=== PATIENT | male | born 1970 | race American Indian/Alaskan Native ===

== ENCOUNTER 2016-05-29 15:24 | Emergency (ER) | payer MEDICARE ==
[2016-05-29] MEDS ORDERED: ZOFRAN ONE (16:17)
[2016-05-29] MEDS ORDERED: ZOFRAN IV ONE (16:23)
[2016-05-29 16:46] LABS: BUN/Creatinine Ratio 7.06; Calcium 9.2 mg/dL (8.4-10.2); Chloride 93.1 mmol/L (98-107)
[2016-05-29 16:48] LABS: Basophils % (Auto) 0.2 % (0.0-1.8); Hematocrit 32.2 % (35.5-45.6); Hemoglobin 10.5 gm/dl (11.8-15.2); Mean Corpuscular HGB Conc 33 % (32-34); Mean Corpuscular Hemoglobin 31 pg (28-32); Mean Corpuscular Volume 96 fl (84-94); Platelet Count 192 K/mm3 (140-440); Red Blood Count 3.37 M/mm3 (3.65-5.03); Red Cell Distribution Width 14.4 % (13.2-15.2)
[2016-05-29] MEDS ORDERED: REGLAN IV ONE (17:01)
[2016-05-29] MEDS ORDERED: SUBLIMAZE IV ONE (17:01)
--- NOTE | 2016-05-29 17:08 | Emergency Department Report ---
HPI - General Chief Complaint: Hyperglycemia Time Seen by Provider: 05/29/16 16:55 - HPI HPI: Room 19 The patient is a 46-year-old male presenting with a chief complaint of nausea and vomiting. The patient states yesterday after eating a turkey sandwich from [employer] immediately developed nausea vomiting. Patient states she's been vomiting since yesterday. Patient denies diarrhea or fever. Patient describes mild left-sided abdominal pain. The patient states his symptoms feel consistent with his gastroparesis. Patient states she has not taken his insulin since last night Location: Gastrointestinal system Duration: Constant since yesterday Quality: Nausea Severity: Moderate Modifying factors: [see above] Context: [see above] Mode of transportation: Unknown ED Past Medical Hx - Past Medical History Previous Medical History?: Yes Hx Hypertension: Yes Hx Diabetes: Yes Hx Renal Disease: Yes (Dialysis , , Sat) Additional medical history: Gastroperesis - Surgical History Past Surgical History?: Yes Additional Surgical History: fistula in left arm - Family History Family history: no significant - Social History Smoking Status: Never Smoker Substance Use Type: None - Medications Home Medications: Home Medications Medication Instructions Recorded Confirmed Last Taken Type Insulin Aspart Prot/Aspart(Nf) 20 units SQ QHS 07/19/13 05/29/16 07/17/13 History [Novolog Mix 70/30] Insulin Aspart Prot/Aspart(Nf) 39 unit SQ QAM 07/19/13 05/29/16 07/18/13 History [Novolog Mix 70/30] amLODIPine [Norvasc] 5 mg PO DAILY 07/19/13 05/29/16 07/18/13 History Dicyclomine [Bentyl] 10 mg PO QID 05/29/16 05/29/16 Unknown History HYDROcodone/APAP 5-325 [[place] 1 - 2 each PO Q6HR PRN #14 tablet 05/29/16 Unknown Rx 5/325] Promethazine [Phenergan TAB] 25 mg PO Q6HR PRN #20 tab 05/29/16 Unknown Rx Promethazine [Phenergan] 25 mg AL Q6HR PRN #5 supp.rect 05/29/16 Unknown Rx ED Review of Systems ROS: Stated complaint: HIGH BLOOD SUGAR Other details as noted in HPI Comment: All other systems reviewed and negative Constitutional: denies: fever Eyes: denies: eye pain, eye discharge, vision change ENT: denies: ear pain, throat pain Respiratory: denies: cough, shortness of breath, wheezing Cardiovascular: denies: chest pain, palpitations Endocrine: no symptoms reported Gastrointestinal: abdominal pain, nausea, vomiting. denies: diarrhea Genitourinary: denies: urgency, dysuria Musculoskeletal: denies: back pain, joint swelling, arthralgia Skin: denies: rash, lesions Neurological: denies: headache, weakness, paresthesias Psychiatric: denies: anxiety, depression Hematological/Lymphatic: denies: easy bleeding, easy bruising Physical Exam - Physical Exam Vital Signs: Vital Signs 05/29/16 05/29/16 05/29/16 15:52 16:00 16:02 Temperature 98.6 F Pulse Rate 91 H 89 89 Respiratory 23 20 Rate Blood Pressure 181/68 Blood Pressure 181/68 [Left] O2 Sat by Pulse 100 100 Oximetry 05/29/16 05/29/16 05/29/16 16:10 16:20 16:30 Temperature Pulse Rate 90 87 88 Respiratory 25 H 18 17 Rate Blood Pressure 180/69 157/61 157/63 Blood Pressure [Left] O2 Sat by Pulse 100 96 87 Oximetry 05/29/16 05/29/16 05/29/16 16:40 16:50 16:56 Temperature Pulse Rate 89 89 Respiratory 18 16 20 Rate Blood Pressure 157/61 187/84 Blood Pressure [Left] O2 Sat by Pulse 89 92 100 Oximetry Physical Exam: GENERAL: The patient is well-developed well-nourished male lying on stretcher appearing to be in moderate discomfort. [] HEENT: Normocephalic. Atraumatic. Extraocular motions are intact. Patient has moist mucous membranes. NECK: Supple. Trachea midline CHEST/LUNGS: Clear to auscultation. There is no respiratory distress noted. HEART/CARDIOVASCULAR: Regular. There is no tachycardia. There is no gallop rub or murmur. ABDOMEN: Abdomen is soft, no rebound or guarding. Patient has normal bowel sounds. There is no abdominal distention. SKIN: There is no rash. There is no edema. There is no diaphoresis. NEURO: The patient is awake, alert, and oriented. The patient is cooperative. The patient has normal speech MUSCULOSKELETAL: There is no evidence of acute injury. ED Course Vital Signs 05/29/16 05/29/1617 15:52 16:00 16:02 Temperature 98.6 F Pulse Rate 91 H 89 89 Respiratory 23 20 Rate Blood Pressure 181/68 Blood Pressure 181/68 [Left] O2 Sat by Pulse 100 100 Oximetry 05/29/16 05/29/16 05/29/16 16:10 16:20 16:30 Temperature Pulse Rate 90 87 88 Respiratory 25 H 18 17 Rate Blood Pressure 180/69 157/61 157/63 Blood Pressure [Left] O2 Sat by Pulse 100 96 87 Oximetry 05/29/16 05/29/16 05/29/16 16:40 16:50 16:56 Temperature Pulse Rate 89 89 Respiratory 18 16 20 Rate Blood Pressure 157/61 187/84 Blood Pressure [Left] O2 Sat by Pulse 89 92 100 Oximetry - Reevaluation(s) Reevaluation #1: 05/29/16 20:37 Patient states he feels better ED Medical Decision Making - Lab Data Result diagrams: 05/29/16 16:08 05/29/16 16:08 Laboratory Tests 05/29/16 05/29/16 05/29/16 16:08 16:08 16:08 WBC 9.0 RBC 3.37 L Hgb 10.5 L Hct 32.2 L MCV 96 H MCH 31 MCHC 33 RDW 14.4 Plt Count 192 Lymph % (Auto) 11.2 L [place] % (Auto) 6.0 Eos % (Auto) 0.0 Baso % (Auto) 0.2 Lymph # 1.0 L [place] # 0.5 Eos # 0.0 Baso # 0.0 Seg Neutrophils % 82.6 H Seg Neutrophils # 7.4 VBG pH 7.394 Sodium 138 Potassium 4.0 Chloride 93.1 L Carbon Dioxide 20 L Anion Gap 29 BUN 65 H Creatinine 9.2 H Estimated GFR 8 BUN/Creatinine Ratio 7.06 Glucose 512 H* Calcium 9.2 - Differential Diagnosis gastroparesis, gastritis, food borne illness Critical care attestation.: If time is entered above; I have spent that time in minutes in the direct care of this critically ill patient, excluding procedure time. ED Disposition Clinical Impression: Nausea & vomiting, Gastroparesis, Hyperglycemia Disposition: DISCHARGED TO HOME OR SELFCARE Is pt being admited?: No Does the pt Need Aspirin: No Condition: Stable Instructions: Acute Nausea and Vomiting (ED) Additional Instructions: Return to the emergency department immediately should you develop worsening symptoms, fever, inability to tolerate food or liquid or any other concerns. Prescriptions: HYDROcodone/APAP 5-325 [[place] 5/325] 1 - 2 each PO Q6HR PRN #14 tablet PRN Reason: Pain Promethazine [Phenergan TAB] 25 mg PO Q6HR PRN #20 tab PRN Reason: Nausea Promethazine [Phenergan] 25 mg AL Q6HR PRN #5 supp.rect PRN Reason: Nausea Referrals: PRIMARY CARE, [Primary Care Provider] - 3-5 Days EL BARTON MD [Staff Physician] - 3-5 Days Time of Disposition: 20:39
[2016-05-29 18:20] LABS: Bilirubin,Urine NEG (Negative); Blood,Urine LG (Negative); Ketones,Urine TR mg/dL (Negative); Leukocyte Esterase,Urine NEG (Negative); Nitrite,Urine NEG (Negative); Urobilinogen,Urine < 2.0 mg/dL (<2.0)
[2016-05-29 21:05] VITALS: BP 152/77
== END 2016-05-29 21:03 | disposition home or self-care (01) ==
LOC: ED 15:24
DX: K31.84 Gastroparesis (principal); E11.65 Type 2 diabetes mellitus with hyperglycemia; I10 Essential (primary) hypertension; Z79.4 Long term (current) use of insulin
CPT/HCPCS: 36415; 80048; 81001; 82010; 82805; 82962; 85025; 96374; 96375; 96376; 99284; J2405; J2765; J3010; J1815

== ENCOUNTER 2017-02-23 18:55 | Inpatient (IN) | payer MEDICARE ==
[2017-02-23 19:27] LABS: Basophils % (Auto) 0.6 % (0.0-1.8); Eosinophils % (Auto) 0.6 % (0.0-4.3); Hematocrit 30.3 % (35.5-45.6); Lymphocytes # (Auto) 1.1 K/mm3 (1.2-5.4); Lymphocytes % (Auto) 13.2 % (13.4-35.0); Mean Corpuscular HGB Conc 33 % (32-34); Mean Corpuscular Hemoglobin 31 pg (28-32); Mean Corpuscular Volume 95 fl (84-94); Monocytes # (Auto) 0.8 K/mm3 (0.0-0.8); Monocytes % (Auto) 9.7 % (0.0-7.3); Platelet Count 263 K/mm3 (140-440); Red Cell Distribution Width 13.7 % (13.2-15.2)
[2017-02-23 19:44] LABS: Calcium 8.5 mg/dL (8.4-10.2)
[2017-02-23 21:20] LABS: Bacteria,Urine 1+ /HPF (Negative); Bilirubin,Urine NEG (Negative); Blood,Urine MOD (Negative); Color,Urine Yellow (Yellow); Mucus,Urine FEW /HPF; Nitrite,Urine NEG (Negative); Urobilinogen,Urine < 2.0 mg/dL (<2.0)
[2017-02-24] MEDS ORDERED: ZOFRAN IV ONE (01:18)
[2017-02-24] MEDS ORDERED: TORADOL IV ONE (01:18)
[2017-02-24] MEDS ORDERED: MORPHINE IV ONE (01:18)
--- NOTE | 2017-02-24 01:25 | Emergency Department Report ---
ED N/V/D HPI - General Chief complaint: Nausea/Vomiting/Diarrhea Stated complaint: NAUSEA/VOMITING Time Seen by Provider: 02/24/17 00:30 Source: patient Mode of arrival: Wheelchair Limitations: No Limitations - History of Present Illness Initial comments: 47 YO MALE PT IS NAUSEA, VOMITING INTERMITTENT SINCE 02/18/17 HE ALSO C/O RIGHT FOOT PAIN. HE FEELS HAS DECUBITUS FOOT ULCERATIONS AND JUST FINISHED AMOXICILIN BUT THEY HAVE NOT IMPROVED.. HE HAS A RUNNY NOSE, RIGHT EAR PAIN, FEVER AND CHILLS. HE AND DIALYSIS TODAY. HE IS HAVIANG MUSCLE ACHES. MD complaint: nausea, vomiting -: week(s) (1) Description of Vomiting: food contents Associated Abdominal Pain: No Context: other (UNKNOWN,PERHAP[S DM TYPE II) - Related Data Home Medications Medication Instructions Recorded Confirmed Last Taken Insulin Aspart Prot/Aspart(Nf) 20 units SQ QHS 07/19/13 05/29/16 07/17/13 [Novolog Mix 70/30] Insulin Aspart Prot/Aspart(Nf) 39 unit SQ QAM 07/19/13 05/29/16 07/18/13 [Novolog Mix 70/30] amLODIPine [Norvasc] 5 mg PO DAILY 07/19/13 05/29/16 07/18/13 Dicyclomine [Bentyl] 10 mg PO QID 05/29/16 05/29/16 Unknown Previous Rx's Medication Instructions Recorded Last Taken Type HYDROcodone/APAP 5-325 [[place] 1 - 2 each PO Q6HR PRN #14 tablet 05/29/16 Unknown Rx 5/325] Promethazine [Phenergan TAB] 25 mg PO Q6HR PRN #20 tab 05/29/16 Unknown Rx Promethazine [Phenergan] [address] Q6HR PRN #5 supp.rect 05/29/16 Unknown Rx Allergies Allergy/AdvReac Type Severity Reaction Status Date / Time amoxicillin Allergy Vomiting Verified 02/23/17 19:02 cephalexin [From Keflex] Allergy Vomiting Verified 02/23/17 19:02 ED Review of Systems ROS: Stated complaint: NAUSEA/VOMITING Other details as noted in HPI Constitutional: chills, fever, malaise, weakness Eyes: denies: eye pain, eye discharge, vision change ENT: ear pain (RIGHT ). denies: throat pain Respiratory: denies: cough, shortness of breath, wheezing Cardiovascular: denies: chest pain, palpitations Endocrine: no symptoms reported Gastrointestinal: abdominal pain, nausea, vomiting. denies: diarrhea Genitourinary: denies: urgency, dysuria Musculoskeletal: denies: back pain, joint swelling, arthralgia Skin: denies: rash, lesions Neurological: denies: headache, weakness, paresthesias Psychiatric: denies: anxiety, depression Hematological/Lymphatic: denies: easy bleeding, easy bruising ED Past Medical Hx - Past Medical History Hx Hypertension: Yes Hx Diabetes: Yes Hx Renal Disease: Yes (Dialysis Tues, Th, Sat) Additional medical history: Gastroperesis - Surgical History Additional Surgical History: fistula in left arm - Social History Smoking Status: Never Smoker Substance Use Type: None - Medications Home Medications: Home Medications Medication Instructions Recorded Confirmed Last Taken Type Insulin Aspart Prot/Aspart(Nf) 20 units SQ QHS 07/19/13 05/29/16 07/17/13 History [Novolog Mix 70/30] Insulin Aspart Prot/Aspart(Nf) 39 unit SQ QAM 07/19/13 05/29/16 07/18/13 History [Novolog Mix 70/30] amLODIPine [Norvasc] 5 mg PO DAILY 07/19/13 05/29/16 07/18/13 History Dicyclomine [Bentyl] 10 mg PO QID 05/29/16 05/29/16 Unknown History HYDROcodone/APAP 5-325 [[place] 1 - 2 each PO Q6HR PRN #14 tablet 05/29/16 Unknown Rx 5/325] Promethazine [Phenergan TAB] 25 mg PO Q6HR PRN #20 tab 05/29/16 Unknown Rx Promethazine [Phenergan] [address] Q6HR PRN #5 supp.rect 05/29/16 Unknown Rx ED Physical Exam - General Limitations: No Limitations General appearance: alert, in no apparent distress - Head Head exam: Present: atraumatic, normocephalic - Eye Eye exam: Present: normal appearance, EOMI - ENT ENT exam: Present: mucous membranes moist - Neck Neck exam: Present: normal inspection, full ROM - Respiratory Respiratory exam: Present: normal lung sounds bilaterally. Absent: respiratory distress, wheezes, rales, rhonchi - Cardiovascular Cardiovascular Exam: Present: regular rate, normal rhythm. Absent: systolic murmur, diastolic murmur, rubs, gallop - GI/Abdominal GI/Abdominal exam: Present: soft, tenderness (LOWER ABDOMEN), normal bowel sounds - Rectal Rectal exam: Present: deferred - Extremities Exam Extremities exam: Present: full ROM, other (BILATERAL ULCERATIONS ON THE BOTTOM OF THE FEET STAGE 2 ULCERATIONS) - Back Exam Back exam: Present: normal inspection, full ROM - Neurological Exam Neurological exam: Present: alert, oriented X3, CN II-XII intact - Psychiatric Psychiatric exam: Present: normal affect, normal mood - Skin Skin exam: Present: warm, dry, intact, normal color. Absent: rash ED Course Vital Signs 02/23/17 02/23/17 02/24/17 19:02 23:53 01:49 Temperature 99.7 F H 99.3 F Pulse Rate 98 H 98 H Respiratory 20 18 16 Rate Blood Pressure 163/69 Blood Pressure 152/70 [Right] O2 Sat by Pulse 100 99 Oximetry 02/24/17 01:50 Temperature 99.8 F H Pulse Rate 101 H Respiratory 16 Rate Blood Pressure Blood Pressure 156/60 [Right] O2 Sat by Pulse 100 Oximetry ED Medical Decision Making - Lab Data Result diagrams: 02/23/17 19:14 02/23/17 19:14 - Radiology Data Radiology results: report reviewed (ACUTE ABD SERIES:NEGATIVE) Critical care attestation.: If time is entered above; I have spent that time in minutes in the direct care of this critically ill patient, excluding procedure time. ED Disposition Clinical Impression: Strep pharyngitis Nausea & vomiting Qualifiers: Vomiting type: unspecified Vomiting Intractability: unspecified Qualified Code( s): R11.2 - Nausea with vomiting, unspecified Hyperglycemia due to type 2 diabetes mellitus Qualifiers: Diabetes mellitus terminal operations supervisor insulin use: unspecified senior living insulin use status Qualified Code(s): E11.65 - Type 2 diabetes mellitus with hyperglycemia Anemia Qualifiers: Anemia type: due to chronic kidney disease Chronic kidney disease stage: on chronic dialysis Qualified Code(s): N18.6 - End stage renal disease; D63.1 - Anemia in chronic kidney disease; D63.1 - Anemia in chronic kidney disease; Z99.2 - Dependence on renal dialysis; Z99.2 - Dependence on renal dialysis; Z99.2 - Dependence on renal dialysis; Z99.2 - Dependence on renal dialysis Renal failure Qualifiers: Renal failure chronicity: chronic Chronic kidney disease stage: on chronic dialysis Qualified Code(s): N18.6 - End stage renal disease; Z99.2 - Dependence on renal dialysis; Z99.2 - Dependence on renal dialysis; Z99.2 - Dependence on renal dialysis; Z99.2 - Dependence on renal dialysis UTI (urinary tract infection) Qualifiers: Urinary tract infection type: acute cystitis Hematuria presence: with hematuria Qualified Code(s): N30.01 - Acute cystitis with hematuria Disposition: OP ADMIT IP TO THIS HOSP Is pt being admited?: Yes Does the pt Need Aspirin: No Condition: Stable Instructions: Diabetes Mellitus Type 2 in Adults (ED) Referrals: CESAR ELDRIDGE MD [Primary Care Provider] - 3-5 Days Time of Disposition: 05:57 (DR UNIQUE VARGHESE AND CASE REVIEWED,SHE JUANPABLO HAVE DR WALKER SEE AND ADMIT THE PT)
[2017-02-24] MEDS ORDERED: TYLENOL PO ONE (01:28)
[2017-02-24 01:51] LABS: Albumin 3.6 g/dL (3.9-5)
[2017-02-24 02:10] LABS: Alanine Aminotransferase 7 units/L (7-56)
[2017-02-24 02:13] LABS: Bilirubin,Direct < 0.2 mg/dL (0-0.2)
[2017-02-24] MEDS ORDERED: CLEOCIN 900 MG/50 mL 900 MG/50 ML BAG IV ONE (04:55)
[2017-02-24 05:34] LABS: Creatine Kinase MB 1.3 ng/mL (0.0-4.0)
[2017-02-24 06:07] LABS: Chol/HDL Ratio 3.35 %
[2017-02-24] MEDS ORDERED: SUBLIMAZE IV ONE (06:07)
[2017-02-24] MEDS ORDERED: BENADRYL IV ONE (07:03)
[2017-02-24] MEDS ORDERED: NORCO 5/325 PO PRN (08:34)
[2017-02-24] MEDS ORDERED: PHENERGAN PR PRN (08:34)
[2017-02-24] MEDS ORDERED: TYLENOL PO PRN (08:35)
[2017-02-24] MEDS ORDERED: ZOFRAN IV PRN (08:35)
[2017-02-24] MEDS ORDERED: D50W (25GM) Syringe IV PRN (08:35)
--- NOTE | 2017-02-24 08:44 | History and Physical Report ---
History of Present Illness Chief complaint: Nausea and vomiting History of present illness: This is a 47-year-old male with past medical history of end-stage renal disease hypertension diabetes, gastroparesis who presents with nausea vomiting unable to tolerate solid foods since . He states that he's only been to eat a little bites of food he vomits them up shortly after. Complaining of fatigue, complaining of exhaustion, he also said he had a runny nose previously but has now resolved, he also had some right ear pain but that has now resolved. Of note he has right foot pain and wound that is not healing, he recently received amoxicillin from Dr. Paulino, states that he didn't seem to work as the foot has not improved, he denies allergy to amoxicillin even though it was documented in the EMR. He wears diabetic shoes every day as recommended by his speed belt sander tender. He is complaining of lethargy and muscle aches. He states that when he vomits it appears to be food contents only. Denies fevers, denies chills. Past History Past Medical History: diabetes, dialysis, ESRD, hypertension, other ( gastroparesis) Past Surgical History: Other (AV graft) Social history: smoking (former) Family history: diabetes, hypertension Medications and Allergies Allergies Allergy/AdvReac Type Severity Reaction Status Date / Time amoxicillin Allergy Vomiting Verified 02/23/17 19:02 cephalexin [From Keflex] Allergy Vomiting Verified 02/23/17 19:02 Home Medications Medication Instructions Recorded Confirmed Last Taken Type Insulin Aspart Prot/Aspart(Nf) 20 units SQ QHS 07/19/13 05/29/16 07/17/13 History [Novolog Mix 70/30] Insulin Aspart Prot/Aspart(Nf) 39 unit SQ QAM 07/19/13 05/29/16 07/18/13 History [Novolog Mix 70/30] amLODIPine [Norvasc] 5 mg PO DAILY 07/19/13 05/29/16 07/18/13 History Dicyclomine [Bentyl] 10 mg PO QID 05/29/16 05/29/16 Unknown History HYDROcodone/APAP 5-325 [[place] 1 - 2 each PO Q6HR PRN #14 tablet 05/29/16 Unknown Rx 5/325] Promethazine [Phenergan TAB] 25 mg PO Q6HR PRN #20 tab 05/29/16 Unknown Rx Promethazine [Phenergan] 25 mg [place] Q6HR PRN #5 supp.rect 05/29/16 Unknown Rx Active Meds: Active Medications Acetaminophen (Tylenol) 650 mg PO Q4H PRN PRN Reason: Pain MILD(1-3)/Fever >100.5/OSBORN Acetaminophen/Hydrocodone Bitart ([place] 5/325) 1 each PO Q6HR PRN PRN Reason: Pain Amlodipine Besylate (Norvasc) 5 mg PO DAILY DAFNE Bisacodyl (Dulcolax) 10 mg DE QDAY PRN PRN Reason: Constipation unrelieved by MOM Dextrose (D50w (25gm) Syringe) 50 ml IV PRN PRN PRN Reason: Hypoglycemia Dicyclomine HCl (Bentyl) 10 mg PO QID DAFNE Heparin Sodium (Porcine) (Heparin) 5,000 unit SUB-Q Q8HR DAFNE Insulin Aspart (Novolog) 0 units SUB-Q ACHS DAFNE PRN Reason: Protocol Morphine Sulfate (Morphine) 2 mg IV Q4H PRN PRN Reason: Pain, Moderate (4-6) Ondansetron HCl (Zofran) 4 mg IV Q8H PRN PRN Reason: N/V unrelieved by Reglan Promethazine HCl (Phenergan) 25 mg DE Q6HR PRN PRN Reason: Nausea Review of Systems All systems: negative (as stated in HPI, 14 point ROS is otherwise negative) Constitutional: lethargy Ears, nose, mouth and throat: ear pain (right), nasal congestion Cardiovascular: no chest pain Respiratory: no shortness of breath Gastrointestinal: abdominal pain, nausea, vomiting Musculoskeletal: other (Right foot pain and redness) Exam - Constitutional Vitals: Temp Pulse Resp BP Pulse Ox 99.8 F H 101 H 16 156/60 100 02/24/17 01:50 02/24/17 01:50 02/24/17 06:41 02/24/17 01:50 02/24/17 01:50 General appearance: Present: mild distress, well-nourished - EENT Eyes: Present: PERRL ENT: hearing intact, clear oral mucosa, other (right tympanic membrane appears normal, no redness, no drainage), no hearing decreased - Neck Neck: Present: supple, normal ROM - Respiratory Respiratory effort: normal Respiratory: bilateral: CTA - Cardiovascular Heart Sounds: Present: S1 & S2. Absent: rub, click - Extremities Extremities: pulses symmetrical, No edema Extremity abnormal: erythema (Right foot), tenderness (R foot), other ( unstageable decubitus on the right foot, there are 2, one is in the upper r plantar side of the foot the other one is in the mid right plantar side of the foot) Peripheral Pulses: within normal limits - Abdominal General gastrointestinal: Present: soft, non-tender, non-distended, normal bowel sounds Male genitourinary: Present: normal - Integumentary Integumentary: Present: clear, warm, dry - Musculoskeletal Musculoskeletal: gait normal, strength equal bilaterally - Psychiatric Psychiatric: appropriate mood/affect, intact judgment & insight - Neurologic Neurologic: CNII-XII intact, moves all extremities Results - Labs CBC & Chem 7: 02/23/17 19:14 02/23/17 19:14 Labs: Laboratory Last Values WBC 8.7 K/mm3 (4.5-11.0) 02/23/17 19:14 RBC 3.20 M/mm3 (3.65-5.03) L 02/23/17 19:14 Hgb 10.0 gm/dl (11.8-15.2) L 02/23/17 19:14 Hct 30.3 % (35.5-45.6) L 02/23/17 19:14 MCV 95 fl (84-94) H 02/23/17 19:14 MCH 31 pg (28-32) 02/23/17 19:14 MCHC 33 % (32-34) 02/23/17 19:14 RDW 13.7 % (13.2-15.2) 02/23/17 19:14 Plt Count 263 K/mm3 (140-440) 02/23/17 19:14 Lymph % (Auto) 13.2 % (13.4-35.0) L 02/23/17 19:14 [place] % (Auto) 9.7 % (0.0-7.3) H 02/23/17 19:14 Eos % (Auto) 0.6 % (0.0-4.3) 02/23/17 19:14 Baso % (Auto) 0.6 % (0.0-1.8) 02/23/17 19:14 Lymph # 1.1 K/mm3 (1.2-5.4) L 02/23/17 19:14 [place] # 0.8 K/mm3 (0.0-0.8) 02/23/17 19:14 Eos # 0.0 K/mm3 (0.0-0.4) 02/23/17 19:14 Baso # 0.0 K/mm3 (0.0-0.1) 02/23/17 19:14 Seg Neutrophils % 75.9 % (40.0-70.0) H 02/23/17 19:14 Seg Neutrophils # 6.6 K/mm3 (1.8-7.7) 02/23/17 19:14 VBG pH 7.519 (7.320-7.420) H 02/23/17 19:14 Sodium 136 mmol/L (137-145) L 02/23/17 19:14 Potassium 3.8 mmol/L (3.6-5.0) 02/23/17 19:14 Chloride 94.3 mmol/L (98-107) L 02/23/17 19:14 Carbon Dioxide 24 mmol/L (22-30) 02/23/17 19:14 Anion Gap 22 mmol/L 02/23/17 19:14 BUN 23 mg/dL (9-20) H 02/23/17 19:14 Creatinine 4.7 mg/dL (0.8-1.5) H 02/23/17 19:14 Estimated GFR 16 ml/min 02/23/17 19:14 BUN/Creatinine Ratio 5 % 02/23/17 19:14 Glucose 304 mg/dL (75-100) H 02/23/17 19:14 POC Glucose 330 (70-105) H 02/23/17 19:06 Calcium 8.5 mg/dL (8.4-10.2) 02/23/17 19:14 Total Bilirubin 0.40 mg/dL (0.1-1.2) 02/24/17 01:20 Direct Bilirubin < 0.2 mg/dL (0-0.2) 02/24/17 01:20 Indirect Bilirubin 0.2 mg/dL 02/24/17 01:20 AST 11 units/L (5-40) 02/24/17 01:20 ALT 7 units/L (7-56) 02/24/17 01:20 Alkaline Phosphatase 92 units/L (35-129) 02/24/17 01:20 Total Creatine Kinase 115 units/L (55-170) 02/24/17 05:16 CK-MB (CK-2) 1.3 ng/mL (0.0-4.0) 02/24/17 05:16 CK-MB (CK-2) Rel Index 1.1 (0-4) 02/24/17 05:16 Troponin T 0.122 ng/mL (0.00-0.029) H* 02/24/17 05:16 Total Protein 7.3 g/dL (6.3-8.2) 02/24/17 01:20 Albumin 3.6 g/dL (3.9-5) L 02/24/17 01:20 Albumin/Globulin Ratio 1.0 % 02/24/17 01:20 Triglycerides 82 mg/dL (2-149) 02/24/17 05:16 Cholesterol 141 mg/dL (50-199) 02/24/17 05:16 LDL Cholesterol Direct 83 mg/dL (50-130) 02/24/17 05:16 HDL Cholesterol 42 mg/dL (40-59) 02/24/17 05:16 Cholesterol/HDL Ratio 3.35 % 02/24/17 05:16 Urine Color Yellow (Yellow) 02/23/17 21:00 Urine Turbidity Slightly-cloudy (Clear) 02/23/17 21:00 Urine pH 5.0 (5.0-7.0) 02/23/17 21:00 Ur Specific [place] 1.013 (1.003-1.030) 02/23/17 21:00 Urine Protein 30 mg/dl mg/dL (Negative) 02/23/17 21:00 Urine Glucose (UA) >=500 mg/dL (Negative) 02/23/17 21:00 Urine Ketones Neg mg/dL (Negative) 02/23/17 21:00 Urine Blood Mod (Negative) 02/23/17 21:00 Urine Nitrite Neg (Negative) 02/23/17 21:00 Urine Bilirubin Neg (Negative) 02/23/17 21:00 Urine Urobilinogen < 2.0 mg/dL (<2.0) 02/23/17 21:00 Ur Leukocyte Esterase Mod (Negative) 02/23/17 21:00 Urine WBC (Auto) 45.0 /HPF (0.0-6.0) H 02/23/17 21:00 Urine RBC (Auto) 5.0 /HPF (0.0-6.0) 02/23/17 21:00 U Epithel Cells (Auto) < 1.0 /HPF (0-13.0) 02/23/17 21:00 Urine Bacteria (Auto) 1+ /HPF (Negative) 02/23/17 21:00 Urine WBC Clumps 2+ /HPF 02/23/17 21:00 Urine Mucus Few /HPF 02/23/17 21:00 - Imaging and Cardiology Chest x-ray: image reviewed (RLL infiltrate) Assessment and Plan Assessment and plan: 47-year-old man who presents with intractable nausea vomiting, hyperglycemia, and chronic unstageable decubiti of his right foot Acute flare of Gastroparesis with intractable vomiting * Antiemetics, advance diet as tolerated R foot unstageable decubiti, present on admission * Wound care consults * Wonder if there is a vascular component to this as he has very poor pulses in the extremity, vascular consult placed * obtain arterial and venous Dopplers along with KAYDEN DM with hyperglycemia * Resume insulins, is to dose giving vomiting HTN * Resume blood pressure medications Elevated Troponin * Patient denies chest pain, this is most likely non-PR elevated troponin due to antecedent renal disease * We'll repeat troponin at 4 PM, to ensure that it is stable, patient will benefit from stress testing when improved UTI? * already on abx, fup urine cx * Low suspicion of UTI given that patient is end-stage renal disease, or?Pyuria might just be sediments and epithelial cells ESRD * consult Nephrology for HD [place] HCAP * empiric abx, for 7 days * Suspect gram-positive bacteria, but will also cover for gram negatives and atypicals also DVT ppx heparin sq
--- NOTE | 2017-02-24 09:34 | XRay Report ---
Single view chest: History: Fever. Findings: Cardiomegaly. Trachea is midline there is suspicion of infiltrates right lower lobe. Normal CP angles. Impression: Suspicion of right lower lobe infiltrate.
--- NOTE | 2017-02-24 09:35 | XRay Report ---
Single view abdomen: History: Abdominal pain, nausea vomiting. Findings: No bowel distention or wall thickening. Stool in colon. No radiopaque calculus or abnormal calcification. Impression: Essentially negative abdomen.
[2017-02-24] MEDS ORDERED: DULCOLAX PR PRN (10:00)
[2017-02-24] MEDS: BENTYL PO SCH ×3 (10:57→18:07)
[2017-02-24] MEDS: NORVASC PO SCH (10:57)
[2017-02-24] MEDS: NOVOLOG SUB-Q SCH ×2 (12:54→18:07)
[2017-02-24] MEDS ORDERED: LEVAQUIN 750MG/150ML 750 MG/150 ML BAG IV ONE ×2 (13:00→17:33)
[2017-02-24] MEDS: MORPHINE IV PRN ×2 (13:43→18:35)
[2017-02-24] MEDS: HEPARIN SUB-Q SCH (15:48)
[2017-02-25] MEDS: MORPHINE IV PRN ×4 (00:27→22:20)
[2017-02-25] MEDS: LEVEMIR SUB-Q SCH ×2 (01:27→22:05)
[2017-02-25] MEDS: NOVOLOG SUB-Q SCH ×5 (01:30→22:05)
[2017-02-25] MEDS: HEPARIN SUB-Q SCH ×4 (01:31→22:18)
[2017-02-25] MEDS: BENTYL PO SCH ×5 (01:39→22:04)
[2017-02-25 05:07] LABS: Basophils % (Auto) 0.5 % (0.0-1.8); Eosinophils # (Auto) 0.1 K/mm3 (0.0-0.4); Eosinophils % (Auto) 1.4 % (0.0-4.3); Hematocrit 26.3 % (35.5-45.6); Hemoglobin 8.6 gm/dl (11.8-15.2); Lymphocytes # (Auto) 1.7 K/mm3 (1.2-5.4); Lymphocytes % (Auto) 22.8 % (13.4-35.0); Mean Corpuscular HGB Conc 33 % (32-34); Mean Corpuscular Hemoglobin 32 pg (28-32); Mean Corpuscular Volume 97 fl (84-94); Monocytes # (Auto) 0.7 K/mm3 (0.0-0.8); Monocytes % (Auto) 9.2 % (0.0-7.3); Platelet Count 265 K/mm3 (140-440); Red Blood Count 2.71 M/mm3 (3.65-5.03)
[2017-02-25 05:38] LABS: Calcium 8.3 mg/dL (8.4-10.2)
[2017-02-25] MEDS: NORVASC PO SCH (10:00)
--- NOTE | 2017-02-25 11:15 | Consultation ---
History of Present Illness - Reason for Consult Consult date: 02/25/17 right foot ulcer Requesting physician: DINESH WALKER - History of Present Illness 47-year-old male with past medical history of end-stage renal disease hypertension diabetes, gastroparesis who presents with nausea vomiting unable to tolerate solid foods since . He was admitted to medical service with by mouth intolerance. She also undergoing cardiac workup. Patient has end-stage renal disease on hemodialysis via left arm AV fistula, diabetes, hypertension, gastroparesis. He has been managed by podiatry for right plantar surface ulcer that he has had for about a month. She denies fever , chills, discharge from the wound. Mastisol surgeon was consulted for evaluation of left flow. Patient had venous and arterial duplexes. Given his the post was negative for DVT and arterial duplex showed blood flow to the foot with biphasic and monophasic signals. Past History Past Medical History: diabetes, dialysis, ESRD, hypertension, other ( gastroparesis) Past Surgical History: Other (AV graft) Social history: smoking (former) Family history: diabetes, hypertension Medications and Allergies Allergies Allergy/AdvReac Type Severity Reaction Status Date / Time cephalexin [From Keflex] Allergy Vomiting Verified 02/23/17 19:02 Home Medications Medication Instructions Recorded Confirmed Last Taken Type Insulin Aspart Prot/Aspart(Nf) 20 units SQ QHS 07/19/13 05/29/16 07/17/13 History [Novolog Mix 70/30] Insulin Aspart Prot/Aspart(Nf) 39 unit SQ QAM 07/19/13 05/29/16 07/18/13 History [Novolog Mix 70/30] amLODIPine [Norvasc] 5 mg PO DAILY 07/19/13 05/29/16 07/18/13 History Dicyclomine [Bentyl] 10 mg PO QID 05/29/16 05/29/16 Unknown History HYDROcodone/APAP 5-325 [[place] 1 - 2 each PO Q6HR PRN #14 tablet 05/29/16 Unknown Rx 5/325] Promethazine [Phenergan TAB] 25 mg PO Q6HR PRN #20 tab 05/29/16 Unknown Rx Promethazine [Phenergan] 25 mg CO Q6HR PRN #5 supp.rect 05/29/16 Unknown Rx Active Meds: Active Medications Acetaminophen (Tylenol) 650 mg PO Q4H PRN PRN Reason: Pain MILD(1-3)/Fever >100.5/OSBORN Acetaminophen/Hydrocodone Bitart ([place] 5/325) 1 each PO Q6H PRN PRN Reason: Pain Amlodipine Besylate (Norvasc) 5 mg PO DAILY [facility] Last Admin: 02/24/17 10:57 Dose: 5 mg Bisacodyl (Dulcolax) 10 mg CO QDAY PRN PRN Reason: Constipation unrelieved by MOM Dextrose (D50w (25gm) Syringe) 50 ml IV PRN PRN PRN Reason: Hypoglycemia Dicyclomine HCl (Bentyl) 10 mg PO QID [facility] Last Admin: 02/25/17 01:39 Dose: Not Given Heparin Sodium (Porcine) (Heparin) 5,000 unit SUB-Q Q8HR [facility] Last Admin: 02/25/17 07:06 Dose: 5,000 unit Levofloxacin/Dextrose (Levaquin 500mg/100ml) 500 mg in 100 mls @ 100 mls/hr IV Q48H [facility] Influenza Virus Vaccine Quadrival (Fluarix Quad [id number](36 Mos+) 0.5 ml IM .ONCE ONE Stop: 02/25/17 12:01 Insulin Aspart (Novolog) 0 units SUB-Q ACHS [facility] PRN Reason: Protocol Last Admin: 02/25/17 01:30 Dose: 6 units Insulin Detemir (Levemir) 40 units SUB-Q QHS [facility] Last Admin: 02/25/17 01:27 Dose: 40 units Morphine Sulfate (Morphine) 2 mg IV Q4H PRN PRN Reason: Pain, Moderate (4-6) Last Admin: 02/25/17 00:27 Dose: 2 mg Ondansetron HCl (Zofran) 4 mg IV Q8H PRN PRN Reason: N/V unrelieved by Reglan Pneumococcal Polyvalent Vaccine (Pneumovax 23) 0.5 ml IM .ONCE ONE Stop: 02/25/17 12:01 Promethazine HCl (Phenergan) 25 mg CO Q6H PRN PRN Reason: Nausea Review of Systems All systems: negative (mentioned in HPI) Ears, nose, mouth and throat: deferred Exam - Physical Exam Narrative exam: Right foot has scaling of epidermis on plantar surface as well as black eschar on the mid lateral surface of the foot. There is no foul-smelling discharge, wound appears dry. Pulses decreased throughout upper and lower extremities. Feet are warm. No signs of ischemic changes. Motor and sensory intact. Left upper extremity AV fistula with good thrill. - Constitutional Vitals: Temp Pulse Resp BP Pulse Ox 98.3 F 84 16 143/68 96 02/25/17 07:54 02/25/17 07:54 02/25/17 07:54 02/25/17 07:54 02/25/17 07:54 Results - Labs CBC & Chem 7: 02/25/17 04:30 02/25/17 04:30 Labs: Abnormal lab results 02/24/17 02/24/17 02/24/17 Range/Units 12:52 16:13 16:13 RBC (3.65-5.03) M/mm3 Hgb (11.8-15.2) gm/dl Hct (35.5-45.6) % MCV (84-94) fl [place] % (Auto) (0.0-7.3) % Sodium (137-145) mmol/L Chloride (98-107) mmol/L BUN (9-20) mg/dL Creatinine (0.8-1.5) mg/dL Glucose (75-100) mg/dL POC Glucose 474 H (70-105) Hemoglobin A1c 11.2 H (4-6) % Calcium (8.4-10.2) mg/dL Troponin T 0.117 H* (0.00-0.029) ng/mL 02/24/17 02/25/17 02/25/17 Range/Units 17:11 00:51 04:30 RBC 2.71 L (3.65-5.03) M/mm3 Hgb 8.6 L (11.8-15.2) gm/dl Hct 26.3 L (35.5-45.6) % MCV 97 H (84-94) fl [place] % (Auto) 9.2 H (0.0-7.3) % Sodium (137-145) mmol/L Chloride (98-107) mmol/L BUN (9-20) mg/dL Creatinine (0.8-1.5) mg/dL Glucose (75-100) mg/dL POC Glucose 357 H 259 H (70-105) Hemoglobin A1c (4-6) % Calcium (8.4-10.2) mg/dL Troponin T (0.00-0.029) ng/mL 02/25/17 02/25/17 Range/Units 04:30 06:04 RBC (3.65-5.03) M/mm3 Hgb (11.8-15.2) gm/dl Hct (35.5-45.6) % MCV (84-94) fl [place] % (Auto) (0.0-7.3) % Sodium 135 L (137-145) mmol/L Chloride 94.6 L (98-107) mmol/L BUN 40 H (9-20) mg/dL Creatinine 7.2 H D (0.8-1.5) mg/dL Glucose 206 H (75-100) mg/dL POC Glucose 180 H (70-105) Hemoglobin A1c (4-6) % Calcium 8.3 L (8.4-10.2) mg/dL Troponin T (0.00-0.029) ng/mL Assessment and Plan Right foot wound Duplex was negative Arterial duplex showed biphasic and monophasic blood flow in the distal tibial vessels. There was no high-grade stenosis areas according to the duplex velocities. Will also order ABIs with toe pressures to confirm good blood flow for healing. If positive will plan for angiogram for bloodflow optimization. Plan discussed with patient in details. Wound care and podiatry for ulcer management.
[2017-02-25] MEDS ORDERED: Fluarix Quad 2017-2018(36 MOS+ IM ONE (12:00)
[2017-02-25] MEDS ORDERED: PNEUMOVAX 23 IM ONE (12:00)
--- NOTE | 2017-02-25 15:26 | Consultation ---
History of Present Illness - Reason for Consult Consult date: 02/25/17 end stage renal disease - History of Present Illness Ms Fry is a 47 y/o M with a PMH of ESRD on HD, HTN, DM, Gastroparesis who has been admitted to the [facility] with worsening nausea, vomiting, poor appetite since 1 week. Pt is on HD TTS via LUE AVG. He last got dialyzed on Saturday. Pt denies SHOB, chest pain, fever, cough. He does have generalized weakness and fatigue. ROS: As in HPI other garcia 12 point review of systems -ve Past History Past Medical History: diabetes, dialysis, ESRD, hypertension, other ( gastroparesis) Past Surgical History: Other (AV graft) Social history: smoking (former) Family history: diabetes, hypertension Medications and Allergies Allergies Allergy/AdvReac Type Severity Reaction Status Date / Time cephalexin [From Keflex] Allergy Vomiting Verified 02/23/17 19:02 Home Medications Medication Instructions Recorded Confirmed Last Taken Type Insulin Aspart Prot/Aspart(Nf) 20 units SQ QHS 07/19/13 05/29/16 07/17/13 History [Novolog Mix 70/30] Insulin Aspart Prot/Aspart(Nf) 39 unit SQ QAM 07/19/13 05/29/16 07/18/13 History [Novolog Mix 70/30] amLODIPine [Norvasc] 5 mg PO DAILY 07/19/13 05/29/16 07/18/13 History Dicyclomine [Bentyl] 10 mg PO QID 05/29/16 05/29/16 Unknown History HYDROcodone/APAP 5-325 [[place] 1 - 2 each PO Q6HR PRN #14 tablet 05/29/16 Unknown Rx 5/325] Promethazine [Phenergan TAB] 25 mg PO Q6HR PRN #20 tab 05/29/16 Unknown Rx Promethazine [Phenergan] 25 mg [place] Q6HR PRN #5 supp.rect 05/29/16 Unknown Rx Active Meds: Active Medications Acetaminophen (Tylenol) 650 mg PO Q4H PRN PRN Reason: Pain MILD(1-3)/Fever >100.5/OSBORN Acetaminophen/Hydrocodone Bitart ([place] 5/325) 1 each PO Q6H PRN PRN Reason: Pain Amlodipine Besylate (Norvasc) 5 mg PO DAILY [facility] Last Admin: 02/24/17 10:57 Dose: 5 mg Bisacodyl (Dulcolax) 10 mg [place] QDAY PRN PRN Reason: Constipation unrelieved by MOM Dextrose (D50w (25gm) Syringe) 50 ml IV PRN PRN PRN Reason: Hypoglycemia Dicyclomine HCl (Bentyl) 10 mg PO QID [facility] Last Admin: 02/25/17 14:07 Dose: 10 mg Heparin Sodium (Porcine) (Heparin) 5,000 unit SUB-Q Q8HR [facility] Last Admin: 02/25/17 14:08 Dose: 5,000 unit Levofloxacin/Dextrose (Levaquin 500mg/100ml) 500 mg in 100 mls @ 100 mls/hr IV Q48H [facility] Insulin Aspart (Novolog) 0 units SUB-Q ACHS [facility] PRN Reason: Protocol Last Admin: 02/25/17 11:30 Dose: Not Given Insulin Detemir (Levemir) 40 units SUB-Q QHS [facility] Last Admin: 02/25/17 01:27 Dose: 40 units Morphine Sulfate (Morphine) 2 mg IV Q4H PRN PRN Reason: Pain, Moderate (4-6) Last Admin: 02/25/17 14:08 Dose: 2 mg Ondansetron HCl (Zofran) 4 mg IV Q8H PRN PRN Reason: N/V unrelieved by Reglan Promethazine HCl (Phenergan) 25 mg [place] Q6H PRN PRN Reason: Nausea Exam - Vital Signs Vital signs: Vital Signs Temp Pulse Resp BP Pulse Ox 99.7 F H 98 H 20 163/69 100 02/23/17 19:02 02/23/17 19:02 02/23/17 19:02 02/23/17 19:02 02/23/17 19:02 - Physical Exam Narrative exam: [id number] HEENT: PERRLA Neck: No JVD CVS: RRR Chest: Coarse BS BL Abd: Soft/NT/ND/BS+ Ext: Right diabetic foot ulcer, LUE AVG with good thrill Psyche: Appropriate mood Results - Lab Results 02/25/17 04:30 02/25/17 04:30 Most recent lab results Calcium 8.3 mg/dL (8.4-10.2) L 02/25/17 04:30 Assessment and Plan ESRD on Hemodialysis: -TTS via LUE AVG Outpatient -No HD today, Plan for HD tomorrow. -Renally dose all meds -Check BMP/Mg/Phos daily Diabetic Gastroparesis: Nausea and vomiting: -On Antiemetics. Per primary Pneumonia due to infectious agent: Urinary tract infection: -On ABx, per primary -Follow Cx Right diabetic foot ulcer: -Wound care -Vascular surgery seeing patient Diabetes mellitus 2 on insulin: -ISS -Per primary Essential Hypertension: -Titrate BP meds to keep SBP <130 With this note, i want to thank Dr Cleary for allowing me to participate in the care of Mr Fry, I will continue to follow him quite closely with you. Thank you for the consult. Kaveh Lua MD Nephrology, Hypertension, Dialysis, Transplantation Phone no: [phone]
[2017-02-25] MEDS ORDERED: NACL 0.9% 100 ML IV PRN (15:34)
[2017-02-25] MEDS ORDERED: PROCRIT SUB-Q SCH (16:00)
--- NOTE | 2017-02-25 16:44 | Progress Note ---
Assessment and Plan Assessment and plan: 47-year-old man who presents with intractable nausea vomiting, hyperglycemia, and chronic unstageable decubiti of his right foot Acute flare of Gastroparesis with intractable vomiting * Antiemetics, advance diet as tolerated, improved R foot unstageable decubiti, present on admission * Wound care consults * Wonder if there is a vascular component to this as he has very poor pulses in the extremity, vascular consult placed * case dw vascular sx, for KAYDEN if positive with get angio and revasc DM with hyperglycemia * continue insulins, Glc at goal HTN * Resume blood pressure medications Elevated Troponin * Patient denies chest pain, this is most likely non-SD elevated troponin due to antecedent renal disease * We'll repeat troponin at 4 PM, to ensure that it is stable, patient will benefit from stress testing when improved UTI? * already on abx, fup urine cx * Low suspicion of UTI given that patient is end-stage renal disease, or?Pyuria might just be sediments and epithelial cells ESRD * Nephrology for HD T..S. case dw with nephrology HCAP * empiric abx, for 7 days * Suspect gram-positive bacteria, but will also cover for gram negatives and atypicals also DVT ppx heparin sq History Interval history: right foot Decubiti are unchanged, denies foot pain Review of systems Constitutional: No fevers, no malaise, no joint pains CVS: No chest pain, no orthopnea, no dyspnea on exertion, no pedal edema GI: No abdominal pain, no diarrhea, no vomiting, no constipation Respiratory: No shortness of breath, no wheezing, no coughing Hospitalist Physical - Physical exam Narrative exam: General appearance: Present: mild distress, well-nourished - EENT Eyes: Present: PERRL ENT: hearing intact, clear oral mucosa, other (right tympanic membrane appears normal, no redness, no drainage), no hearing decreased - Neck Neck: Present: supple, normal ROM - Respiratory Respiratory effort: normal Respiratory: bilateral: CTA - Cardiovascular Heart Sounds: Present: S1 & S2. Absent: rub, click - Extremities Extremities: pulses symmetrical, No edema Extremity abnormal: erythema (Right foot), tenderness (R foot), other ( unstageable decubitus on the right foot, there are 2, one is in the upper r plantar side of the foot the other one is in the mid right plantar side of the foot) Peripheral Pulses: within normal limits - Abdominal General gastrointestinal: Present: soft, non-tender, non-distended, normal bowel sounds Male genitourinary: Present: normal - Integumentary Integumentary: Present: clear, warm, dry - Musculoskeletal Musculoskeletal: gait normal, strength equal bilaterally - Psychiatric Psychiatric: appropriate mood/affect, intact judgment & insight - Neurologic Neurologic: CNII-XII intact, moves all extremities - Constitutional Vitals: Temp Pulse Resp BP Pulse Ox 98.7 F 87 16 158/74 96 02/25/17 16:37 02/25/17 16:37 02/25/17 16:37 02/25/17 16:37 02/25/17 16:37 General appearance: Present: mild distress, well-nourished Results - Labs CBC & Chem 7: 02/25/17 04:30 02/25/17 04:30 Labs: Laboratory Last Values WBC 7.2 K/mm3 (4.5-11.0) 02/25/17 04:30 RBC 2.71 M/mm3 (3.65-5.03) L 02/25/17 04:30 Hgb 8.6 gm/dl (11.8-15.2) L 02/25/17 04:30 Hct 26.3 % (35.5-45.6) L 02/25/17 04:30 MCV 97 fl (84-94) H 02/25/17 04:30 MCH 32 pg (28-32) 02/25/17 04:30 MCHC 33 % (32-34) 02/25/17 04:30 RDW 14.0 % (13.2-15.2) 02/25/17 04:30 Plt Count 265 K/mm3 (140-440) 02/25/17 04:30 Lymph % (Auto) 22.8 % (13.4-35.0) 02/25/17 04:30 [place] % (Auto) 9.2 % (0.0-7.3) H 02/25/17 04:30 Eos % (Auto) 1.4 % (0.0-4.3) 02/25/17 04:30 Baso % (Auto) 0.5 % (0.0-1.8) 02/25/17 04:30 Lymph # 1.7 K/mm3 (1.2-5.4) 02/25/17 04:30 [place] # 0.7 K/mm3 (0.0-0.8) 02/25/17 04:30 Eos # 0.1 K/mm3 (0.0-0.4) 02/25/17 04:30 Baso # 0.0 K/mm3 (0.0-0.1) 02/25/17 04:30 Seg Neutrophils % 66.1 % (40.0-70.0) 02/25/17 04:30 Seg Neutrophils # 4.8 K/mm3 (1.8-7.7) 02/25/17 04:30 VBG pH 7.519 (7.320-7.420) H 02/23/17 19:14 Sodium 135 mmol/L (137-145) L 02/25/17 04:30 Potassium 3.9 mmol/L (3.6-5.0) 02/25/17 04:30 Chloride 94.6 mmol/L (98-107) L 02/25/17 04:30 Carbon Dioxide 22 mmol/L (22-30) 02/25/17 04:30 Anion Gap 22 mmol/L 02/25/17 04:30 BUN 40 mg/dL (9-20) H 02/25/17 04:30 Creatinine 7.2 mg/dL (0.8-1.5) H D 02/25/17 04:30 Estimated GFR 10 ml/min 02/25/17 04:30 BUN/Creatinine Ratio 6 % 02/25/17 04:30 Glucose 206 mg/dL (75-100) H 02/25/17 04:30 POC Glucose 120 (70-105) H 02/25/17 11:54 Hemoglobin A1c 11.2 % (4-6) H 02/24/17 16:13 Calcium 8.3 mg/dL (8.4-10.2) L 02/25/17 04:30 Total Bilirubin 0.40 mg/dL (0.1-1.2) 02/24/17 01:20 Direct Bilirubin < 0.2 mg/dL (0-0.2) 02/24/17 01:20 Indirect Bilirubin 0.2 mg/dL 02/24/17 01:20 AST 11 units/L (5-40) 02/24/17 01:20 ALT 7 units/L (7-56) 02/24/17 01:20 Alkaline Phosphatase 92 units/L (35-129) 02/24/17 01:20 Total Creatine Kinase 115 units/L (55-170) 02/24/17 05:16 CK-MB (CK-2) 1.3 ng/mL (0.0-4.0) 02/24/17 05:16 CK-MB (CK-2) Rel Index 1.1 (0-4) 02/24/17 05:16 Troponin T 0.117 ng/mL (0.00-0.029) H* 02/24/17 16:13 Total Protein 7.3 g/dL (6.3-8.2) 02/24/17 01:20 Albumin 3.6 g/dL (3.9-5) L 02/24/17 01:20 Albumin/Globulin Ratio 1.0 % 02/24/17 01:20 Triglycerides 82 mg/dL (2-149) 02/24/17 05:16 Cholesterol 141 mg/dL (50-199) 02/24/17 05:16 LDL Cholesterol Direct 83 mg/dL (50-130) 02/24/17 05:16 HDL Cholesterol 42 mg/dL (40-59) 02/24/17 05:16 Cholesterol/HDL Ratio 3.35 % 02/24/17 05:16 Urine Color Yellow (Yellow) 02/23/17 21:00 Urine Turbidity Slightly-cloudy (Clear) 02/23/17 21:00 Urine pH 5.0 (5.0-7.0) 02/23/17 21:00 Ur Specific [place] 1.013 (1.003-1.030) 02/23/17 21:00 Urine Protein 30 mg/dl mg/dL (Negative) 02/23/17 21:00 Urine Glucose (UA) >=500 mg/dL (Negative) 02/23/17 21:00 Urine Ketones Neg mg/dL (Negative) 02/23/17 21:00 Urine Blood Mod (Negative) 02/23/17 21:00 Urine Nitrite Neg (Negative) 02/23/17 21:00 Urine Bilirubin Neg (Negative) 02/23/17 21:00 Urine Urobilinogen < 2.0 mg/dL (<2.0) 02/23/17 21:00 Ur Leukocyte Esterase Mod (Negative) 02/23/17 21:00 Urine WBC (Auto) 45.0 /HPF (0.0-6.0) H 02/23/17 21:00 Urine RBC (Auto) 5.0 /HPF (0.0-6.0) 02/23/17 21:00 U Epithel Cells (Auto) < 1.0 /HPF (0-13.0) 02/23/17 21:00 Urine Bacteria (Auto) 1+ /HPF (Negative) 02/23/17 21:00 Urine WBC Clumps 2+ /HPF 02/23/17 21:00 Urine Mucus Few /HPF 02/23/17 21:00
[2017-02-26] MEDS: MORPHINE IV PRN ×2 (01:42→20:31)
[2017-02-26] MEDS: HEPARIN SUB-Q SCH ×3 (05:23→22:40)
[2017-02-26] MEDS: NOVOLOG SUB-Q SCH ×4 (07:30→22:42)
--- NOTE | 2017-02-26 09:10 | Progress Note ---
Assessment and Plan ESRD on Hemodialysis: -TTS via LUE AVG Outpatient -HD today for clearance and volume removal -Will assess dialyssi needs daily -Renally dose all meds -Check BMP/Mg/Phos daily Diabetic Gastroparesis: Nausea and vomiting: -On Antiemetics. Per primary Pneumonia due to infectious agent: Urinary tract infection: -On ABx, per primary -Follow Cx Right diabetic foot ulcer: -Wound care -followed by vascular Diabetes mellitus 2 on insulin: -ISS -Per primary Essential Hypertension: -Titrate BP meds to keep SBP <130 Subjective Date of service: 02/26/17 Principal diagnosis: ESRD on HD Interval history: comfortable, denies overnight events Objective - Vital Signs Vital signs: Vital Signs - 12hr 02/25/17 02/25/17 02/25/17 21:24 22:00 22:20 Temperature 97.4 F L Pulse Rate 89 Respiratory 22 22 Rate Respiratory 20 Rate [Foot] Blood Pressure 156/68 O2 Sat by Pulse 94 Oximetry 02/25/17 02/25/17 02/26/17 22:50 23:24 01:42 Temperature 98.1 F Pulse Rate 86 Respiratory 22 18 22 Rate Respiratory Rate [Foot] Blood Pressure 148/69 O2 Sat by Pulse 89 Oximetry 02/26/17 02/26/17 02:12 08:32 Temperature 98.4 F Pulse Rate 84 Respiratory 20 48 H Rate Respiratory Rate [Foot] Blood Pressure 135/67 O2 Sat by Pulse 90 Oximetry - General Appearance General appearance: well-developed, well-nourished, obese EENT: ATNC, PERRL Neck: no JVD, no carotid bruit Respiratory: Present: Clear to Ascultation. Absent: Rales, Ronchi Cardiology: regular, S1S2 Gastrointestinal: normoactive bowel sounds, no tenderness, no distended, no guarding Integumentary: no rash, warm and dry Neurologic: no focal deficit, no asterixis, alert and oriented x3 Musculoskeletal: other (trace pitting edema in BLE. L AVF with+ thrill and bruit ) Psychiatric: mood/affect appropriate, cooperative - Lab 02/25/17 04:30 02/25/17 04:30 Most recent lab results Calcium 8.3 mg/dL (8.4-10.2) L 02/25/17 04:30
[2017-02-26] MEDS: BENTYL PO SCH ×4 (10:20→22:39)
[2017-02-26] MEDS: NORVASC PO SCH (10:20)
[2017-02-26] MEDS ORDERED: LEXISCAN IV ONE ×2 (11:31→11:34)
--- NOTE | 2017-02-26 11:33 | Discharge Summary ---
Providers - Providers Date of Admission: 02/24/17 08:35 Attending physician: DINESH WALKER MD 02/24/17 08:42 Consult to Wound/ET Nurse [CONS] Routine Reason For Exam: wound eval 02/24/17 11:58 Consult to Physician [CONS] Routine Consulting Provider: TORRES WASSERMAN Reason For Exam: esrd Place consult to:: Dr. Lua Notified:: yes Phone number called:: [phone] Was contact made?: Yes If yes, spoke with:: Dr. Lua Time called:: 17:00 02/24/17 12:00 Consult to Physician [CONS] Routine Consulting Provider: BETZY TITUS Reason For Exam: RLE wound Place consult to:: answering service Notified:: yes Phone number called:: [phone] Was contact made?: Yes If yes, spoke with:: Ling Time called:: 17:03 02/24/17 12:01 Consult to Physician [CONS] Routine Consulting Provider: COREY THOMASON Reason For Exam: Right foot wound Place consult to:: answering service Notified:: yes Phone number called:: Was contact made?: Yes If yes, spoke with:: Faith Time called:: 17:16 Primary care physician: CESAR ELDRIDGE Hospitalization Condition: Stable Hospital course: 47-year-old man who presents with intractable nausea vomiting, hyperglycemia, and chronic un-stageable decubiti of his right foot. He was treated for acute flare of gastroparesis with IV fluids and antiemetics. He clinically improved, he went on to have wound care for his decubiti of his foot. Also seen by vascular surgery, stated that his arterial blood flow were adequate. He was continued on hemodialysis while he was in hospital, he received empiric antibiotics for his healthcare acquired pneumonia. He will follow up in wound clinic for ongoing wound care to his right foot. UTI was ruled out by negative urine cultures, he did have elevated troponin which is most likely due to end- stage renal disease. He went to have a nuclear stress test was negative for ischemia Diagnosis Acute flare of Gastroparesis with intractable vomiting R foot unstageable decubiti, present on admission DM with hyperglycemia Elevated troponin due to end-stage renal disease HTN ESRD HCAP Disposition: TO HOME OR SELFCARE Time spent for discharge: 33 minutes Core Measure Documentation - Palliative Care Palliative Care/ Comfort Measures: Not Applicable - Core Measures Any of the following diagnoses?: none Exam - Physical Exam Narrative exam: General appearance: Present: mild distress, well-nourished - EENT Eyes: Present: PERRL ENT: hearing intact, clear oral mucosa, other (right tympanic membrane appears normal, no redness, no drainage), no hearing decreased - Neck Neck: Present: supple, normal ROM - Respiratory Respiratory effort: normal Respiratory: bilateral: CTA - Cardiovascular Heart Sounds: Present: S1 & S2. Absent: rub, click - Extremities Extremities: pulses symmetrical, No edema Extremity abnormal: erythema (Right foot), tenderness (R foot), other ( unstageable decubitus on the right foot, there are 2, one is in the upper r plantar side of the foot the other one is in the mid right plantar side of the foot) Peripheral Pulses: within normal limits - Abdominal General gastrointestinal: Present: soft, non-tender, non-distended, normal bowel sounds Male genitourinary: Present: normal - Integumentary Integumentary: Present: clear, warm, dry - Musculoskeletal Musculoskeletal: gait normal, strength equal bilaterally - Psychiatric Psychiatric: appropriate mood/affect, intact judgment & insight - Neurologic Neurologic: CNII-XII intact, moves all extremities - Constitutional Vitals: Temp Pulse Resp BP Pulse Ox 98.4 F 84 48 H 135/67 90 02/26/17 08:32 02/26/17 08:32 02/26/17 08:32 02/26/17 08:32 02/26/17 08:32 Plan Follow up with: CESAR ELDRIDGE MD [Primary Care Provider] - 3-5 Days Prescriptions: Insulin Glargine [Lantus] 40 unit SUB-Q QHS #1 vial Dicyclomine [Bentyl] 10 mg PO QID PRN #60 capsule PRN Reason: abdominal pain HYDROcodone/APAP 5-325 [Rew 5-325 mg TAB] 1 - 2 each PO Q6HR PRN #14 tablet PRN Reason: Pain Insulin Lispro [Humalog] 0 unit SQ ACHS #1 vial Levofloxacin [Levaquin TAB] 500 mg PO Q48H #3 tablet Promethazine [Phenergan TAB] 25 mg PO Q6HR PRN #30 tab PRN Reason: Nausea Promethazine [Phenergan SUPPOS] 25 mg [place] Q6HR PRN #30 supp.rect PRN Reason: Nausea
[2017-02-26] MEDS ORDERED: LEVAQUIN 500MG/100ML 500 MG/100 ML BAG IV SCH (13:00)
--- NOTE | 2017-02-26 17:33 | Progress Note ---
Assessment and Plan Assessment and plan: 47-year-old man who presents with intractable nausea vomiting, hyperglycemia, and chronic unstageable decubiti of his right foot Acute flare of Gastroparesis with intractable vomiting * Antiemetics, advance diet as tolerated, improved R foot unstageable decubiti, present on admission * Wound care consults * Wonder if there is a vascular component to this as he has very poor pulses in the extremity, vascular consult placed * case dw vascular sx, for angiogram tomorrow DM with hyperglycemia * continue insulins, Glc at goal HTN * Resume blood pressure medications Elevated Troponin * Patient denies chest pain, this is most likely non-SC elevated troponin due to antecedent renal disease * We'll repeat troponin at 4 PM, to ensure that it is stable, patient will benefit from stress testing when improved UTI? * already on abx, fup urine cx * Low suspicion of UTI given that patient is end-stage renal disease, or?Pyuria might just be sediments and epithelial cells ESRD * Nephrology for HD T.Th.S. case dw with nephrology HCAP * empiric abx, for 7 days * Suspect gram-positive bacteria, but will also cover for gram negatives and atypicals also DVT ppx heparin sq discussed with his PCP Dr Stubbs, patient is poorly compliant and has complications of DM, highly doubt compliance with diabetic shoes and podiatry appts History Interval history: right foot Decubiti are unchanged, denies foot pain Review of systems Constitutional: No fevers, no malaise, no joint pains CVS: No chest pain, no orthopnea, no dyspnea on exertion, no pedal edema GI: No abdominal pain, no diarrhea, no vomiting, no constipation Respiratory: No shortness of breath, no wheezing, no coughing Hospitalist Physical - Physical exam Narrative exam: General appearance: Present: mild distress, well-nourished - EENT Eyes: Present: PERRL ENT: hearing intact, clear oral mucosa, other (right tympanic membrane appears normal, no redness, no drainage), no hearing decreased - Neck Neck: Present: supple, normal ROM - Respiratory Respiratory effort: normal Respiratory: bilateral: CTA - Cardiovascular Heart Sounds: Present: S1 & S2. Absent: rub, click - Extremities Extremities: pulses symmetrical, No edema Extremity abnormal: erythema (Right foot), tenderness (R foot), other ( unstageable decubitus on the right foot, there are 2, one is in the upper r plantar side of the foot the other one is in the mid right plantar side of the foot) Peripheral Pulses: within normal limits - Abdominal General gastrointestinal: Present: soft, non-tender, non-distended, normal bowel sounds Male genitourinary: Present: normal - Integumentary Integumentary: Present: clear, warm, dry - Musculoskeletal Musculoskeletal: gait normal, strength equal bilaterally - Psychiatric Psychiatric: appropriate mood/affect, intact judgment & insight - Neurologic Neurologic: CNII-XII intact, moves all extremities - Constitutional Vitals: Temp Pulse Resp BP Pulse Ox 98.4 F 96 H 48 H 106/61 90 02/26/17 08:32 02/26/17 11:43 02/26/17 08:32 02/26/17 11:43 02/26/17 08:32 General appearance: Present: mild distress, well-nourished Results - Labs CBC & Chem 7: 02/25/17 04:30 02/25/17 04:30 Labs: Laboratory Last Values WBC 7.2 K/mm3 (4.5-11.0) 02/25/17 04:30 RBC 2.71 M/mm3 (3.65-5.03) L 02/25/17 04:30 Hgb 8.6 gm/dl (11.8-15.2) L 02/25/17 04:30 Hct 26.3 % (35.5-45.6) L 02/25/17 04:30 MCV 97 fl (84-94) H 02/25/17 04:30 MCH 32 pg (28-32) 02/25/17 04:30 MCHC 33 % (32-34) 02/25/17 04:30 RDW 14.0 % (13.2-15.2) 02/25/17 04:30 Plt Count 265 K/mm3 (140-440) 02/25/17 04:30 Lymph % (Auto) 22.8 % (13.4-35.0) 02/25/17 04:30 [place] % (Auto) 9.2 % (0.0-7.3) H 02/25/17 04:30 Eos % (Auto) 1.4 % (0.0-4.3) 02/25/17 04:30 Baso % (Auto) 0.5 % (0.0-1.8) 02/25/17 04:30 Lymph # 1.7 K/mm3 (1.2-5.4) 02/25/17 04:30 [place] # 0.7 K/mm3 (0.0-0.8) 02/25/17 04:30 Eos # 0.1 K/mm3 (0.0-0.4) 02/25/17 04:30 Baso # 0.0 K/mm3 (0.0-0.1) 02/25/17 04:30 Seg Neutrophils % 66.1 % (40.0-70.0) 02/25/17 04:30 Seg Neutrophils # 4.8 K/mm3 (1.8-7.7) 02/25/17 04:30 VBG pH 7.519 (7.320-7.420) H 02/23/17 19:14 Sodium 135 mmol/L (137-145) L 02/25/17 04:30 Potassium 3.9 mmol/L (3.6-5.0) 02/25/17 04:30 Chloride 94.6 mmol/L (98-107) L 02/25/17 04:30 Carbon Dioxide 22 mmol/L (22-30) 02/25/17 04:30 Anion Gap 22 mmol/L 02/25/17 04:30 BUN 40 mg/dL (9-20) H 02/25/17 04:30 Creatinine 7.2 mg/dL (0.8-1.5) H D 02/25/17 04:30 Estimated GFR 10 ml/min 02/25/17 04:30 BUN/Creatinine Ratio 6 % 02/25/17 04:30 Glucose 206 mg/dL (75-100) H 02/25/17 04:30 POC Glucose 174 (70-105) H 02/26/17 13:24 Hemoglobin A1c 11.2 % (4-6) H 02/24/17 16:13 Calcium 8.3 mg/dL (8.4-10.2) L 02/25/17 04:30 Total Bilirubin 0.40 mg/dL (0.1-1.2) 02/24/17 01:20 Direct Bilirubin < 0.2 mg/dL (0-0.2) 02/24/17 01:20 Indirect Bilirubin 0.2 mg/dL 02/24/17 01:20 AST 11 units/L (5-40) 02/24/17 01:20 ALT 7 units/L (7-56) 02/24/17 01:20 Alkaline Phosphatase 92 units/L (35-129) 02/24/17 01:20 Total Creatine Kinase 115 units/L (55-170) 02/24/17 05:16 CK-MB (CK-2) 1.3 ng/mL (0.0-4.0) 02/24/17 05:16 CK-MB (CK-2) Rel Index 1.1 (0-4) 02/24/17 05:16 Troponin T 0.117 ng/mL (0.00-0.029) H* 02/24/17 16:13 Total Protein 7.3 g/dL (6.3-8.2) 02/24/17 01:20 Albumin 3.6 g/dL (3.9-5) L 02/24/17 01:20 Albumin/Globulin Ratio 1.0 % 02/24/17 01:20 Triglycerides 82 mg/dL (2-149) 02/24/17 05:16 Cholesterol 141 mg/dL (50-199) 02/24/17 05:16 LDL Cholesterol Direct 83 mg/dL (50-130) 02/24/17 05:16 HDL Cholesterol 42 mg/dL (40-59) 02/24/17 05:16 Cholesterol/HDL Ratio 3.35 % 02/24/17 05:16 Urine Color Yellow (Yellow) 02/23/17 21:00 Urine Turbidity Slightly-cloudy (Clear) 02/23/17 21:00 Urine pH 5.0 (5.0-7.0) 02/23/17 21:00 Ur Specific [place] 1.013 (1.003-1.030) 02/23/17 21:00 Urine Protein 30 mg/dl mg/dL (Negative) 02/23/17 21:00 Urine Glucose (UA) >=500 mg/dL (Negative) 02/23/17 21:00 Urine Ketones Neg mg/dL (Negative) 02/23/17 21:00 Urine Blood Mod (Negative) 02/23/17 21:00 Urine Nitrite Neg (Negative) 02/23/17 21:00 Urine Bilirubin Neg (Negative) 02/23/17 21:00 Urine Urobilinogen < 2.0 mg/dL (<2.0) 02/23/17 21:00 Ur Leukocyte Esterase Mod (Negative) 02/23/17 21:00 Urine WBC (Auto) 45.0 /HPF (0.0-6.0) H 02/23/17 21:00 Urine RBC (Auto) 5.0 /HPF (0.0-6.0) 02/23/17 21:00 U Epithel Cells (Auto) < 1.0 /HPF (0-13.0) 02/23/17 21:00 Urine Bacteria (Auto) 1+ /HPF (Negative) 02/23/17 21:00 Urine WBC Clumps 2+ /HPF 02/23/17 21:00 Urine Mucus Few /HPF 02/23/17 21:00
[2017-02-26] MEDS: LEVEMIR SUB-Q SCH (22:42)
--- NOTE | 2017-02-27 00:15 | Treadmill Report ---
NUCLEAR CARDIAC IMAGING INDICATION FOR PROCEDURE: Chest pain. Informed consent was obtained. DESCRIPTION OF PROCEDURE: Vasodilator stress nuclear cardiac imaging was performed using the standard protocol with the intravenous administration of 0.4 mg of Lexiscan and 10 and 28 mCi of technetium 99m Myoview for imaging. Gated SPECT imaging demonstrates a left ventricular ejection fraction of 57% with normal wall motion. There is no significant cavity change between stress and rest. No significant stress induced perfusion defects are seen. Nuclear cardiac imaging demonstrates grossly normal left ventricular systolic function with no significant evidence for myocardial ischemia or necrosis. JOB# [id number] QUE/KRISTEN
[2017-02-27] MEDS: HEPARIN SUB-Q SCH (06:27)
[2017-02-27 06:30] LABS: Basophils % (Auto) 0.6 % (0.0-1.8); Eosinophils # (Auto) 0.1 K/mm3 (0.0-0.4); Hemoglobin 9.4 gm/dl (11.8-15.2); Lymphocytes # (Auto) 1.5 K/mm3 (1.2-5.4); Lymphocytes % (Auto) 22.8 % (13.4-35.0); Mean Corpuscular HGB Conc 32 % (32-34); Mean Corpuscular Hemoglobin 31 pg (28-32); Mean Corpuscular Volume 97 fl (84-94); Monocytes # (Auto) 0.9 K/mm3 (0.0-0.8); Platelet Count 254 K/mm3 (140-440); Red Blood Count 2.99 M/mm3 (3.65-5.03)
[2017-02-27 06:51] LABS: Calcium 8.3 mg/dL (8.4-10.2)
[2017-02-27 07:18] VITALS: BP 147/69
[2017-02-27] MEDS: NOVOLOG SUB-Q SCH (09:18)
--- NOTE | 2017-02-27 11:15 | Event Note ---
Date: 02/27/17 Patient with a history of end-stage renal disease, diabetes with nonhealing wound on the plantar aspect of his right foot. His KAYDEN is 0.66 and this leg. He will need a revascularization procedure however, the patient desires to go home at this time. He can return as an outpatient for revascularization. Additionally, counseled the patient on the need to follow-up with both his trading specialist and with outpatient wound care.
[2017-02-27] MEDS: MORPHINE IV PRN (12:06)
[2017-02-27] MEDS: NORVASC PO SCH (12:07)
[2017-02-27] MEDS: BENTYL PO SCH (12:07)
--- NOTE | 2017-02-27 13:54 | Vascular Lab Report ---
LOWER EXTREMITY VENOUS DUPLEX: REASON FOR EXAM: Swelling of the lower extremities. COMMENTS ON THE RIGHT: All veins visualized are freely compressible without evidence of internal echogenicity. Flow is spontaneous and phasic throughout. COMMENTS ON THE LEFT: All veins visualized are freely compressible without evidence of internal echogenicity. Flow is spontaneous and phasic throughout. IMPRESSION: No evidence of acute or chronic deep venous thrombosis in either lower extremity.
--- NOTE | 2017-02-27 13:59 | Consultation ---
History of Present Illness Consult date: 02/27/17 Reason for consult: other (Diabetic right plantar ulcer) - History of present illness History of present illness: Asked to evaluate re right plantar diabetic ulcer. He has been seen by vascular and is to have an arteriogram on 03/11/2017 as an outpt. Arterial dopplers have been completed and reveal an KAYDEN of 0.62 on the right. Past History Past Medical History: diabetes, dialysis, ESRD, hypertension, other ( gastroparesis) Past Surgical History: Other (AV graft) Social history: smoking (former) Family history: diabetes, hypertension Medications and Allergies Allergies Allergy/AdvReac Type Severity Reaction Status Date / Time cephalexin [From Keflex] Allergy Vomiting Verified 02/23/17 19:02 Home Medications Medication Instructions Recorded Confirmed Last Taken Type amLODIPine [Norvasc] 5 mg PO DAILY 07/19/13 05/29/16 07/18/13 History Dicyclomine [Bentyl] 10 mg PO QID PRN #60 capsule 02/26/17 Unknown Rx HYDROcodone/APAP 5-325 [[place] 1 - 2 each PO Q6HR PRN #14 tablet 02/26/17 Unknown Rx 5-325 mg TAB] Insulin Glargine [Lantus] 40 unit SUB-Q QHS #1 vial 02/26/17 Unknown Rx Insulin Lispro [Humalog] 0 unit SQ ACHS #1 vial 02/26/17 Unknown Rx Levofloxacin [Levaquin TAB] 500 mg PO Q48H #3 tablet 02/26/17 Unknown Rx Promethazine [Phenergan SUPPOS] 25 mg ID Q6HR PRN #30 supp.rect 02/26/17 Unknown Rx Promethazine [Phenergan TAB] 25 mg PO Q6HR PRN #30 tab 02/26/17 Unknown Rx Active Meds: Active Medications Acetaminophen (Tylenol) 650 mg PO Q4H PRN PRN Reason: Pain MILD(1-3)/Fever >100.5/OSBORN Acetaminophen/Hydrocodone Bitart ([place] 5/325) 1 each PO Q6H PRN PRN Reason: Pain Amlodipine Besylate (Norvasc) 5 mg PO DAILY DAFNE Last Admin: 02/27/17 12:07 Dose: 5 mg Bisacodyl (Dulcolax) 10 mg ID QDAY PRN PRN Reason: Constipation unrelieved by MOM Dextrose (D50w (25gm) Syringe) 50 ml IV PRN PRN PRN Reason: Hypoglycemia Dicyclomine HCl (Bentyl) 10 mg PO QID [facility] Last Admin: 02/27/17 12:07 Dose: 10 mg Epoetin Bryson (Procrit) 10,000 unit SUB-Q MOWEFR [facility] Last Admin: 02/25/17 16:00 Dose: Not Given Heparin Sodium (Porcine) (Heparin) 5,000 unit SUB-Q Q8HR [facility] Last Admin: 02/27/17 06:27 Dose: Not Given Hydrophilic Ointment (Vaseline Lip Therapy) 1 applic TP PRN PRN PRN Reason: Dry Lips Levofloxacin/Dextrose (Levaquin 500mg/100ml) 500 mg in 100 mls @ 100 mls/hr IV Q48H [facility] Last Admin: 02/26/17 13:47 Dose: 100 mls/hr Sodium Chloride (Nacl 0.9%) 100 mls @ 999 mls/hr IV SHUN PRN PRN Reason: Hypotension Insulin Aspart (Novolog) 0 units SUB-Q ACHS [facility] PRN Reason: Protocol Last Admin: 02/27/17 09:18 Dose: 8 units Insulin Detemir (Levemir) 40 units SUB-Q QHS [facility] Last Admin: 02/26/17 22:42 Dose: Not Given Morphine Sulfate (Morphine) 2 mg IV Q4H PRN PRN Reason: Pain, Moderate (4-6) Last Admin: 02/27/17 12:06 Dose: 2 mg Ondansetron HCl (Zofran) 4 mg IV Q8H PRN PRN Reason: N/V unrelieved by Reglan Last Admin: 02/26/17 01:42 Dose: 4 mg Promethazine HCl (Phenergan) 25 mg ID Q6H PRN PRN Reason: Nausea Review of Systems All systems: negative Exam Vital Signs Temp Pulse Resp BP Pulse Ox 99.7 F H 98 H 20 163/69 100 02/23/17 19:02 02/23/17 19:02 02/23/17 19:02 02/23/17 19:02 02/23/17 19:02 - General physical appearance Positive: well developed, well nourished, no distress - Eyes Positive: PERRL, normal occular movement - ENT Positive: normal pinna, normal nares, normal mucosa, no hearing loss, no congestion - Neck Positive: no masses, no bruits, trachea midline, no venous distension - Respiratory Positive: normal expansion, normal respiratory effort, clear to auscultation - Cardiovascular Rhythm: regular Heart Sounds: Present: S1 & S2. Absent: rub, click - Extremities Extremities: abnormal (Right foot has no palpable DP or PT pulse. There is a dry eschar along the plantar aspect of the right foot laterally. This is surrounded by skin which was sharply debrided.) - Breasts Breasts: deferred - Abdomen Abdomen: Present: soft, bowel sounds normal. Absent: tender, distended Hernia: none - Genitourinary Male Genitourinary: deferred - Integumentary other (See extremities.) - Neurologic Neurologic: alert and oriented to time, place and person, motor strength and sensation are grossly intact - Musculoskeletal normal gait, normal posture - Psychiatric Psychiatric: appropriate mood/affect, intact judgment & insight Results - Labs 02/27/17 06:05 02/27/17 06:05 Abnormal lab results 02/26/17 02/27/17 02/27/17 Range/Units 21:29 05:58 06:05 RBC 2.99 L (3.65-5.03) M/mm3 Hgb 9.4 L (11.8-15.2) gm/dl Hct 29.0 L (35.5-45.6) % MCV 97 H (84-94) fl [place] % (Auto) 13.0 H (0.0-7.3) % Lucas # 0.9 H (0.0-0.8) K/mm3 Sodium (137-145) mmol/L Chloride (98-107) mmol/L BUN (9-20) mg/dL Creatinine (0.8-1.5) mg/dL Glucose (75-100) mg/dL POC Glucose 202 H 318 H (70-105) Calcium (8.4-10.2) mg/dL Phosphorus (2.5-4.5) mg/dL 02/27/17 Range/Units 06:05 RBC (3.65-5.03) M/mm3 Hgb (11.8-15.2) gm/dl Hct (35.5-45.6) % MCV (84-94) fl [place] % (Auto) (0.0-7.3) % [place] # (0.0-0.8) K/mm3 Sodium 133 L (137-145) mmol/L Chloride 88.3 L (98-107) mmol/L BUN 36 H (9-20) mg/dL Creatinine 6.9 H (0.8-1.5) mg/dL Glucose 302 H (75-100) mg/dL POC Glucose (70-105) Calcium 8.3 L (8.4-10.2) mg/dL Phosphorus 5.50 H (2.5-4.5) mg/dL Diabetes panel 02/27/17 Range/Units 06:05 Sodium 133 L (137-145) mmol/L Potassium 4.7 D (3.6-5.0) mmol/L Chloride 88.3 L (98-107) mmol/L Carbon Dioxide 25 (22-30) mmol/L BUN 36 H (9-20) mg/dL Creatinine 6.9 H (0.8-1.5) mg/dL Glucose 302 H (75-100) mg/dL Calcium 8.3 L (8.4-10.2) mg/dL Calcium panel 02/27/17 Range/Units 06:05 Calcium 8.3 L (8.4-10.2) mg/dL Phosphorus 5.50 H (2.5-4.5) mg/dL Pituitary panel 02/27/17 Range/Units 06:05 Sodium 133 L (137-145) mmol/L Potassium 4.7 D (3.6-5.0) mmol/L Chloride 88.3 L (98-107) mmol/L Carbon Dioxide 25 (22-30) mmol/L BUN 36 H (9-20) mg/dL Creatinine 6.9 H (0.8-1.5) mg/dL Glucose 302 H (75-100) mg/dL Calcium 8.3 L (8.4-10.2) mg/dL Adrenal panel 02/27/17 Range/Units 06:05 Sodium 133 L (137-145) mmol/L Potassium 4.7 D (3.6-5.0) mmol/L Chloride 88.3 L (98-107) mmol/L Carbon Dioxide 25 (22-30) mmol/L BUN 36 H (9-20) mg/dL Creatinine 6.9 H (0.8-1.5) mg/dL Glucose 302 H (75-100) mg/dL Calcium 8.3 L (8.4-10.2) mg/dL Assessment and Plan - Patient Problems (1) Non-pressure chronic ulcer of other part of right foot with unspecified severity Current Visit: Yes Status: Acute Plan to address problem: 1) Arteriogram of RLE on 03/11/16 2) Strict DM control 3) F/u in Wound Clinic 4) Betadine to right foot eschar daily
[2017-02-27] MEDS ORDERED: VASELINE LIP THERAPY TP PRN (14:00)
--- NOTE | 2017-02-27 14:23 | Vascular Lab Report ---
LOWER EXTREMITY ARTERIAL DUPLEX: REASON FOR EXAM: Right foot ulcer, peripheral artery disease. COMMENTS ON THE RIGHT: Triphasic waveforms are seen proximally. Triphasic waveforms are seen in the popliteal artery. Monophasic waveforms are seen distally. No significant velocity gradients are identified. No focal significant plaque is identified. Findings are consistent with abnormal perfusion to the right lower extremity. Findings are compatible with compromised ability to heal distal wounds. COMMENTS ON THE LEFT: Triphasic waveforms are seen proximally. Biphasic waveforms are seen in the midportion of the vessel. Monophasic waveforms are seen distally. No significant velocity gradients are identified. No focal significant plaque is identified. Findings are consistent with abnormal perfusion to the left lower extremity. Findings are compatible with partial compromised ability to heal distal wounds. IMPRESSION: RIGHT: Severe infrapopliteal arterial disease. LEFT:Severe infrapopliteal arterial disease. LOWER EXTREMITY ARTERIAL PHYSIOLOGIC STUDY: COMMENTS ON THE RIGHT: Ankle brachial index is 0.65. This value is abnormal compatible with moderate arterial disease. Toe brachial index was not calculated. The waveform of the right first digit is essentially flat lined. Wound healing is compromised. Pulse volume recording at the level of the ankle is decreased in amplitude. Exercise testing was not done. COMMENTS ON THE LEFT: Ankle brachial index is 0.78. This value is abnormal compatible with moderate arterial disease. Toe brachial index was not calculated. The waveform of the left first digit is slightly broadened. Wound healing is possible. Pulse volume recording at the level of the ankle demonstrates spectral broadening. Exercise testing was not done. IMPRESSION: RIGHT: Moderate arterial disease with compromised wound healing LEFT:Moderate arterial disease
== END 2017-02-27 15:10 | disposition home or self-care (01) | DRG 682 ==
LOC: ED 18:55 → 3A 02-24 08:35
PROVIDERS: ADMIT Internal Medicine; ATTEND Internal Medicine
PROC: 3E0234Z Introduction of Serum, Toxoid and Vaccine into Muscle, Percutaneous Approach (ICD-10-PCS; 2017-02-25)
PROC: 5A1D70Z Performance of Urinary Filtration, Intermittent, Less than 6 Hours Per Day (ICD-10-PCS; principal; 2017-02-26)
DX: I12.0 Hypertensive chronic kidney disease with stage 5 chronic kidney disease or end stage renal disease (principal); J18.9 Pneumonia, unspecified organism; N18.6 End stage renal disease; E11.43 Type 2 diabetes mellitus with diabetic autonomic (poly)neuropathy; K31.84 Gastroparesis; E11.65 Type 2 diabetes mellitus with hyperglycemia; Z88.8 Allergy status to other drugs, medicaments and biological substances; Z23 Encounter for immunization; Z79.4 Long term (current) use of insulin; E11.22 Type 2 diabetes mellitus with diabetic chronic kidney disease; Z99.2 Dependence on renal dialysis; J02.0 Streptococcal pharyngitis; D64.9 Anemia, unspecified; Z83.3 Family history of diabetes mellitus; Z82.49 Family history of ischemic heart disease and other diseases of the circulatory system; Z87.891 Personal history of nicotine dependence; L89.890 Pressure ulcer of other site, unstageable; E11.621 Type 2 diabetes mellitus with foot ulcer; L97.509 Non-pressure chronic ulcer of other part of unspecified foot with unspecified severity
CPT/HCPCS: 36415; 71010; 74000; 78452; 80048; 80061; 80074; 81001; 82550; 82553; 82805; 82962; 83036; 84100; 84484; 85025; 87086; 87400; 87430; 90686; 90732; 93017; 93922; 93925; 93970; 96365; 96366; 96367; 96375; A9502; J1200; J1644; J1815; J1818; J1885; J1956; J2270; J2405; J2785; J3010

== ENCOUNTER 2017-03-18 08:18 | Outpatient (CLI) | payer MEDICARE ==
[2017-03-18] MEDS ORDERED: XYLOCAINE TOPICAL 4% TP ONE ×2 (08:43→08:48)
[2017-03-18] MEDS ORDERED: SILVER NITRATE TP ONE ×2 (10:15→15:26)
== END 2017-03-18 08:19 | disposition home or self-care (01) ==
LOC: WOUND 08:18
PROVIDERS: ATTEND Internal Medicine
DX: E11.621 Type 2 diabetes mellitus with foot ulcer (principal); L97.511 Non-pressure chronic ulcer of other part of right foot limited to breakdown of skin; E11.51 Type 2 diabetes mellitus with diabetic peripheral angiopathy without gangrene; E11.22 Type 2 diabetes mellitus with diabetic chronic kidney disease; I12.0 Hypertensive chronic kidney disease with stage 5 chronic kidney disease or end stage renal disease; N18.6 End stage renal disease; Z99.2 Dependence on renal dialysis; Z87.891 Personal history of nicotine dependence
CPT/HCPCS: 11042; 11045; G0463

== ENCOUNTER 2017-03-25 11:01 | Outpatient (CLI) | payer MEDICARE ==
[2017-03-25] MEDS ORDERED: XYLOCAINE TOPICAL 4% TP ONE ×2 (11:18→12:25)
== END 2017-03-25 11:02 | disposition home or self-care (01) ==
LOC: WOUND 11:01
PROVIDERS: ATTEND Internal Medicine
DX: E11.621 Type 2 diabetes mellitus with foot ulcer (principal); L97.511 Non-pressure chronic ulcer of other part of right foot limited to breakdown of skin; E11.51 Type 2 diabetes mellitus with diabetic peripheral angiopathy without gangrene; E11.22 Type 2 diabetes mellitus with diabetic chronic kidney disease; I12.0 Hypertensive chronic kidney disease with stage 5 chronic kidney disease or end stage renal disease; N18.6 End stage renal disease; Z99.2 Dependence on renal dialysis; Z87.891 Personal history of nicotine dependence
CPT/HCPCS: 97597; 97598

== ENCOUNTER 2017-04-01 09:02 | Outpatient (CLI) | payer MEDICARE ==
[2017-04-01] MEDS ORDERED: XYLOCAINE TOPICAL 4% TP ONE (09:15)
[2017-04-01] MEDS ORDERED: AD OINTMENT TP SCH (10:00)
[2017-04-01] MEDS ORDERED: AD OINTMENT TP ONE (10:38)
== END 2017-04-01 09:03 | disposition home or self-care (01) ==
LOC: WOUND 09:02
PROVIDERS: ATTEND Internal Medicine
DX: E11.621 Type 2 diabetes mellitus with foot ulcer (principal); L97.511 Non-pressure chronic ulcer of other part of right foot limited to breakdown of skin; E11.51 Type 2 diabetes mellitus with diabetic peripheral angiopathy without gangrene; L84 Corns and callosities; E11.22 Type 2 diabetes mellitus with diabetic chronic kidney disease; I12.0 Hypertensive chronic kidney disease with stage 5 chronic kidney disease or end stage renal disease; N18.6 End stage renal disease; Z99.2 Dependence on renal dialysis; Z87.891 Personal history of nicotine dependence
CPT/HCPCS: A6250

== ENCOUNTER 2017-04-15 09:44 | Outpatient (CLI) | payer MEDICARE ==
[2017-04-15] MEDS ORDERED: XYLOCAINE TOPICAL 4% TP ONE (10:06)
[2017-04-15] MEDS ORDERED: SILVER NITRATE TP ONE (10:50)
[2017-04-17] MEDS ORDERED: SILVER NITRATE TP ONE (14:34)
== END 2017-04-15 09:45 | disposition home or self-care (01) ==
LOC: WOUND 09:44
PROVIDERS: ATTEND Internal Medicine
DX: E11.621 Type 2 diabetes mellitus with foot ulcer (principal); L97.511 Non-pressure chronic ulcer of other part of right foot limited to breakdown of skin; E11.51 Type 2 diabetes mellitus with diabetic peripheral angiopathy without gangrene; E11.22 Type 2 diabetes mellitus with diabetic chronic kidney disease; I12.0 Hypertensive chronic kidney disease with stage 5 chronic kidney disease or end stage renal disease; N18.6 End stage renal disease; K31.89 Other diseases of stomach and duodenum; Z99.2 Dependence on renal dialysis; Z87.891 Personal history of nicotine dependence

== ENCOUNTER 2017-04-26 10:03 | Outpatient (CLI) | payer MEDICARE ==
[2017-04-26] MEDS ORDERED: XYLOCAINE TOPICAL 4% TP ONE (10:35)
== END 2017-04-26 10:04 | disposition home or self-care (01) ==
LOC: WOUND 10:03
PROVIDERS: ATTEND Podiatrist
DX: E11.621 Type 2 diabetes mellitus with foot ulcer (principal); L97.511 Non-pressure chronic ulcer of other part of right foot limited to breakdown of skin; E11.51 Type 2 diabetes mellitus with diabetic peripheral angiopathy without gangrene; E11.22 Type 2 diabetes mellitus with diabetic chronic kidney disease; I12.0 Hypertensive chronic kidney disease with stage 5 chronic kidney disease or end stage renal disease; N18.6 End stage renal disease; Z99.2 Dependence on renal dialysis; E11.43 Type 2 diabetes mellitus with diabetic autonomic (poly)neuropathy; K31.84 Gastroparesis; Z87.891 Personal history of nicotine dependence
CPT/HCPCS: 99214; G0463

== ENCOUNTER 2017-04-26 14:01 | Emergency (ER) | payer MEDICARE ==
[2017-04-26] MEDS ORDERED: NACL 0.9% 1000 ML 1,000 ML IV ONE (15:58)
[2017-04-26] MEDS ORDERED: TORADOL IV ONE (15:58)
[2017-04-26] MEDS ORDERED: ZOFRAN IV ONE ×2 (15:58→17:15)
--- NOTE | 2017-04-26 15:58 | Emergency Department Report ---
Blank Doc - Documentation Documentation: Patient is a 47-year-old English male who presented with multiple episodes of nausea vomiting for the past 4 days. Patient also has not had a bowel movement. He feels as though there is stool impacting. Patient has not been keeping anything down is lightheaded when he stands. Patient be sent to the main for IV fluids and CT scan of the abdomen since patient is very tendEr
[2017-04-26 16:26] LABS: Calcium 8.9 mg/dL (8.4-10.2)
[2017-04-26 16:31] LABS: Basophils # (Auto) 0.1 K/mm3 (0.0-0.1); Basophils % (Auto) 0.6 % (0.0-1.8); Eosinophils # (Auto) 0.1 K/mm3 (0.0-0.4); Eosinophils % (Auto) 0.6 % (0.0-4.3); Hematocrit 28.9 % (35.5-45.6); Lymphocytes # (Auto) 1.8 K/mm3 (1.2-5.4); Lymphocytes % (Auto) 15.5 % (13.4-35.0); Mean Corpuscular HGB Conc 31 % (32-34); Mean Corpuscular Hemoglobin 29 pg (28-32); Mean Corpuscular Volume 91 fl (84-94); Monocytes # (Auto) 1.1 K/mm3 (0.0-0.8); Monocytes % (Auto) 9.3 % (0.0-7.3); Platelet Count 414 K/mm3 (140-440); Red Blood Count 3.16 M/mm3 (3.65-5.03); Red Cell Distribution Width 17.3 % (13.2-15.2)
--- NOTE | 2017-04-26 17:21 | Emergency Department Report ---
HPI - General Chief Complaint: Abdominal Pain Time Seen by Provider: 04/26/17 15:52 - HPI HPI: Room 26 The patient is a 47-year-old male presenting with a chief complaint of abdominal pain. The patient states she's been constipated for approximately one week. The patient states she is only able to have a bowel movement with rectal stimulation. The patient has had nausea and vomiting for the past 4 days. Patient denies fever but admits to diffuse sharp abdominal pain. Patient gives his pain a score of 10/10. Location: Abdomen Duration: One week Quality: Sharp Severity:10/10 Modifying factors: [see above] Context: [see above] Mode of transportation: [not driving] ED Past Medical Hx - Past Medical History Hx Hypertension: Yes Hx Diabetes: Yes Hx Renal Disease: Yes (Dialysis Tues, Th, Sat) Additional medical history: Gastroperesis - Surgical History Additional Surgical History: Graft in left arm - Family History Family history: no significant - Social History Smoking Status: Former Smoker Substance Use Type: None (denies illicit drug use) - Medications Home Medications: Home Medications Medication Instructions Recorded Confirmed Last Taken Type amLODIPine [Norvasc] 5 mg PO DAILY 07/19/13 04/04/17 04/04/17 History HYDROcodone/APAP 5-325 [[place] 1 - 2 each PO Q6HR PRN #14 tablet 02/26/1704/04/17 Rx 5-325 mg TAB] Promethazine [Phenergan SUPPOS] 25 mg [place] Q6HR PRN #30 supp.rect 02/26/1703/31/17 Rx Promethazine [Phenergan TAB] 25 mg PO Q6HR PRN #30 tab 02/26/17 04/04/17 Unknown Rx Aspirin [Aspir-Low] 81 mg PO BID 04/04/17 04/04/17 Unknown History Dicyclomine [Bentyl] 5 mg PO QID PRN 04/04/17 04/04/17 04/02/17 History NovoLOG Mix 70/30 VIAL 54 units SQ BID 04/04/17 04/04/17 04/04/17 History Apixaban [Eliquis] 5 mg PO BID #60 tablet 04/05/17 Unknown Rx Oxycodone HCl/Acetaminophen 1 each PO Q6HR PRN #60 tablet 04/05/17 Unknown Rx [Percocet 7.5/325 mg] Docusate Sodium [Colace] 100 mg PO BID PRN #60 capsule 04/26/17 Unknown Rx Lactulose [Cephulac] 20 gm PO QDAY PRN #90 ml 04/26/17 Unknown Rx Promethazine [Phenergan TAB] 25 mg PO Q6HR PRN #20 tab 04/26/17 Unknown Rx Promethazine [Phenergan] 25 mg [place] Q6HR PRN #5 supp.rect 04/26/17 Unknown Rx ED Review of Systems ROS: Stated complaint: NAUSEA/VOMITING/ABDOMINAL PAIN Other details as noted in HPI Constitutional: denies: fever Gastrointestinal: abdominal pain, nausea, vomiting, constipation Physical Exam - Physical Exam Vital Signs: Vital Signs 04/26/17 04/26/17 14:02 14:06 Temperature 98.7 F Pulse Rate 91 H Respiratory 16 Rate Blood Pressure 137/62 O2 Sat by Pulse 96 Oximetry Physical Exam: GENERAL: The patient is well-developed well-nourished male lying on stretcher not appearing to be in acute distress. [] HEENT: Normocephalic. Atraumatic. Extraocular motions are intact. Patient has moist mucous membranes. NECK: Supple. Trachea midline CHEST/LUNGS: Clear to auscultation. There is no respiratory distress noted. HEART/CARDIOVASCULAR: Regular. There is no tachycardia. There is no gallop rub or murmur. ABDOMEN: Abdomen is soft, with mild discomfort to palpation in the right lower quadrant. Patient has normal bowel sounds. There is no abdominal distention. SKIN: There is no rash. There is no edema. There is no diaphoresis. NEURO: The patient is awake, alert, and oriented. The patient is cooperative. The patient has normal speech MUSCULOSKELETAL: There is no evidence of acute injury. ED Course Vital Signs 04/26/17 04/26/17 14:02 14:06 Temperature 98.7 F Pulse Rate 91 H Respiratory 16 Rate Blood Pressure 137/62 O2 Sat by Pulse 96 Oximetry - Reevaluation(s) Reevaluation #1: 04/26/17 22:54 Patient having bowel movement ED Medical Decision Making - Lab Data Result diagrams: 04/26/17 16:02 04/26/17 16:02 Laboratory Tests 04/26/17 04/26/17 16:02 16:02 WBC 11.6 H RBC 3.16 L Hgb 9.0 L Hct 28.9 L MCV 91 MCH 29 MCHC 31 L RDW 17.3 H Plt Count 414 Lymph % (Auto) 15.5 [place] % (Auto) 9.3 H Eos % (Auto) 0.6 Baso % (Auto) 0.6 Lymph # 1.8 [place] # 1.1 H Eos # 0.1 Baso # 0.1 Seg Neutrophils % 74.0 H Seg Neutrophils # 8.6 H Sodium 134 L Potassium 3.7 Chloride 93.7 L Carbon Dioxide 23 Anion Gap 21 BUN 43 H Creatinine 10.0 H Estimated GFR 7 BUN/Creatinine Ratio 4 Glucose 170 H Calcium 8.9 Amylase 28 Lipase 7 L - Differential Diagnosis fecal impaction, small bowel obstruction Critical care attestation.: If time is entered above; I have spent that time in minutes in the direct care of this critically ill patient, excluding procedure time. ED Disposition Clinical Impression: Nausea & vomiting, Constipation, Abdominal pain Disposition: TO HOME OR SELFCARE Is pt being admited?: No Does the pt Need Aspirin: No Condition: Stable Instructions: Constipation (ED), High Fiber Diet (ED) Additional Instructions: Return to the emergency department immediately should you develop worsening symptoms, fever, inability to tolerate food or liquid or any other concerns. Prescriptions: Docusate Sodium [Colace] 100 mg PO BID PRN #60 capsule PRN Reason: Constipation Lactulose [Cephulac] 20 gm PO QDAY PRN #90 ml PRN Reason: Constipation Promethazine [Phenergan TAB] 25 mg PO Q6HR PRN #20 tab PRN Reason: Nausea Promethazine [Phenergan] 25 mg ME Q6HR PRN #5 supp.rect PRN Reason: Vomiting Referrals: JOAQUÍN MELGOZA MD [Staff Physician] - 3-5 Days (Dr. Melgoza is a airport operations specialist. Please follow up with him for further evaluation) Time of Disposition: 22:56
--- NOTE | 2017-04-26 20:30 | Cat Scan Report ---
FINAL REPORT EXAM: CT ABDOMEN PELVIS WO CON HISTORY: Abdominal Pain TECHNIQUE: Standard unenhanced CT of the abdomen and pelvis. Coronal and sagittal reconstruction was also performed. PRIORS: None. FINDINGS: Within the abdomen, the liver, spleen, pancreas, gallbladder, adrenal glands, and kidneys are unremarkable. Focal fatty deposition along the anterior falciform ligament is noted. No evidence for retroperitoneal or pelvic lymphadenopathy is seen. The bowel loops have normal caliber. No soft tissue mass, fluid collection, inflammatory change, or free air is seen within the abdomen or pelvis. The retrocecal appendix is normal and located near the gallbladder fossa. Extensive calcification of the arterial vasculature is seen. Within the pelvis, the bladder demonstrates mild diffuse wall thickening which can be associated with cystitis. The diffuse nature makes neoplasm less likely. The prostate is normal. No evidence for mass or lymphadenopathy is seen in the pelvis. Images through the upper abdomen include the lung bases which are expanded and clear. Bony structures show no focal abnormalities and are intact. IMPRESSION: Diffuse mild bladder wall thickening which can be associated with acute cystitis
[2017-04-26] MEDS ORDERED: CEPHULAC PO ONE (21:32)
[2017-04-26 23:11] VITALS: BP 146/82
== END 2017-04-26 23:45 | disposition home or self-care (01) ==
LOC: ED 14:01
DX: R10.84 Generalized abdominal pain (principal); R11.2 Nausea with vomiting, unspecified; K59.00 Constipation, unspecified; E11.22 Type 2 diabetes mellitus with diabetic chronic kidney disease; I12.0 Hypertensive chronic kidney disease with stage 5 chronic kidney disease or end stage renal disease; N18.6 End stage renal disease; Z99.2 Dependence on renal dialysis; Z87.891 Personal history of nicotine dependence; Z88.1 Allergy status to other antibiotic agents
CPT/HCPCS: 36415; 74176; 80048; 82150; 83690; 85025; 96361; 96374; 96375; 99284; J1885; J2405; J7030

== ENCOUNTER 2017-05-06 13:00 | Outpatient (CLI) | payer MEDICARE ==
[2017-05-06] MEDS ORDERED: XYLOCAINE TOPICAL 4% TP ONE ×2 (13:21→14:03)
[2017-05-06] MEDS ORDERED: SILVER NITRATE TP ONE ×2 (13:46→14:03)
== END 2017-05-06 13:01 | disposition home or self-care (01) ==
LOC: WOUND 13:00
PROVIDERS: ATTEND Internal Medicine
DX: E11.621 Type 2 diabetes mellitus with foot ulcer (principal); I70.244 Atherosclerosis of native arteries of left leg with ulceration of heel and midfoot; L97.413 Non-pressure chronic ulcer of right heel and midfoot with necrosis of muscle; E11.51 Type 2 diabetes mellitus with diabetic peripheral angiopathy without gangrene; E11.22 Type 2 diabetes mellitus with diabetic chronic kidney disease; I12.0 Hypertensive chronic kidney disease with stage 5 chronic kidney disease or end stage renal disease; N18.6 End stage renal disease; E11.43 Type 2 diabetes mellitus with diabetic autonomic (poly)neuropathy; K31.84 Gastroparesis; Z87.891 Personal history of nicotine dependence; Z99.2 Dependence on renal dialysis
CPT/HCPCS: 11042; 11045; G0277; 99183

== ENCOUNTER 2017-05-07 15:03 | Outpatient (CLI) | payer MEDICARE ==
[~2017-05-07 15:03] MED LIST: AD OINTMENT TP ONE
== END 2017-05-07 15:04 | disposition home or self-care (01) ==
LOC: WOUND 15:03
PROVIDERS: ATTEND Surgery
DX: E11.621 Type 2 diabetes mellitus with foot ulcer (principal); I70.244 Atherosclerosis of native arteries of left leg with ulceration of heel and midfoot; L97.413 Non-pressure chronic ulcer of right heel and midfoot with necrosis of muscle; L97.421 Non-pressure chronic ulcer of left heel and midfoot limited to breakdown of skin; E11.51 Type 2 diabetes mellitus with diabetic peripheral angiopathy without gangrene; E11.22 Type 2 diabetes mellitus with diabetic chronic kidney disease; I12.0 Hypertensive chronic kidney disease with stage 5 chronic kidney disease or end stage renal disease; N18.6 End stage renal disease; E11.43 Type 2 diabetes mellitus with diabetic autonomic (poly)neuropathy; K31.84 Gastroparesis; Z87.891 Personal history of nicotine dependence; Z99.2 Dependence on renal dialysis
CPT/HCPCS: 82962; G0277; 99183; A6250

== ENCOUNTER 2017-05-09 14:20 | Outpatient (CLI) | payer MEDICARE | END 2017-05-09 14:21 | disposition home or self-care (01) | LOC: WOUND 14:20 | PROVIDERS: ATTEND Internal Medicine | DX: I70.244 Atherosclerosis of native arteries of left leg with ulceration of heel and midfoot (principal); E11.621 Type 2 diabetes mellitus with foot ulcer; L97.421 Non-pressure chronic ulcer of left heel and midfoot limited to breakdown of skin; L97.413 Non-pressure chronic ulcer of right heel and midfoot with necrosis of muscle; E11.51 Type 2 diabetes mellitus with diabetic peripheral angiopathy without gangrene; E11.22 Type 2 diabetes mellitus with diabetic chronic kidney disease; I12.0 Hypertensive chronic kidney disease with stage 5 chronic kidney disease or end stage renal disease; N18.6 End stage renal disease; E11.43 Type 2 diabetes mellitus with diabetic autonomic (poly)neuropathy; K31.84 Gastroparesis; Z99.2 Dependence on renal dialysis; Z87.891 Personal history of nicotine dependence | CPT/HCPCS: G0277 ×3; 99183 ==

== ENCOUNTER 2017-05-13 12:59 | Outpatient (CLI) | payer MEDICARE ==
[2017-05-13] MEDS ORDERED: XYLOCAINE TOPICAL 4% TP ONE ×2 (13:27→13:34)
== END 2017-05-13 13:00 | disposition home or self-care (01) ==
LOC: WOUND 12:59
PROVIDERS: ATTEND Internal Medicine
DX: E11.621 Type 2 diabetes mellitus with foot ulcer (principal); L97.413 Non-pressure chronic ulcer of right heel and midfoot with necrosis of muscle; I70.244 Atherosclerosis of native arteries of left leg with ulceration of heel and midfoot; E11.51 Type 2 diabetes mellitus with diabetic peripheral angiopathy without gangrene; E11.22 Type 2 diabetes mellitus with diabetic chronic kidney disease; I12.0 Hypertensive chronic kidney disease with stage 5 chronic kidney disease or end stage renal disease; N18.6 End stage renal disease; E11.43 Type 2 diabetes mellitus with diabetic autonomic (poly)neuropathy; K31.84 Gastroparesis; Z87.891 Personal history of nicotine dependence
CPT/HCPCS: 99214; G0463

== ENCOUNTER → 2017-05-13 15:02 | Emergency (ER) | payer MEDICARE | END | disposition left against medical advice (07) | LOC: ED 15:02 | DX: L08.9 Local infection of the skin and subcutaneous tissue, unspecified (principal); Z53.21 Procedure and treatment not carried out due to patient leaving prior to being seen by health care provider ==

== ENCOUNTER 2018-10-18 12:12 | Inpatient (IN) | payer MEDICARE ==
--- NOTE | 2018-10-18 12:49 | Emergency Department Report ---
ED General Adult HPI - General Chief complaint: Medical Clearance Stated complaint: DIALYSIS Time Seen by Provider: 10/18/18 12:33 Source: patient, EMS Mode of arrival: Stretcher Limitations: Physical Limitation - History of Present Illness Initial comments: 48-year-old chronic dialysis patient who states that he had excessive bleeding at dialysis last Saturday. He was sent home and removed his dressing on Saturday. He states at that time bleeding recurred and was profuse. The patient applied an occlusive dressing himself at home on Saturday. On he states he was able to get dialysis. He went to dialysis today (Saturday) and states he had excessive bleeding again. The triage note states that he was found to have graft occlusion and that was the reason why he was not dialyzed. At the time of my counter the patient has no specific complaints. -: days(s) - Related Data Home Medications Medication Instructions Recorded Confirmed Last Taken amLODIPine [Norvasc] 5 mg PO DAILY 07/19/13 06/16/18 06/15/18 Calcium Acetate [Phoslo] 667 mg PO TIDAC 06/16/18 06/16/18 06/15/18 Cetirizine HCl [ZyrTEC 10mg cap] 10 mg PO QDAY 06/16/18 06/16/18 06/15/18 Gabapentin [Neurontin] 100 mg PO BID 06/16/18 06/16/18 06/15/18 Insulin NPH/Regular [NovoLIN 70/30] 10 units SQ QPM 06/16/18 06/16/18 06/15/18 Insulin NPH/Regular [NovoLIN 70/30] 15 units SQ QAM 06/16/18 06/16/18 06/15/18 Oxycodone HCl [oxyCODONE] 10 mg PO Q8HR PRN 06/16/18 06/16/18 06/15/18 Allergies Allergy/AdvReac Type Severity Reaction Status Date / Time cephalexin [From Keflex] Allergy Vomiting Verified 02/23/17 19:02 vancomycin Allergy Rash Verified 06/16/18 06:34 ED Review of Systems ROS: Stated complaint: DIALYSIS Other details as noted in HPI Constitutional: denies: chills, fever Eyes: denies: eye pain, eye discharge, vision change ENT: denies: ear pain, throat pain Respiratory: denies: cough, shortness of breath, wheezing Cardiovascular: denies: chest pain, palpitations Endocrine: no symptoms reported Gastrointestinal: denies: abdominal pain, nausea, diarrhea Genitourinary: denies: urgency, dysuria Musculoskeletal: denies: back pain, joint swelling, arthralgia Skin: denies: rash, lesions Neurological: denies: headache, weakness, paresthesias Psychiatric: denies: anxiety, depression Hematological/Lymphatic: denies: easy bleeding, easy bruising ED Past Medical Hx - Past Medical History Hx Hypertension: Yes Hx Diabetes: Yes (type 1) Hx Renal Disease: Yes (Dialysis Tues, Th, Sat) Additional medical history: Gastroperesis - Surgical History Additional Surgical History: Graft in left arm, BL BKA - Social History Smoking Status: Never Smoker Substance Use Type: None - Medications Home Medications: Home Medications Medication Instructions Recorded Confirmed Last Taken Type amLODIPine [Norvasc] 5 mg PO DAILY 07/19/13 06/16/18 06/15/18 History Calcium Acetate [Phoslo] 667 mg PO TIDAC 06/16/18 06/16/18 06/15/18 History Cetirizine HCl [ZyrTEC 10mg cap] 10 mg PO QDAY 06/16/18 06/16/18 06/15/18 History Gabapentin [Neurontin] 100 mg PO BID 06/16/18 06/16/18 06/15/18 History Insulin NPH/Regular [NovoLIN 70/30] 10 units SQ QPM 06/16/18 06/16/18 06/15/18 History Insulin NPH/Regular [NovoLIN 70/30] 15 units SQ QAM 06/16/18 06/16/18 06/15/18 History Oxycodone HCl [oxyCODONE] 10 mg PO Q8HR PRN 06/16/18 06/16/18 06/15/18 History ED Physical Exam - General Limitations: Physical Limitation General appearance: alert, in no apparent distress - Head Head exam: Present: atraumatic, normocephalic - Eye Eye exam: Present: normal appearance. Absent: scleral icterus - ENT ENT exam: Present: mucous membranes moist - Neck Neck exam: Present: normal inspection. Absent: meningismus - Respiratory Respiratory exam: Present: normal lung sounds bilaterally. Absent: respiratory distress - Cardiovascular Cardiovascular Exam: Present: regular rate, normal rhythm. Absent: systolic murmur, diastolic murmur, rubs, gallop - GI/Abdominal GI/Abdominal exam: Present: soft, normal bowel sounds. Absent: distended, tenderness, guarding, rebound - Rectal Rectal exam: Present: deferred - Extremities Exam Extremities exam: Present: other (bilateral AKA) - Back Exam Back exam: Present: other (patient states he does have decubiti (unable to visualize at this time)) - Neurological Exam Neurological exam: Present: alert, oriented X3, CN II-XII intact - Psychiatric Psychiatric exam: Present: normal affect, normal mood - Skin Skin exam: Present: warm, dry, intact, normal color. Absent: rash ED Course Vital Signs 10/18/18 12:33 Temperature 98.9 F Pulse Rate 99 H Respiratory 18 Rate Blood Pressure 125/39 O2 Sat by Pulse 94 Oximetry - Reevaluation(s) Reevaluation #1: Vascular paged. 10/18/18 12:49 ED Medical Decision Making - Lab Data Result diagrams: 10/18/18 12:43 10/18/18 12:43 Laboratory Results - last 24 hr 10/18/18 10/18/18 10/18/18 12:43 12:43 12:43 WBC 8.3 RBC 2.79 L Hgb 8.0 L Hct 25.9 L MCV 93 MCH 29 MCHC 31 L RDW 21.8 H Plt Count 349 Lymph % (Auto) 22.7 [place] % (Auto) 10.0 H Eos % (Auto) 3.6 Baso % (Auto) 0.7 Lymph # 1.9 Trigg # 0.8 Eos # 0.3 Baso # 0.1 Seg Neutrophils % 63.0 Seg Neutrophils # 5.2 PT 14.8 INR 1.19 H APTT 41.2 H Sodium 139 Potassium 4.7 Chloride 101.7 Carbon Dioxide 25 Anion Gap 17 BUN 30 H Creatinine 4.6 H Estimated GFR 17 BUN/Creatinine Ratio 7 Glucose 88 Calcium 7.8 L Phosphorus 5.10 H - Radiology Data Radiology results: report reviewed, image reviewed (CHF present) Critical care attestation.: If time is entered above; I have spent that time in minutes in the direct care of this critically ill patient, excluding procedure time. ED Disposition Clinical Impression: End stage renal disease on dialysis Congestive heart failure Qualifiers: Heart failure type: combined systolic and diastolic Heart failure chronicity: acute on chronic Qualified Code(s): I50.43 - Acute on chronic combined systolic (congestive) and diastolic (congestive) heart failure AV graft malfunction Qualifiers: Encounter type: initial encounter Qualified Code(s): T82.590A - Other traffic signal mechanic al complication of surgically created arteriovenous fistula, initial encounter Disposition: DC-09 OP ADMIT IP TO THIS HOSP Is pt being admited?: Yes Does the pt Need Aspirin: No Condition: Stable Time of Disposition: 13:41
[2018-10-18] MEDS ORDERED: MORPHINE IV ONE (12:55)
[2018-10-18] MEDS ORDERED: ZOFRAN IV ONE (12:55)
[2018-10-18 13:12] LABS: INR 1.19 (0.87-1.13)
[2018-10-18 13:13] LABS: Partial Thromboplastin Time 41.2 Sec. (24.2-36.6)
[2018-10-18 13:22] LABS: Calcium 7.8 mg/dL (8.4-10.2)
[2018-10-18 13:30] LABS: Basophils # (Auto) 0.1 K/mm3 (0.0-0.1); Basophils % (Auto) 0.7 % (0.0-1.8); Eosinophils # (Auto) 0.3 K/mm3 (0.0-0.4); Eosinophils % (Auto) 3.6 % (0.0-4.3); Hematocrit 25.9 % (35.5-45.6); Lymphocytes # (Auto) 1.9 K/mm3 (1.2-5.4); Lymphocytes % (Auto) 22.7 % (13.4-35.0); Mean Corpuscular HGB Conc 31 % (32-34); Mean Corpuscular Volume 93 fl (84-94); Monocytes # (Auto) 0.8 K/mm3 (0.0-0.8); Platelet Count 349 K/mm3 (140-440); Red Blood Count 2.79 M/mm3 (3.65-5.03)
[2018-10-18 13:31] LABS: Red Cell Distribution Width 21.8 % (13.2-15.2)
--- NOTE | 2018-10-18 13:35 | XRay Report ---
CHEST 1 VIEW INDICATION / CLINICAL INFORMATION: hypertension. COMPARISON: 02/24/2017 FINDINGS: SUPPORT DEVICES: None. HEART / MEDIASTINUM: Cardiac silhouette is mildly enlarged. LUNGS / PLEURA: There is mild to moderate interstitial pulmonary edema with probable small left pleur al effusion. No pneumothorax. ADDITIONAL FINDINGS: No significant additional findings. IMPRESSION: 1. Mild cardiomegaly with mild to moderate interstitial pulmonary edema and small left pleural effusi on. Signer Name: Georgia Castillo MD Signed: 10/18/2018 1:30 PM Workstation Name: [id number]
--- NOTE | 2018-10-18 14:29 | History and Physical Report ---
History of Present Illness Chief complaint: I need dialysis History of present illness: 48 YO Male with ESRD on HD(T,R,Sa) last dialyzed on , DM complicated by Gastroparesis, HTN, presents to ED for evaluation. Pt states that he has experienced bleeding from his dialysis fistula and applied an occlusive dressing to stop the bleeding 3 days ago. Pt presented to his dialysis center for his scheduled session but was unable to undergo dialysis due to excessive bleeding secondary to clotted access. EMS notified, and upon arrival the patient was found to be in distress and transported to [facility]. Pt seen and evaluated in ED and found to have ESRD and Clotted dialysis access. Nephrology consulted in ED for dialysis. vascular surgery consulted in ED. Pt pending surgical intervention. Pt denies fever, chills, CP, Palpitations, NVD, Trauma, Skin rash, BRBPR, Unintentional weight loss, night sweats, skin rash, or recent ill contacts. Pt admitted to medical floor with remote telemetry. Past History Past Medical History: diabetes, ESRD, hypertension, other (Gastroparesis) Past Surgical History: Other (AV fistula placement) Social history: . denies: smoking, alcohol abuse, prescription drug abuse Family history: diabetes, hypertension Medications and Allergies Allergies Allergy/AdvReac Type Severity Reaction Status Date / Time cephalexin [From Keflex] Allergy Vomiting Verified 02/23/17 19:02 vancomycin Allergy Rash Verified 06/16/18 06:34 Home Medications Medication Instructions Recorded Confirmed Last Taken Type amLODIPine [Norvasc] 5 mg PO DAILY 07/19/13 10/18/18 06/15/18 History Calcium Acetate [Phoslo] 667 mg PO TIDAC 06/16/18 10/18/18 06/15/18 History Cetirizine HCl [ZyrTEC 10mg cap] 10 mg PO QDAY 06/16/18 10/18/18 06/15/18 History Gabapentin [Neurontin] 100 mg PO BID 06/16/18 10/18/18 06/15/18 History Insulin NPH/Regular [NovoLIN 70/30] 10 units SQ QPM 06/16/18 10/18/18 06/15/18 History Insulin NPH/Regular [NovoLIN 70/30] 15 units SQ QAM 06/16/18 10/18/18 06/15/18 History Oxycodone HCl [oxyCODONE] 10 mg PO Q8HR PRN 06/16/18 10/18/18 06/15/18 History Review of Systems Constitutional: other (bleeeding from fistula), no weight loss, no weight gain, no fever, no chills Ears, nose, mouth and throat: no ear pain, no ear discharge, no tinnitis, no decreased hearing, no nose pain, no nasal congestion, no nasal discharge Cardiovascular: no chest pain, no orthopnea, no palpitations, no rapid/irregular heart beat, no edema, no syncope, no shortness of breath Respiratory: no cough, no cough with sputum, no excessive sputum, no hemoptysis, no shortness of breath Gastrointestinal: no abdominal pain, no nausea, no diarrhea, no constipation, no change in bowel habits Genitourinary Male: no hematuria, no flank pain, no discharge, no urinary frequency, no urinary hesitancy, no nocturia Rectal: no pain, no incontinence, no bleeding Musculoskeletal: no neck stiffness, no neck pain, no shooting arm pain, no arm numbness/tingling, no low back pain, no shooting leg pain Integumentary: no rash, no pruritis, no redness, no sores, no wounds Neurological: no paralysis, no weakness, no parathesias, no numbness, no tingling, no syncope, no tremors Psychiatric: no anxiety, no memory loss, no change in sleep habits, no sleep disturbances, no insomnia, no change in appetite Endocrine: no cold intolerance, no heat intolerance, no polyphagia, no excessive thirst, no polydipsia, no polyuria, no excessive sweating, no flushing Hematologic/Lymphatic: no easy bruising, no easy bleeding, no lymphadenopathy Allergic/Immunologic: no urticaria, no allergic rhinitis, no anaphylaxis, no angioedema Exam - Constitutional Vitals: Temp Pulse Resp BP Pulse Ox 98.9 F 99 H 18 125/39 94 10/18/18 12:33 10/18/18 12:33 10/18/18 12:33 10/18/18 12:33 10/18/18 12:33 General appearance: Present: mild distress, cachectic - EENT Eyes: Present: PERRL ENT: hearing intact, clear oral mucosa - Neck Neck: Present: supple, normal ROM - Respiratory Respiratory effort: normal Respiratory: bilateral: CTA - Cardiovascular Heart Sounds: Present: S1 & S2. Absent: rub, click - Extremities Extremities: pulses symmetrical, No edema Peripheral Pulses: within normal limits - Abdominal General gastrointestinal: Present: soft, non-tender, non-distended, normal bowel sounds Male genitourinary: Present: normal - Integumentary Integumentary: Present: clear, warm, dry - Musculoskeletal Musculoskeletal: gait normal, strength equal bilaterally - Psychiatric Psychiatric: appropriate mood/affect, intact judgment & insight - Neurologic Neurologic: CNII-XII intact, moves all extremities Results - Labs CBC & Chem 7: 10/18/18 12:43 10/18/18 12:43 Labs: Abnormal lab results 10/18/18 10/18/18 10/18/18 Range/Units 12:43 12:43 12:43 RBC 2.79 L (3.65-5.03) M/mm3 Hgb 8.0 L (11.8-15.2) gm/dl Hct 25.9 L (35.5-45.6) % MCHC 31 L (32-34) % RDW 21.8 H (13.2-15.2) % [place] % (Auto) 10.0 H (0.0-7.3) % INR 1.19 H (0.87-1.13) APTT 41.2 H (24.2-36.6) Sec. BUN 30 H (9-20) mg/dL Creatinine 4.6 H (0.8-1.5) mg/dL Calcium 7.8 L (8.4-10.2) mg/dL Phosphorus 5.10 H (2.5-4.5) mg/dL Assessment and Plan - Patient Problems (1) End stage renal disease on dialysis Current Visit: Yes Status: Acute Plan to address problem: Nephrology consulted in ED, dialysis as per renal team, avoid nephrotoxic agents, strict I/O, daily weight, monitor uop q shift, repeat bmp to monitor serum potassium (2) Diabetes Current Visit: Yes Status: Acute Plan to address problem: ADA diet, insulin, accu check, hypoglycemia protocol (3) HTN (hypertension) Current Visit: Yes Status: Resolved Qualifiers: Hypertension type: essential hypertension Qualified Code(s): I10 - Essential (primary) hypertension Plan to address problem: Monitor bp q shift, continue medical management (4) AV graft malfunction Current Visit: Yes Status: Acute Qualifiers: Encounter type: initial encounter Plan to address problem: Vascular surgery consulted, pending surgical intervention at time of admission, (5) Gastroparesis due to DM Current Visit: Yes Status: Chronic Plan to address problem: Frequent small meals, treat Diabetes, anti emetic therapy prn, supportive care (6) DVT prophylaxis Current Visit: Yes Status: Acute Plan to address problem: SCD to BLE while in bed,
[2018-10-18] MEDS ORDERED: NON-FORMULARY (Oxycodone Hcl [Oxycodone] 10 MG) PO PRN (14:30)
[2018-10-18] MEDS ORDERED: PROVENTIL IH PRN (14:31)
[2018-10-18] MEDS ORDERED: ZOFRAN IV PRN (14:31)
[2018-10-18] MEDS: ROXICODONE PO PRN (15:19)
--- NOTE | 2018-10-18 15:21 | Consultation ---
History of Present Illness - Reason for Consult Consult date: 10/18/18 end stage renal disease - History of Present Illness This is a 48-year-old ESRD patient who presents to the E.R from his dialysis clinic in [place] under the care of his outpatient Fireboat Operator- Dr. Duffy stating that his access was gushing out blood at the clinic when he got there today and so they called his Fireboat Operator and he told patient to come to the E.R. Vascular surgeon consulted to evaluate Left AVG. We are being consulted for management of this patient's ESRD. Past History Past Medical History: anemia, diabetes, dialysis, ESRD, hypertension Past Surgical History: Other (Left AVG placement, Bilateral BKA) Social history: no significant social history Family history: no significant family history Medications and Allergies Allergies Allergy/AdvReac Type Severity Reaction Status Date / Time cephalexin [From Keflex] Allergy Vomiting Verified 02/23/17 19:02 vancomycin Allergy Rash Verified 06/16/18 06:34 Home Medications Medication Instructions Recorded Confirmed Last Taken Type amLODIPine [Norvasc] 5 mg PO DAILY 07/19/13 10/18/18 06/15/18 History Calcium Acetate [Phoslo] 667 mg PO TIDAC 06/16/18 10/18/18 06/15/18 History Cetirizine HCl [ZyrTEC 10mg cap] 10 mg PO QDAY 06/16/18 10/18/18 06/15/18 History Gabapentin [Neurontin] 100 mg PO BID 06/16/18 10/18/18 06/15/18 History Insulin NPH/Regular [NovoLIN 70/30] 10 units SQ QPM 06/16/18 10/18/18 06/15/18 History Insulin NPH/Regular [NovoLIN 70/30] 15 units SQ QAM 06/16/18 10/18/18 06/15/18 History Oxycodone HCl [oxyCODONE] 10 mg PO Q8HR PRN 06/16/18 10/18/18 06/15/18 History Active Meds: Active Medications Acetaminophen (Tylenol) 650 mg PO Q4H PRN PRN Reason: Pain MILD(1-3)/Fever >100.5/OSBORN Albuterol (Proventil) 2.5 mg IH Q4HRT PRN PRN Reason: Shortness Of Breath Amlodipine Besylate (Norvasc) 5 mg PO DAILY [facility] Calcium Acetate (Phoslo) 667 mg PO TIDAC [facility] Gabapentin (Neurontin) 100 mg PO BID [facility] Loratadine (Claritin) 10 mg PO DAILY [facility] Ondansetron HCl (Zofran) 4 mg IV Q8H PRN PRN Reason: Nausea And Vomiting Oxycodone HCl (Roxicodone) 10 mg PO Q8H PRN PRN Reason: Pain, Moderate (4-6) Last Admin: 10/18/18 15:19 Dose: 10 mg Documented by: Sodium Chloride (Sodium Chloride Flush Syringe 10 Ml) 10 ml IV BID DAFNE Sodium Chloride (Sodium Chloride Flush Syringe 10 Ml) 10 ml IV PRN PRN PRN Reason: LINE FLUSH Review of Systems Constitutional: fatigue, no weight loss, no weight gain, no fever, no chills, no sweats, no anorexia, no weakness, no malaise, no lethargy Ears, nose, mouth and throat: no ear pain, no ear discharge, no tinnitis, no decreased hearing, no nose pain, no nasal congestion, no nasal discharge, no sinus pressure Cardiovascular: no chest pain, no orthopnea, no palpitations, no rapid/irregular heart beat, no edema, no syncope, no lightheadedness, no shortness of breath Respiratory: no cough with sputum, no excessive sputum, no hemoptysis, no shortness of breath, no dyspnea on exertion Gastrointestinal: no abdominal pain, no nausea, no vomiting, no diarrhea, no constipation, no change in bowel habits Genitourinary Male: no hematuria, no flank pain, no discharge, no urinary frequency, no urinary hesitancy, no nocturia, no incontinence Musculoskeletal: no neck stiffness, no neck pain, no shooting arm pain, no arm numbness/tingling, no low back pain, no shooting leg pain Integumentary: no rash, no pruritis, no redness, no sores, no wounds, no jaundice, no boils Neurological: no head injury, no transient paralysis, no paralysis, no weakness, no parathesias, no numbness, no tingling, no seizures, no syncope, no tremors Psychiatric: no anxiety, no memory loss, no change in sleep habits, no sleep disturbances, no insomnia, no hypersomnia, no change in appetite, no change in libido Endocrine: no cold intolerance, no heat intolerance, no polyphagia, no excessive thirst, no polydipsia, no polyuria, no nocturia Exam - Vital Signs Vital signs: Vital Signs Temp Pulse Resp BP Pulse Ox 98.9 F 99 H 18 125/39 94 10/18/18 12:33 10/18/18 12:33 10/18/18 12:33 10/18/18 12:33 10/18/18 12:33 - General Appearance General appearance: well-developed, appears stated age, obese, fatigue EENT: ATNC, PERRL, hearing intact, vision intact Neck: Present: neck supple, trachea midline Respiratory: Decreased Breath Sounds Heart: regular, S1S2 Gastrointestinal: Present: normoactive bowel sounds Integumentary: warm and dry Neurologic: alert and oriented x3 Musculoskeletal: Present: other (Has bilateral BKA. Left AVG has positive bruit and thrill) Psychiatric: cooperative Results - Lab Results 10/18/18 12:43 10/18/18 12:43 Most recent lab results Calcium 7.8 mg/dL (8.4-10.2) L 10/18/18 12:43 Phosphorus 5.10 mg/dL (2.5-4.5) H 10/18/18 12:43 Assessment and Plan Assessment and Plan ESRD on Hemodialysis: -On TTS HD schedule via LUE AVG Outpatiently -Vascular consulted for Left AVG malfunction -Currently in stable condition so does not have to be dialyzed today since having vascular procedure done late this evening -Fluid restriction of 1 liter per day -Obtain daily weights -Renally dose all medications -Monitor I/O's -Assess dialysis needs daily -Outpatient Fireboat Operator is Dr. Duffy in [place] Diabetes mellitus 2 on insulin: -As per primary team Essential Hypertension: -Titrate BP meds to keep SBP <130 -Reconcile home BP medications
[2018-10-18] MEDS ORDERED: DILAUDID IV ONE ×2 (17:03→19:04)
[2018-10-18] MEDS: PHOSLO PO SCH (17:10)
[2018-10-18] MEDS ORDERED: DILAUDID ONE ×2 (17:10→19:17)
[2018-10-18] MEDS ORDERED: NACL 0.9% 500 ML IR ONE (18:28)
[2018-10-18] MEDS ORDERED: NACL 0.9% IR ONE (18:30)
[2018-10-18] MEDS: NEURONTIN PO SCH (22:59)
[2018-10-18] MEDS: TYLENOL PO PRN (22:59)
[2018-10-18] MEDS: SODIUM CHLORIDE FLUSH SYRINGE 10 ML IV SCH (23:08)
[2018-10-19] MEDS: PHOSLO PO SCH ×4 (07:55→16:59)
--- NOTE | 2018-10-19 09:18 | Progress Note ---
Assessment and Plan Assessment and Plan ESRD on Hemodialysis: -Labs ordered for today are not collected as of yet -On TTS HD schedule via LUE AVG Outpatiently -Vascular consulted for Left AVG malfunction -Currently in stable condition, plan for dialysis tomorrow after Left AVG is evaluated by Vascular -Fluid restriction of 1 liter per day -Obtain daily weights -Renally dose all medications -Monitor I/O's -Assess dialysis needs daily -Outpatient [facility] is Dr. Duffy in [place] Essential Hypertension: -Titrate BP meds to keep SBP <130 -Reconcile home BP medications Diabetes mellitus 2 on insulin: -As per primary team Subjective Date of service: 10/19/18 Principal diagnosis: Malfunction left AVG Interval history: Patient seen lying in bed. States he is hungry and wants food. He is NPO for possible access procedure. Objective - Vital Signs Vital signs: Vital Signs - 12hr 10/18/18 10/18/18 10/18/18 21:31 21:52 23:04 Temperature 99.8 F H 99.4 F Pulse Rate 90 90 Respiratory 18 16 Rate Blood Pressure 98/45 104/48 O2 Sat by Pulse 93 97 93 Oximetry 10/19/18 04:58 Temperature 98.4 F Pulse Rate 83 Respiratory 16 Rate Blood Pressure 108/51 O2 Sat by Pulse 96 Oximetry - General Appearance General appearance: well-developed, obese, fatigue EENT: ATNC, PERRL, hearing intact, vision intact Neck: no JVD, supple Respiratory: Present: Decreased Breath Sounds Cardiology: regular, S1S2 Gastrointestinal: normoactive bowel sounds Integumentary: warm and dry Neurologic: alert and oriented x3 Musculoskeletal: other (Bilateral BKA) - Lab 10/18/18 12:43 10/18/18 12:43 Most recent lab results Calcium 7.8 mg/dL (8.4-10.2) L 10/18/18 12:43 Phosphorus 5.10 mg/dL (2.5-4.5) H 10/18/18 12:43 Medications & Allergies - Medications Allergies/Adverse Reactions: Allergies cephalexin [From Keflex] Allergy (Verified 02/23/17 19:02) Vomiting vancomycin Allergy (Verified 06/16/18 06:34) Rash Home Medications: Home Medications Medication Instructions Recorded Confirmed Last Taken Type amLODIPine [Norvasc] 5 mg PO DAILY 0510/18/18 06/15/18 History Calcium Acetate [Phoslo] 667 mg PO TIDAC 06/16/18 10/18/18 06/15/18 History Cetirizine HCl [ZyrTEC 10mg cap] 10 mg PO QDAY 06/16/18 10/18/18 06/15/18 Histo ry Gabapentin [Neurontin] 100 mg PO BID 06/16/18 10/18/18 06/15/18 History Insulin NPH/Regular [NovoLIN 70/30] 10 units SQ QPM 06/16/18 10/18/18 06/15/18 History Insulin NPH/Regular [NovoLIN 70/30] 15 units SQ QAM 06/16/18 10/18/18 06/15/18 History Oxycodone HCl [oxyCODONE] 10 mg PO Q8HR PRN 06/16/18 10/18/18 06/15/18 History Active Medications: Generic Name Dose Route Start Last Admin Trade Name Freq PRN Reason Stop Dose Admin Acetaminophen 650 mg 10/18/18 14:31 10/18/18 22:59 Tylenol PO 650 mg Q4H PRN Administration Pain MILD(1-3)/Fever >100.5/OSBORN Albuterol 2.5 mg 10/18/18 14:31 Proventil IH Q4HRT PRN Shortness Of Breath Amlodipine Besylate 5 mg 10/19/18 10:00 Norvasc PO DAILY [facility] Calcium Acetate 667 mg 10/18/18 16:30 10/19/18 07:55 Phoslo PO Not Given TIDAC [facility] Gabapentin 100 mg 10/18/18 22:00 10/18/18 22:59 Neurontin PO 100 mg BID DAFNE Administration Loratadine 10 mg 10/19/18 10:00 Claritin PO DAILY DAFNE Ondansetron HCl 4 mg 10/18/18 14:31 Zofran IV Q8H PRN Nausea And Vomiting Oxycodone HCl 10 mg 10/18/18 14:36 10/18/18 15:19 Roxicodone PO 10 mg Q8H PRN Administration Pain, Moderate (4-6) Sodium Chloride 10 ml 10/18/18 22:00 10/18/18 23:08 Sodium Chloride Flush Syringe 10 Ml IV 10 ml BID DAFNE Administration Sodium Chloride 10 ml 10/18/18 14:31 Sodium Chloride Flush Syringe 10 Ml IV PRN PRN LINE FLUSH
[2018-10-19] MEDS ORDERED: NON-FORMULARY (Cetirizine Hcl [Zyrtec 10mg Cap] 10 MG) PO SCH (10:00)
[2018-10-19] MEDS: CLARITIN PO SCH (10:20)
[2018-10-19] MEDS: NORVASC PO SCH (10:20)
[2018-10-19] MEDS: ROXICODONE PO PRN ×2 (10:20→18:52)
[2018-10-19] MEDS: SODIUM CHLORIDE FLUSH SYRINGE 10 ML IV SCH ×2 (10:21→23:29)
[2018-10-19] MEDS: NEURONTIN PO SCH ×2 (10:22→23:28)
--- NOTE | 2018-10-19 10:43 | Consultation ---
History of Present Illness - Reason for Consult Consult date: 10/19/18 malfunctioning access - History of Present Illness HPI: 48yo male with ESRD on HD via left arm AV graft presents with thrombosed access. Patient last dialyzed and was unable to undergo dialysis yesterday and was sent to the ED. Patient has recently noted prolonged bleeding from a scab and elevated venous pressures as well. PE: NAD, A&Ox3 RRR non-labored respirations left arm avg with no thrill/pulse, noted aneurysms Plan: will take to OR tomorrow for left arm av graft thrombectomy with revision NPO p MN patient consented and marked Past History Past Medical History: diabetes, ESRD, hypertension, other (Gastroparesis) Past Surgical History: Other (AV fistula placement) Social history: . denies: smoking, alcohol abuse, prescription drug abuse Family history: diabetes, hypertension Medications and Allergies Allergies Allergy/AdvReac Type Severity Reaction Status Date / Time cephalexin [From Keflex] Allergy Vomiting Verified 02/23/17 19:02 vancomycin Allergy Rash Verified 06/16/18 06:34 Home Medications Medication Instructions Recorded Confirmed Last Taken Type amLODIPine [Norvasc] 5 mg PO DAILY 07/19/13 10/18/18 06/15/18 History Calcium Acetate [Phoslo] 667 mg PO TIDAC 06/16/18 10/18/18 06/15/18 History Cetirizine HCl [ZyrTEC 10mg cap] 10 mg PO QDAY 06/16/18 10/18/18 06/15/18 History Gabapentin [Neurontin] 100 mg PO BID 06/16/18 10/18/18 06/15/18 History Insulin NPH/Regular [NovoLIN 70/30] 10 units SQ QPM 06/16/18 10/18/18 06/15/18 History Insulin NPH/Regular [NovoLIN 70/30] 15 units SQ QAM 06/16/18 10/18/18 06/15/18 History Oxycodone HCl [oxyCODONE] 10 mg PO Q8HR PRN 06/16/18 10/18/18 06/15/18 History Active Meds: Active Medications Acetaminophen (Tylenol) 650 mg PO Q4H PRN PRN Reason: Pain MILD(1-3)/Fever >100.5/OSBORN Last Admin: 10/18/18 22:59 Dose: 650 mg Documented by: Albuterol (Proventil) 2.5 mg IH Q4HRT PRN PRN Reason: Shortness Of Breath Amlodipine Besylate (Norvasc) 5 mg PO DAILY [facility] Last Admin: 10/19/18 10:20 Dose: 5 mg Documented by: Calcium Acetate (Phoslo) 667 mg PO TIDAC [facility] Last Admin: 10/19/18 07:55 Dose: Not Given Documented by: Gabapentin (Neurontin) 100 mg PO BID [facility] Last Admin: 10/19/18 10:22 Dose: 100 mg Documented by: Loratadine (Claritin) 10 mg PO DAILY [facility] Last Admin: 10/19/18 10:20 Dose: 10 mg Documented by: Ondansetron HCl (Zofran) 4 mg IV Q8H PRN PRN Reason: Nausea And Vomiting Oxycodone HCl (Roxicodone) 10 mg PO Q8H PRN PRN Reason: Pain, Moderate (4-6) Last Admin: 10/19/18 10:20 Dose: 10 mg Documented by: Sodium Chloride (Sodium Chloride Flush Syringe 10 Ml) 10 ml IV BID [facility] Last Admin: 10/19/18 10:21 Dose: 10 ml Documented by: Sodium Chloride (Sodium Chloride Flush Syringe 10 Ml) 10 ml IV PRN PRN PRN Reason: LINE FLUSH Exam - Constitutional Vitals: Temp Pulse Resp BP Pulse Ox 98.4 F 83 16 146/64 96 10/19/18 04:58 10/19/18 10:20 10/19/18 04:58 10/19/18 10:20 10/19/18 04:58 Results - Labs CBC & Chem 7: 10/18/18 12:43 10/18/18 12:43 Labs: Abnormal lab results 10/18/18 10/18/18 10/18/18 Range/Units 12:43 12:43 12:43 RBC 2.79 L (3.65-5.03) M/mm3 Hgb 8.0 L (11.8-15.2) gm/dl Hct 25.9 L (35.5-45.6) % MCHC 31 L (32-34) % RDW 21.8 H (13.2-15.2) % [place] % (Auto) 10.0 H (0.0-7.3) % INR 1.19 H (0.87-1.13) APTT 41.2 H (24.2-36.6) Sec. BUN 30 H (9-20) mg/dL Creatinine 4.6 H (0.8-1.5) mg/dL Calcium 7.8 L (8.4-10.2) mg/dL Phosphorus 5.10 H (2.5-4.5) mg/dL
--- NOTE | 2018-10-19 14:18 | Progress Note ---
Assessment and Plan / End stage renal disease on dialysis Nephrology consulted, dialysis as per renal team, avoid nephrotoxic agents, strict I/O, daily weight, repeat bmp to monitor serum potassium / Diabetes type 2 ADA diet, insulin, accu check, hypoglycemia protocol /left pleural effusion, from volume overload, should correct with HD / HTN (hypertension) Monitor bp q shift, continue medical management, resume home meds / AV graft malfunction Vascular surgery consulted, pending surgical intervention tomorrow / Gastroparesis due to DM Frequent small meals, treat BG with insulin, anti emetic therapy prn, supportive care /Chronic sacral decubitus ulcer, POA wound care consulted, pain Mx / DVT prophylaxis SCD to BLE while in bed, Brief History: 48 YO Male with ESRD on HD(T,R,Sa) last dialyzed on , DM complicated by Gastroparesis, HTN, presents to ED for bleeding from his dialysis fistula and applied an occlusive dressing to stop the bleeding 3 days ago. Pt presented to his dialysis center for his scheduled session but was unable to undergo dialysis due to excessive bleeding secondary to clotted access. EMS notified, and transported to [facility]. Pt seen and evaluated in ED and found to have ESRD and Clott ed dialysis access. Nephrology consulted in ED for dialysis. vascular surgery consulted in ED for surgical intervention. Radiological data: CXR: 1. Mild cardiomegaly with mild to moderate interstitial pulmonary edema and small left pleural effusion. Hospitalist Physical exam: GENERAL: well-developed and well-nourished AAM lying on bed appeared to be in no discomfort. HEENT: Normocephalic. Atraumatic. No conjunctival congestion or icterus. Patient has moist mucous membranes. NECK: Supple. Trachea midline. CHEST/LUNGS: Clear to auscultated bilaterally, breathing nonlabored. No wheezes crackles or rhonchi. HEART/CARDIOVASCULAR: Regular in rate and rhythm. S1 and S2 positive. ABDOMEN: Abdomen is soft, nontender. Patient has normal bowel sounds. SKIN: There is no rash. Warm and dry. NEURO: No focal motor deficit. Follows command. MUSCULOSKELETAL: b/l BKA EXTRIMITY: No edema, no cyanosis or clubbing. PSYCH: Cooperative. Subjective Date of service: 10/19/18 Principal diagnosis: Malfunction left AVG Interval history: Patient seen and examined. Medical records and medication list reviewed. No acute event overnight noted by the RN. Patient denies any chest pain or difficulty breathing. Patient is tolerating diet. Discussed plan of care at bedside with patient. Complaints of sacral pain Objective - Constitutional Vitals: Vital Signs - 12hr 10/19/18 10/19/18 10/19/18 04:58 10:20 12:07 Temperature 98.4 F 98.5 F Pulse Rate 83 83 86 Respiratory 16 20 Rate Blood Pressure 108/51 146/64 111/66 O2 Sat by Pulse 96 95 Oximetry - Labs CBC & Chem 7: 10/18/18 12:43 10/18/18 12:43
[2018-10-19 15:41] LABS: Albumin 1.9 g/dL (3.9-5); Calcium 7.6 mg/dL (8.4-10.2)
[2018-10-19 15:46] LABS: Basophils # (Auto) 0.1 K/mm3 (0.0-0.1); Eosinophils # (Auto) 0.1 K/mm3 (0.0-0.4); Eosinophils % (Auto) 1.5 % (0.0-4.3); Monocytes # (Auto) 0.6 K/mm3 (0.0-0.8); Monocytes % (Auto) 8.1 % (0.0-7.3)
[2018-10-19 15:47] LABS: Hemoglobin 7.7 gm/dl (11.8-15.2); Red Blood Count 2.64 M/mm3 (3.65-5.03)
[2018-10-19 15:48] LABS: Hematocrit 26.1 % (35.5-45.6); Lymphocytes % (Auto) 23.1 % (13.4-35.0); Mean Corpuscular HGB Conc 30 % (32-34); Mean Corpuscular Volume 99 fl (84-94); Platelet Count 332 K/mm3 (140-440); Red Cell Distribution Width 22.3 % (13.2-15.2)
[2018-10-19 15:49] LABS: Lymphocytes # (Auto) 1.6 K/mm3 (1.2-5.4)
[2018-10-19] MEDS ORDERED: HumuLIN R SUB-Q ONE ×2 (16:27→18:12)
[2018-10-19] MEDS ORDERED: KIONEX PO ONE (16:28)
[2018-10-19] MEDS ORDERED: HumuLIN R SUB-Q SCH (16:30)
[2018-10-19] MEDS ORDERED: NACL 0.9% 500 ML 500 ML IV ONE (17:55)
[2018-10-19] MEDS ORDERED: LANTUS SUB-Q ONE (17:55)
[2018-10-19] MEDS ORDERED: D50W (25GM) Syringe IV PRN (18:51)
[2018-10-19] MEDS: HumuLIN R 100 UNITS in NACL 0.9% 99 ML IV SCH (21:00)
[2018-10-19] MEDS: SODIUM BICARBONATE 150 MEQ in D5W 1,000 ML IV SCH ×2 (21:25→22:48)
[2018-10-19] MEDS: HEPARIN SUB-Q SCH (23:28)
[2018-10-20] MEDS: HumuLIN R 100 UNITS in NACL 0.9% 99 ML IV SCH (02:04)
--- NOTE | 2018-10-20 05:41 | Event Note ---
Nurse reported the patient had no IV access Several attempts were made even by the ER physician No success, place patient for PICC line
[2018-10-20] MEDS: PHOSLO PO SCH ×3 (07:32→16:51)
[2018-10-20 08:31] LABS: Calcium 4.9 mg/dL (8.4-10.2)
[2018-10-20] MEDS ORDERED: HEPARIN/NS 5000 UNIT/500ML(CATH LAB) 500 ML IR ONE (09:56)
--- NOTE | 2018-10-20 10:06 | Progress Note ---
Subjective Date of service: 10/20/18 Principal diagnosis: Malfunction left AVG Interval history: patient transferred to the ICU overnight patient with elevated K+ and hypotensive patient on insulin gtt will cancel operative case today and plan for temporary dialysis catheter placement once patient stable will plan to take to the OR at a later date Objective - Constitutional Vitals: Vital Signs - 12hr 10/20/18 10/20/18 10/20/18 00:00 03:00 04:00 Temperature 98.2 F 98.7 F 98.7 F Pulse Rate Respiratory 20 Rate Blood Pressure 113/49 O2 Sat by Pulse 95 Oximetry 10/20/18 10/20/18 10/20/18 08:01 08:11 08:21 Temperature Pulse Rate 76 75 77 Respiratory 15 14 16 Rate Blood Pressure 88/32 O2 Sat by Pulse 95 98 96 Oximetry 10/20/18 08:31 Temperature Pulse Rate 78 Respiratory 18 Rate Blood Pressure 88/32 O2 Sat by Pulse 89 Oximetry - Labs CBC & Chem 7: 10/19/18 15:05 10/20/18 06:54 Labs: Abnormal lab results 10/19/18 10/19/18 10/19/18 Range/Units 15:05 15:05 15:05 RBC 2.64 L (3.65-5.03) M/mm3 Hgb 7.7 L (11.8-15.2) gm/dl Hct 26.1 L (35.5-45.6) % MCV 99 H (84-94) fl MCHC 30 L (32-34) % RDW 22.3 H (13.2-15.2) % [place] % (Auto) 8.1 H (0.0-7.3) % Sodium 133 L (137-145) mmol/L Potassium 6.5 H* D (3.6-5.0) mmol/L Chloride 94.9 L (98-107) mmol/L Carbon Dioxide 16 L D (22-30) mmol/L BUN 48 H (9-20) mg/dL Creatinine 5.7 H (0.8-1.5) mg/dL Glucose 525 H* (75-100) mg/dL POC Glucose (70-105) Hemoglobin A1c 7.2 H (4-6) % Calcium 7.6 L (8.4-10.2) mg/dL Phosphorus 7.00 H D (2.5-4.5) mg/dL ALT 6 L (7-56) units/L Alkaline Phosphatase 214 H (35-129) units/L Albumin 1.9 L (3.9-5) g/dL 10/19/18 10/19/18 10/19/18 Range/Units 16:45 16:59 17:54 RBC (3.65-5.03) M/mm3 Hgb (11.8-15.2) gm/dl Hct (35.5-45.6) % MCV (84-94) fl MCHC (32-34) % RDW (13.2-15.2) % [place] % (Auto) (0.0-7.3) % Sodium (137-145) mmol/L Potassium 6.8 H* (3.6-5.0) mmol/L Chloride (98-107) mmol/L Carbon Dioxide (22-30) mmol/L BUN (9-20) mg/dL Creatinine (0.8-1.5) mg/dL Glucose (75-100) mg/dL POC Glucose > 500 H > 500 H (70-105) Hemoglobin A1c (4-6) % Calcium (8.4-10.2) mg/dL Phosphorus (2.5-4.5) mg/dL ALT (7-56) units/L Alkaline Phosphatase (35-129) units/L Albumin (3.9-5) g/dL 10/19/18 10/19/18 10/19/18 Range/Units 17:58 19:00 19:30 RBC (3.65-5.03) M/mm3 Hgb (11.8-15.2) gm/dl Hct (35.5-45.6) % MCV (84-94) fl MCHC (32-34) % RDW (13.2-15.2) % [place] % (Auto) (0.0-7.3) % Sodium (137-145) mmol/L Potassium (3.6-5.0) mmol/L Chloride (98-107) mmol/L Carbon Dioxide (22-30) mmol/L BUN (9-20) mg/dL Creatinine (0.8-1.5) mg/dL Glucose 564 H* (75-100) mg/dL POC Glucose > 500 H (70-105) Hemoglobin A1c (4-6) % Calcium (8.4-10.2) mg/dL Phosphorus 7.10 H (2.5-4.5) mg/dL ALT (7-56) units/L Alkaline Phosphatase (35-129) units/L Albumin (3.9-5) g/dL 10/19/18 10/19/18 10/19/18 Range/Units 20:30 21:17 22:14 RBC (3.65-5.03) M/mm3 Hgb (11.8-15.2) gm/dl Hct (35.5-45.6) % MCV (84-94) fl MCHC (32-34) % RDW (13.2-15.2) % [place] % (Auto) (0.0-7.3) % Sodium (137-145) mmol/L Potassium (3.6-5.0) mmol/L Chloride (98-107) mmol/L Carbon Dioxide (22-30) mmol/L BUN (9-20) mg/dL Creatinine (0.8-1.5) mg/dL Glucose (75-100) mg/dL POC Glucose 467 H 483 H 411 H (70-105) Hemoglobin A1c (4-6) % Calcium (8.4-10.2) mg/dL Phosphorus (2.5-4.5) mg/dL ALT (7-56) units/L Alkaline Phosphatase (35-129) units/L Albumin (3.9-5) g/dL 10/19/18 10/20/18 10/20/18 Range/Units 23:14 00:14 01:22 RBC (3.65-5.03) M/mm3 Hgb (11.8-15.2) gm/dl Hct (35.5-45.6) % MCV (84-94) fl MCHC (32-34) % RDW (13.2-15.2) % [place] % (Auto) (0.0-7.3) % Sodium (137-145) mmol/L Potassium (3.6-5.0) mmol/L Chloride (98-107) mmol/L Carbon Dioxide (22-30) mmol/L BUN (9-20) mg/dL Creatinine (0.8-1.5) mg/dL Glucose (75-100) mg/dL POC Glucose 382 H 290 H 292 H (70-105) Hemoglobin A1c (4-6) % Calcium (8.4-10.2) mg/dL Phosphorus (2.5-4.5) mg/dL ALT (7-56) units/L Alkaline Phosphatase (35-129) units/L Albumin (3.9-5) g/dL 10/20/18 10/20/18 10/20/18 Range/Units 02:05 03:08 04:09 RBC (3.65-5.03) M/mm3 Hgb (11.8-15.2) gm/dl Hct (35.5-45.6) % MCV (84-94) fl MCHC (32-34) % RDW (13.2-15.2) % [place] % (Auto) (0.0-7.3) % Sodium (137-145) mmol/L Potassium (3.6-5.0) mmol/L Chloride (98-107) mmol/L Carbon Dioxide (22-30) mmol/L BUN (9-20) mg/dL Creatinine (0.8-1.5) mg/dL Glucose (75-100) mg/dL POC Glucose 260 H 216 H 235 H (70-105) Hemoglobin A1c (4-6) % Calcium (8.4-10.2) mg/dL Phosphorus (2.5-4.5) mg/dL ALT (7-56) units/L Alkaline Phosphatase (35-129) units/L Albumin (3.9-5) g/dL 10/20/18 10/20/18 10/20/18 Range/Units 05:10 06:02 06:54 RBC (3.65-5.03) M/mm3 Hgb (11.8-15.2) gm/dl Hct (35.5-45.6) % MCV (84-94) fl MCHC (32-34) % RDW (13.2-15.2) % [place] % (Auto) (0.0-7.3) % Sodium 136 L (137-145) mmol/L Potassium 3.4 L D (3.6-5.0) mmol/L Chloride 77.7 L (98-107) mmol/L Carbon Dioxide 50 H* D (22-30) mmol/L BUN 34 H (9-20) mg/dL Creatinine 4.1 H (0.8-1.5) mg/dL Glucose 1171 H* (75-100) mg/dL POC Glucose 179 H 114 H (70-105) Hemoglobin A1c (4-6) % Calcium 4.9 L* D (8.4-10.2) mg/dL Phosphorus (2.5-4.5) mg/dL ALT (7-56) units/L Alkaline Phosphatase (35-129) units/L Albumin (3.9-5) g/dL 10/20/18 10/20/18 Range/Units 08:54 09:34 RBC (3.65-5.03) M/mm3 Hgb (11.8-15.2) gm/dl Hct (35.5-45.6) % MCV (84-94) fl MCHC (32-34) % RDW (13.2-15.2) % [place] % (Auto) (0.0-7.3) % Sodium (137-145) mmol/L Potassium (3.6-5.0) mmol/L Chloride (98-107) mmol/L Carbon Dioxide (22-30) mmol/L BUN (9-20) mg/dL Creatinine (0.8-1.5) mg/dL Glucose (75-100) mg/dL POC Glucose 59 L 50 L (70-105) Hemoglobin A1c (4-6) % Calcium (8.4-10.2) mg/dL Phosphorus (2.5-4.5) mg/dL ALT (7-56) units/L Alkaline Phosphatase (35-129) units/L Albumin (3.9-5) g/dL Medications & Allergies - Medications Allergies/Adverse Reactions: Allergies cephalexin [From Keflex] Allergy (Verified 02/23/17 19:02) Vomiting vancomycin Allergy (Verified 06/16/18 06:34) Rash Home Medications: Home Medications Medication Instructions Recorded Confirmed Last Taken Type amLODIPine [Norvasc] 5 mg PO DAILY 07/19/13 10/18/18 06/15/18 History Calcium Acetate [Phoslo] 667 mg PO TIDAC 06/16/18 10/18/18 06/15/18 History Cetirizine HCl [ZyrTEC 10mg cap] 10 mg PO QDAY 06/16/18 10/18/18 06/15/18 History Gabapentin [Neurontin] 100 mg PO BID 06/16/18 10/18/18 06/15/18 History Insulin NPH/Regular [NovoLIN 70/30] 10 units SQ QPM 06/16/18 10/18/18 06/15/18 History Insulin NPH/Regular [NovoLIN 70/30] 15 units SQ QAM 06/16/18 10/18/18 06/15/18 History Oxycodone HCl [oxyCODONE] 10 mg PO Q8HR PRN 06/16/18 10/18/18 06/15/18 History Active Medications: Generic Name Dose Route Start Last Admin Trade Name Freq PRN Reason Stop Dose Admin Acetaminophen 650 mg 10/18/18 14:31 10/18/18 22:59 Tylenol PO 650 mg Q4H PRN Administration Pain MILD(1-3)/Fever >100.5/OSBORN Albuterol 2.5 mg 10/18/18 14:31 Proventil IH Q4HRT PRN Shortness Of Breath Amlodipine Besylate 5 mg 10/19/18 10:00 10/19/18 10:20 Norvasc PO 5 mg DAILY DAFNE Administration Calcium Acetate 667 mg 10/18/18 16:30 10/20/18 07:32 Phoslo PO Not Given TIDAC DAFNE Dextrose 0 ml 10/19/18 18:51 10/20/18 09:33 D50w (25gm) Syringe IV 20 ml PRN PRN Administration Hypoglycemia Gabapentin 100 mg 10/18/18 22:00 10/19/18 23:28 Neurontin PO 100 mg BID DAFNE Administration Heparin Sodium (Porcine) 5,000 unit 10/19/18 22:00 10/19/18 23:28 Heparin SUB-Q 5,000 unit Q12HR DAFNE Administration Sodium Bicarbonate 150 meq/ 1,150 mls @ 42 mls/hr 10/19/18 19:00 10/19/18 22:48 Dextrose IV 42 mls/hr DIRECT DAFNE Administration Insulin Human Regular 100 100 mls @ 1 mls/hr 10/19/18 19:00 10/20/18 07:07 units/ Sodium Chloride IV 0 units/hr TITR DAFNE 0 mls/hr Titration Protocol 1 UNITS/HR Loratadine 10 mg 10/19/18 10:00 10/19/18 10:20 Claritin PO 10 mg DAILY DAFNE Administration Ondansetron HCl 4 mg 10/18/18 14:31 Zofran IV Q8H PRN Nausea And Vomiting Oxycodone HCl 10 mg 10/18/18 14:36 10/19/18 18:52 Roxicodone PO 10 mg Q8H PRN Administration Pain, Moderate (4-6) Sodium Chloride 10 ml 10/18/18 22:00 10/19/18 23:29 Sodium Chloride Flush Syringe 10 Ml IV 10 ml BID DAFNE Administration Sodium Chloride 10 ml 10/18/18 14:31 Sodium Chloride Flush Syringe 10 Ml IV PRN PRN LINE FLUSH
[2018-10-20 10:12] LABS: Calcium 7.5 mg/dL (8.4-10.2)
[2018-10-20] MEDS ORDERED: VERSED ONE (10:12)
[2018-10-20] MEDS: SUBLIMAZE ONE ×2 (10:26→10:32)
[2018-10-20] MEDS: XYLOCAINE 1%/ EPI 1:100,000 INFILTRATI ONE ×2 (10:27→10:33)
[2018-10-20] MEDS: HEPARIN 10,000 UNITS/10 ML ONE ×2 (10:37→10:40)
--- NOTE | 2018-10-20 10:57 | Post Operative Note ---
Pre-op diagnosis: ESRD Post-op diagnosis: same Procedure: 1. 13Fr 15cm Trialysis Catheter Insertion 2. Ultrasound Access of the Right Internal Jugular Vein 3. Monitored Conscious Sedation Anesthesia: MAC, local Surgeon: ELIZABETH DU Estimated blood loss: minimal Pathology: none Condition: stable Disposition: ICU
[2018-10-20] MEDS ORDERED: LEVOPHED DRIP 4 MG/NS 250 ML 4 MG/250 ML BAG IV SCH (12:00)
--- NOTE | 2018-10-20 12:21 | Consultation ---
History of Present Illness Consult date: 10/20/18 Requesting physician: ALEIDA CASANOVA Reason for consult: other (Seve[place] Hyp[erkalemia; Hyperglycemia on IV insulin therapy; ESRD on Dialysis) History of present illness: PULMONARY/CCM CONSULT NOTE (Full dictation # [id number]) Please see dictated notes for full details Past History Past Medical History: diabetes, ESRD, hypertension, other (Gastroparesis) Past Surgical History: Other (AV fistula placement) Social history: . denies: smoking, alcohol abuse, prescription drug abuse Family history: diabetes, hypertension Medications and Allergies Allergies Allergy/AdvReac Type Severity Reaction Status Date / Time cephalexin [From Keflex] Allergy Vomiting Verified 02/23/17 19:02 vancomycin Allergy Rash Verified 06/16/18 06:34 Home Medications Medication Instructions Recorded Confirmed Last Taken Type amLODIPine [Norvasc] 5 mg PO DAILY 07/19/13 10/18/18 06/15/18 History Calcium Acetate [Phoslo] 667 mg PO TIDAC 06/16/18 10/18/18 06/15/18 History Cetirizine HCl [ZyrTEC 10mg cap] 10 mg PO QDAY 06/16/18 10/18/18 06/15/18 History Gabapentin [Neurontin] 100 mg PO BID 06/16/18 10/18/18 06/15/18 History Insulin NPH/Regular [NovoLIN 70/30] 10 units SQ QPM 06/16/18 10/18/18 06/15/18 History Insulin NPH/Regular [NovoLIN 70/30] 15 units SQ QAM 06/16/18 10/18/18 06/15/18 H istory Oxycodone HCl [oxyCODONE] 10 mg PO Q8HR PRN 06/16/18 10/18/18 06/15/18 History Active Meds: Active Medications Acetaminophen (Tylenol) 650 mg PO Q4H PRN PRN Reason: Pain MILD(1-3)/Fever >100.5/OSBORN Last Admin: 10/18/18 22:59 Dose: 650 mg Documented by: Albuterol (Proventil) 2.5 mg IH Q4HRT PRN PRN Reason: Shortness Of Breath Calcium Acetate (Phoslo) 667 mg PO TIDAC [facility] Last Admin: 10/20/18 07:32 Dose: Not Given Documented by: Dextrose (D50w (25gm) Syringe) 0 ml IV PRN PRN PRN Reason: Hypoglycemia Last Admin: 10/20/18 09:33 Dose: 20 ml Documented by: Gabapentin (Neurontin) 100 mg PO BID [facility] Last Admin: 10/19/18 23:28 Dose: 100 mg Documented by: Heparin Sodium (Porcine) (Heparin) 5,000 unit SUB-Q Q12HR DAFNE Last Admin: 10/19/18 23:28 Dose: 5,000 unit Documented by: Sodium Bicarbonate 150 meq/ (Dextrose) 1,150 mls @ 42 mls/hr IV DIRECT DAFNE Last Admin: 10/19/18 22:48 Dose: 42 mls/hr Documented by: Norepinephrine (Levophed Drip 4 Mg/Ns 250 Ml) 4 mg in 250 mls @ 7.5 mls/hr IV TITR [facility]; Protocol Last Admin: 10/20/18 12:16 Dose: 2 mcg/min, 7.5 mls/hr Documented by: Insulin Human NPH (Humulin N) 10 unit SUB-Q BIDDIAB [facility] Insulin Human Regular (Humulin R) 0 units SUB-Q ACHS [facility]; Protocol Loratadine (Claritin) 10 mg PO DAILY [facility] Last Admin: 10/19/18 10:20 Dose: 10 mg Documented by: Ondansetron HCl (Zofran) 4 mg IV Q8H PRN PRN Reason: Nausea And Vomiting Oxycodone HCl (Roxicodone) 10 mg PO Q8H PRN PRN Reason: Pain, Moderate (4-6) Last Admin: 10/19/18 18:52 Dose: 10 mg Documented by: Sodium Chloride (Sodium Chloride Flush Syringe 10 Ml) 10 ml IV BID [facility] Last Admin: 10/19/18 23:29 Dose: 10 ml Documented by: Sodium Chloride (Sodium Chloride Flush Syringe 10 Ml) 10 ml IV PRN PRN PRN Reason: LINE FLUSH Physical Examination Vital signs: Vital Signs Pulse Ox 92 10/18/18 12:20 Results - Laboratory Findings CBC and BMP: 10/19/18 15:05 10/20/18 11:55 PT/INR, D-dimer PT 14.8 Sec. (12.2-14.9) 10/18/18 12:43 INR 1.19 (0.87-1.13) H 10/18/18 12:43 Abnormal lab findings: Abnormal Labs 10/18/18 10/18/18 10/18/18 12:43 12:43 12:43 RBC 2.79 L Hgb 8.0 L Hct 25.9 L MCV MCHC 31 L RDW 21.8 H [place] % (Auto) 10.0 H INR 1.19 H APTT 41.2 H Sodium Potassium Chloride Carbon Dioxide BUN 30 H Creatinine 4.6 H Glucose POC Glucose Hemoglobin A1c Calcium 7.8 L Phosphorus 5.10 H ALT Alkaline Phosphatase Albumin 10/19/18 10/19/18 10/19/18 15:05 15:05 15:05 RBC 2.64 L Hgb 7.7 L Hct 26.1 L MCV 99 H MCHC 30 L RDW 22.3 H [place] % (Auto) 8.1 H INR APTT Sodium 133 L Potassium 6.5 H* D Chloride 94.9 L Carbon Dioxide 16 L D BUN 48 H Creatinine 5.7 H Glucose 525 H* POC Glucose Hemoglobin A1c 7.2 H Calcium 7.6 L Phosphorus 7.00 H D ALT 6 L Alkaline Phosphatase 214 H Albumin 1.9 L 10/19/18 10/19/18 10/19/18 16:45 16:59 17:54 RBC Hgb Hct MCV MCHC RDW [place] % (Auto) INR APTT Sodium Potassium 6.8 H* Chloride Carbon Dioxide BUN Creatinine Glucose POC Glucose > 500 H > 500 H Hemoglobin A1c Calcium Phosphorus ALT Alkaline Phosphatase Albumin 10/19/18 10/19/18 10/19/18 17:58 19:00 19:30 RBC Hgb Hct MCV MCHC RDW [place] % (Auto) INR APTT Sodium Potassium Chloride Carbon Dioxide BUN Creatinine Glucose 564 H* POC Glucose > 500 H Hemoglobin A1c Calcium Phosphorus 7.10 H ALT Alkaline Phosphatase Albumin 10/19/18 10/19/18 10/19/18 20:30 21:17 22:14 RBC Hgb Hct MCV MCHC RDW [place] % (Auto) INR APTT Sodium Potassium Chloride Carbon Dioxide BUN Creatinine Glucose POC Glucose 467 H 483 H 411 H Hemoglobin A1c Calcium Phosphorus ALT Alkaline Phosphatase Albumin 10/19/18 10/20/18 10/20/18 23:14 00:14 01:22 RBC Hgb Hct MCV MCHC RDW [place] % (Auto) INR APTT Sodium Potassium Chloride Carbon Dioxide BUN Creatinine Glucose POC Glucose 382 H 290 H 292 H Hemoglobin A1c Calcium Phosphorus ALT Alkaline Phosphatase Albumin 10/20/18 10/20/18 10/20/18 02:05 03:08 04:09 RBC Hgb Hct MCV MCHC RDW [place] % (Auto) INR APTT Sodium Potassium Chloride Carbon Dioxide BUN Creatinine Glucose POC Glucose 260 H 216 H 235 H Hemoglobin A1c Calcium Phosphorus ALT Alkaline Phosphatase Albumin 10/20/18 10/20/18 10/20/18 05:10 06:02 06:54 RBC Hgb Hct MCV MCHC RDW [place] % (Auto) INR APTT Sodium 136 L Potassium 3.4 L D Chloride 77.7 L Carbon Dioxide 50 H* D BUN 34 H Creatinine 4.1 H Glucose 1171 H* POC Glucose 179 H 114 H Hemoglobin A1c Calcium 4.9 L* D Phosphorus ALT Alkaline Phosphatase Albumin 10/20/18 10/20/18 10/20/18 08:54 09:30 09:34 RBC Hgb Hct MCV MCHC RDW [place] % (Auto) INR APTT Sodium Potassium 5.3 H D Chloride Carbon Dioxide BUN 49 H Creatinine 6.4 H D Glucose 53 L POC Glucose 59 L 50 L Hemoglobin A1c Calcium 7.5 L D Phosphorus ALT Alkaline Phosphatase Albumin
[2018-10-20 12:37] LABS: Calcium 7.4 mg/dL (8.4-10.2)
[2018-10-20 13:38] LABS: Hepatitis B Surface Antigen Non-Reactive (Negative); Hepatitis C Virus Antibody Non-Reactive (NonReactive)
--- NOTE | 2018-10-20 14:32 | Progress Note ---
Assessment and Plan ESRD on Hemodialysis: Hyperkalemia: -HD today for UF and clearance -Assess need for HD on daily basis -Vascular surgery consulted for malfunctioning Left AVG -Dr Salmon (vascular surgery) evaluated pt, s/p Right IJ Vas Catheter placement, will plan on taking to OR for Left AVG once stable -Fluid restriction of 1 liter per day -Renally dose all medications -This pt undergoes outpatient HD at [facility] every TTS -Renal plan d/w Dr Cronin Hypotension: Hx of Essential Hypertension: -Off all BP medications -Transferred to ICU for close evaluation, currently not on pressors -BP in 130s systolic upon my examination Diabetes mellitus 2 on insulin: -As per primary team Subjective Date of service: 10/20/18 Principal diagnosis: Malfunction left AVG Interval history: Pt seen in bed in ICU undergoing HD, pt reports feeling fatigued, denies shortne ss of breath at this time, no acute distress. Objective - Vital Signs Vital signs: Vital Signs - 12hr 10/20/18 10/20/18 10/20/18 03:00 04:00 08:00 Temperature 98.7 F 98.7 F 97.5 F L Pulse Rate Respiratory 20 20 Rate Blood Pressure 113/49 O2 Sat by Pulse 95 95 Oximetry 10/20/18 10/20/18 10/20/18 08:01 08:11 08:21 Temperature Pulse Rate 76 75 77 Respiratory 15 14 16 Rate Blood Pressure 88/32 O2 Sat by Pulse 95 98 96 Oximetry 10/20/18 10/20/18 10/20/18 08:31 08:41 08:51 Temperature Pulse Rate 78 80 79 Respiratory 18 15 13 Rate Blood Pressure 88/32 88/32 88/32 O2 Sat by Pulse 89 97 97 Oximetry 10/20/18 10/20/18 10/20/18 09:01 09:11 09:21 Temperature Pulse Rate 78 78 75 Respiratory 13 16 11 L Rate Blood Pressure 88/32 88/32 88/32 O2 Sat by Pulse 94 95 96 Oximetry 10/20/18 10/20/18 10/20/18 09:31 09:41 11:08 Temperature Pulse Rate 79 80 79 Respiratory 14 19 18 Rate Blood Pressure 88/32 88/32 88/32 O2 Sat by Pulse 97 97 95 Oximetry 10/20/18 10/20/18 10/20/18 11:11 11:21 11:30 Temperature Pulse Rate 78 77 79 Respiratory 16 19 16 Rate Blood Pressure 87/42 87/42 79/37 O2 Sat by Pulse 94 96 94 Oximetry 10/20/18 10/20/18 10/20/18 11:41 11:51 12:00 Temperature 97.9 F Pulse Rate 78 77 76 Respiratory 17 20 15 Rate Blood Pressure 87/42 87/42 104/41 O2 Sat by Pulse 93 97 99 Oximetry 10/20/18 10/20/18 10/20/18 12:11 12:15 12:30 Temperature Pulse Rate 78 79 76 Respiratory 15 19 Rate Blood Pressure 86/31 86/31 119/48 O2 Sat by Pulse 95 96 Oximetry 10/20/18 10/20/18 10/20/18 12:31 12:45 13:00 Temperature Pulse Rate 76 76 74 Respiratory 26 H 20 18 Rate Blood Pressure 119/48 119/48 112/43 O2 Sat by Pulse 98 99 90 Oximetry 10/20/18 10/20/18 10/20/18 13:15 13:30 13:45 Temperature Pulse Rate 74 75 74 Respiratory 19 22 23 Rate Blood Pressure 107/34 108/38 100/41 O2 Sat by Pulse 99 99 100 Oximetry 10/20/18 10/20/18 14:00 14:15 Temperature Pulse Rate 74 74 Respiratory 22 Rate Blood Pressure 91/33 95/36 O2 Sat by Pulse 97 Oximetry - General Appearance General appearance: other (awake) EENT: ATNC Neck: no JVD Respiratory: Present: Decreased Breath Sounds Cardiology: regular, S1S2, other (ACCESS: Right IJ Vas Catheter intact; Left AVG with dressing in place -malfunctioning) Gastrointestinal: normoactive bowel sounds Integumentary: warm and dry Neurologic: alert and oriented x3 Musculoskeletal: other (Bilateral BKA noted) Psychiatric: cooperative - Lab 10/19/18 15:05 10/20/18 11:55 Most recent lab results Calcium 7.4 mg/dL (8.4-10.2) L 10/20/18 11:55 Phosphorus 7.10 mg/dL (2.5-4.5) H 10/19/18 19:00 Magnesium 2.00 mg/dL (1.7-2.3) 10/19/18 19:00 Medications & Allergies - Medications Allergies/Adverse Reactions: Allergies cephalexin [From Keflex] Allergy (Verified 02/23/17 19:02) Vomiting vancomycin Allergy (Verified 06/16/18 06:34) Rash Home Medications: Home Medications Medication Instructions Recorded Confirmed Last Taken Type amLODIPine [Norvasc] 5 mg PO DAILY 07/19/13 10/18/18 06/15/18 History Calcium Acetate [Phoslo] 667 mg PO TIDAC 06/16/18 10/18/18 06/15/18 History Cetirizine HCl [ZyrTEC 10mg cap] 10 mg PO QDAY 06/16/18 10/18/18 06/15/18 History Gabapentin [Neurontin] 100 mg PO BID 06/16/18 10/18/18 06/15/18 History Insulin NPH/Regular [NovoLIN 70/30] 10 units SQ QPM 06/16/18 10/18/18 06/15/18 History Insulin NPH/Regular [NovoLIN 70/30] 15 units SQ QAM 06/16/18 10/18/18 06/15/18 History Oxycodone HCl [oxyCODONE] 10 mg PO Q8HR PRN 06/16/18 10/18/18 06/15/18 History Active Medications: Generic Name Dose Route Start Last Admin Trade Name Freq PRN Reason Stop Dose Admin Acetaminophen 650 mg 10/18/18 14:31 10/18/18 22:59 Tylenol PO 650 mg Q4H PRN Administration Pain MILD(1-3)/Fever >100.5/OSBORN Albuterol 2.5 mg 10/18/18 14:31 Proventil IH Q4HRT PRN Shortness Of Breath Calcium Acetate 667 mg 10/18/18 16:30 10/20/18 07:32 Phoslo PO Not Given TIDAC DAFNE Dextrose 0 ml 10/19/18 18:51 10/20/18 09:33 D50w (25gm) Syringe IV 20 ml PRN PRN Administration Hypoglycemia Famotidine 20 mg 10/20/18 14:00 Pepcid PO DAILY DAFNE Gabapentin 100 mg 10/18/18 22:00 10/19/18 23:28 Neurontin PO 100 mg BID DAFNE Administration Heparin Sodium (Porcine) 5,000 unit 10/19/18 22:00 10/19/18 23:28 Heparin SUB-Q 5,000 unit Q12HR DAFNE Administration Norepinephrine 4 mg in 250 mls @ 7.5 mls/hr 10/20/18 12:00 10/20/18 12:16 Levophed Drip 4 Mg/Ns 250 Ml IV 2 mcg/min TITR DAFNE 7.5 mls/hr Administration Protocol 2 MCG/MIN Insulin Human NPH 10 unit 10/20/18 17:00 Humulin N SUB-Q BIDDIAB DAFNE Insulin Human Regular 0 units 10/20/18 16:30 Humulin R SUB-Q ACHS DAFNE Protocol Loratadine 10 mg 10/19/18 10:00 10/19/18 10:20 Claritin PO 10 mg DAILY DAFNE Administration Ondansetron HCl 4 mg 10/18/18 14:31 Zofran IV Q8H PRN Nausea And Vomiting Oxycodone HCl 10 mg 10/18/18 14:36 10/19/18 18:52 Roxicodone PO 10 mg Q8H PRN Administration Pain, Moderate (4-6) Sodium Chloride 10 ml 10/18/18 22:00 10/19/18 23:29 Sodium Chloride Flush Syringe 10 Ml IV 10 ml BID DAFNE Administration Sodium Chloride 10 ml 10/18/18 14:31 Sodium Chloride Flush Syringe 10 Ml IV PRN PRN LINE FLUSH
[2018-10-20] MEDS: HumuLIN R SUB-Q SCH ×2 (16:03→22:00)
--- NOTE | 2018-10-20 16:42 | Progress Note ---
Assessment and Plan /Hypotension - hypovolemic versus septic shock Started on Levaquin at this morning, continue bicarbonate drip We will obtain blood culture, urine culture and wound cultures Patient has no white count, no fever Monitor off antibiotics for now /Severe hyperkalemia Patient on bicarbonate drip Status post Kayexalate, sodium bicarbonate IV push, calcium gluconate, insulin and D50 Plan for emergent dialysis today / End stage renal disease on dialysis Nephrology consulted, dialysis as per renal team, avoid nephrotoxic agents, strict I/O, daily weight, repeat bmp to monitor serum potassium / Diabetes type 2 with hyperglycemia Placed on insulin drip overnight Blood glucose at 50s this morning we will resume ADA diet, insulin, accu check, hypoglycemia protocol We'll DC insulin drip /left pleural effusion, from volume overload, should correct with HD, continue to monitor / HTN (hypertension) Now hypotensivem, Hold norvasc / AV graft malfunction Vascular surgery consulted, pending surgical intervention now for low blood pressure Plan to place a Vas-Cath for emergent dialysis / Gastroparesis due to DM Frequent small meals, treat BG with insulin, anti emetic therapy prn, supportive care /Chronic sacral decubitus ulcer, POA wound care consulted, pain Mx / DVT prophylaxis SCD to BLE while in bed, The high probability of a clinically significant, sudden or life threatening deterioration of the system(s) required my full and direct attention, intervention and personal management. The aggregate critical care time was [35] minutes. This time is in addition to time spent performing reported procedures but includes the following: [x] Data Review and interpretation [x] Patient assessment and monitoring of vital signs [x] Documentation [x] Medication orders and management Brief History: 48 YO Male with ESRD on HD(T,R,Sa) last dialyzed on , DM complicated by Gastroparesis, HTN, presents to ED for bleeding from his dialysis fistula and applied an occlusive dressing to stop the bleeding 3 days ago. Pt presented to his dialysis center for his scheduled session but was unable to undergo dialysis due to excessive bleeding secondary to clotted access. EMS notified, and transported to [facility]. Pt seen and evaluated in ED and found to have ESRD and Clotted dialysis access. Nephrology consulted in ED for dialysis. vascular surgery consulted in ED for surgical intervention. Following admission developed hyperglycemia, hyperkalemia and hypertension. Transferred to ICU for further monitoring. Radiological data: CXR: 1. Mild cardiomegaly with mild to moderate interstitial pulmonary edema and small left pleural effusion. Hospitalist Physical exam: GENERAL: well-developed and well-nourished AAM lying on bed appeared to be in no discomfort. HEENT: Normocephalic. Atraumatic. No conjunctival congestion or icterus. Patient has moist mucous membranes. NECK: Supple. Trachea midline. CHEST/LUNGS: Clear to auscultated bilaterally, breathing nonlabored. No wheezes crackles or rhonchi. HEART/CARDIOVASCULAR: Regular in rate and rhythm. S1 and S2 positive. ABDOMEN: Abdomen is soft, nontender. Patient has normal bowel sounds. SKIN: There is no rash. Warm and dry. NEURO: No focal motor deficit. Follows command. MUSCULOSKELETAL: b/l BKA EXTRIMITY: No edema, no cyanosis or clubbing. PSYCH: Cooperative. Subjective Date of service: 10/20/18 Principal diagnosis: Malfunction left AVG Interval history: Patient seen and examined. Medical records and medication list reviewed. Overnight patient was transferred to the ICU for elevated blood glucose of greater than 500 and severe Hyperkalemia He was placed on vascath Today for temporary dialysis Placed on pressor for hypertension Complaints of sacral pain Objective - Constitutional Vitals: Vital Signs - 12hr 10/20/18 10/20/18 10/20/18 08:00 08:01 08:11 Temperature 97.5 F L Pulse Rate 76 75 Respiratory 20 15 14 Rate Blood Pressure O2 Sat by Pulse 95 95 98 Oximetry 10/20/18 10/20/18 10/20/18 08:21 08:31 08:41 Temperature Pulse Rate 77 78 80 Respiratory 16 18 15 Rate Blood Pressure 88/32 88/32 88/32 O2 Sat by Pulse 96 89 97 Oximetry 10/20/18 10/20/18 10/20/18 08:51 09:01 09:11 Temperature Pulse Rate 79 78 78 Respiratory 13 13 16 Rate Blood Pressure 88/32 88/32 88/32 O2 Sat by Pulse 97 94 95 Oximetry 10/20/18 10/20/18 10/20/18 09:21 09:31 09:41 Temperature Pulse Rate 75 79 80 Respiratory 11 L 14 19 Rate Blood Pressure 88/32 88/32 88/32 O2 Sat by Pulse 96 97 97 Oximetry 10/20/18 10/20/18 10/20/18 11:08 11:11 11:21 Temperature Pulse Rate 79 78 77 Respiratory 18 16 19 Rate Blood Pressure 88/32 87/42 87/42 O2 Sat by Pulse 95 94 96 Oximetry 10/20/18 10/20/18 10/20/18 11:30 11:41 11:51 Temperature Pulse Rate 79 78 77 Respiratory 16 17 20 Rate Blood Pressure 79/37 87/42 87/42 O2 Sat by Pulse 94 93 97 Oximetry 10/20/18 10/20/18 10/20/18 12:00 12:11 12:15 Temperature 97.9 F Pulse Rate 76 78 79 Respiratory 15 15 19 Rate Blood Pressure 104/41 86/31 86/31 O2 Sat by Pulse 99 95 96 Oximetry 10/20/18 10/20/18 10/20/18 12:30 12:31 12:45 Temperature Pulse Rate 76 76 76 Respiratory 26 H 20 Rate Blood Pressure 119/48 119/48 119/48 O2 Sat by Pulse 98 99 Oximetry 10/20/18 10/20/18 10/20/18 13:00 13:15 13:30 Temperature Pulse Rate 74 74 75 Respiratory 18 19 22 Rate Blood Pressure 112/43 107/34 108/38 O2 Sat by Pulse 90 99 99 Oximetry 10/20/18 10/20/18 10/20/18 13:45 14:00 14:15 Temperature Pulse Rate 74 74 74 Respiratory 23 22 22 Rate Blood Pressure 100/41 91/33 95/36 O2 Sat by Pulse 100 97 97 Oximetry 10/20/18 10/20/18 10/20/18 14:30 14:45 15:00 Temperature Pulse Rate 74 79 82 Respiratory 16 19 22 Rate Blood Pressure 91/37 91/37 137/50 O2 Sat by Pulse 98 100 100 Oximetry 10/20/18 10/20/18 10/20/18 15:15 15:30 15:45 Temperature Pulse Rate 84 82 86 Respiratory 12 15 17 Rate Blood Pressure 148/66 134/56 138/49 O2 Sat by Pulse 99 99 98 Oximetry 10/20/18 10/20/18 15:54 16:00 Temperature 97.9 F Pulse Rate 86 85 Respiratory 22 21 Rate Blood Pressure 138/49 131/41 O2 Sat by Pulse 96 Oximetry - Labs CBC & Chem 7: 10/19/18 15:05 08/26/19 19:25 Labs: Abnormal lab results 08/25/19 08/25/19 08/25/19 Range/Units 15:05 16:45 16:59 Sodium (137-145) mmol/L Potassium 6.8 H* (3.6-5.0) mmol/L Chloride (98-107) mmol/L Carbon Dioxide (22-30) mmol/L BUN (9-20) mg/dL Creatinine (0.8-1.5) mg/dL Glucose (75-100) mg/dL POC Glucose > 500 H (70-105) Hemoglobin A1c 7.2 H (4-6) % Calcium (8.4-10.2) mg/dL Phosphorus (2.5-4.5) mg/dL 10/19/18 10/19/18 10/19/18 Range/Units 17:54 17:58 19:00 Sodium (137-145) mmol/L Potassium (3.6-5.0) mmol/L Chloride (98-107) mmol/L Carbon Dioxide (22-30) mmol/L BUN (9-20) mg/dL Creatinine (0.8-1.5) mg/dL Glucose 564 H* (75-100) mg/dL POC Glucose > 500 H (70-105) Hemoglobin A1c (4-6) % Calcium (8.4-10.2) mg/dL Phosphorus 7.10 H (2.5-4.5) mg/dL 10/19/18 10/19/18 10/19/18 Range/Units 19:30 20:30 21:17 Sodium (137-145) mmol/L Potassium (3.6-5.0) mmol/L Chloride (98-107) mmol/L Carbon Dioxide (22-30) mmol/L BUN (9-20) mg/dL Creatinine (0.8-1.5) mg/dL Glucose (75-100) mg/dL POC Glucose > 500 H 467 H 483 H (70-105) Hemoglobin A1c (4-6) % Calcium (8.4-10.2) mg/dL Phosphorus (2.5-4.5) mg/dL 10/19/18 10/19/18 10/20/18 Range/Units 22:14 23:14 00:14 Sodium (137-145) mmol/L Potassium (3.6-5.0) mmol/L Chloride (98-107) mmol/L Carbon Dioxide (22-30) mmol/L BUN (9-20) mg/dL Creatinine (0.8-1.5) mg/dL Glucose (75-100) mg/dL POC Glucose 411 H 382 H 290 H (70-105) Hemoglobin A1c (4-6) % Calcium (8.4-10.2) mg/dL Phosphorus (2.5-4.5) mg/dL 10/20/18 10/20/18 10/20/18 Range/Units 01:22 02:05 03:08 Sodium (137-145) mmol/L Potassium (3.6-5.0) mmol/L Chloride (98-107) mmol/L Carbon Dioxide (22-30) mmol/L BUN (9-20) mg/dL Creatinine (0.8-1.5) mg/dL Glucose (75-100) mg/dL POC Glucose 292 H 260 H 216 H (70-105) Hemoglobin A1c (4-6) % Calcium (8.4-10.2) mg/dL Phosphorus (2.5-4.5) mg/dL 10/20/18 10/20/18 10/20/18 Range/Units 04:09 05:10 06:02 Sodium (137-145) mmol/L Potassium (3.6-5.0) mmol/L Chloride (98-107) mmol/L Carbon Dioxide (22-30) mmol/L BUN (9-20) mg/dL Creatinine (0.8-1.5) mg/dL Glucose (75-100) mg/dL POC Glucose 235 H 179 H 114 H (70-105) Hemoglobin A1c (4-6) % Calcium (8.4-10.2) mg/dL Phosphorus (2.5-4.5) mg/dL 10/20/18 10/20/18 10/20/18 Range/Units 06:54 08:54 09:30 Sodium 136 L (137-145) mmol/L Potassium 3.4 L D 5.3 H D (3.6-5.0) mmol/L Chloride 77.7 L (98-107) mmol/L Carbon Dioxide 50 H* D (22-30) mmol/L BUN 34 H 49 H (9-20) mg/dL Creatinine 4.1 H 6.4 H D (0.8-1.5) mg/dL Glucose 1171 H* 53 L (75-100) mg/dL POC Glucose 59 L (70-105) Hemoglobin A1c (4-6) % Calcium 4.9 L* D 7.5 L D (8.4-10.2) mg/dL Phosphorus (2.5-4.5) mg/dL 10/20/18 10/20/18 10/20/18 Range/Units 09:34 11:55 12:24 Sodium (137-145) mmol/L Potassium 5.3 H (3.6-5.0) mmol/L Chloride (98-107) mmol/L Carbon Dioxide (22-30) mmol/L BUN 49 H (9-20) mg/dL Creatinine 6.4 H (0.8-1.5) mg/dL Glucose 108 H (75-100) mg/dL POC Glucose 50 L 108 H (70-105) Hemoglobin A1c (4-6) % Calcium 7.4 L (8.4-10.2) mg/dL Phosphorus (2.5-4.5) mg/dL
[2018-10-20] MEDS: CLARITIN PO SCH (16:47)
[2018-10-20] MEDS: NEURONTIN PO SCH ×2 (16:47→21:45)
[2018-10-20] MEDS: SODIUM CHLORIDE FLUSH SYRINGE 10 ML IV PRN (16:49)
[2018-10-20] MEDS: SODIUM CHLORIDE FLUSH SYRINGE 10 ML IV SCH ×2 (16:50→21:30)
[2018-10-20] MEDS: PEPCID PO SCH (16:51)
[2018-10-20] MEDS: NORVASC PO SCH (16:52)
[2018-10-20] MEDS: MORPHINE IV PRN ×2 (17:03→21:08)
[2018-10-20] MEDS ORDERED: HumuLIN R SUB-Q ONE (19:00)
[2018-10-20 20:03] LABS: Calcium 7.4 mg/dL (8.4-10.2)
--- NOTE | 2018-10-20 21:24 | Consultation ---
PULMONARY-CRITICAL CARE CONSULT NOTE CONSULTING PHYSICIAN: Dr. Winters. REASON FOR CONSULTATION: Hypotension, end-stage renal disease on dialysis with hyperkalemia, diabetic ketoacidosis. CHIEF COMPLAINT AND HISTORY OF PRESENT ILLNESS: As follows: The patient is a 48-year-old -Romanian male with past medical history significant amongst other things for end-stage renal disease on hemodialysis who came into the Emergency Room complaining of episodes of excessive bleeding from his dialysis site on the Saturday before presentation. However, the next day the bleeding reoccurred, he was really profuse. He applied an occlusive dressing at home. On the day of presentation, he went to the dialysis center, developed excessive bleeding. He was found to have graft occlusion and he was sent to the Emergency Room essentially for evaluation and placement of the temporary dialysis catheter for dialysis. Prior to admission, the patient also was found with elevated blood sugars greater than 500. He was evaluated, found with hyperkalemia. A decision was made to transfer him to the Intensive Care Unit. Begin IV insulin therapy. He was also started on a sodium bicarbonate drip. While in the Intensive Care Unit about to begin dialysis, he also became hypotensive. When I stopped by to see him, he was sitting up in bed, complaining of some pain in his gluteal region. He states he has some sores of the gluteal region. Otherwise, he denies chest pain. He denies shortness of breath. He was hungry. Overall, he felt better. There was no more active bleeding from his AV graft region. Now with regards to the patient's tobacco use/abuse history, he describes himself as a never smoker. This really is as much of the history of presentation as I have. The patient's dialysis sessions are normally Saturday, and Saturdays. PAST MEDICAL HISTORY: Significant for hypertension, diabetes since he was a kid presumably type 1, history of end-stage renal disease on dialysis, history of gastroparesis. He is also obese. PAST SURGICAL HISTORY: He has a graft to the left upper arm and he does have bilateral [id number] amputations. MEDICATIONS: Medications that he was on at the time I stopped by to see him were reviewed. Pertinent medications include the following: Tylenol 650 mg p.o. q. 4 hours p.r.n. mild pain or fevers, albuterol 2.5 mg nebulized q. 4 hours p.r.n. shortness of breath, calcium acetate 677 mg p.o. t.i.d. with meals, Neurontin 100 mg p.o. b.i.d. Heparin 5000 units subcutaneous q. 12 hours. Insulin via sliding scale. IV insulin drip was going earlier. Levophed drip was going at 2 mcg per minute, Claritin 10 mg p.o. daily, Zofran 4 mg IV q. 8 hours p.r.n. nausea and vomiting, Roxicodone 10 mg p.o. q. 8 hours p.r.n. moderate pain. ALLERGIES: CEPHALEXIN AND VANCOMYCIN. NATURE OF THIS ALLERGY IS UNKNOWN. DIET: Obese gentleman. Denies acute weight loss or gain in the preceding few weeks to months. FAMILY AND SOCIAL HISTORY: Lives in the community. Denies alcohol, tobacco, or illicit drug use or abuse. He is . There is a family history of diabetes and hypertension. REVIEW OF SYSTEMS: No loss of consciousness. No new onset seizures. No new onset focal weakness. No gross hematochezia or melena. No gross hematuria or dysuria. No hematemesis. No hemoptysis. He had the bleeding from the AV graft. Denies any new rashes on his body. Denies any easy bruising. Denies any periods of unexplained sadness and/or elation as may be consistent with psychiatric type disorders. Complete 13-system review of systems was obtained. Pertinent positives and/or negatives as in body of history above, otherwise noncontributory. PHYSICAL EXAMINATION: VITAL SIGNS: At presentation, he was afebrile, temperature 98.9 degrees Fahrenheit with a pulse of 87, respiratory rate of 23, blood pressure 125/39, O2 sats were 92%, inspired oxygen concentration at that time was not recorded. When I stopped by to see him, O2 sats were 97% that was on 2 liters nasal cannula. GENERAL: He is a middle-aged obese -Romanian male. Normocephalic, atraumatic, talking to me in full sentences with normal respiratory effort at rest. HEAD, EYES, EARS, NOSE AND THROAT: He is anicteric. No conjunctival erythema. Oropharynx is moist. Mallampati #4 oropharynx. No gross jugular venous distention, no thyromegaly. He does have a large neck circumference. Grossly, no palpable lymph nodes in the supraclavicular or submandibular lymph node chains. He has a right IJ Trialysis catheter in place. LUNGS: Auscultation of both lung montemayor unremarkable. Lungs are clear bilaterally with good bilateral air movement. HEART: Heart sounds 1 and 2 are heard, regular in rate and rhythm at the time of my evaluation without overt rubs or murmurs. ABDOMEN: Soft, full, protuberant, nontender, no palpable hepatosplenomegaly. EXTREMITIES: Without overt digital clubbing, no cyanosis, no pedal edema. He has bilateral BKAs with clean stumps. NEUROLOGIC: Pupils are equal, round, about 4 mm, reactive to light. Extraocular muscle movements are intact. He moves all 4 extremities spontaneously. SKIN: Normal turgor in the areas that I examined without overt cellulitis or rash. He is getting dialyzed right now. We will be doing a secondary examination to look for gluteal/decubitus ulcers. PSYCHIATRIC: His mood was normal. His affect was appropriate. LABORATORY DATA: From my review are as follows: Admission white count 8300, hemoglobin 8.0, hematocrit 25.9, platelet count 349. No manual differential. INR was 1.19. Serum sodium 139, potassium 4.7, chloride 102, bicarbonate 25, BUN 30, creatinine 4.6, glucose was 88. Calcium 7.8, phosphorus 5.1 at presentation. AST and ALT were within normal limits. Albumin was low at 1.9. Potassium was as high as 6.8 before transfer to the unit, it is 5.3 at this time. Glucose was measured at 564 and then at 1171. However, repeat glucose shows 53 and IV insulin has been stopped. Two sets of blood cultures, no growth to date. I have a chest x-ray that shows gross cardiomegaly, increased interstitial markings, possible left pleural effusion and fluid in the minor fissure consistent with mild volume overload. ASSESSMENT: 1. Acute hypoxemic respiratory failure, now on supplemental oxygen, presumably due to #2. 2. Acute pulmonary edema. 3. Left pleural effusion. 4. Arteriovenous graft malfunction. 5. Hypotension that may be multifactorial including possibly due to an element of acute blood loss anemia. 6. Diabetes type 1. 7. Obesity. 8. End-stage renal disease, on dialysis. 9. History of hypertension. PLAN: He is about to begin dialysis. We will continue vasopressors to support the dialysis process itself. We will look to ultrafiltration for improvement in the pulmonary edema. Supplemental oxygen will be continued to keep sats greater than or equal to about 90%. Aspiration precautions will be maintained. Bilevel positive airway pressure ventilation therapy will be ordered on a p.r.n. basis. I have discussed the possibility of obstructive sleep apnea in him and advised that he does get evaluated by Sleep Clinic. He has received appropriate medication for his hyperkalemia prior to dialysis. He will be started on GI prophylaxis. He is appropriately on DVT prophylaxis. We will wean vasopressors to keep mean arterial pressures greater than or equal to about 65 mmHg. Glycemic control will be via the sliding scale insulin at this time for target blood glucose of less than 180 mg/dl. I will consider ultrasound-guided thoracentesis of the left pleural effusion depending on his progress, especially post-dialysis. Vascular team, I believe, has been consulted to evaluate the AV graft. He has a reported chronic sacral decubitus ulcer present on arrival. I will place a wound care consult. Flu and pneumonia vaccination will be per protocol. Thank you very much for the consult, Dr. Winters. We will follow along and make further recommendations as picture progresses/becomes clearer. He is critically ill on life-sustaining interventions including vasopressor support at this time at risk of deterioration. At this time, I have spent about 35-40 minutes of critical care time without overlap and excluding any procedural time that may be necessary. JOB# [id number] MITCHELL/KRISTEN THORNTON
[2018-10-21] MEDS: MORPHINE IV PRN ×5 (04:51→23:54)
[2018-10-21] MEDS: HumuLIN R SUB-Q SCH ×4 (07:30→21:47)
[2018-10-21] MEDS: PHOSLO PO SCH ×3 (07:30→16:30)
[2018-10-21 07:44] LABS: Calcium 7.3 mg/dL (8.4-10.2)
[2018-10-21] MEDS: NEURONTIN PO SCH ×2 (09:22→21:44)
[2018-10-21] MEDS: CLARITIN PO SCH (09:22)
[2018-10-21] MEDS: PEPCID PO SCH (09:22)
[2018-10-21] MEDS: SODIUM CHLORIDE FLUSH SYRINGE 10 ML IV SCH ×2 (09:25→21:46)
[2018-10-21] MEDS: DAKIN'S HALF STRENGTH TP SCH ×2 (11:00→21:45)
[2018-10-21 12:18] LABS: Mean Corpuscular HGB Conc 31 % (32-34); Mean Corpuscular Volume 93 fl (84-94); Platelet Count 392 K/mm3 (140-440); Red Blood Count 1.99 M/mm3 (3.65-5.03)
[2018-10-21 12:23] LABS: Hematocrit 18.4 % (35.5-45.6); Hemoglobin 5.7 gm/dl (11.8-15.2); Red Cell Distribution Width 20.9 % (13.2-15.2)
--- NOTE | 2018-10-21 13:08 | Progress Note ---
Assessment and Plan Acute hypoxemic respiratory failure Acute pulmonary edema. Left pleural effusion. Arteriovenous graft malfunction. Hypotension that may be multifactorial (including element of acute blood loss anemia) ABLA Diabetes type 1. Obesity. End-stage renal disease, on dialysis. History of hypertension - continue to wean Levophed for target MAP > 65 mmHg - repeat CBC re: persistent hypotension; transfuse PRBC's as necessary - continue HD/UF per nephroplogy prescription for toxin and volume clearance - continue empiric AB's; de-escalate based on clinical and microbiologic data - follow cultures - continue wound care for sacral ulcers per WCT - continue glycemic control with SSI for target BG 140-180 mg/dl while critically ill - AV graft repair / replacement tentatively tomorrow - continue promotility agents for gastroparesis - continue GI & VTE prophylaxis - continue other care per attending / other consultants ..... re-evaluate in prn The high probability of a clinically significant, sudden or life threatening deterioration of the system(s) required my full and direct attention, intervention and personal management. The aggregate critical care time was [32] minutes. This time is in addition to time spent performing reported procedures but includes the following: [x] Data Review and interpretation [x] Patient assessment and monitoring of vital signs [x] Documentation [x] Medication orders and management Subjective Date of service: 10/21/18 Principal diagnosis: Ac. hypoxemic resp failure; AV graft malfunction; Hypotension; JARVIS; ESRD Interval history: Patient is seen today for: Acute hypoxemic respiratory failure; Acute pulmonary edema; Left pleural effusion; Arteriovenous graft malfunction; Hypotension that may be multifactorial (including element of acute blood loss anemia); ABLA; Diabetes type 1; Obesity; HTN; ESRD on Dialysis Seen and examined at bedside; 24hour events reviewed; nursing and respiratory care staff consulted; no adverse overnight events reported to me; resting peacefully in bed; remains on levophed drip; Serum hemoglobin reported at 5.7; denies acute chest pains or palpitations; s/p HD/UF yesterday; vascular surgery evaluation ongoing also; no new issues otherwise Objective Vital Signs - 12hr 10/21/18 10/21/18 10/21/18 01:15 01:30 01:45 Temperature Pulse Rate 88 89 87 Pulse Rate [ From Monitor] Respiratory 23 22 15 Rate Blood Pressure 92/33 100/39 99/33 O2 Sat by Pulse 95 93 95 Oximetry 10/21/18 10/21/18 10/21/18 02:00 02:15 02:30 Temperature Pulse Rate 86 84 84 Pulse Rate [ From Monitor] Respiratory 26 H 15 16 Rate Blood Pressure 102/34 102/34 96/40 O2 Sat by Pulse 93 92 90 Oximetry 10/21/18 10/21/18 10/21/18 02:45 02:55 03:00 Temperature 99.9 F H Pulse Rate 84 84 Pulse Rate [ From Monitor] Respiratory 15 20 Rate Blood Pressure 102/34 106/46 O2 Sat by Pulse 97 96 Oximetry 10/21/18 10/21/18 10/21/18 03:15 03:30 03:45 Temperature Pulse Rate 84 84 86 Pulse Rate [ From Monitor] Respiratory 19 22 15 Rate Blood Pressure 104/40 102/40 92/37 O2 Sat by Pulse 94 94 93 Oximetry 10/21/18 10/21/18 10/21/18 04:00 04:15 04:30 Temperature Pulse Rate 84 85 84 Pulse Rate [ 85 From Monitor] Respiratory 18 19 17 Rate Blood Pressure 99/36 90/43 94/31 O2 Sat by Pulse 95 94 84 Oximetry 10/21/18 10/21/18 10/21/18 04:45 05:00 05:15 Temperature Pulse Rate 86 91 H 91 H Pulse Rate [ From Monitor] Respiratory 17 20 18 Rate Blood Pressure 94/31 105/41 105/41 O2 Sat by Pulse 90 91 90 Oximetry 10/21/18 10/21/18 10/21/18 05:30 05:45 06:00 Temperature Pulse Rate 89 89 88 Pulse Rate [ From Monitor] Respiratory 16 19 20 Rate Blood Pressure 139/50 139/50 131/36 O2 Sat by Pulse 88 88 87 Oximetry 10/21/18 10/21/18 10/21/18 06:15 06:31 06:45 Temperature Pulse Rate 87 87 89 Pulse Rate [ From Monitor] Respiratory 20 17 15 Rate Blood Pressure 131/36 127/41 127/41 O2 Sat by Pulse 88 86 85 Oximetry 10/21/18 10/21/18 10/21/18 07:00 07:15 07:30 Temperature Pulse Rate 86 87 86 Pulse Rate [ From Monitor] Respiratory 20 17 19 Rate Blood Pressure 136/64 136/64 136/35 O2 Sat by Pulse 100 100 100 Oximetry 10/21/18 10/21/18 10/21/18 07:45 08:00 08:01 Temperature 99.0 F Pulse Rate 89 91 H 88 Pulse Rate [ 91 H From Monitor] Respiratory 15 22 24 Rate Blood Pressure 137/40 139/34 O2 Sat by Pulse 100 100 100 Oximetry 10/21/18 10/21/18 10/21/18 08:15 08:30 08:45 Temperature Pulse Rate 89 89 93 H Pulse Rate [ From Monitor] Respiratory 17 18 20 Rate Blood Pressure 136/35 124/49 124/49 O2 Sat by Pulse 100 100 100 Oximetry 10/21/18 10/21/18 10/21/18 09:00 09:15 09:31 Temperature Pulse Rate 99 H 96 H 93 H Pulse Rate [ From Monitor] Respiratory 20 17 20 Rate Blood Pressure 172/51 172/51 168/41 O2 Sat by Pulse 100 99 99 Oximetry 10/21/18 10/21/18 10/21/18 09:45 10:01 10:15 Temperature Pulse Rate 92 H 95 H 95 H Pulse Rate [ From Monitor] Respiratory 21 27 H 16 Rate Blood Pressure 168/41 96/24 96/24 O2 Sat by Pulse 99 99 98 Oximetry 10/21/18 10/21/18 10/21/18 10:30 10:45 11:00 Temperature Pulse Rate 94 H 94 H 92 H Pulse Rate [ From Monitor] Respiratory 18 20 12 Rate Blood Pressure 83/35 107/53 81/47 O2 Sat by Pulse 100 100 100 Oximetry 10/21/18 10/21/18 10/21/18 11:15 11:30 11:45 Temperature Pulse Rate 96 H 90 89 Pulse Rate [ From Monitor] Respiratory 27 H 26 H 21 Rate Blood Pressure 81/47 174/48 174/48 O2 Sat by Pulse 100 100 100 Oximetry 10/21/18 12:00 Temperature 98.9 F Pulse Rate Pulse Rate [ From Monitor] Respiratory Rate Blood Pressure O2 Sat by Pulse Oximetry Constitutional: no acute distress, alert, other (middle aged obese AAM, normocephalic and atraumatic with normal resp effort at rest) Eyes: non-icteric ENT: oropharynx moist, other (Mallampati 4) Neck: supple, no lymphadenopathy, no JVD, other (RIJ CVL) Effort: normal Ascultation: Bilateral: rales (bases) Percussion: Bilateral: not dull Cardiovascular: regular rate and rhythm Gastrointestinal: normoactive bowel sounds, soft, non-tender, non-distended Integumentary: normal Extremities: no cyanosis, no edema, pulses normal, no ischemia or petechiae, other (bilateral BKA's) Neurologic: normal mental status, non-focal exam, pupils equal and round, motor strength normal and, unable to assess Psychiatric: mood appropriate, affect normal CBC and BMP: 10/22/18 04:26 10/22/18 04:26 ABG, PT/INR, D-dimer: PT/INR, D-dimer PT 14.8 Sec. (12.2-14.9) 10/18/18 12:43 INR 1.19 (0.87-1.13) H 10/18/18 12:43 Abnormal lab findings: Abnormal Labs 10/18/18 10/18/18 10/18/18 12:43 12:43 12:43 WBC RBC 2.79 L Hgb 8.0 L Hct 25.9 L MCV MCHC 31 L RDW 21.8 H Mineral % (Auto) 10.0 H INR 1.19 H APTT 41.2 H Sodium Potassium Chloride Carbon Dioxide BUN 30 H Creatinine 4.6 H Glucose POC Glucose Hemoglobin A1c Calcium 7.8 L Phosphorus 5.10 H ALT Alkaline Phosphatase Albumin 10/19/18 10/19/18 10/19/18 15:05 15:05 15:05 WBC RBC 2.64 L Hgb 7.7 L Hct 26.1 L MCV 99 H MCHC 30 L RDW 22.3 H Mineral % (Auto) 8.1 H INR APTT Sodium 133 L Potassium 6.5 H* D Chloride 94.9 L Carbon Dioxide 16 L D BUN 48 H Creatinine 5.7 H Glucose 525 H* POC Glucose Hemoglobin A1c 7.2 H Calcium 7.6 L Phosphorus 7.00 H D ALT 6 L Alkaline Phosphatase 214 H Albumin 1.9 L 10/19/18 10/19/18 10/19/18 16:45 16:59 17:54 WBC RBC Hgb Hct MCV MCHC RDW Mineral % (Auto) INR APTT Sodium Potassium 6.8 H* Chloride Carbon Dioxide BUN Creatinine Glucose POC Glucose > 500 H > 500 H Hemoglobin A1c Calcium Phosphorus ALT Alkaline Phosphatase Albumin 10/19/18 10/19/18 10/19/18 17:58 19:00 19:30 WBC RBC Hgb Hct MCV MCHC RDW Mineral % (Auto) INR APTT Sodium Potassium Chloride Carbon Dioxide BUN Creatinine Glucose 564 H* POC Glucose > 500 H Hemoglobin A1c Calcium Phosphorus 7.10 H ALT Alkaline Phosphatase Albumin 10/19/18 10/19/18 10/19/18 20:30 21:17 22:14 WBC RBC Hgb Hct MCV MCHC RDW Mineral % (Auto) INR APTT Sodium Potassium Chloride Carbon Dioxide BUN Creatinine Glucose POC Glucose 467 H 483 H 411 H Hemoglobin A1c Calcium Phosphorus ALT Alkaline Phosphatase Albumin 10/19/18 10/20/18 10/20/18 23:14 00:14 01:22 WBC RBC Hgb Hct MCV MCHC RDW Mineral % (Auto) INR APTT Sodium Potassium Chloride Carbon Dioxide BUN Creatinine Glucose POC Glucose 382 H 290 H 292 H Hemoglobin A1c Calcium Phosphorus ALT Alkaline Phosphatase Albumin 10/20/18 10/20/18 10/20/18 02:05 03:08 04:09 WBC RBC Hgb Hct MCV MCHC RDW Mineral % (Auto) INR APTT Sodium Potassium Chloride Carbon Dioxide BUN Creatinine Glucose POC Glucose 260 H 216 H 235 H Hemoglobin A1c Calcium Phosphorus ALT Alkaline Phosphatase Albumin 10/20/18 10/20/18 10/20/18 05:10 06:02 06:54 WBC RBC Hgb Hct MCV MCHC RDW Mineral % (Auto) INR APTT Sodium 136 L Potassium 3.4 L D Chloride 77.7 L Carbon Dioxide 50 H* D BUN 34 H Creatinine 4.1 H Glucose 1171 H* POC Glucose 179 H 114 H Hemoglobin A1c Calcium 4.9 L* D Phosphorus ALT Alkaline Phosphatase Albumin 10/20/18 10/20/18 10/20/18 08:54 09:30 09:34 WBC RBC Hgb Hct MCV MCHC RDW Mineral % (Auto) INR APTT Sodium Potassium 5.3 H D Chloride Carbon Dioxide BUN 49 H Creatinine 6.4 H D Glucose 53 L POC Glucose 59 L 50 L Hemoglobin A1c Calcium 7.5 L D Phosphorus ALT Alkaline Phosphatase Albumin 10/20/18 10/20/18 10/20/18 11:55 12:24 15:54 WBC RBC Hgb Hct MCV MCHC RDW Mineral % (Auto) INR APTT Sodium Potassium 5.3 H Chloride Carbon Dioxide BUN 49 H Creatinine 6.4 H Glucose 108 H POC Glucose 108 H 234 H Hemoglobin A1c Calcium 7.4 L Phosphorus ALT Alkaline Phosphatase Albumin 10/20/18 10/20/18 10/20/18 19:25 19:58 21:32 WBC RBC Hgb Hct MCV MCHC RDW Mineral % (Auto) INR APTT Sodium Potassium Chloride 95.8 L Carbon Dioxide BUN 27 H Creatinine 4.0 H Glucose 266 H POC Glucose 272 H 242 H Hemoglobin A1c Calcium 7.4 L Phosphorus ALT Alkaline Phosphatase Albumin 10/21/18 10/21/18 10/21/18 04:45 08:37 11:44 WBC RBC Hgb Hct MCV MCHC RDW Mineral % (Auto) INR APTT Sodium Potassium Chloride 96.1 L Carbon Dioxide BUN 33 H Creatinine 4.3 H Glucose 118 H POC Glucose 203 H 216 H Hemoglobin A1c Calcium 7.3 L Phosphorus ALT Alkaline Phosphatase Albumin 10/21/18 Unknown WBC 11.4 H RBC 1.99 L Hgb 5.7 L* Hct 18.4 L* D MCV MCHC 31 L RDW 20.9 H Mineral % (Auto) INR APTT Sodium Potassium Chloride Carbon Dioxide BUN Creatinine Glucose POC Glucose Hemoglobin A1c Calcium Phosphorus ALT Alkaline Phosphatase Albumin Chest x-ray: other (None today) Allied health notes reviewed: nursing
[2018-10-21 15:14] LABS: Hematocrit 25.7 % (35.5-45.6); Hemoglobin 7.9 gm/dl (11.8-15.2); Mean Corpuscular HGB Conc 31 % (32-34); Mean Corpuscular Volume 95 fl (84-94); Platelet Count 314 K/mm3 (140-440); Red Blood Count 2.72 M/mm3 (3.65-5.03)
[2018-10-21 15:17] LABS: Red Cell Distribution Width 21.4 % (13.2-15.2)
--- NOTE | 2018-10-21 15:43 | Progress Note ---
Assessment and Plan /Hypotension - hypovolemic versus septic shock continue bicarbonate drip negative blood culture, and wound cultures Patient has no white count, no fever Monitor off antibiotics for now, start on midodrine wean off pressor, will get 2d echo /Severe hyperkalemia Patient on bicarbonate drip Status post Kayexalate, sodium bicarbonate IV push, calcium gluconate, insulin and D50 and emergent dialysis with vascath / End stage renal disease on dialysis Nephrology consulted, dialysis as per renal team, avoid nephrotoxic agents, strict I/O, daily weight, repeat bmp to monitor serum potassium / Diabetes type 2 with hyperglycemia s/p insulin drip overnight we cont ADA diet, insulin, accu check, hypoglycemia protocol We'll DC insulin drip /left pleural effusion, from volume overload, should correct with HD, continue to monitor / HTN (hypertension) Now hypotensivem, Hold norvasc / AV graft malfunction Vascular surgery consulted, pending surgical intervention now for low blood pressure s/p Vas-Cath for emergent dialysis / Gastroparesis due to DM Frequent small meals, treat BG with insulin, anti emetic therapy prn, supportive care /Chronic sacral decubitus ulcer, POA wound care consulted, pain Mx, negative wound cx / DVT prophylaxis SCD to BLE while in bed, The high probability of a clinically significant, sudden or life threatening deterioration of the system(s) required my full and direct attention, intervention and personal management. The aggregate critical care time was [35] minutes. This time is in addition to time spent performing reported procedures but includes the following: [x] Data Review and interpretation [x] Patient assessment and monitoring of vital signs [x] Documentation [x] Medication orders and management Brief History: 48 YO Male with ESRD on HD(T,R,Sa) last dialyzed on , DM complicated by Gastroparesis, HTN, presents to ED for bleeding from his dialysis fistula and applied an occlusive dressing to stop the bleeding 3 days ago. Pt presented to his dialysis center for his scheduled session but was unable to undergo dialysis due to excessive bleeding secondary to clotted access. EMS notified, and transported to [facility]. Pt seen and evaluated in ED and found to have ESRD and Clotted dialysis access. Nephrology consulted in ED for dialysis. vascular surgery consulted in ED for surgical intervention. Following admission developed hyperglycemia, hyperkalemia and hypertension. Transferred to ICU for further monitoring, placed on levophed, insulin drip. Radiological data: CXR: 1. Mild cardiomegaly with mild to moderate interstitial pulmonary edema and small left pleural effusion. Hospitalist Physical exam: GENERAL: well-developed and well-nourished AAM lying on bed appeared to be in no discomfort. HEENT: Normocephalic. Atraumatic. No conjunctival congestion or icterus. Patient has moist mucous membranes. NECK: Supple. Trachea midline. CHEST/LUNGS: Clear to auscultated bilaterally, breathing nonlabored. No wheezes crackles or rhonchi. HEART/CARDIOVASCULAR: Regular in rate and rhythm. S1 and S2 positive. ABDOMEN: Abdomen is soft, nontender. Patient has normal bowel sounds. SKIN: There is no rash. Warm and dry. NEURO: No focal motor deficit. Follows command. MUSCULOSKELETAL: b/l BKA EXTRIMITY: No edema, no cyanosis or clubbing. PSYCH: Cooperative. Subjective Date of service: 10/21/18 Principal diagnosis: Ac. hypoxemic resp failure; AV graft malfunction; Hypotension; JARVIS; ESRD Interval history: Patient seen and examined. Medical records and medication list reviewed. on vascath for temporary dialysis still on pressor for hypotension Complaints of sacral pain at bedside - updated Objective - Constitutional Vitals: Vital Signs - 12hr 10/21/18 10/21/18 10/21/18 03:45 04:00 04:15 Temperature Pulse Rate 86 84 85 Pulse Rate [ 85 From Monitor] Respiratory 15 18 19 Rate Blood Pressure 92/37 99/36 90/43 O2 Sat by Pulse 93 95 94 Oximetry 10/21/18 10/21/18 10/21/18 04:30 04:45 05:00 Temperature Pulse Rate 84 86 91 H Pulse Rate [ From Monitor] Respiratory 17 17 20 Rate Blood Pressure 94/31 94/31 105/41 O2 Sat by Pulse 84 90 91 Oximetry 10/21/18 10/21/18 10/21/18 05:15 05:30 05:45 Temperature Pulse Rate 91 H 89 89 Pulse Rate [ From Monitor] Respiratory 18 16 19 Rate Blood Pressure 105/41 139/50 139/50 O2 Sat by Pulse 90 88 88 Oximetry 10/21/18 10/21/18 10/21/18 06:00 06:15 06:31 Temperature Pulse Rate 88 87 87 Pulse Rate [ From Monitor] Respiratory 20 20 17 Rate Blood Pressure 131/36 131/36 127/41 O2 Sat by Pulse 87 88 86 Oximetry 10/21/18 10/21/18 10/21/18 06:45 07:00 07:15 Temperature Pulse Rate 89 86 87 Pulse Rate [ From Monitor] Respiratory 15 20 17 Rate Blood Pressure 127/41 136/64 136/64 O2 Sat by Pulse 85 100 100 Oximetry 10/21/18 10/21/18 10/21/18 07:30 07:45 08:00 Temperature 99.0 F Pulse Rate 86 89 91 H Pulse Rate [ 91 H From Monitor] Respiratory 19 15 22 Rate Blood Pressure 136/35 137/40 O2 Sat by Pulse 100 100 100 Oximetry 10/21/18 10/21/18 10/21/18 08:01 08:15 08:30 Temperature Pulse Rate 88 89 89 Pulse Rate [ From Monitor] Respiratory 24 17 18 Rate Blood Pressure 139/34 136/35 124/49 O2 Sat by Pulse 100 100 100 Oximetry 10/21/18 10/21/18 10/21/18 08:45 09:00 09:15 Temperature Pulse Rate 93 H 99 H 96 H Pulse Rate [ From Monitor] Respiratory 20 20 17 Rate Blood Pressure 124/49 172/51 172/51 O2 Sat by Pulse 100 100 99 Oximetry 10/21/18 10/21/18 10/21/18 09:31 09:45 10:01 Temperature Pulse Rate 93 H 92 H 95 H Pulse Rate [ From Monitor] Respiratory 20 21 27 H Rate Blood Pressure 168/41 168/41 96/24 O2 Sat by Pulse 99 99 99 Oximetry 10/21/18 10/21/18 10/21/18 10:15 10:30 10:45 Temperature Pulse Rate 95 H 94 H 94 H Pulse Rate [ From Monitor] Respiratory 16 18 20 Rate Blood Pressure 96/24 83/35 107/53 O2 Sat by Pulse 98 100 100 Oximetry 10/21/18 10/21/18 10/21/18 11:00 11:15 11:30 Temperature Pulse Rate 92 H 96 H 90 Pulse Rate [ From Monitor] Respiratory 12 27 H 26 H Rate Blood Pressure 81/47 81/47 174/48 O2 Sat by Pulse 100 100 100 Oximetry 10/21/18 10/21/18 10/21/18 11:45 12:00 12:01 Temperature 98.9 F Pulse Rate 89 93 H 86 Pulse Rate [ 92 H From Monitor] Respiratory 21 15 18 Rate Blood Pressure 174/48 116/48 O2 Sat by Pulse 100 100 99 Oximetry 10/21/18 10/21/18 10/21/18 12:15 12:30 12:45 Temperature Pulse Rate 88 92 H 94 H Pulse Rate [ From Monitor] Respiratory 17 15 17 Rate Blood Pressure 116/48 131/41 131/41 O2 Sat by Pulse 100 100 100 Oximetry 10/21/18 13:01 Temperature Pulse Rate 94 H Pulse Rate [ From Monitor] Respiratory 20 Rate Blood Pressure 132/42 O2 Sat by Pulse 100 Oximetry - Labs CBC & Chem 7: 10/21/18 Unknown 10/21/18 04:45 Labs: Abnormal lab results 10/20/18 10/20/18 10/20/18 Range/Units 15:54 19:25 19:58 WBC (4.5-11.0) K/mm3 RBC (3.65-5.03) M/mm3 Hgb (11.8-15.2) gm/dl Hct (35.5-45.6) % MCV (84-94) fl MCHC (32-34) % RDW (13.2-15.2) % Chloride 95.8 L (98-107) mmol/L BUN 27 H (9-20) mg/dL Creatinine 4.0 H (0.8-1.5) mg/dL Glucose 266 H (75-100) mg/dL POC Glucose 234 H 272 H (70-105) Calcium 7.4 L (8.4-10.2) mg/dL 10/20/18 10/21/18 10/21/18 Range/Units 21:32 04:45 08:37 WBC (4.5-11.0) K/mm3 RBC (3.65-5.03) M/mm3 Hgb (11.8-15.2) gm/dl Hct (35.5-45.6) % MCV (84-94) fl MCHC (32-34) % RDW (13.2-15.2) % Chloride 96.1 L (98-107) mmol/L BUN 33 H (9-20) mg/dL Creatinine 4.3 H (0.8-1.5) mg/dL Glucose 118 H (75-100) mg/dL POC Glucose 242 H 203 H (70-105) Calcium 7.3 L (8.4-10.2) mg/dL 10/21/18 10/21/18 10/21/18 Range/Units 11:44 14:34 Unknown WBC 11.4 H (4.5-11.0) K/mm3 RBC 2.72 L 1.99 L (3.65-5.03) M/mm3 Hgb 7.9 L 5.7 L* (11.8-15.2) gm/dl Hct 25.7 L D 18.4 L* D (35.5-45.6) % MCV 95 H (84-94) fl MCHC 31 L 31 L (32-34) % RDW 21.4 H 20.9 H (13.2-15.2) % Chloride (98-107) mmol/L BUN (9-20) mg/dL Creatinine (0.8-1.5) mg/dL Glucose (75-100) mg/dL POC Glucose 216 H (70-105) Calcium (8.4-10.2) mg/dL
--- NOTE | 2018-10-21 15:48 | Progress Note ---
Assessment and Plan ESRD on Hemodialysis: Hyperkalemia: -S/p HD yesterday for UF and clearance, UF removed 3 liters -No acute indication for HD today -HD tomorrow for UF and clearance -Assess need for HD on daily basis -Vascular surgery consulted for malfunctioning Left AVG -Dr Salmon (vascular surgery) evaluated pt, s/p Right IJ Vas Catheter placement, planning on taking to OR for Left AVG early tomorrow morning. -We will dialyze pt after surgical procedure tomorrow to avoid interfering with surgical schedule which was mentioned in HD order for tomorrow -Fluid restriction of 1 liter per day -Renally dose all medications -This pt undergoes outpatient HD at [facility] every TTS -Renal plan d/w Dr Cronin Anemia: - Hgb level was 5.7 this morning (no time was noted on lab, I spoke with lab per adrian who mentioned specimen was received in lab around 11:57 am, most recent repeat Hgb level was 7.9 at 1434 - Epogen dosing for anemia management Hypotension: Hx of Essential Hypertension: -Off all BP medications -Currently on levaphed drip -Started on midodrine for blood pressure support Diabetes mellitus 2 on insulin: -As per primary team Subjective Date of service: 10/21/18 Principal diagnosis: Ac. hypoxemic resp failure; AV graft malfunction; Hypotension; JARVIS; ESRD Interval history: Pt seen in bed in ICU, reports feeling fatigued, denies shortness of breath at this time, no acute distress. No family at bedside Objective - Vital Signs Vital signs: Vital Signs - 12hr 10/21/18 10/21/18 10/21/18 03:45 04:00 04:15 Temperature Pulse Rate 86 84 85 Pulse Rate [ 85 From Monitor] Respiratory 15 18 19 Rate Blood Pressure 92/37 99/36 90/43 O2 Sat by Pulse 93 95 94 Oximetry 10/21/18 10/21/18 10/21/18 04:30 04:45 05:00 Temperature Pulse Rate 84 86 91 H Pulse Rate [ From Monitor] Respiratory 17 17 20 Rate Blood Pressure 94/31 94/31 105/41 O2 Sat by Pulse 84 90 91 Oximetry 10/21/18 10/21/18 10/21/18 05:15 05:30 05:45 Temperature Pulse Rate 91 H 89 89 Pulse Rate [ From Monitor] Respiratory 18 16 19 Rate Blood Pressure 105/41 139/50 139/50 O2 Sat by Pulse 90 88 88 Oximetry 10/21/18 10/21/18 10/21/18 06:00 06:15 06:31 Temperature Pulse Rate 88 87 87 Pulse Rate [ From Monitor] Respiratory 20 20 17 Rate Blood Pressure 131/36 131/36 127/41 O2 Sat by Pulse 87 88 86 Oximetry 10/21/18 10/21/18 10/21/18 06:45 07:00 07:15 Temperature Pulse Rate 89 86 87 Pulse Rate [ From Monitor] Respiratory 15 20 17 Rate Blood Pressure 127/41 136/64 136/64 O2 Sat by Pulse 85 100 100 Oximetry 10/21/18 10/21/18 10/21/18 07:30 07:45 08:00 Temperature 99.0 F Pulse Rate 86 89 91 H Pulse Rate [ 91 H From Monitor] Respiratory 19 15 22 Rate Blood Pressure 136/35 137/40 O2 Sat by Pulse 100 100 100 Oximetry 10/21/18 10/21/18 10/21/18 08:01 08:15 08:30 Temperature Pulse Rate 88 89 89 Pulse Rate [ From Monitor] Respiratory 24 17 18 Rate Blood Pressure 139/34 136/35 124/49 O2 Sat by Pulse 100 100 100 Oximetry 10/21/18 10/21/18 10/21/18 08:45 09:00 09:15 Temperature Pulse Rate 93 H 99 H 96 H Pulse Rate [ From Monitor] Respiratory 20 20 17 Rate Blood Pressure 124/49 172/51 172/51 O2 Sat by Pulse 100 100 99 Oximetry 10/21/18 10/21/18 10/21/18 09:31 09:45 10:01 Temperature Pulse Rate 93 H 92 H 95 H Pulse Rate [ From Monitor] Respiratory 20 21 27 H Rate Blood Pressure 168/41 168/41 96/24 O2 Sat by Pulse 99 99 99 Oximetry 10/21/18 10/21/18 10/21/18 10:15 10:30 10:45 Temperature Pulse Rate 95 H 94 H 94 H Pulse Rate [ From Monitor] Respiratory 16 18 20 Rate Blood Pressure 96/24 83/35 107/53 O2 Sat by Pulse 98 100 100 Oximetry 10/21/18 10/21/18 10/21/18 11:00 11:15 11:30 Temperature Pulse Rate 92 H 96 H 90 Pulse Rate [ From Monitor] Respiratory 12 27 H 26 H Rate Blood Pressure 81/47 81/47 174/48 O2 Sat by Pulse 100 100 100 Oximetry 10/21/18 10/21/18 10/21/18 11:45 12:00 12:01 Temperature 98.9 F Pulse Rate 89 93 H 86 Pulse Rate [ 92 H From Monitor] Respiratory 21 15 18 Rate Blood Pressure 174/48 116/48 O2 Sat by Pulse 100 100 99 Oximetry 10/21/18 10/21/18 10/21/18 12:15 12:30 12:45 Temperature Pulse Rate 88 92 H 94 H Pulse Rate [ From Monitor] Respiratory 17 15 17 Rate Blood Pressure 116/48 131/41 131/41 O2 Sat by Pulse 100 100 100 Oximetry 10/21/18 13:01 Temperature Pulse Rate 94 H Pulse Rate [ From Monitor] Respiratory 20 Rate Blood Pressure 132/42 O2 Sat by Pulse 100 Oximetry - General Appearance General appearance: well-developed EENT: ATNC Neck: no JVD Respiratory: Present: Decreased Breath Sounds Cardiology: regular, S1S2, other (Access: Right IJ Vas Catheter intact; left AVG with dressing in place) Gastrointestinal: normoactive bowel sounds, no tenderness Integumentary: other (left arm dressing in place) Neurologic: alert and oriented x3 Musculoskeletal: other (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) - Lab 10/21/18 Unknown 10/21/18 04:45 Most recent lab results Calcium 7.3 mg/dL (8.4-10.2) L 10/21/18 04:45 Phosphorus 7.10 mg/dL (2.5-4.5) H 10/19/18 19:00 Magnesium 2.00 mg/dL (1.7-2.3) 10/19/18 19:00 Medications & Allergies - Medications Allergies/Adverse Reactions: Allergies cephalexin [From Keflex] Allergy (Verified 02/23/17 19:02) Vomiting vancomycin Allergy (Verified 06/16/18 06:34) Rash Home Medications: Home Medications Medication Instructions Recorded Confirmed Last Taken Type amLODIPine [Norvasc] 5 mg PO DAILY 07/19/13 10/18/18 06/15/18 History Calcium Acetate [Phoslo] 667 mg PO TIDAC 06/16/18 10/18/18 06/15/18 History Cetirizine HCl [ZyrTEC 10mg cap] 10 mg PO QDAY 06/16/18 10/18/18 06/15/18 History Gabapentin [Neurontin] 100 mg PO BID 06/16/18 10/18/18 06/15/18 History Insulin NPH/Regular [NovoLIN 70/30] 10 units SQ QPM 06/16/18 10/18/18 06/15/18 History Insulin NPH/Regular [NovoLIN 70/30] 15 units SQ QAM 06/16/18 10/18/18 06/15/18 History Oxycodone HCl [oxyCODONE] 10 mg PO Q8HR PRN 06/16/18 10/18/18 06/15/18 History Active Medications: Generic Name Dose Route Start Last Admin Trade Name Freq PRN Reason Stop Dose Admin Acetaminophen 650 mg 10/18/18 14:31 10/18/18 22:59 Tylenol PO 650 mg Q4H PRN Administration Pain MILD(1-3)/Fever >100.5/OSBORN Albuterol 2.5 mg 10/18/18 14:31 Proventil IH Q4HRT PRN Shortness Of Breath Calcium Acetate 667 mg 10/18/18 16:30 10/21/18 11:30 Phoslo PO Not Given TIDAC DAFNE Dextrose 0 ml 10/19/18 18:51 10/20/18 09:33 D50w (25gm) Syringe IV 20 ml PRN PRN Administration Hypoglycemia Famotidine 20 mg 10/20/18 14:00 10/21/18 09:22 Pepcid PO 20 mg DAILY DAFNE Administration Gabapentin 100 mg 10/18/18 22:00 10/21/18 09:22 Neurontin PO 100 mg BID DAFNE Administration Heparin Sodium (Porcine) 5,000 unit 10/19/18 22:00 10/19/18 23:28 Heparin SUB-Q 5,000 unit Q12HR DAFNE Administration Norepinephrine 4 mg in 250 mls @ 7.5 mls/hr 10/20/18 12:00 10/21/18 08:00 Levophed Drip 4 Mg/Ns 250 Ml IV 2 mcg/min TITR DAFNE 7.5 mls/hr Titration Protocol 2 MCG/MIN Insulin Human NPH 10 unit 10/20/18 17:00 10/21/18 08:00 Humulin N SUB-Q 10 unit BIDDIAB DAFNE Administration Insulin Human Regular 0 units 10/20/18 16:30 10/21/18 11:30 Humulin R SUB-Q 2 units ACHS DAFNE Administration Protocol Loratadine 10 mg 10/19/18 10:00 10/21/18 09:22 Claritin PO 10 mg DAILY DAFNE Administration Midodrine 10 mg 10/21/18 16:00 Proamatine PO TID@0800,1200,1600 DAFNE Morphine Sulfate 1 mg 10/20/18 16:37 10/21/18 12:55 Morphine IV 1 mg Q4H PRN Administration Pain, Moderate (4-6) Ondansetron HCl 4 mg 10/18/18 14:31 Zofran IV Q8H PRN Nausea And Vomiting Oxycodone HCl 10 mg 10/18/18 14:36 10/19/18 18:52 Roxicodone PO 10 mg Q8H PRN Administration Pain, Moderate (4-6) Sodium Chloride 10 ml 10/18/18 22:00 10/21/18 09:25 Sodium Chloride Flush Syringe 10 Ml IV 10 ml BID DAFNE Administration Sodium Chloride 10 ml 10/18/18 14:31 10/20/18 16:49 Sodium Chloride Flush Syringe 10 Ml IV 10 ml PRN PRN Administration LINE FLUSH Sodium Hypochlorite 1 applic 10/21/18 11:00 10/21/18 11:00 Dakin's Half Strength TP 1 applicatio BID DAFNE Administration
[2018-10-21] MEDS: PROAMATINE PO SCH (16:00)
--- NOTE | 2018-10-21 16:29 | Progress Note ---
Subjective Date of service: 10/21/18 Principal diagnosis: Ac. hypoxemic resp failure; AV graft malfunction; Hypotension; JARVIS; ESRD Interval history: Patient still requiring slight pressor support, started on midodrine no other complaints plan for left arm av graft thrombectomy/revision tomorrow NPO p MN Objective - Constitutional Vitals: Vital Signs - 12hr 10/21/18 10/21/18 10/21/18 04:30 04:45 05:00 Temperature Pulse Rate 84 86 91 H Pulse Rate [ From Monitor] Respiratory 17 17 20 Rate Blood Pressure 94/31 94/31 105/41 O2 Sat by Pulse 84 90 91 Oximetry 10/21/18 10/21/18 10/21/18 05:15 05:30 05:45 Temperature Pulse Rate 91 H 89 89 Pulse Rate [ From Monitor] Respiratory 18 16 19 Rate Blood Pressure 105/41 139/50 139/50 O2 Sat by Pulse 90 88 88 Oximetry 10/21/18 10/21/18 10/21/18 06:00 06:15 06:31 Temperature Pulse Rate 88 87 87 Pulse Rate [ From Monitor] Respiratory 20 20 17 Rate Blood Pressure 131/36 131/36 127/41 O2 Sat by Pulse 87 88 86 Oximetry 10/21/18 10/21/18 10/21/18 06:45 07:00 07:15 Temperature Pulse Rate 89 86 87 Pulse Rate [ From Monitor] Respiratory 15 20 17 Rate Blood Pressure 127/41 136/64 136/64 O2 Sat by Pulse 85 100 100 Oximetry 10/21/18 10/21/18 10/21/18 07:30 07:45 08:00 Temperature 99.0 F Pulse Rate 86 89 91 H Pulse Rate [ 91 H From Monitor] Respiratory 19 15 22 Rate Blood Pressure 136/35 137/40 O2 Sat by Pulse 100 100 100 Oximetry 10/21/18 10/21/18 10/21/18 08:01 08:15 08:30 Temperature Pulse Rate 88 89 89 Pulse Rate [ From Monitor] Respiratory 24 17 18 Rate Blood Pressure 139/34 136/35 124/49 O2 Sat by Pulse 100 100 100 Oximetry 10/21/18 10/21/18 10/21/18 08:45 09:00 09:15 Temperature Pulse Rate 93 H 99 H 96 H Pulse Rate [ From Monitor] Respiratory 20 20 17 Rate Blood Pressure 124/49 172/51 172/51 O2 Sat by Pulse 100 100 99 Oximetry 10/21/18 10/21/18 10/21/18 09:31 09:45 10:01 Temperature Pulse Rate 93 H 92 H 95 H Pulse Rate [ From Monitor] Respiratory 20 21 27 H Rate Blood Pressure 168/41 168/41 96/24 O2 Sat by Pulse 99 99 99 Oximetry 10/21/18 10/21/18 10/21/18 10:15 10:30 10:45 Temperature Pulse Rate 95 H 94 H 94 H Pulse Rate [ From Monitor] Respiratory 16 18 20 Rate Blood Pressure 96/24 83/35 107/53 O2 Sat by Pulse 98 100 100 Oximetry 10/21/18 10/21/18 10/21/18 11:00 11:15 11:30 Temperature Pulse Rate 92 H 96 H 90 Pulse Rate [ From Monitor] Respiratory 12 27 H 26 H Rate Blood Pressure 81/47 81/47 174/48 O2 Sat by Pulse 100 100 100 Oximetry 10/21/18 10/21/18 10/21/18 11:45 12:00 12:01 Temperature 98.9 F Pulse Rate 89 93 H 86 Pulse Rate [ 92 H From Monitor] Respiratory 15 18 Rate Blood Pressure 174/48 116/48 O2 Sat by Pulse 100 100 99 Oximetry 10/21/18 10/21/18 10/21/18 12:15 12:30 12:45 Temperature Pulse Rate 88 92 H 94 H Pulse Rate [ From Monitor] Respiratory 17 15 17 Rate Blood Pressure 116/48 131/41 131/41 O2 Sat by Pulse 100 100 100 Oximetry 10/21/18 10/21/18 10/21/18 13:01 13:15 13:30 Temperature Pulse Rate 94 H 92 H 93 H Pulse Rate [ From Monitor] Respiratory 20 19 19 Rate Blood Pressure 132/42 132/42 116/49 O2 Sat by Pulse 100 98 99 Oximetry 10/21/18 10/21/18 10/21/18 13:45 14:01 14:15 Temperature Pulse Rate 90 89 89 Pulse Rate [ From Monitor] Respiratory 21 15 14 Rate Blood Pressure 116/49 146/49 146/49 O2 Sat by Pulse 100 100 100 Oximetry 10/21/18 10/21/18 10/21/18 14:30 14:45 15:00 Temperature Pulse Rate 88 88 89 Pulse Rate [ From Monitor] Respiratory 17 17 13 Rate Blood Pressure 104/37 104/37 96/33 O2 Sat by Pulse 100 99 100 Oximetry 10/21/18 10/21/18 10/21/18 15:15 15:30 15:45 Temperature Pulse Rate 90 89 87 Pulse Rate [ From Monitor] Respiratory 17 19 16 Rate Blood Pressure 96/33 136/67 136/67 O2 Sat by Pulse 93 92 94 Oximetry 10/21/18 16:01 Temperature Pulse Rate 89 Pulse Rate [ From Monitor] Respiratory 13 Rate Blood Pressure 81/35 O2 Sat by Pulse 95 Oximetry - Labs CBC & Chem 7: 10/21/18 Unknown 10/21/18 04:45 Labs: Abnormal lab results 10/20/18 10/20/18 10/20/18 Range/Units 15:54 19:25 19:58 WBC (4.5-11.0) K/mm3 RBC (3.65-5.03) M/mm3 Hgb (11.8-15.2) gm/dl Hct (35.5-45.6) % MCV (84-94) fl MCHC (32-34) % RDW (13.2-15.2) % Chloride 95.8 L (98-107) mmol/L BUN 27 H (9-20) mg/dL Creatinine 4.0 H (0.8-1.5) mg/dL Glucose 266 H (75-100) mg/dL POC Glucose 234 H 272 H (70-105) Calcium 7.4 L (8.4-10.2) mg/dL 10/20/18 10/21/18 10/21/18 Range/Units 21:32 04:45 08:37 WBC (4.5-11.0) K/mm3 RBC (3.65-5.03) M/mm3 Hgb (11.8-15.2) gm/dl Hct (35.5-45.6) % MCV (84-94) fl MCHC (32-34) % RDW (13.2-15.2) % Chloride 96.1 L (98-107) mmol/L BUN 33 H (9-20) mg/dL Creatinine 4.3 H (0.8-1.5) mg/dL Glucose 118 H (75-100) mg/dL POC Glucose 242 H 203 H (70-105) Calcium 7.3 L (8.4-10.2) mg/dL 10/21/18 10/21/18 10/21/18 Range/Units 11:44 14:34 Unknown WBC 11.4 H (4.5-11.0) K/mm3 RBC 2.72 L 1.99 L (3.65-5.03) M/mm3 Hgb 7.9 L 5.7 L* (11.8-15.2) gm/dl Hct 25.7 L D 18.4 L* D (35.5-45.6) % MCV 95 H (84-94) fl MCHC 31 L 31 L (32-34) % RDW 21.4 H 20.9 H (13.2-15.2) % Chloride (98-107) mmol/L BUN (9-20) mg/dL Creatinine (0.8-1.5) mg/dL Glucose (75-100) mg/dL POC Glucose 216 H (70-105) Calcium (8.4-10.2) mg/dL Medications & Allergies - Medications Allergies/Adverse Reactions: Allergies cephalexin [From Keflex] Allergy (Verified 02/23/17 19:02) Vomiting vancomycin Allergy (Verified 06/16/18 06:34) Rash Home Medications: Home Medications Medication Instructions Recorded Confirmed Last Taken Type amLODIPine [Norvasc] 5 mg PO DAILY 07/19/13 10/18/18 06/15/18 History Calcium Acetate [Phoslo] 667 mg PO TIDAC 06/16/18 10/18/18 06/15/18 History Cetirizine HCl [ZyrTEC 10mg cap] 10 mg PO QDAY 06/16/18 10/18/18 06/15/18 History Gabapentin [Neurontin] 100 mg PO BID 06/16/18 10/18/18 06/15/18 History Insulin NPH/Regular [NovoLIN 70/30] 10 units SQ QPM 06/16/18 10/18/18 06/15/18 History Insulin NPH/Regular [NovoLIN 70/30] 15 units SQ QAM 06/16/18 10/18/18 06/15/18 History Oxycodone HCl [oxyCODONE] 10 mg PO Q8HR PRN 06/16/18 10/18/18 06/15/18 History Active Medications: Generic Name Dose Route Start Last Admin Trade Name Freq PRN Reason Stop Dose Admin Acetaminophen 650 mg 10/18/18 14:31 10/18/18 22:59 Tylenol PO 650 mg Q4H PRN Administration Pain MILD(1-3)/Fever >100.5/OSBORN Albuterol 2.5 mg 10/18/18 14:31 Proventil IH Q4HRT PRN Shortness Of Breath Calcium Acetate 667 mg 10/18/18 16:30 10/21/18 11:30 Phoslo PO Not Given TIDAC DAFNE Dextrose 0 ml 10/19/18 18:51 10/20/18 09:33 D50w (25gm) Syringe IV 20 ml PRN PRN Administration Hypoglycemia Epoetin Bryson 10,000 unit 10/22/18 16:00 Procrit SUB-Q SHUN DAFNE Famotidine 20 mg 10/20/18 14:00 10/21/18 09:22 Pepcid PO 20 mg DAILY DAFNE Administration Gabapentin 100 mg 10/18/18 22:00 10/21/18 09:22 Neurontin PO 100 mg BID DAFNE Administration Heparin Sodium (Porcine) 5,000 unit 10/19/18 22:00 10/19/18 23:28 Heparin SUB-Q 5,000 unit Q12HR DAFNE Administration Norepinephrine 4 mg in 250 mls @ 7.5 mls/hr 10/20/18 12:00 10/21/18 08:00 Levophed Drip 4 Mg/Ns 250 Ml IV 2 mcg/min TITR DAFNE 7.5 mls/hr Titration Protocol 2 MCG/MIN Insulin Human NPH 15 unit 10/21/18 17:00 Humulin N SUB-Q BIDDIAB DAFNE Insulin Human Regular 0 units 10/20/18 16:30 10/21/18 11:30 Humulin R SUB-Q 2 units ACHS DAFNE Administration Protocol Loratadine 10 mg 10/19/18 10:00 10/21/18 09:22 Claritin PO 10 mg DAILY DAFNE Administration Midodrine 10 mg 10/21/18 16:00 Proamatine PO TID@0800,1200,1600 DAFNE Morphine Sulfate 1 mg 10/20/18 16:37 10/21/18 12:55 Morphine IV 1 mg Q4H PRN Administration Pain, Moderate (4-6) Ondansetron HCl 4 mg 10/18/18 14:31 Zofran IV Q8H PRN Nausea And Vomiting Oxycodone HCl 10 mg 10/18/18 14:36 10/19/18 18:52 Roxicodone PO 10 mg Q8H PRN Administration Pain, Moderate (4-6) Sodium Chloride 10 ml 10/18/18 22:00 10/21/18 09:25 Sodium Chloride Flush Syringe 10 Ml IV 10 ml BID DAFNE Administration Sodium Chloride 10 ml 10/18/18 14:31 10/20/18 16:49 Sodium Chloride Flush Syringe 10 Ml IV 10 ml PRN PRN Administration LINE FLUSH Sodium Hypochlorite 1 applic 10/21/18 11:00 10/21/18 11:00 Dakin's Half Strength TP 1 applicatio BID DAFNE Administration
[2018-10-21] MEDS: HEPARIN SUB-Q SCH (21:44)
[2018-10-22 04:44] LABS: Basophils # (Auto) 0.1 K/mm3 (0.0-0.1); Basophils % (Auto) 0.9 % (0.0-1.8); Eosinophils # (Auto) 0.6 K/mm3 (0.0-0.4); Eosinophils % (Auto) 6.8 % (0.0-4.3); Hematocrit 22.4 % (35.5-45.6); Hemoglobin 7.1 gm/dl (11.8-15.2); Lymphocytes # (Auto) 2.4 K/mm3 (1.2-5.4); Lymphocytes % (Auto) 28.1 % (13.4-35.0); Mean Corpuscular HGB Conc 32 % (32-34); Mean Corpuscular Volume 93 fl (84-94); Monocytes % (Auto) 11.3 % (0.0-7.3); Platelet Count 280 K/mm3 (140-440); Red Blood Count 2.41 M/mm3 (3.65-5.03)
--- NOTE | 2018-10-22 04:45 | Operative Report ---
STAFF SURGEON: Dr. Roger Salmon. PREOPERATIVE DIAGNOSIS: End-stage renal disease. POSTOPERATIVE DIAGNOSIS: End-stage renal disease. PROCEDURE PERFORMED: 1. Ultrasound access of the right internal jugular vein. 2. A 13-[place] 15 cm Trialysis catheter insertion. 3. Monitored conscious sedation. COMPLICATIONS: None. ESTIMATED BLOOD LOSS: Less than 10 mL. ANESTHESIA: Local MAC. INDICATIONS FOR PROCEDURE: This is a 48-year-old gentleman with end-stage renal disease, currently hospitalized with a thrombosed AV graft. The patient was initially scheduled to undergo thrombectomy with revision; however, the patient in the interim became hypotensive with elevated potassium and he was in need of emergent dialysis and therefore was recommended to undergo a temporary dialysis catheter placement. The patient was explained the risks, benefits, and alternatives of procedure. He expressed understanding and wished to proceed. DESCRIPTION OF PROCEDURE: After appropriate consent was obtained, the patient was brought back to the mini lab operator, placed on the table in supine position. The right neck was prepped and draped in the usual sterile fashion with ChloraPrep. Appropriate timeout was performed indicating the correct patient, procedure, and site of the procedure. We then began the intervention by obtaining percutaneous access of the right internal jugular vein using micropuncture technique under ultrasound guidance was obtained access. The needle was exchanged for a micropuncture sheath. Using Seldinger technique, the stiff J wire was then placed into the inferior vena cava. The micropuncture sheath was removed. The access site was gently dilated appropriately and then a Trialysis catheter was then placed over the wire with the tip of the catheter into the SVC. The wire was removed. All lumens peace blood appropriately, were flushed with heparinized saline. Appropriate amount of heparin was placed in each port. Catheter was then sutured in place with 3-0 nylon. Appropriate dressing was placed. The patient tolerated the procedure well, emerged from conscious sedation was taken to recovery in stable condition. JOB# [id number] LEDY/KRISTEN
[2018-10-22 05:06] LABS: Calcium 7.2 mg/dL (8.4-10.2)
[2018-10-22 05:29] LABS: Red Cell Distribution Width 21.1 % (13.2-15.2)
[2018-10-22] MEDS ORDERED: NACL 0.9% 500 ML 500 ML IV ONE ×2 (07:10→07:14)
[2018-10-22] MEDS ORDERED: HEPARIN 10,000 UNITS/10 ML ONE (07:23)
[2018-10-22] MEDS ORDERED: MARCAINE 0.5% INFILTRATI ONE (07:24)
[2018-10-22] MEDS ORDERED: XYLOCAINE 1% 20 mL ONE (07:24)
[2018-10-22] MEDS ORDERED: MARCAINE-EPI/PF 0.5%-1:200,000 INFILTRATI ONE (07:25)
[2018-10-22] MEDS ORDERED: MARCAINE-EPI 0.5%-1:200,000 INFILTRATI ONE (07:26)
[2018-10-22] MEDS ORDERED: PROTAMINE SULFATE ONE (07:51)
[2018-10-22] MEDS ORDERED: GELFOAM TP ONE (07:58)
[2018-10-22] MEDS ORDERED: XYLOCAINE MPF 2% ONE (08:01)
[2018-10-22] MEDS ORDERED: KETAMINE 50 MG/ML-WATER SYRING ONE (08:02)
[2018-10-22] MEDS ORDERED: DIPRIVAN 10 MG/ML IV ONE (08:02)
[2018-10-22] MEDS ORDERED: SUBLIMAZE ONE (08:02)
--- NOTE | 2018-10-22 08:07 | Anesthesia Consultation ---
Anesthesia Consult and Med Hx - Airway Anesthetic Teeth Evaluation: Poor ROM Head & Neck: Adequate Mental/Hyoid Distance: Adequate Mallampati Class: Class II Intubation Access Assessment: Good - Pulmonary Exam CTA: Yes - Cardiac Exam Cardiac Exam: RRR - Pre-Operative Health Status ASA Pre-Surgery Classification: ASA3 Proposed Anesthetic Plan: General (HB 7.1 patient crossmatched 2 units ) - Pulmonary Hx Smoking: Yes Hx Asthma: No COPD: No Hx Pneumonia: No Hx Sleep Apnea: No - Cardiovascular System Hx Hypertension: Yes - Central Nervous System Hx Psychiatric Problems: No - Endocrine Hx Renal Disease: Yes (Dialysis Tues, Thurs, Sat) Hx End Stage Renal Disease: Yes - Other Systems Hx Cancer: No
--- NOTE | 2018-10-22 08:07 | Anesthesia Day of Surgery ---
Anesthesia Day of Surgery - Day of Surgery Patient Examined: Yes Patient H&P Reviewed: Yes Patient is NPO: Yes
[2018-10-22] MEDS ORDERED: NACL 0.9% 1000 ML 1,000 ML ONE (08:17)
[2018-10-22] MEDS ORDERED: HEPARIN 10,000 UNITS/10 ML IV ONE (08:40)
[2018-10-22] MEDS ORDERED: NACL 0.9% 250ML IV ONE (08:40)
[2018-10-22] MEDS ORDERED: CLEOCIN 900 MG/50 mL 900 MG/50 ML BAG IV ONE (08:53)
[2018-10-22] MEDS ORDERED: CLEOCIN 900 MG/50 mL 900 MG/50 ML BAG IV NR (10:00)
--- NOTE | 2018-10-22 10:35 | Progress Note ---
Assessment and Plan ESRD on Hemodialysis: -Vascular consulted for Left AVG malfunction -Dr Salmon (vascular surgery) evaluated pt, s/p Right IJ Vas Catheter placement, patient in OR today for Left AVG thrombectomy with revision . -We will dialyze patient after surgical procedure today to avoid interfering with surgical schedule which was mentioned in HD order for today -Fluid restriction of 1 liter per day -Obtain daily weights -Renally dose all medications -Monitor I/O's -Assess dialysis needs daily -Outpatient Pool Attendant is Dr. Duffy in [place] Essential Hypertension: -Titrate BP meds to keep SBP <130 -Reconcile home BP medications Diabetes mellitus 2 on insulin: -As per primary team Subjective Date of service: 10/22/18 Principal diagnosis: Ac. hypoxemic resp failure; AV graft malfunction; Hypotension; JARVIS; ESRD Interval history: Patient off floor in OR for Left AVG repair Objective - Vital Signs Vital signs: Vital Signs - 12hr 10/21/18 10/21/18 10/21/18 22:45 23:00 23:15 Temperature Pulse Rate 88 87 85 Pulse Rate [ From Monitor] Respiratory 17 15 14 Rate Blood Pressure 123/52 124/54 124/54 O2 Sat by Pulse 97 97 93 Oximetry 10/21/18 10/21/18 10/22/18 23:31 23:45 00:00 Temperature 98.4 F Pulse Rate 83 85 84 Pulse Rate [ 92 H From Monitor] Respiratory 14 19 14 Rate Blood Pressure 124/54 124/54 105/46 O2 Sat by Pulse 92 93 96 Oximetry 10/22/18 10/22/18 10/22/18 00:01 00:15 00:31 Temperature Pulse Rate 84 82 81 Pulse Rate [ From Monitor] Respiratory 14 14 13 Rate Blood Pressure 105/46 105/46 105/46 O2 Sat by Pulse 95 93 93 Oximetry 10/22/18 10/22/18 10/22/18 00:45 01:00 01:15 Temperature Pulse Rate 81 81 80 Pulse Rate [ From Monitor] Respiratory 15 14 14 Rate Blood Pressure 105/46 105/46 113/46 O2 Sat by Pulse 92 98 96 Oximetry 10/22/18 10/22/18 10/22/18 01:31 01:45 02:00 Temperature Pulse Rate 80 81 81 Pulse Rate [ From Monitor] Respiratory 14 14 14 Rate Blood Pressure 113/46 113/46 125/44 O2 Sat by Pulse 94 94 94 Oximetry 10/22/18 10/22/18 10/22/18 02:15 02:31 02:45 Temperature Pulse Rate 79 80 79 Pulse Rate [ From Monitor] Respiratory 13 13 15 Rate Blood Pressure 125/44 125/44 125/44 O2 Sat by Pulse 95 96 96 Oximetry 10/22/18 10/22/18 10/22/18 03:00 03:15 03:31 Temperature Pulse Rate 80 80 80 Pulse Rate [ From Monitor] Respiratory 14 15 14 Rate Blood Pressure 129/36 129/36 129/36 O2 Sat by Pulse 94 93 93 Oximetry 10/22/18 10/22/18 10/22/18 03:45 04:00 04:15 Temperature 99.0 F Pulse Rate 81 85 86 Pulse Rate [ 83 From Monitor] Respiratory 14 16 17 Rate Blood Pressure 129/36 138/45 138/45 O2 Sat by Pulse 94 98 97 Oximetry 10/22/18 10/22/18 10/22/18 04:31 04:45 05:01 Temperature Pulse Rate 83 82 82 Pulse Rate [ From Monitor] Respiratory 18 18 15 Rate Blood Pressure 138/45 138/45 133/46 O2 Sat by Pulse 94 92 91 Oximetry 10/22/18 10/22/18 10/22/18 05:15 05:31 05:46 Temperature Pulse Rate 82 82 81 Pulse Rate [ From Monitor] Respiratory 12 14 15 Rate Blood Pressure 133/46 133/46 133/46 O2 Sat by Pulse 94 91 86 Oximetry 10/22/18 10/22/18 10/22/18 06:00 06:15 06:31 Temperature Pulse Rate 81 81 81 Pulse Rate [ From Monitor] Respiratory 15 14 13 Rate Blood Pressure 132/36 133/46 133/46 O2 Sat by Pulse 91 91 89 Oximetry 10/22/18 10/22/18 10/22/18 06:45 08:00 08:15 Temperature 98.0 F 98.3 F Pulse Rate 81 88 Pulse Rate [ From Monitor] Respiratory 14 13 Rate Blood Pressure 133/46 132/56 O2 Sat by Pulse 90 93 Oximetry 10/22/18 08:20 Temperature Pulse Rate 86 Pulse Rate [ From Monitor] Respiratory 16 Rate Blood Pressure 131/57 O2 Sat by Pulse 94 Oximetry - Lab 10/22/18 04:26 10/22/18 04:26 Most recent lab results Calcium 7.2 mg/dL (8.4-10.2) L 10/22/18 04:26 Phosphorus 7.10 mg/dL (2.5-4.5) H 10/19/18 19:00 Magnesium 2.00 mg/dL (1.7-2.3) 10/19/18 19:00 Medications & Allergies - Medications Allergies/Adverse Reactions: Allergies cephalexin [From Keflex] Allergy (Verified 02/23/17 19:02) Vomiting vancomycin Allergy (Verified 06/16/18 06:34) Rash Home Medications: Home Medications Medication Instructions Recorded Confirmed Last Taken Type amLODIPine [Norvasc] 5 mg PO DAILY 07/19/13 10/18/18 06/15/18 History Calcium Acetate [Phoslo] 667 mg PO TIDAC 06/16/18 10/18/18 06/15/18 History Cetirizine HCl [ZyrTEC 10mg cap] 10 mg PO QDAY 06/16/18 10/18/18 06/15/18 History Gabapentin [Neurontin] 100 mg PO BID 06/16/18 10/18/18 06/15/18 History Insulin NPH/Regular [NovoLIN 70/30] 10 units SQ QPM 06/16/18 10/18/18 06/15/18 History Insulin NPH/Regular [NovoLIN 70/30] 15 units SQ QAM 06/16/18 10/18/18 06/15/18 History Oxycodone HCl [oxyCODONE] 10 mg PO Q8HR PRN 06/16/18 10/18/18 06/15/18 History Active Medications: Generic Name Dose Route Start Last Admin Trade Name Freq PRN Reason Stop Dose Admin Acetaminophen 650 mg 10/18/18 14:31 10/18/18 22:59 Tylenol PO 650 mg Q4H PRN Administration Pain MILD(1-3)/Fever >100.5/OBSORN Albuterol 2.5 mg 10/18/18 14:31 Proventil IH Q4HRT PRN Shortness Of Breath Calcium Acetate 667 mg 10/18/18 16:30 10/21/18 16:30 Phoslo PO Not Given TIDAC DAFNE Dextrose 0 ml 10/19/18 18:51 10/20/18 09:33 D50w (25gm) Syringe IV 20 ml PRN PRN Administration Hypoglycemia Epoetin Bryson 10,000 unit 10/22/18 16:00 Procrit SUB-Q SHUN DAFNE Famotidine 20 mg 10/20/18 14:00 10/21/18 09:22 Pepcid PO 20 mg DAILY DAFNE Administration Gabapentin 100 mg 10/18/18 22:00 10/21/18 21:44 Neurontin PO 100 mg BID DAFNE Administration Heparin Sodium (Porcine) 5,000 unit 10/19/18 22:00 10/21/18 21:44 Heparin SUB-Q 5,000 unit Q12HR DAFNE Administration Hydromorphone HCl 0.25 mg 10/22/18 08:30 Dilaudid IV 10/22/18 18:00 Q10MIN PRN Pain, Moderate (4-6) Norepinephrine 4 mg in 250 mls @ 7.5 mls/hr 10/20/18 12:00 10/21/18 16:00 Levophed Drip 4 Mg/Ns 250 Ml IV 0 mcg/min TITR DAFNE 0 mls/hr Titration Protocol 2 MCG/MIN Clindamycin HCl 900 mg in 50 mls @ 100 mls/hr 10/22/18 10:00 Cleocin 900 Mg/50 Ml IV 10/22/18 23:59 PREOP NR Protocol Insulin Human NPH 15 unit 10/21/18 17:00 10/21/18 17:00 Humulin N SUB-Q 15 unit BIDDIAB DAFNE Administration Insulin Human Regular 0 units 10/20/18 16:30 10/21/18 21:47 Humulin R SUB-Q Not Given ACHS DAFNE Protocol Loratadine 10 mg 10/19/18 10:00 10/21/18 09:22 Claritin PO 10 mg DAILY DAFNE Administration Midodrine 10 mg 10/21/18 16:00 10/21/18 16:00 Proamatine PO 10 mg TID@0800,1200,1600 DAFNE Administration Morphine Sulfate 1 mg 10/20/18 16:37 10/21/18 23:54 Morphine IV 1 mg Q4H PRN Administration Pain, Moderate (4-6) Ondansetron HCl 4 mg 10/18/18 14:31 Zofran IV Q8H PRN Nausea And Vomiting Oxycodone HCl 10 mg 10/18/18 14:36 10/19/18 18:52 Roxicodone PO 10 mg Q8H PRN Administration Pain, Moderate (4-6) Sodium Chloride 10 ml 10/18/18 22:00 10/21/18 21:46 Sodium Chloride Flush Syringe 10 Ml IV 10 ml BID DAFNE Administration Sodium Chloride 10 ml 10/18/18 14:31 10/20/18 16:49 Sodium Chloride Flush Syringe 10 Ml IV 10 ml PRN PRN Administration LINE FLUSH Sodium Hypochlorite 1 applic 10/21/18 11:00 10/21/18 21:45 Dakin's Half Strength TP 1 applicatio BID DAFNE Administration
[2018-10-22] MEDS: DILAUDID IV PRN ×4 (11:25→11:48)
[2018-10-22] MEDS ORDERED: NACL 0.9% 1000 ML 1,000 ML IV SCH (11:30)
[2018-10-22] MEDS: MORPHINE IV PRN ×3 (11:59→23:14)
[2018-10-22] MEDS ORDERED: HumuLIN R IV ONE (12:00)
--- NOTE | 2018-10-22 12:34 | Progress Note ---
Assessment and Plan Acute hypoxemic respiratory failure Acute pulmonary edema. Left pleural effusion. Arteriovenous graft malfunction. Hypotension that may be multifactorial (including element of acute blood loss anemia) ABLA Diabetes type 1. Obesity. End-stage renal disease, on dialysis. History of hypertension - repeat CBC prn; transfuse PRBC's as necessary - post-op management of AV fistula per Vascular surgery team - continue HD/UF per nephroplogy prescription for toxin and volume clearance - complete empiric AB's; de-escalate based on clinical and microbiologic data - follow cultures (NGTD) - continue wound care for sacral ulcers per WCT - continue glycemic control with SSI for target BG 140-180 mg/dl while critically ill - continue promotility agents for gastroparesis - continue GI & VTE prophylaxis - continue other care per attending / other consultants ..... re-evaluate in prn ... transfer to medical floor if OK with vascular team post-op Subjective Date of service: 10/22/18 Principal diagnosis: Ac. hypoxemic resp failure; AV graft malfunction; Hypotension; JARVIS; ESRD Interval history: Patient is seen today for: Acute hypoxemic respiratory failure; Acute pulmonary edema; Left pleural effusion; Arteriovenous graft malfunction; Hypotension that may be multifactorial (including element of acute blood loss anemia); ABLA; Diabetes type 1; Obesity; HTN; ESRD on Dialysis Seen and examined at bedside; 24hour events reviewed; nursing and respiratory care staff consulted; no adverse overnight events reported to me; resting peacefully in bed; off Levophed; for graft repair today; No N/V/F/C Objective Vital Signs - 12hr 10/22/18 10/22/18 10/22/18 00:45 01:00 01:15 Temperature Pulse Rate 81 81 80 Pulse Rate [ From Monitor] Respiratory 15 14 14 Rate Blood Pressure 105/46 105/46 113/46 O2 Sat by Pulse 92 98 96 Oximetry 10/22/18 10/22/18 10/22/18 01:31 01:45 02:00 Temperature Pulse Rate 80 81 81 Pulse Rate [ From Monitor] Respiratory 14 14 14 Rate Blood Pressure 113/46 113/46 125/44 O2 Sat by Pulse 94 94 94 Oximetry 10/22/18 10/22/18 10/22/18 02:15 02:31 02:45 Temperature Pulse Rate 79 80 79 Pulse Rate [ From Monitor] Respiratory 13 13 15 Rate Blood Pressure 125/44 125/44 125/44 O2 Sat by Pulse 95 96 96 Oximetry 10/22/18 10/22/18 10/22/18 03:00 03:15 03:31 Temperature Pulse Rate 80 80 80 Pulse Rate [ From Monitor] Respiratory 14 15 14 Rate Blood Pressure 129/36 129/36 129/36 O2 Sat by Pulse 94 93 93 Oximetry 10/22/18 10/22/18 10/22/18 03:45 04:00 04:15 Temperature 99.0 F Pulse Rate 81 85 86 Pulse Rate [ 83 From Monitor] Respiratory 14 16 17 Rate Blood Pressure 129/36 138/45 138/45 O2 Sat by Pulse 94 98 97 Oximetry 10/22/18 10/22/18 10/22/18 04:31 04:45 05:01 Temperature Pulse Rate 83 82 82 Pulse Rate [ From Monitor] Respiratory 18 18 15 Rate Blood Pressure 138/45 138/45 133/46 O2 Sat by Pulse 94 92 91 Oximetry 10/22/18 10/22/18 10/22/18 05:15 05:31 05:46 Temperature Pulse Rate 82 82 81 Pulse Rate [ From Monitor] Respiratory 12 14 15 Rate Blood Pressure 133/46 133/46 133/46 O2 Sat by Pulse 94 91 86 Oximetry 10/22/18 10/22/18 10/22/18 06:00 06:15 06:31 Temperature Pulse Rate 81 81 81 Pulse Rate [ From Monitor] Respiratory 15 14 13 Rate Blood Pressure 132/36 133/46 133/46 O2 Sat by Pulse 91 91 89 Oximetry 10/22/18 10/22/18 10/22/18 06:45 08:00 08:15 Temperature 98.0 F 98.3 F Pulse Rate 81 88 Pulse Rate [ From Monitor] Respiratory 14 13 Rate Blood Pressure 133/46 132/56 O2 Sat by Pulse 90 93 Oximetry 10/22/18 10/22/18 10/22/18 08:20 11:14 11:25 Temperature 97.3 F L Pulse Rate 86 78 78 Pulse Rate [ From Monitor] Respiratory 16 16 14 Rate Blood Pressure 131/57 140/63 134/70 O2 Sat by Pulse 94 97 100 Oximetry 10/22/18 10/22/18 10/22/18 11:30 11:35 11:38 Temperature Pulse Rate 76 78 Pulse Rate [ From Monitor] Respiratory 14 16 14 Rate Blood Pressure 134/62 134/73 O2 Sat by Pulse 100 100 Oximetry 10/22/18 10/22/18 10/22/18 11:40 11:48 11:51 Temperature 97.8 F Pulse Rate 78 Pulse Rate [ From Monitor] Respiratory 16 14 20 Rate Blood Pressure 119/52 O2 Sat by Pulse 100 Oximetry 10/22/18 11:59 Temperature Pulse Rate Pulse Rate [ From Monitor] Respiratory 20 Rate Blood Pressure O2 Sat by Pulse Oximetry Constitutional: no acute distress, alert, other (middle aged obese AAM, normocephalic and atraumatic with normal resp effort at rest) Eyes: non-icteric ENT: oropharynx moist, other (Mallampati 4) Neck: supple, no lymphadenopathy, no JVD, other (RIJ CVL) Effort: normal Ascultation: Bilateral: rales (bases) Percussion: Bilateral: not dull Cardiovascular: regular rate and rhythm Gastrointestinal: normoactive bowel sounds, soft, non-tender, non-distended Integumentary: normal Extremities: no cyanosis, no edema, pulses normal, no ischemia or petechiae, other (bilateral BKA's) Neurologic: normal mental status, non-focal exam, pupils equal and round, motor strength normal and, unable to assess Psychiatric: mood appropriate, affect normal CBC and BMP: 10/24/18 07:56 10/24/18 07:56 ABG, PT/INR, D-dimer: PT/INR, D-dimer PT 14.8 Sec. (12.2-14.9) 10/18/18 12:43 INR 1.19 (0.87-1.13) H 10/18/18 12:43 Abnormal lab findings: Abnormal Labs 10/18/18 10/18/18 10/18/18 12:43 12:43 12:43 WBC RBC 2.79 L Hgb 8.0 L Hct 25.9 L MCV MCHC 31 L RDW 21.8 H [place] % (Auto) 10.0 H Eos % (Auto) [place] # Eos # INR 1.19 H APTT 41.2 H Sodium Potassium Chloride Carbon Dioxide BUN 30 H Creatinine 4.6 H Glucose POC Glucose Hemoglobin A1c Calcium 7.8 L Phosphorus 5.10 H ALT Alkaline Phosphatase Albumin Crossmatch 10/19/18 10/19/18 10/19/18 15:05 15:05 15:05 WBC RBC 2.64 L Hgb 7.7 L Hct 26.1 L MCV 99 H MCHC 30 L RDW 22.3 H [place] % (Auto) 8.1 H Eos % (Auto) [place] # Eos # INR APTT Sodium 133 L Potassium 6.5 H* D Chloride 94.9 L Carbon Dioxide 16 L D BUN 48 H Creatinine 5.7 H Glucose 525 H* POC Glucose Hemoglobin A1c 7.2 H Calcium 7.6 L Phosphorus 7.00 H D ALT 6 L Alkaline Phosphatase 214 H Albumin 1.9 L Crossmatch 10/19/18 10/19/18 10/19/18 16:45 16:59 17:54 WBC RBC Hgb Hct MCV MCHC RDW [place] % (Auto) Eos % (Auto) [place] # Eos # INR APTT Sodium Potassium 6.8 H* Chloride Carbon Dioxide BUN Creatinine Glucose POC Glucose > 500 H > 500 H Hemoglobin A1c Calcium Phosphorus ALT Alkaline Phosphatase Albumin Crossmatch 10/19/18 10/19/18 10/19/18 17:58 19:00 19:30 WBC RBC Hgb Hct MCV MCHC RDW [place] % (Auto) Eos % (Auto) [place] # Eos # INR APTT Sodium Potassium Chloride Carbon Dioxide BUN Creatinine Glucose 564 H* POC Glucose > 500 H Hemoglobin A1c Calcium Phosphorus 7.10 H ALT Alkaline Phosphatase Albumin Crossmatch 10/19/18 10/19/18 10/19/18 20:30 21:17 22:14 WBC RBC Hgb Hct MCV MCHC RDW [place] % (Auto) Eos % (Auto) [place] # Eos # INR APTT Sodium Potassium Chloride Carbon Dioxide BUN Creatinine Glucose POC Glucose 467 H 483 H 411 H Hemoglobin A1c Calcium Phosphorus ALT Alkaline Phosphatase Albumin Crossmatch 10/19/18 10/20/18 10/20/18 23:14 00:14 01:22 WBC RBC Hgb Hct MCV MCHC RDW [place] % (Auto) Eos % (Auto) [place] # Eos # INR APTT Sodium Potassium Chloride Carbon Dioxide BUN Creatinine Glucose POC Glucose 382 H 290 H 292 H Hemoglobin A1c Calcium Phosphorus ALT Alkaline Phosphatase Albumin Crossmatch 10/20/18 10/20/18 10/20/18 02:05 03:08 04:09 WBC RBC Hgb Hct MCV MCHC RDW [place] % (Auto) Eos % (Auto) [place] # Eos # INR APTT Sodium Potassium Chloride Carbon Dioxide BUN Creatinine Glucose POC Glucose 260 H 216 H 235 H Hemoglobin A1c Calcium Phosphorus ALT Alkaline Phosphatase Albumin Crossmatch 10/20/18 10/20/18 10/20/18 05:10 06:02 06:54 WBC RBC Hgb Hct MCV MCHC RDW [place] % (Auto) Eos % (Auto) [place] # Eos # INR APTT Sodium 136 L Potassium 3.4 L D Chloride 77.7 L Carbon Dioxide 50 H* D BUN 34 H Creatinine 4.1 H Glucose 1171 H* POC Glucose 179 H 114 H Hemoglobin A1c Calcium 4.9 L* D Phosphorus ALT Alkaline Phosphatase Albumin Crossmatch 10/20/18 10/20/18 10/20/18 08:54 09:30 09:34 WBC RBC Hgb Hct MCV MCHC RDW [place] % (Auto) Eos % (Auto) [place] # Eos # INR APTT Sodium Potassium 5.3 H D Chloride Carbon Dioxide BUN 49 H Creatinine 6.4 H D Glucose 53 L POC Glucose 59 L 50 L Hemoglobin A1c Calcium 7.5 L D Phosphorus ALT Alkaline Phosphatase Albumin Crossmatch 10/20/18 10/20/18 10/20/18 11:55 12:24 15:54 WBC RBC Hgb Hct MCV MCHC RDW [place] % (Auto) Eos % (Auto) [place] # Eos # INR APTT Sodium Potassium 5.3 H Chloride Carbon Dioxide BUN 49 H Creatinine 6.4 H Glucose 108 H POC Glucose 108 H 234 H Hemoglobin A1c Calcium 7.4 L Phosphorus ALT Alkaline Phosphatase Albumin Crossmatch 10/20/18 10/20/18 10/20/18 19:25 19:58 21:32 WBC RBC Hgb Hct MCV MCHC RDW [place] % (Auto) Eos % (Auto) [place] # Eos # INR APTT Sodium Potassium Chloride 95.8 L Carbon Dioxide BUN 27 H Creatinine 4.0 H Glucose 266 H POC Glucose 272 H 242 H Hemoglobin A1c Calcium 7.4 L Phosphorus ALT Alkaline Phosphatase Albumin Crossmatch 10/21/18 10/21/18 10/21/18 04:45 08:37 11:44 WBC RBC Hgb Hct MCV MCHC RDW [place] % (Auto) Eos % (Auto) [place] # Eos # INR APTT Sodium Potassium Chloride 96.1 L Carbon Dioxide BUN 33 H Creatinine 4.3 H Glucose 118 H POC Glucose 203 H 216 H Hemoglobin A1c Calcium 7.3 L Phosphorus ALT Alkaline Phosphatase Albumin Crossmatch 10/21/18 10/21/18 10/21/18 14:34 16:17 21:24 WBC RBC 2.72 L Hgb 7.9 L Hct 25.7 L D MCV 95 H MCHC 31 L RDW 21.4 H [place] % (Auto) Eos % (Auto) [place] # Eos # INR APTT Sodium Potassium Chloride Carbon Dioxide BUN Creatinine Glucose POC Glucose 191 H 112 H Hemoglobin A1c Calcium Phosphorus ALT Alkaline Phosphatase Albumin Crossmatch 10/21/18 10/22/18 10/22/18 Unknown 04:26 04:26 WBC 11.4 H RBC 1.99 L 2.41 L Hgb 5.7 L* 7.1 L Hct 18.4 L* D 22.4 L MCV MCHC 31 L RDW 20.9 H 21.1 H [place] % (Auto) 11.3 H Eos % (Auto) 6.8 H [place] # 1.0 H Eos # 0.6 H INR APTT Sodium 135 L Potassium Chloride 96.1 L Carbon Dioxide BUN 38 H Creatinine 5.1 H Glucose 113 H POC Glucose Hemoglobin A1c Calcium 7.2 L Phosphorus ALT Alkaline Phosphatase Albumin Crossmatch 10/22/18 10/22/18 10/22/18 07:21 07:58 11:31 WBC RBC Hgb Hct MCV MCHC RDW [place] % (Auto) Eos % (Auto) [place] # Eos # INR APTT Sodium Potassium Chloride Carbon Dioxide BUN Creatinine Glucose POC Glucose 160 H 224 H Hemoglobin A1c Calcium Phosphorus ALT Alkaline Phosphatase Albumin Crossmatch See Detail Allied health notes reviewed: nursing
--- NOTE | 2018-10-22 12:46 | Post Operative Note ---
Pre-op diagnosis: ESRD Post-op diagnosis: same Procedure: Left Arm AV Graft Thrombectomy and Revision Anesthesia: GETA Surgeon: ELIZABETH DU Estimated blood loss: other (25ml) Pathology: none Condition: stable Disposition: PACU
--- NOTE | 2018-10-22 13:31 | Consultation ---
History of Present Illness Consult date: 10/22/18 Chief complaint: Sacral pressure ulcer - History of present illness History of present illness: 48 yo male with a sacral pressure ulcer. He has no neurologic deficits and says that the ulcer was caused by "them rubbing it too hard". He does have Type 2 DM and ESRD. Past History Past Medical History: diabetes, ESRD, hypertension, other (Gastroparesis) Past Surgical History: Other (AV fistula placement) Social history: . denies: smoking, alcohol abuse, prescription drug abuse Family history: diabetes, hypertension Medications and Allergies Allergies Allergy/AdvReac Type Severity Reaction Status Date / Time cephalexin [From Keflex] Allergy Vomiting Verified 02/23/17 19:02 vancomycin Allergy Rash Verified 06/16/18 06:34 Home Medications Medication Instructions Recorded Confirmed Last Taken Type amLODIPine [Norvasc] 5 mg PO DAILY 07/19/13 10/18/18 06/15/18 History Calcium Acetate [Phoslo] 667 mg PO TIDAC 06/16/18 10/18/18 06/15/18 History Cetirizine HCl [ZyrTEC 10mg cap] 10 mg PO QDAY 06/16/18 10/18/18 06/15/18 History Gabapentin [Neurontin] 100 mg PO BID 06/16/18 10/18/18 06/15/18 History Insulin NPH/Regular [NovoLIN 70/30] 10 units SQ QPM 06/16/18 10/18/18 06/15/18 History Insulin NPH/Regular [NovoLIN 70/30] 15 units SQ QAM 06/16/18 10/18/18 06/15/18 History Oxycodone HCl [oxyCODONE] 10 mg PO Q8HR PRN 06/16/18 10/18/18 06/15/18 History Active Meds: Active Medications Acetaminophen (Tylenol) 650 mg PO Q4H PRN PRN Reason: Pain MILD(1-3)/Fever >100.5/OSBORN Last Admin: 10/18/18 22:59 Dose: 650 mg Documented by: Albuterol (Proventil) 2.5 mg IH Q4HRT PRN PRN Reason: Shortness Of Breath Calcium Acetate (Phoslo) 667 mg PO TIDAC [facility] Last Admin: 10/21/18 16:30 Dose: Not Given Documented by: Dextrose (D50w (25gm) Syringe) 0 ml IV PRN PRN PRN Reason: Hypoglycemia Last Admin: 10/20/18 09:33 Dose: 20 ml Documented by: Epoetin Bryson (Procrit) 10,000 unit SUB-Q SHUN DAFNE Famotidine (Pepcid) 20 mg PO DAILY [facility] Last Admin: 10/21/18 09:22 Dose: 20 mg Documented by: Gabapentin (Neurontin) 100 mg PO BID [facility] Last Admin: 10/21/18 21:44 Dose: 100 mg Documented by: Heparin Sodium (Porcine) (Heparin) 5,000 unit SUB-Q Q12HR [facility] Last Admin: 10/21/18 21:44 Dose: 5,000 unit Documented by: Norepinephrine (Levophed Drip 4 Mg/Ns 250 Ml) 4 mg in 250 mls @ 7.5 mls/hr IV TITR DAFNE; Protocol Last Titration: 10/21/18 16:00 Dose: 0 mcg/min, 0 mls/hr Documented by: Clindamycin HCl (Cleocin 900 Mg/50 Ml) 900 mg in 50 mls @ 100 mls/hr IV PREOP NR; Protocol Stop: 10/22/18 23:59 Sodium Chloride (Nacl 0.9% 1000 Ml) 1,000 mls @ 42 mls/hr IV DIRECT DAFNE Insulin Human NPH (Humulin N) 15 unit SUB-Q BIDDIAB [facility] Last Admin: 10/21/18 17:00 Dose: 15 unit Documented by: Insulin Human Regular (Humulin R) 0 units SUB-Q ACHS DAFNE; Protocol Last Admin: 10/21/18 21:47 Dose: Not Given Documented by: Loratadine (Claritin) 10 mg PO DAILY [facility] Last Admin: 10/21/18 09:22 Dose: 10 mg Documented by: Midodrine (Proamatine) 10 mg PO TID@0800,1200,1600 [facility] Last Admin: 10/21/18 16:00 Dose: 10 mg Documented by: Morphine Sulfate (Morphine) 1 mg IV Q4H PRN PRN Reason: Pain, Moderate (4-6) Last Admin: 10/22/18 11:59 Dose: 1 mg Documented by: Ondansetron HCl (Zofran) 4 mg IV Q8H PRN PRN Reason: Nausea And Vomiting Oxycodone HCl (Roxicodone) 10 mg PO Q8H PRN PRN Reason: Pain, Moderate (4-6) Last Admin: 10/19/18 18:52 Dose: 10 mg Documented by: Sodium Chloride (Sodium Chloride Flush Syringe 10 Ml) 10 ml IV BID DAFNE Last Admin: 10/21/18 21:46 Dose: 10 ml Documented by: Sodium Chloride (Sodium Chloride Flush Syringe 10 Ml) 10 ml IV PRN PRN PRN Reason: LINE FLUSH Last Admin: 10/20/18 16:49 Dose: 10 ml Documented by: Sodium Hypochlorite (Dakin's Half Strength) 1 applic TP BID [facility] Last Admin: 10/21/18 21:45 Dose: 1 applicatio Documented by: Review of Systems All systems: negative (none) Exam Vital Signs Pulse Ox 92 10/18/18 12:20 - General physical appearance Positive: well developed, well nourished, no distress - Eyes Positive: PERRL, normal occular movement - ENT Positive: normal pinna, normal nares, normal mucosa, no hearing loss, no congestion - Neck Positive: no masses, no bruits, trachea midline, no venous distension - Respiratory Positive: normal expansion, normal respiratory effort, clear to auscultation - Cardiovascular Rhythm: regular Heart Sounds: Present: S1 & S2. Absent: rub, click - Extremities Extremities: no ischemia, pulses symmetrical, No edema - Breasts Breasts: deferred - Abdomen Abdomen: Present: soft, bowel sounds normal. Absent: tender, distended Hernia: none - Genitourinary Male Genitourinary: deferred - Integumentary other (There is a 6 X 6 X 4.5 cm stage 4 sacral pressure ulcer with some exposed necrotic fascia at the base of the ulcer.) - Neurologic Neurologic: alert and oriented to time, place and person, motor strength and sensation are grossly intact - Psychiatric Psychiatric: appropriate mood/affect, intact judgment & insight Results - Labs 10/22/18 04:26 10/22/18 04:26 Abnormal lab results 10/21/18 10/21/18 10/21/18 Range/Units 14:34 16:17 21:24 RBC 2.72 L (3.65-5.03) M/mm3 Hgb 7.9 L (11.8-15.2) gm/dl Hct 25.7 L D (35.5-45.6) % MCV 95 H (84-94) fl MCHC 31 L (32-34) % RDW 21.4 H (13.2-15.2) % [place] % (Auto) (0.0-7.3) % Eos % (Auto) (0.0-4.3) % [place] # (0.0-0.8) K/mm3 Eos # (0.0-0.4) K/mm3 Sodium (137-145) mmol/L Chloride (98-107) mmol/L BUN (9-20) mg/dL Creatinine (0.8-1.5) mg/dL Glucose (75-100) mg/dL POC Glucose 191 H 112 H (70-105) Calcium (8.4-10.2) mg/dL Crossmatch 10/22/18 10/22/18 10/22/18 Range/Units 04:26 04:26 07:21 RBC 2.41 L (3.65-5.03) M/mm3 Hgb 7.1 L (11.8-15.2) gm/dl Hct 22.4 L (35.5-45.6) % MCV (84-94) fl MCHC (32-34) % RDW 21.1 H (13.2-15.2) % [place] % (Auto) 11.3 H (0.0-7.3) % Eos % (Auto) 6.8 H (0.0-4.3) % [place] # 1.0 H (0.0-0.8) K/mm3 Eos # 0.6 H (0.0-0.4) K/mm3 Sodium 135 L (137-145) mmol/L Chloride 96.1 L (98-107) mmol/L BUN 38 H (9-20) mg/dL Creatinine 5.1 H (0.8-1.5) mg/dL Glucose 113 H (75-100) mg/dL POC Glucose (70-105) Calcium 7.2 L (8.4-10.2) mg/dL Crossmatch See Detail 10/22/18 10/22/18 Range/Units 07:58 11:31 RBC (3.65-5.03) M/mm3 Hgb (11.8-15.2) gm/dl Hct (35.5-45.6) % MCV (84-94) fl MCHC (32-34) % RDW (13.2-15.2) % [place] % (Auto) (0.0-7.3) % Eos % (Auto) (0.0-4.3) % Gordon # (0.0-0.8) K/mm3 Eos # (0.0-0.4) K/mm3 Sodium (137-145) mmol/L Chloride (98-107) mmol/L BUN (9-20) mg/dL Creatinine (0.8-1.5) mg/dL Glucose (75-100) mg/dL POC Glucose 160 H 224 H (70-105) Calcium (8.4-10.2) mg/dL Crossmatch Diabetes panel 10/22/18 Range/Units 04:26 Sodium 135 L (137-145) mmol/L Potassium 4.6 (3.6-5.0) mmol/L Chloride 96.1 L (98-107) mmol/L Carbon Dioxide 27 (22-30) mmol/L BUN 38 H (9-20) mg/dL Creatinine 5.1 H (0.8-1.5) mg/dL Glucose 113 H (75-100) mg/dL Calcium 7.2 L (8.4-10.2) mg/dL Calcium panel 10/22/18 Range/Units 04:26 Calcium 7.2 L (8.4-10.2) mg/dL Pituitary panel 10/22/18 Range/Units 04:26 Sodium 135 L (137-145) mmol/L Potassium 4.6 (3.6-5.0) mmol/L Chloride 96.1 L (98-107) mmol/L Carbon Dioxide 27 (22-30) mmol/L BUN 38 H (9-20) mg/dL Creatinine 5.1 H (0.8-1.5) mg/dL Glucose 113 H (75-100) mg/dL Calcium 7.2 L (8.4-10.2) mg/dL Adrenal panel 10/22/18 Range/Units 04:26 Sodium 135 L (137-145) mmol/L Potassium 4.6 (3.6-5.0) mmol/L Chloride 96.1 L (98-107) mmol/L Carbon Dioxide 27 (22-30) mmol/L BUN 38 H (9-20) mg/dL Creatinine 5.1 H (0.8-1.5) mg/dL Glucose 113 H (75-100) mg/dL Calcium 7.2 L (8.4-10.2) mg/dL Assessment and Plan - Patient Problems (1) Pressure ulcer of sacral region, stage 4 Current Visit: Yes Status: Acute Plan to address problem: 1) Off loading 2) High protein diet 3) Specialty bed 4) Wound Care nurse consult 5) I will debride his sacral pressure ulcer at the bedside. 6) He will need extermination supervisor f/u in the Wound clinic.
[2018-10-22] MEDS ORDERED: PROCRIT SUB-Q SCH (16:00)
--- NOTE | 2018-10-22 16:36 | Progress Note ---
Assessment and Plan /Chronic sacral decubitus ulcer with acute infection and sepsis, likely POA Had very subtle presentation on admission - no fever, no white count, but then developed hypotension following admission wound care consulted - 1st evaluation on 10/22/18, preliminary cx was negative but now growing staph aureus and gm -ve rods - started on clindamycin, ID consulted for abx recommendation plan for bedside beridement by dr Tamayo /Hypotension - due to septic shock s/p bicarbonate drip, s/p levophed negative blood culture, wound cultures growing staph and gm -ve rods ordered 2d echo, off pressor, started on clindamycin and midodrine, consulted ID /Severe hyperkalemia, resolved s/p bicarbonate drip Status post Kayexalate, sodium bicarbonate IV push, calcium gluconate, insulin and D50 and emergent dialysis with vascath / End stage renal disease on dialysis Nephrology consulted, dialysis as per renal team, avoid nephrotoxic agents, st rict I/O, daily weight, repeat bmp to monitor serum potassium / Diabetes type 2 with hyperglycemia s/p insulin drip overnight on 10/20 we cont ADA diet, insulin, accu check, hypoglycemia protocol off insulin drip now /left pleural effusion, from volume overload, should correct with HD, continue t o monitor / HTN (hypertension) Now hypotensivem, cont to Hold norvasc / AV graft malfunction Vascular surgery consulted, s/p Vas-Cath for emergent dialysis s/p Left Arm AV Graft Thrombectomy and Revision today / Gastroparesis due to DM Frequent small meals, treat BG with insulin, anti emetic therapy prn, supportive care / DVT prophylaxis SCD to BLE while in bed, Disposition: transfer out off ICU today, follow wound cx and ID recommendation for d/c planning Brief History: 48 YO Male with ESRD on HD(T,R,Sa) last dialyzed on , DM complicated by Gastroparesis, HTN, presents to ED for bleeding from his dialysis fistula and applied an occlusive dressing to stop the bleeding 3 days ago. Pt presented to his dialysis center for his scheduled session but was unable to undergo dialysis due to excessive bleeding secondary to clotted access. EMS notified, and transported to [facility]. Pt seen and evaluated in ED and found to have ESRD and Clotted dialysis access. Nephrology consulted in ED for dialysis. vascular surgery consulted in ED for surgical intervention. Following admission developed hyperglycemia, hyperkalemia and hypotension. Transferred to ICU for further monitoring, placed on levophed, insulin drip. Radiological data: CXR: 1. Mild cardiomegaly with mild to moderate interstitial pulmonary edema and small left pleural effusion. Hospitalist Physical exam: GENERAL: well-developed and well-nourished AAM lying on bed appeared to be in no discomfort. HEENT: Normocephalic. Atraumatic. No conjunctival congestion or icterus. Patient has moist mucous membranes. NECK: Supple. Trachea midline. CHEST/LUNGS: Clear to auscultated bilaterally, breathing nonlabored. No wheezes crackles or rhonchi. HEART/CARDIOVASCULAR: Regular in rate and rhythm. S1 and S2 positive. ABDOMEN: Abdomen is soft, nontender. Patient has normal bowel sounds. SKIN: There is no rash. Warm and dry. NEURO: No focal motor deficit. Follows command. MUSCULOSKELETAL: b/l BKA EXTRIMITY: No edema, no cyanosis or clubbing. PSYCH: Cooperative. Subjective Date of service: 10/22/18 Principal diagnosis: Ac. hypoxemic resp failure; AV graft malfunction; Hypotension; JARVIS; ESRD Interval history: Patient seen and examined. Medical records and medication list reviewed. s/p Left Arm AV Graft Thrombectomy and Revision, plan for debridement of sacral wound today by dr Tamayo Plan of care discussed at the bedside Objective - Constitutional Vitals: Vital Signs - 12hr 10/22/18 10/22/18 10/22/18 04:45 05:01 05:15 Temperature Pulse Rate 82 82 82 Respiratory 18 15 12 Rate Blood Pressure 138/45 133/46 133/46 O2 Sat by Pulse 92 91 94 Oximetry 10/22/18 10/22/18 10/22/18 05:31 05:46 06:00 Temperature Pulse Rate 82 81 81 Respiratory 14 15 15 Rate Blood Pressure 133/46 133/46 132/36 O2 Sat by Pulse 91 86 91 Oximetry 10/22/18 10/22/18 10/22/18 06:15 06:31 06:45 Temperature Pulse Rate 81 81 81 Respiratory 14 13 14 Rate Blood Pressure 133/46 133/46 133/46 O2 Sat by Pulse 91 89 90 Oximetry 10/22/18 10/22/18 10/22/18 07:00 07:15 07:31 Temperature Pulse Rate 80 79 82 Respiratory 13 12 17 Rate Blood Pressure 153/39 153/39 153/39 O2 Sat by Pulse 93 88 96 Oximetry 10/22/18 10/22/18 10/22/18 07:45 08:00 08:15 Temperature 98.0 F 98.3 F Pulse Rate 81 88 Respiratory 13 13 Rate Blood Pressure 153/39 132/56 O2 Sat by Pulse 91 93 Oximetry 10/22/18 10/22/18 10/22/18 08:20 11:14 11:25 Temperature 97.3 F L Pulse Rate 86 78 78 Respiratory 16 16 14 Rate Blood Pressure 131/57 140/63 134/70 O2 Sat by Pulse 94 97 100 Oximetry 10/22/18 10/22/18 10/22/18 11:30 11:35 11:38 Temperature Pulse Rate 76 78 Respiratory 14 16 14 Rate Blood Pressure 134/62 134/73 O2 Sat by Pulse 100 100 Oximetry 10/22/18 10/22/18 10/22/18 11:40 11:48 11:51 Temperature 97.8 F Pulse Rate 78 Respiratory 16 14 20 Rate Blood Pressure 119/52 O2 Sat by Pulse 100 Oximetry 10/22/18 11:59 Temperature Pulse Rate Respiratory 20 Rate Blood Pressure O2 Sat by Pulse Oximetry - Labs CBC & Chem 7: 10/22/18 04:26 10/22/18 04:26 Labs: Abnormal lab results 10/21/18 10/21/18 10/22/18 Range/Units 16:17 21:24 04:26 RBC 2.41 L (3.65-5.03) M/mm3 Hgb 7.1 L (11.8-15.2) gm/dl Hct 22.4 L (35.5-45.6) % RDW 21.1 H (13.2-15.2) % [place] % (Auto) 11.3 H (0.0-7.3) % Eos % (Auto) 6.8 H (0.0-4.3) % [place] # 1.0 H (0.0-0.8) K/mm3 Eos # 0.6 H (0.0-0.4) K/mm3 Sodium (137-145) mmol/L Chloride (98-107) mmol/L BUN (9-20) mg/dL Creatinine (0.8-1.5) mg/dL Glucose (75-100) mg/dL POC Glucose 191 H 112 H (70-105) Calcium (8.4-10.2) mg/dL Crossmatch 10/22/18 10/22/18 10/22/18 Range/Units 04:26 07:21 07:58 RBC (3.65-5.03) M/mm3 Hgb (11.8-15.2) gm/dl Hct (35.5-45.6) % RDW (13.2-15.2) % [place] % (Auto) (0.0-7.3) % Eos % (Auto) (0.0-4.3) % [place] # (0.0-0.8) K/mm3 Eos # (0.0-0.4) K/mm3 Sodium 135 L (137-145) mmol/L Chloride 96.1 L (98-107) mmol/L BUN 38 H (9-20) mg/dL Creatinine 5.1 H (0.8-1.5) mg/dL Glucose 113 H (75-100) mg/dL POC Glucose 160 H (70-105) Calcium 7.2 L (8.4-10.2) mg/dL Crossmatch See Detail 10/22/18 Range/Units 11:31 RBC (3.65-5.03) M/mm3 Hgb (11.8-15.2) gm/dl Hct (35.5-45.6) % RDW (13.2-15.2) % [place] % (Auto) (0.0-7.3) % Eos % (Auto) (0.0-4.3) % [place] # (0.0-0.8) K/mm3 Eos # (0.0-0.4) K/mm3 Sodium (137-145) mmol/L Chloride (98-107) mmol/L BUN (9-20) mg/dL Creatinine (0.8-1.5) mg/dL Glucose (75-100) mg/dL POC Glucose 224 H (70-105) Calcium (8.4-10.2) mg/dL Crossmatch
--- NOTE | 2018-10-22 17:37 | Operative Report ---
STAFF SURGEON: Dr. Roger Salmon. PREOPERATIVE DIAGNOSIS: End-stage renal disease. POSTOPERATIVE DIAGNOSIS: End-stage renal disease. PROCEDURE PERFORMED: Left arm AV graft thrombectomy revision. COMPLICATIONS: None. ESTIMATED BLOOD LOSS: 25 mL. ANESTHESIA: General. INDICATIONS FOR PROCEDURE: This is a 48-year-old gentleman with end-stage renal disease, currently hospitalized with a thrombosed AV graft that was also found to be aneurysmal that would benefit from open thrombectomy revision. The patient was explained the risks, benefits and alternatives of the procedure, expressed understanding and wished to proceed. DESCRIPTION OF THE PROCEDURE: After appropriate consent was obtained, the patient was brought back to the operating room and placed on the operating table in supine position with the left arm extended. The patient was given appropriate medication and general anesthesia, was intubated without difficulty. The patient was given appropriate preoperative antibiotics and the left arm was prepped and draped in the usual sterile fashion with ChloraPrep. Appropriate timeout was performed indicating the correct patient, procedure, and site and procedure. Then began the operation by making a longitudinal incision in the axilla and this was carried through the subcutaneous tissue with a combination of blunt dissection and electrocautery. Dissection was then continued through the fascia overlying the axillary neurovascular bundle. Axillary vein was identified and found to be suitable for venous outflow and this was mobilized for an appropriate distance both proximally and distally, then proceeded to make a longitudinal incision over the AV graft near the antecubital fossa. This was carried through the subcutaneous tissue with a combination of blunt dissection and electrocautery. The graft was identified and mobilized for appropriate distance both proximally and distally. A subcutaneous tunnel was then made between the two incision sites bringing through a 4-7 tapered Acuseal graft. The patient was given 5000 units of unfractionated heparin. After appropriate time elapsed, a transverse graftotomy using an 11 blade was made. We then ____ using the #4 Antony catheter, thrombectomy of the AV graft removing a significant amount of thrombus and re-established the pulsatile flow through the AV graft. A vascular clamp was placed on the graft. The graft was then transected at this point, the nonfunctional annulus suture ligated with a 2-0 silk suture. We then proceeded to appropriately bevel the Acuseal graft and an end-to-end anastomosis was performed with a running 6-0 Prolene suture. Once complete, flow was established through the Acuseal graft and had good pulsatile flow. The graft was cut to an appropriate length and spatulated. Vascular clamps were placed on the axillary vein, both proximally and distally. Longitudinal venotomy was made with the 11 blade and extended with Morris scissors. We then proceeded to perform an end-to-side anastomosis with a running 5-0 Prolene suture. Once complete flow was reestablished through the graft, we had a nice palpable thrill. We then looked to obtain hemostasis along our suture lines, was obtained with hemostatic agents as well as protamine. Once we were satisfied with hemostasis, then proceeded to close the wound with a deep subcutaneous layer with 3-0 PDS and the skin was approximated with agustina. Appropriate dressing was placed. The patient tolerated the procedure well emerged from the general anesthesia, was extubated in the operating room and sent to recovery in stable condition. All sponge, instrument and needle counts were correct at the completion of the operation. JOB# [id number] LEDY/KRISTEN
[2018-10-22] MEDS: PHOSLO PO SCH (19:15)
[2018-10-22] MEDS: HumuLIN R SUB-Q SCH ×2 (19:18→22:35)
[2018-10-22] MEDS: PROAMATINE PO SCH (19:29)
[2018-10-22] MEDS: NEURONTIN PO SCH (22:33)
[2018-10-22] MEDS: CLARITIN PO SCH (22:33)
[2018-10-22] MEDS: SODIUM CHLORIDE FLUSH SYRINGE 10 ML IV SCH (22:34)
[2018-10-22] MEDS: HEPARIN SUB-Q SCH (22:35)
[2018-10-22] MEDS: DAKIN'S HALF STRENGTH TP SCH (22:51)
[2018-10-22] MEDS: SODIUM CHLORIDE FLUSH SYRINGE 10 ML IV PRN (23:14)
[2018-10-23] MEDS: MORPHINE IV PRN ×4 (04:22→21:35)
[2018-10-23] MEDS: SODIUM CHLORIDE FLUSH SYRINGE 10 ML IV PRN (04:25)
[2018-10-23 08:25] LABS: Basophils % (Auto) 0.6 % (0.0-1.8); Eosinophils # (Auto) 0.1 K/mm3 (0.0-0.4); Eosinophils % (Auto) 1.4 % (0.0-4.3); Hemoglobin 6.4 gm/dl (11.8-15.2); Lymphocytes # (Auto) 1.6 K/mm3 (1.2-5.4); Lymphocytes % (Auto) 19.6 % (13.4-35.0); Mean Corpuscular HGB Conc 31 % (32-34); Mean Corpuscular Volume 95 fl (84-94); Monocytes # (Auto) 0.7 K/mm3 (0.0-0.8); Monocytes % (Auto) 8.1 % (0.0-7.3); Platelet Count 247 K/mm3 (140-440); Red Blood Count 2.22 M/mm3 (3.65-5.03)
[2018-10-23 08:39] LABS: Calcium 7.3 mg/dL (8.4-10.2)
[2018-10-23 09:31] LABS: Red Cell Distribution Width 21.1 % (13.2-15.2)
--- NOTE | 2018-10-23 10:10 | Progress Note ---
Assessment and Plan Acute hypoxemic respiratory failure Acute pulmonary edema. Left pleural effusion. Arteriovenous graft malfunction. Hypotension -multifactorial (including element of acute blood loss anemia) ABLA Diabetes type 1. Obesity. End-stage renal disease, on dialysis. History of hypertension - continue with supportive transfusions to keep HgB>7g/dL - post-op management of AV fistula per Vascular surgery team - continue HD/UF per nephroplogy prescription for toxin and volume clearance - complete empiric AB's; de-escalate based on clinical and microbiologic data - follow cultures (NGTD) - continue wound care for sacral ulcers per WCT - continue glycemic control with SSI for target BG 140-180 mg/dl while critically ill - continue promotility agents for gastroparesis -PT/OT to increase activity - continue other care per attending / other consultants Subjective Date of service: 10/23/18 Principal diagnosis: Ac. hypoxemic resp failure; AV graft malfunction; Hypot ension; JARVIS; ESRD Interval history: Patient is seen today for: Acute hypoxemic respiratory failure; Acute pulmonary edema; Left pleural effusion; Arteriovenous graft malfunction; Hypotension that may be multifactorial (including element of acute blood loss anemia); ABLA; Diabetes type 1; Obesity; HTN; ESRD on Dialysis Seen and examined at bedside; 24hour events reviewed; nursing and respiratory care staff consulted; no adverse overnight events reported to me; Vitals, labs, medications, chart and imaging reviewed; resting peacefully in bed;currently getting a blood transfusion. Denies any chest pain, no shortness of breath, no fevers or chills, no diarrhea or nausea/vomiting. States his appetite is still poor. Objective Vital Signs - 12hr 10/22/18 10/23/18 10/23/18 23:37 00:26 04:22 Temperature 99.7 F H Pulse Rate 97 H 97 H Respiratory 20 18 Rate Blood Pressure 143/58 O2 Sat by Pulse 86 Oximetry 10/23/18 10/23/18 04:37 06:51 Temperature 99.1 F Pulse Rate 102 H 102 H Respiratory 20 Rate Blood Pressure 96/40 O2 Sat by Pulse 86 Oximetry Constitutional: no acute distress, alert, other (middle aged obese AAM, normocephalic and atraumatic with normal resp effort at rest) Eyes: non-icteric ENT: oropharynx moist, other (Mallampati 4) Neck: supple, no lymphadenopathy, no JVD, other (RIJ Trialysis catheter) Effort: normal Ascultation: Bilateral: rales (bases) Percussion: Bilateral: not dull Cardiovascular: regular rate and rhythm Gastrointestinal: normoactive bowel sounds, soft, non-tender, non-distended Integumentary: normal Extremities: no cyanosis, no edema, pulses normal, no ischemia or petechiae, other (bilateral BKA's) Neurologic: normal mental status, non-focal exam, pupils equal and round, motor strength normal and, unable to assess Psychiatric: mood appropriate, affect normal CBC and BMP: 10/24/18 07:56 10/24/18 07:56 ABG, PT/INR, D-dimer: PT/INR, D-dimer PT 14.8 Sec. (12.2-14.9) 10/18/18 12:43 INR 1.19 (0.87-1.13) H 10/18/18 12:43 Abnormal lab findings: Abnormal Labs 10/18/18 10/18/18 10/18/18 12:43 12:43 12:43 WBC RBC 2.79 L Hgb 8.0 L Hct 25.9 L MCV MCHC 31 L RDW 21.8 H [place] % (Auto) 10.0 H Eos % (Auto) [place] # Eos # Seg Neutrophils % INR 1.19 H APTT 41.2 H Sodium Potassium Chloride Carbon Dioxide BUN 30 H Creatinine 4.6 H Glucose POC Glucose Hemoglobin A1c Calcium 7.8 L Phosphorus 5.10 H ALT Alkaline Phosphatase Albumin Crossmatch 10/19/18 10/19/18 10/19/18 15:05 15:05 15:05 WBC RBC 2.64 L Hgb 7.7 L Hct 26.1 L MCV 99 H MCHC 30 L RDW 22.3 H [place] % (Auto) 8.1 H Eos % (Auto) [place] # Eos # Seg Neutrophils % INR APTT Sodium 133 L Potassium 6.5 H* D Chloride 94.9 L Carbon Dioxide 16 L D BUN 48 H Creatinine 5.7 H Glucose 525 H* POC Glucose Hemoglobin A1c 7.2 H Calcium 7.6 L Phosphorus 7.00 H D ALT 6 L Alkaline Phosphatase 214 H Albumin 1.9 L Crossmatch 10/19/18 10/19/18 10/19/18 16:45 16:59 17:54 WBC RBC Hgb Hct MCV MCHC RDW [place] % (Auto) Eos % (Auto) [place] # Eos # Seg Neutrophils % INR APTT Sodium Potassium 6.8 H* Chloride Carbon Dioxide BUN Creatinine Glucose POC Glucose > 500 H > 500 H Hemoglobin A1c Calcium Phosphorus ALT Alkaline Phosphatase Albumin Crossmatch 10/19/18 10/19/18 10/19/18 17:58 19:00 19:30 WBC RBC Hgb Hct MCV MCHC RDW [place] % (Auto) Eos % (Auto) [place] # Eos # Seg Neutrophils % INR APTT Sodium Potassium Chloride Carbon Dioxide BUN Creatinine Glucose 564 H* POC Glucose > 500 H Hemoglobin A1c Calcium Phosphorus 7.10 H ALT Alkaline Phosphatase Albumin Crossmatch 10/19/18 10/19/18 10/19/18 20:30 21:17 22:14 WBC RBC Hgb Hct MCV MCHC RDW [place] % (Auto) Eos % (Auto) [place] # Eos # Seg Neutrophils % INR APTT Sodium Potassium Chloride Carbon Dioxide BUN Creatinine Glucose POC Glucose 467 H 483 H 411 H Hemoglobin A1c Calcium Phosphorus ALT Alkaline Phosphatase Albumin Crossmatch 10/19/18 10/20/18 10/20/18 23:14 00:14 01:22 WBC RBC Hgb Hct MCV MCHC RDW [place] % (Auto) Eos % (Auto) [place] # Eos # Seg Neutrophils % INR APTT Sodium Potassium Chloride Carbon Dioxide BUN Creatinine Glucose POC Glucose 382 H 290 H 292 H Hemoglobin A1c Calcium Phosphorus ALT Alkaline Phosphatase Albumin Crossmatch 10/20/18 10/20/18 10/20/18 02:05 03:08 04:09 WBC RBC Hgb Hct MCV MCHC RDW [place] % (Auto) Eos % (Auto) [place] # Eos # Seg Neutrophils % INR APTT Sodium Potassium Chloride Carbon Dioxide BUN Creatinine Glucose POC Glucose 260 H 216 H 235 H Hemoglobin A1c Calcium Phosphorus ALT Alkaline Phosphatase Albumin Crossmatch 10/20/18 10/20/18 10/20/18 05:10 06:02 06:54 WBC RBC Hgb Hct MCV MCHC RDW [place] % (Auto) Eos % (Auto) [place] # Eos # Seg Neutrophils % INR APTT Sodium 136 L Potassium 3.4 L D Chloride 77.7 L Carbon Dioxide 50 H* D BUN 34 H Creatinine 4.1 H Glucose 1171 H* POC Glucose 179 H 114 H Hemoglobin A1c Calcium 4.9 L* D Phosphorus ALT Alkaline Phosphatase Albumin Crossmatch 10/20/18 10/20/18 10/20/18 08:54 09:30 09:34 WBC RBC Hgb Hct MCV MCHC RDW [place] % (Auto) Eos % (Auto) [place] # Eos # Seg Neutrophils % INR APTT Sodium Potassium 5.3 H D Chloride Carbon Dioxide BUN 49 H Creatinine 6.4 H D Glucose 53 L POC Glucose 59 L 50 L Hemoglobin A1c Calcium 7.5 L D Phosphorus ALT Alkaline Phosphatase Albumin Crossmatch 10/20/18 10/20/18 10/20/18 11:55 12:24 15:54 WBC RBC Hgb Hct MCV MCHC RDW [place] % (Auto) Eos % (Auto) [place] # Eos # Seg Neutrophils % INR APTT Sodium Potassium 5.3 H Chloride Carbon Dioxide BUN 49 H Creatinine 6.4 H Glucose 108 H POC Glucose 108 H 234 H Hemoglobin A1c Calcium 7.4 L Phosphorus ALT Alkaline Phosphatase Albumin Crossmatch 10/20/18 10/20/18 10/20/18 19:25 19:58 21:32 WBC RBC Hgb Hct MCV MCHC RDW [place] % (Auto) Eos % (Auto) [place] # Eos # Seg Neutrophils % INR APTT Sodium Potassium Chloride 95.8 L Carbon Dioxide BUN 27 H Creatinine 4.0 H Glucose 266 H POC Glucose 272 H 242 H Hemoglobin A1c Calcium 7.4 L Phosphorus ALT Alkaline Phosphatase Albumin Crossmatch 10/21/18 10/21/18 10/21/18 04:45 08:37 11:44 WBC RBC Hgb Hct MCV MCHC RDW [place] % (Auto) Eos % (Auto) [place] # Eos # Seg Neutrophils % INR APTT Sodium Potassium Chloride 96.1 L Carbon Dioxide BUN 33 H Creatinine 4.3 H Glucose 118 H POC Glucose 203 H 216 H Hemoglobin A1c Calcium 7.3 L Phosphorus ALT Alkaline Phosphatase Albumin Crossmatch 10/21/18 10/21/18 10/21/18 14:34 16:17 21:24 WBC RBC 2.72 L Hgb 7.9 L Hct 25.7 L D MCV 95 H MCHC 31 L RDW 21.4 H [place] % (Auto) Eos % (Auto) [place] # Eos # Seg Neutrophils % INR APTT Sodium Potassium Chloride Carbon Dioxide BUN Creatinine Glucose POC Glucose 191 H 112 H Hemoglobin A1c Calcium Phosphorus ALT Alkaline Phosphatase Albumin Crossmatch 10/21/18 10/22/18 10/22/18 Unknown 04:26 04:26 WBC 11.4 H RBC 1.99 L 2.41 L Hgb 5.7 L* 7.1 L Hct 18.4 L* D 22.4 L MCV MCHC 31 L RDW 20.9 H 21.1 H [place] % (Auto) 11.3 H Eos % (Auto) 6.8 H [place] # 1.0 H Eos # 0.6 H Seg Neutrophils % INR APTT Sodium 135 L Potassium Chloride 96.1 L Carbon Dioxide BUN 38 H Creatinine 5.1 H Glucose 113 H POC Glucose Hemoglobin A1c Calcium 7.2 L Phosphorus ALT Alkaline Phosphatase Albumin Crossmatch 10/22/18 10/22/18 10/22/18 07:21 07:58 11:31 WBC RBC Hgb Hct MCV MCHC RDW [place] % (Auto) Eos % (Auto) [place] # Eos # Seg Neutrophils % INR APTT Sodium Potassium Chloride Carbon Dioxide BUN Creatinine Glucose POC Glucose 160 H 224 H Hemoglobin A1c Calcium Phosphorus ALT Alkaline Phosphatase Albumin Crossmatch See Detail 10/22/18 10/22/18 10/23/18 18:54 21:33 07:54 WBC RBC Hgb Hct MCV MCHC RDW [place] % (Auto) Eos % (Auto) [place] # Eos # Seg Neutrophils % INR APTT Sodium Potassium Chloride 97.3 L Carbon Dioxide BUN 30 H Creatinine 4.1 H Glucose 256 H POC Glucose 305 H 264 H Hemoglobin A1c Calcium 7.3 L Phosphorus ALT Alkaline Phosphatase Albumin Crossmatch 10/23/18 07:54 WBC RBC 2.22 L Hgb 6.4 L Hct 21.0 L MCV 95 H MCHC 31 L RDW 21.1 H [place] % (Auto) 8.1 H Eos % (Auto) [place] # Eos # Seg Neutrophils % 70.3 H INR APTT Sodium Potassium Chloride Carbon Dioxide BUN Creatinine Glucose POC Glucose Hemoglobin A1c Calcium Phosphorus ALT Alkaline Phosphatase Albumin Crossmatch Chest x-ray: image reviewed Allied health notes reviewed: nursing
[2018-10-23] MEDS: HEPARIN SUB-Q SCH ×2 (10:17→21:34)
[2018-10-23] MEDS: SODIUM CHLORIDE FLUSH SYRINGE 10 ML IV SCH ×2 (10:20→21:34)
[2018-10-23] MEDS: PHOSLO PO SCH (10:23)
[2018-10-23] MEDS: NEURONTIN PO SCH ×2 (10:23→21:34)
[2018-10-23] MEDS: CLARITIN PO SCH (10:23)
[2018-10-23] MEDS: PROAMATINE PO SCH ×3 (10:23→19:58)
[2018-10-23] MEDS: PEPCID PO SCH (10:23)
--- NOTE | 2018-10-23 10:50 | Consultation ---
History of Present Illness - Reason for Consult Consult date: 10/23/18 - History of Present Illness 48 yo M PMHx ESRD on HD, DM2, HTN admitted to hospital with complaints of bleeding from his dialysis fistula despite the application of an occlusive dressing. He was unable to complete his scheduled dialysis right before admission due to the bleeding/clotting issues. At the ER he was determined to have a clotted access. He otherwise denied symptoms of systemic illness such as fevers, sweats, chills. On 10/20 a trialysis catheter was placed, and on 10/22 a thrombectomy was performed. He is noted to have a retirement sacral decubitus ulcer for which Dr. Tamayo was consulted who debrided the wound at bedside and obtained deep cultures. He notes his wound had recently improved and he follows up with wound care in [place]. He denies any pain, purulence, or foul odour from the wound. Afebrile since admission and with a normal white count. Wound cultures with numerous gram negatives and S aureus pending culture finalization. Not currently on antibiotics. 10/20 BCx NGTD. Imaging personally reviewed: 10/18 CXR with pulmonary edema. Review of Systems: Bold if positive, otherwise negative General: fevers, chills, rigors HEENT: visual disturbance, diplopia, eye pain Respiratory: cough, sputum, hemoptysis, shortness of breath Cardiovascular: chest pain, syncope Gastrointestinal: nausea, vomiting, diarrhea, abdominal pain Genitourinary: dysuria, hematuria, flank pain Musculoskeletal: neck pain, back pain, joint pain, edema Neurologic: headaches, seizures Hematologic: easy bruising or bleeding Endocrine: night sweats, acute weight loss Skin: rash, jaundice, redness Psychiatric: suicidal, homicidal ideation Past History Past Medical History: diabetes, ESRD, hypertension, other (Gastroparesis) Past Surgical History: Other (AV fistula placement) Social history: . denies: smoking, alcohol abuse, prescription drug abuse Family history: diabetes, hypertension Medications and Allergies Allergies Allergy/AdvReac Type Severity Reaction Status Date / Time cephalexin [From Keflex] Allergy Vomiting Verified 02/23/17 19:02 vancomycin Allergy Rash Verified 06/16/18 06:34 Home Medications Medication Instructions Recorded Confirmed Last Taken Type amLODIPine [Norvasc] 5 mg PO DAILY 07/19/13 10/18/18 06/15/18 History Calcium Acetate [Phoslo] 667 mg PO TIDAC 06/16/18 10/18/18 06/15/18 History Cetirizine HCl [ZyrTEC 10mg cap] 10 mg PO QDAY 06/16/18 10/18/18 06/15/18 History Gabapentin [Neurontin] 100 mg PO BID 06/16/18 10/18/18 06/15/18 History Insulin NPH/Regular [NovoLIN 70/30] 10 units SQ QPM 06/16/18 10/18/18 06/15/18 History Insulin NPH/Regular [NovoLIN 70/30] 15 units SQ QAM 06/16/18 10/18/18 06/15/18 History Oxycodone HCl [oxyCODONE] 10 mg PO Q8HR PRN 06/16/18 10/18/18 06/15/18 History Active Meds: Active Medications Acetaminophen (Tylenol) 650 mg PO Q4H PRN PRN Reason: Pain MILD(1-3)/Fever >100.5/OSBORN Last Admin: 10/18/18 22:59 Dose: 650 mg Documented by: Albuterol (Proventil) 2.5 mg IH Q4HRT PRN PRN Reason: Shortness Of Breath Calcium Acetate (Phoslo) 667 mg PO TIDAC [facility] Last Admin: 10/23/18 10:23 Dose: Not Given Documented by: Dextrose (D50w (25gm) Syringe) 0 ml IV PRN PRN PRN Reason: Hypoglycemia Last Admin: 10/20/18 09:33 Dose: 20 ml Documented by: Epoetin Bryson (Procrit) 10,000 unit SUB-Q SHUN [facility] Famotidine (Pepcid) 20 mg PO DAILY [facility] Last Admin: 10/23/18 10:23 Dose: 20 mg Documented by: Gabapentin (Neurontin) 100 mg PO BID [facility] Last Admin: 10/23/18 10:23 Dose: 100 mg Documented by: Heparin Sodium (Porcine) (Heparin) 5,000 unit SUB-Q Q12HR [facility] Last Admin: 10/23/18 10:17 Dose: 5,000 unit Documented by: Sodium Chloride (Nacl 0.9% 1000 Ml) 1,000 mls @ 42 mls/hr IV DIRECT [facility] Insulin Human NPH (Humulin N) 15 unit SUB-Q BIDDIAB [facility] Last Admin: 10/22/18 19:32 Dose: 15 unit Documented by: Insulin Human Regular (Humulin R) 0 units SUB-Q ACHS [facility]; Protocol Last Admin: 10/22/18 22:35 Dose: 3 units Documented by: Loratadine (Claritin) 10 mg PO DAILY [facility] Last Admin: 10/23/18 10:23 Dose: 10 mg Documented by: Midodrine (Proamatine) 10 mg PO TID@0800,1200,1600 [facility] Last Admin: 10/23/18 10:23 Dose: 10 mg Documented by: Morphine Sulfate (Morphine) 1 mg IV Q4H PRN PRN Reason: Pain, Moderate (4-6) Last Admin: 10/23/18 10:17 Dose: 1 mg Documented by: Ondansetron HCl (Zofran) 4 mg IV Q8H PRN PRN Reason: Nausea And Vomiting Oxycodone HCl (Roxicodone) 10 mg PO Q8H PRN PRN Reason: Pain, Moderate (4-6) Last Admin: 10/19/18 18:52 Dose: 10 mg Documented by: Sodium Chloride (Sodium Chloride Flush Syringe 10 Ml) 10 ml IV BID [facility] Last Admin: 10/23/18 10:20 Dose: 10 ml Documented by: Sodium Chloride (Sodium Chloride Flush Syringe 10 Ml) 10 ml IV PRN PRN PRN Reason: LINE FLUSH Last Admin: 10/23/18 04:25 Dose: 10 ml Documented by: Sodium Hypochlorite (Dakin's Half Strength) 1 applic TP BID [facility] Last Admin: 10/22/18 22:51 Dose: Not Given Documented by: Physical Examination - Physical Exam Narrative exam: Physical Exam: Constitutional: Alert, cooperative. No acute distress Head, Ears, Nose: Normocephalic, atraumatic. External ears, nose normal Eyes: Conjunctivae/corneas clear. No icterus. No ptosis. Neck: Supple, no meningeal signs Oral: dentition fair, no thrush Cardiovascular: S1, S2 normal. Respiratory: Good air entry, clear to auscultation bilaterally GI: Soft, non-tender; bowel sounds normal. No peritoneal signs. Musculoskeletal: No pedal edema, no cyanosis. L fistula with surgical agustina. Skin: No rash or abscess. Sacral wound dressed. Hem/Lymphatic: No palpable cervical or supraclavicular nodes. No lymphangitis Psych: Mood ok. Affect normal Neurological: Awake, alert, oriented. No gross abnormality - Constitutional Vitals: Vital Signs Temp Pulse Resp BP Pulse Ox 99.1 F 102 H 20 96/40 86 10/23/18 04:37 10/23/18 06:51 10/23/18 04:37 10/23/18 04:37 10/23/18 04:37 Temperature -Last 24 Hours Temperature 99.1 F Temperature 99.7 F Temperature 97.4 F Temperature 98.0 F Temperature 98.2 F Temperature 97.8 F Temperature 97.3 F Results - Labs CBC & Chem 7: 10/23/18 07:54 10/23/18 07:54 Labs: Abnormal lab results 10/22/18 10/22/18 10/22/18 Range/Units 11:31 18:54 21:33 RBC (3.65-5.03) M/mm3 Hgb (11.8-15.2) gm/dl Hct (35.5-45.6) % MCV (84-94) fl MCHC (32-34) % RDW (13.2-15.2) % [place] % (Auto) (0.0-7.3) % Seg Neutrophils % (40.0-70.0) % Chloride (98-107) mmol/L BUN (9-20) mg/dL Creatinine (0.8-1.5) mg/dL Glucose (75-100) mg/dL POC Glucose 224 H 305 H 264 H (70-105) Calcium (8.4-10.2) mg/dL 10/23/18 10/23/18 10/23/18 Range/Units 07:54 07:54 10:20 RBC 2.22 L (3.65-5.03) M/mm3 Hgb 6.4 L (11.8-15.2) gm/dl Hct 21.0 L (35.5-45.6) % MCV 95 H (84-94) fl MCHC 31 L (32-34) % RDW 21.1 H (13.2-15.2) % [place] % (Auto) 8.1 H (0.0-7.3) % Seg Neutrophils % 70.3 H (40.0-70.0) % Chloride 97.3 L (98-107) mmol/L BUN 30 H (9-20) mg/dL Creatinine 4.1 H (0.8-1.5) mg/dL Glucose 256 H (75-100) mg/dL POC Glucose 293 H (70-105) Calcium 7.3 L (8.4-10.2) mg/dL Assessment and Plan Cultures: Wound cultures: numerous gram negatives and S aureus A/P: 48 yo M PMHx ESRD on HD, DM2, HTN admitted with clotted AVF 1. Chronic sacral wound - Does not appear to be newly infected at this time given his lack of new symptoms. Numerous bacteria likely to be colonizers given the proximity to the enteric system and its bacteria. He is likely to have true infections in the future, and as such would prefer to keep him off antibiotics in order to preserve their utility for when truly needed. In the future I recommend only culturing if concerned for acute infection. Recommend continued wound care. 2. ESRD on HD with clotted AVF 3. DM2 4. HTN Recs: - continue off antibiotics. Monitor for purulence, foul odour, fevers. - Ongoing wound care is essential. Discussed with Dr. Winters Thank you for the consult, we will continue to follow. Aba Booker MD [facility], [place], [facility] ([facility] M: [phone] O: [phone] F: [phone]
[2018-10-23] MEDS: HumuLIN R SUB-Q SCH ×3 (10:51→23:32)
--- NOTE | 2018-10-23 12:52 | Progress Note ---
Assessment and Plan ESRD on Hemodialysis: -S/P Right IJ Vas Catheter placement -S/P Left AVG thrombectomy with revision on 10/22/2018 -Received hemodialysis yesterday -No acute indication for HD today -Fluid restriction of 1 liter per day -Obtain daily weights -Renally dose all medications -Monitor I/O's -Assess dialysis needs daily Anemia of CKD: -Increase Epogen to 20,000 units with HD -Transfuse prn if HGB<7.0 -Monitor H/H Sacral Ulcer: -Surgeon plan to debride sacral wound -ID consulted Essential Hypertension: -Titrate BP meds to keep SBP <130 -Monitor blood pressures Diabetes mellitus 2 on insulin: -On insulin -As per primary team Subjective Date of service: 10/23/18 Principal diagnosis: Ac. hypoxemic resp failure; AV graft malfunction; Hypotension; JARVIS; ESRD Interval history: Patient seen lying in bed. He complained of left arm pain where revision was done yesterday. Left arm is elevated. Objective - Vital Signs Vital signs: Vital Signs - 12hr 10/23/18 10/23/18 10/23/18 04:22 04:37 06:51 Temperature 99.1 F Pulse Rate 102 H 102 H Respiratory 18 20 Rate Blood Pressure 96/40 O2 Sat by Pulse 86 Oximetry 10/23/18 10:12 Temperature 99.0 F Pulse Rate 91 H Respiratory 18 Rate Blood Pressure 127/52 O2 Sat by Pulse 94 Oximetry - General Appearance General appearance: well-developed, well-nourished, fatigue EENT: ATNC, PERRL, hearing intact, vision intact Neck: no JVD, supple Respiratory: Present: Decreased Breath Sounds Cardiology: tachycardia, S1S2 Gastrointestinal: normoactive bowel sounds Integumentary: warm and dry Neurologic: alert and oriented x3 Musculoskeletal: other (Bilateral BKA, Left AVF incision site intact with agustina) - Lab 10/23/18 07:54 10/23/18 07:54 Most recent lab results Calcium 7.3 mg/dL (8.4-10.2) L 10/23/18 07:54 Phosphorus 7.10 mg/dL (2.5-4.5) H 10/19/18 19:00 Magnesium 2.00 mg/dL (1.7-2.3) 10/19/18 19:00 Medications & Allergies - Medications Allergies/Adverse Reactions: Allergies cephalexin [From Keflex] Allergy (Verified 02/23/17 19:02) Vomiting vancomycin Allergy (Verified 06/16/18 06:34) Rash Home Medications: Home Medications Medication Instructions Recorded Confirmed Last Taken Type amLODIPine [Norvasc] 5 mg PO DAILY 07/19/13 10/18/18 06/15/18 History Calcium Acetate [Phoslo] 667 mg PO TIDAC 06/16/18 10/18/18 06/15/18 History Cetirizine HCl [ZyrTEC 10mg cap] 10 mg PO QDAY 06/16/18 10/18/18 06/15/18 History Gabapentin [Neurontin] 100 mg PO BID 06/16/18 10/18/18 06/15/18 History Insulin NPH/Regular [NovoLIN 70/30] 10 units SQ QPM 06/16/18 10/18/18 06/15/18 History Insulin NPH/Regular [NovoLIN 70/30] 15 units SQ QAM 06/16/18 10/18/18 06/15/18 History Oxycodone HCl [oxyCODONE] 10 mg PO Q8HR PRN 06/16/18 10/18/18 06/15/18 History Active Medications: Generic Name Dose Route Start Last Admin Trade Name Freq PRN Reason Stop Dose Admin Acetaminophen 650 mg 10/18/18 14:31 10/18/18 22:59 Tylenol PO 650 mg Q4H PRN Administration Pain MILD(1-3)/Fever >100.5/OSBORN Albuterol 2.5 mg 10/18/18 14:31 Proventil IH Q4HRT PRN Shortness Of Breath Calcium Acetate 667 mg 10/18/18 16:30 10/23/18 10:23 Phoslo PO Not Given TIDAC [facility] Dextrose 0 ml 10/19/18 18:51 10/20/18 09:33 D50w (25gm) Syringe IV 20 ml PRN PRN Administration Hypoglycemia Epoetin Bryson 10,000 unit 10/22/18 16:00 Procrit SUB-Q SHUN [facility] Famotidine 20 mg 10/20/18 14:00 10/23/18 10:23 Pepcid PO 20 mg DAILY [facility] Administration Gabapentin 100 mg 10/18/18 22:00 10/23/18 10:23 Neurontin PO 100 mg BID [facility] Administration Heparin Sodium (Porcine) 5,000 unit 10/19/18 22:00 10/23/18 10:17 Heparin SUB-Q 5,000 unit Q12HR [facility] Administration Sodium Chloride 1,000 mls @ 42 mls/hr 10/22/18 11:30 Nacl 0.9% 1000 Ml IV DIRECT [facility] Insulin Human NPH 15 unit 10/21/18 17:00 10/23/18 10:52 Humulin N SUB-Q 15 unit BIDDIAB [facility] Administration Insulin Human Regular 0 units 10/20/18 16:30 10/23/18 10:51 Humulin R SUB-Q 3 units ACHS [facility] Administration Protocol Loratadine 10 mg 10/19/18 10:00 10/23/18 10:23 Claritin PO 10 mg DAILY [facility] Administration Midodrine 10 mg 10/21/18 16:00 10/23/18 10:23 Proamatine PO 10 mg TID@0800,1200,1600 [facility] Administration Morphine Sulfate 1 mg 10/20/18 16:37 10/23/18 10:17 Morphine IV 1 mg Q4H PRN Administration Pain, Moderate (4-6) Ondansetron HCl 4 mg 10/18/18 14:31 Zofran IV Q8H PRN Nausea And Vomiting Oxycodone HCl 10 mg 10/18/18 14:36 10/19/18 18:52 Roxicodone PO 10 mg Q8H PRN Administration Pain, Moderate (4-6) Sodium Chloride 10 ml 10/18/18 22:00 10/23/18 10:20 Sodium Chloride Flush Syringe 10 Ml IV 10 ml BID [facility] Administration Sodium Chloride 10 ml 10/18/18 14:31 10/23/18 04:25 Sodium Chloride Flush Syringe 10 Ml IV 10 ml PRN PRN Administration LINE FLUSH Sodium Hypochlorite 1 applic 10/21/18 11:00 10/22/18 22:51 Dakin's Half Strength TP Not Given BID [facility]
[2018-10-23] MEDS ORDERED: PROCRIT SUB-Q SCH (12:58)
--- NOTE | 2018-10-23 13:13 | Procedure Note ---
Date of procedure: 10/13/18 Pre-op diagnosis: Stage 4 sacral pressure ulcer Post-op diagnosis: same Procedure: Debridement of sacral pressure ulcer Description of procedure: Pt was placed left side down. Necrotic skin, SQ tissue and fascia were surgically, excisionally debrided with forceps and scissors. Bleeding was minimal and was controlled with pressure. Wound was dressed by his nurse. Pt tolerated the procedure well. Anesthesia: none Surgeon: SIVA MALIK Estimated blood loss: minimal Pathology: none Specimen disposition: discarded Condition: stable Disposition: no change
--- NOTE | 2018-10-23 14:43 | Progress Note ---
Assessment and Plan 48-year-old male with end-stage renal disease status post graft revision doing well from graft revision who also has a temporary catheter. Due to left upper extremity discomfort, recommended using temporary catheter for the next dialysis session. Afterwards, if patient still in the hospital, recommend using graft. At that point can remove temporary catheter. Subjective Date of service: 10/23/18 Principal diagnosis: Ac. hypoxemic resp failure; AV graft malfunction; H ypotension; JARVIS; ESRD Interval history: Left arm AV graft has thrill. Removed bandages. Brock noted. Clean, dry, and intact. Follow-up in 2 weeks. Objective - Constitutional Vitals: Vital Signs - 12hr 10/23/18 10/23/18 10/23/18 04:22 04:37 06:51 Temperature 99.1 F Pulse Rate 102 H 102 H Respiratory 18 20 Rate Blood Pressure 96/40 O2 Sat by Pulse 86 Oximetry 10/23/18 10:12 Temperature 99.0 F Pulse Rate 91 H Respiratory 18 Rate Blood Pressure 127/52 O2 Sat by Pulse 94 Oximetry General appearance: Present: no acute distress - EENT Eyes: EOM intact ENT: hearing intact - Respiratory Respiratory effort: normal Extremities: normal temperature, normal color, abnormal (swelling of the left upper extremity, incision intact, thrill present, motor function and sensory function of the hand intact.) - Psychiatric Psychiatric: appropriate mood/affect, cooperative - Labs CBC & Chem 7: 10/23/18 07:54 10/23/18 07:54 Labs: Abnormal lab results 10/22/18 10/22/18 10/22/18 Range/Units 07:21 18:54 21:33 RBC (3.65-5.03) M/mm3 Hgb (11.8-15.2) gm/dl Hct (35.5-45.6) % MCV (84-94) fl MCHC (32-34) % RDW (13.2-15.2) % [place] % (Auto) (0.0-7.3) % Seg Neutrophils % (40.0-70.0) % Chloride (98-107) mmol/L BUN (9-20) mg/dL Creatinine (0.8-1.5) mg/dL Glucose (75-100) mg/dL POC Glucose 305 H 264 H (70-105) Calcium (8.4-10.2) mg/dL Crossmatch See Detail 10/23/18 10/23/18 10/23/18 Range/Units 07:54 07:54 10:20 RBC 2.22 L (3.65-5.03) M/mm3 Hgb 6.4 L (11.8-15.2) gm/dl Hct 21.0 L (35.5-45.6) % MCV 95 H (84-94) fl MCHC 31 L (32-34) % RDW 21.1 H (13.2-15.2) % [place] % (Auto) 8.1 H (0.0-7.3) % Seg Neutrophils % 70.3 H (40.0-70.0) % Chloride 97.3 L (98-107) mmol/L BUN 30 H (9-20) mg/dL Creatinine 4.1 H (0.8-1.5) mg/dL Glucose 256 H (75-100) mg/dL POC Glucose 293 H (70-105) Calcium 7.3 L (8.4-10.2) mg/dL Crossmatch 10/23/18 Range/Units 12:00 RBC (3.65-5.03) M/mm3 Hgb (11.8-15.2) gm/dl Hct (35.5-45.6) % MCV (84-94) fl MCHC (32-34) % RDW (13.2-15.2) % [place] % (Auto) (0.0-7.3) % Seg Neutrophils % (40.0-70.0) % Chloride (98-107) mmol/L BUN (9-20) mg/dL Creatinine (0.8-1.5) mg/dL Glucose (75-100) mg/dL POC Glucose 335 H (70-105) Calcium (8.4-10.2) mg/dL Crossmatch Medications & Allergies - Medications Allergies/Adverse Reactions: Allergies cephalexin [From Keflex] Allergy (Verified 02/23/17 19:02) Vomiting vancomycin Allergy (Verified 06/16/18 06:34) Rash Home Medications: Home Medications Medication Instructions Recorded Confirmed Last Taken Type amLODIPine [Norvasc] 5 mg PO DAILY 07/19/13 10/18/18 06/15/18 History Calcium Acetate [Phoslo] 667 mg PO TIDAC 06/16/18 10/18/18 06/15/18 History Cetirizine HCl [ZyrTEC 10mg cap] 10 mg PO QDAY 06/16/18 10/18/18 06/15/18 History Gabapentin [Neurontin] 100 mg PO BID 06/16/18 10/18/18 06/15/18 History Insulin NPH/Regular [NovoLIN 70/30] 10 units SQ QPM 06/16/18 10/18/18 06/15/18 History Insulin NPH/Regular [NovoLIN 70/30] 15 units SQ QAM 06/16/18 10/18/18 06/15/18 History Oxycodone HCl [oxyCODONE] 10 mg PO Q8HR PRN 06/16/18 10/18/18 06/15/18 History Active Medications: Generic Name Dose Route Start Last Admin Trade Name Freq PRN Reason Stop Dose Admin Acetaminophen 650 mg 10/18/18 14:31 10/18/18 22:59 Tylenol PO 650 mg Q4H PRN Administration Pain MILD(1-3)/Fever >100.5/OSBORN Albuterol 2.5 mg 10/18/18 14:31 Proventil IH Q4HRT PRN Shortness Of Breath Calcium Acetate 667 mg 10/18/18 16:30 10/23/18 10:23 Phoslo PO Not Given TIDAC DAFNE Dextrose 0 ml 10/19/18 18:51 10/20/18 09:33 D50w (25gm) Syringe IV 20 ml PRN PRN Administration Hypoglycemia Epoetin Bryson 20,000 unit 10/23/18 12:58 Procrit SUB-Q SHUN DAFNE Famotidine 20 mg 10/20/18 14:00 10/23/18 10:23 Pepcid PO 20 mg DAILY DAFNE Administration Gabapentin 100 mg 10/18/18 22:00 10/23/18 10:23 Neurontin PO 100 mg BID DAFNE Administration Heparin Sodium (Porcine) 5,000 unit 10/19/18 22:00 10/23/18 10:17 Heparin SUB-Q 5,000 unit Q12HR DAFNE Administration Sodium Chloride 1,000 mls @ 42 mls/hr 10/22/18 11:30 Nacl 0.9% 1000 Ml IV DIRECT DAFNE Insulin Human NPH 15 unit 10/21/18 17:00 10/23/18 10:52 Humulin N SUB-Q 15 unit BIDDIAB DAFNE Administration Insulin Human Regular 0 units 10/20/18 16:30 10/23/18 10:51 Humulin R SUB-Q 3 units ACHS DAFNE Administration Protocol Loratadine 10 mg 10/19/18 10:00 10/23/18 10:23 Claritin PO 10 mg DAILY DAFNE Administration Midodrine 10 mg 10/21/18 16:00 10/23/18 13:58 Proamatine PO 10 mg TID@0800,1200,1600 DAFNE Administration Morphine Sulfate 1 mg 10/20/18 16:37 10/23/18 13:57 Morphine IV 1 mg Q4H PRN Administration Pain, Moderate (4-6) Ondansetron HCl 4 mg 10/18/18 14:31 Zofran IV Q8H PRN Nausea And Vomiting Oxycodone HCl 10 mg 10/18/18 14:36 10/19/18 18:52 Roxicodone PO 10 mg Q8H PRN Administration Pain, Moderate (4-6) Sodium Chloride 10 ml 10/18/18 22:00 10/23/18 10:20 Sodium Chloride Flush Syringe 10 Ml IV 10 ml BID DAFNE Administration Sodium Chloride 10 ml 10/18/18 14:31 10/23/18 04:25 Sodium Chloride Flush Syringe 10 Ml IV 10 ml PRN PRN Administration LINE FLUSH Sodium Hypochlorite 1 applic 10/21/18 11:00 10/22/18 22:51 Dakin's Half Strength TP Not Given BID [facility]
--- NOTE | 2018-10-23 15:14 | Progress Note ---
Assessment and Plan /Anemia with hb 6.;4 - likely anemia of CD with acute drop - will transfuse 1 unit PRBC - follow h/h - check stool for occult blood /Chronic sacral stage 4 decubitus ulcer with acute infection and sepsis, likely POA Had very subtle presentation on admission - no fever, no white count, but then developed hypotension following admission wound care consulted - 1st evaluation on 10/21/18, preliminary cx was negative but now growing staph aureus and gm -ve rods - started on clindamycin, ID consulted for abx recommendation - s/p bedside beridement by dr Tamayo - per ID can d/c abx after debridement /Hypotension - due to septic shock, resolved s/p bicarbonate drip, s/p levophed negative blood culture, wound cultures growing staph and gm -ve rods ordered 2d echo, off pressor, Placed on clindamycin and midodrine, consulted ID - will monitor off abx per ID after debridement /Severe hyperkalemia, resolved s/p bicarbonate drip Status post Kayexalate, sodium bicarbonate IV push, calcium gluconate, insulin and D50 and emergent dialysis with vascath / End stage renal disease on dialysis Nephrology consulted, dialysis as per renal team, avoid nephrotoxic agents, strict I/O, daily weight, repeat bmp to monitor serum potassium / Diabetes type 2 with hyperglycemia s/p insulin drip overnight on 10/20 we cont ADA diet, insulin, accu check, hypoglycemia protocol off insulin drip now /left pleural effusion, from volume overload, should correct with HD, continue to monitor / HTN (hypertension) Now hypotensivem, cont to Hold norvasc / AV graft malfunction Vascular surgery consulted, s/p Vas-Cath for emergent dialysis s/p Left Arm AV Graft Thrombectomy and Revision today / Gastroparesis due to DM Frequent small meals, treat BG with insulin, anti emetic therapy prn, supportive care / DVT prophylaxis SCD to BLE while in bed, Disposition: need CICI per PT Brief History: 48 YO Male with ESRD on HD(T,R,Sa) last dialyzed on , DM complicated by Gastroparesis, HTN, presents to ED for bleeding from his dialysis fistula and applied an occlusive dressing to stop the bleeding 3 days ago. Pt presented to his dialysis center for his scheduled session but was unable to undergo dialysis due to excessive bleeding secondary to clotted access. EMS notified, and transported to [facility]. Pt seen and evaluated in ED and found to have ESRD and Clotted dialysis access. Nephrology consulted in ED for dialysis. vascular surgery consulted in ED for surgical intervention. Following admission developed hyperglycemia, hyperkalemia and hypotension. Transferred to ICU for further monitoring, placed on levophed, insulin drip. Radiological data: CXR: 1. Mild cardiomegaly with mild to moderate interstitial pulmonary edema and small left pleural effusion. Hospitalist Physical exam: GENERAL: well-developed and well-nourished AAM lying on bed appeared to be in no discomfort. HEENT: Normocephalic. Atraumatic. No conjunctival congestion or icterus. Patient has moist mucous membranes. NECK: Supple. Trachea midline. CHEST/LUNGS: Clear to auscultated bilaterally, breathing nonlabored. No wheezes crackles or rhonchi. HEART/CARDIOVASCULAR: Regular in rate and rhythm. S1 and S2 positive. ABDOMEN: Abdomen is soft, nontender. Patient has normal bowel sounds. SKIN: There is no rash. Warm and dry. NEURO: No focal motor deficit. Follows command. MUSCULOSKELETAL: b/l BKA EXTRIMITY: No edema, no cyanosis or clubbing. PSYCH: Cooperative. Subjective Date of service: 10/23/18 Principal diagnosis: Ac. hypoxemic resp failure; AV graft malfunction; Hypotension; JARVIS; ESRD Interval history: Patient seen and examined. Medical records and medication list reviewed. s/p debridement of sacral wound today by dr Tamayo PT recommended CICI Hb dropped at 6.4 Plan of care discussed at the bedside Objective - Constitutional Vitals: Vital Signs - 12hr 10/23/18 10/23/18 10/23/18 04:22 04:37 06:51 Temperature 99.1 F Pulse Rate 102 H 102 H Respiratory 18 20 Rate Blood Pressure 96/40 O2 Sat by Pulse 86 Oximetry 10/23/18 10:12 Temperature 99.0 F Pulse Rate 91 H Respiratory 18 Rate Blood Pressure 127/52 O2 Sat by Pulse 94 Oximetry - Labs CBC & Chem 7: 10/23/18 07:54 10/23/18 07:54 Labs: Abnormal lab results 10/22/18 10/22/18 10/22/18 Range/Units 07:21 18:54 21:33 RBC (3.65-5.03) M/mm3 Hgb (11.8-15.2) gm/dl Hct (35.5-45.6) % MCV (84-94) fl MCHC (32-34) % RDW (13.2-15.2) % [place] % (Auto) (0.0-7.3) % Seg Neutrophils % (40.0-70.0) % Chloride (98-107) mmol/L BUN (9-20) mg/dL Creatinine (0.8-1.5) mg/dL Glucose (75-100) mg/dL POC Glucose 305 H 264 H (70-105) Calcium (8.4-10.2) mg/dL Crossmatch See Detail 10/23/18 10/23/18 10/23/18 Range/Units 07:54 07:54 10:20 RBC 2.22 L (3.65-5.03) M/mm3 Hgb 6.4 L (11.8-15.2) gm/dl Hct 21.0 L (35.5-45.6) % MCV 95 H (84-94) fl MCHC 31 L (32-34) % RDW 21.1 H (13.2-15.2) % [place] % (Auto) 8.1 H (0.0-7.3) % Seg Neutrophils % 70.3 H (40.0-70.0) % Chloride 97.3 L (98-107) mmol/L BUN 30 H (9-20) mg/dL Creatinine 4.1 H (0.8-1.5) mg/dL Glucose 256 H (75-100) mg/dL POC Glucose 293 H (70-105) Calcium 7.3 L (8.4-10.2) mg/dL Crossmatch 10/23/18 Range/Units 12:00 RBC (3.65-5.03) M/mm3 Hgb (11.8-15.2) gm/dl Hct (35.5-45.6) % MCV (84-94) fl MCHC (32-34) % RDW (13.2-15.2) % [place] % (Auto) (0.0-7.3) % Seg Neutrophils % (40.0-70.0) % Chloride (98-107) mmol/L BUN (9-20) mg/dL Creatinine (0.8-1.5) mg/dL Glucose (75-100) mg/dL POC Glucose 335 H (70-105) Calcium (8.4-10.2) mg/dL Crossmatch
[2018-10-23] MEDS: DAKIN'S HALF STRENGTH TP SCH (21:44)
[2018-10-23] MEDS: TYLENOL PO PRN (23:32)
[2018-10-24] MEDS: MORPHINE IV PRN ×3 (05:54→19:52)
[2018-10-24] MEDS: HumuLIN R SUB-Q SCH ×4 (08:00→23:47)
[2018-10-24 08:08] LABS: Basophils # (Auto) 0.1 K/mm3 (0.0-0.1); Basophils % (Auto) 0.9 % (0.0-1.8); Eosinophils # (Auto) 0.3 K/mm3 (0.0-0.4); Eosinophils % (Auto) 2.8 % (0.0-4.3); Hematocrit 26.1 % (35.5-45.6); Hemoglobin 8.3 gm/dl (11.8-15.2); Lymphocytes # (Auto) 2.2 K/mm3 (1.2-5.4); Lymphocytes % (Auto) 21.5 % (13.4-35.0); Mean Corpuscular HGB Conc 32 % (32-34); Mean Corpuscular Volume 92 fl (84-94); Monocytes # (Auto) 1.1 K/mm3 (0.0-0.8); Monocytes % (Auto) 11.3 % (0.0-7.3); Platelet Count 266 K/mm3 (140-440); Red Blood Count 2.84 M/mm3 (3.65-5.03); Red Cell Distribution Width 19.7 % (13.2-15.2)
[2018-10-24 08:30] LABS: Calcium 7.6 mg/dL (8.4-10.2)
[2018-10-24] MEDS: PROAMATINE PO SCH ×3 (09:00→16:30)
[2018-10-24] MEDS: PHOSLO PO SCH ×3 (09:00→17:57)
[2018-10-24] MEDS: NEURONTIN PO SCH ×2 (09:39→23:37)
[2018-10-24] MEDS: HEPARIN SUB-Q SCH ×2 (09:40→23:37)
[2018-10-24] MEDS: PEPCID PO SCH (09:40)
[2018-10-24] MEDS: CLARITIN PO SCH (09:40)
--- NOTE | 2018-10-24 10:02 | Progress Note ---
Assessment and Plan Cultures: Wound cultures: numerous gram negatives and S aureus A/P: 48 yo M PMHx ESRD on HD, DM2, HTN admitted with clotted AVF 1. Chronic sacral wound - Does not appear to be newly infected at this time given his lack of new symptoms. Numerous bacteria likely to be colonizers given the proximity to the enteric system and its bacteria. He is likely to have true infections in the future, and as such would prefer to keep him off antibiotics in order to preserve their utility for when truly needed. In the future I recommend only culturing if concerned for acute infection. Recommend continued wound care. 2. ESRD on HD with clotted AVF 3. DM2 4. HTN Recs: - continue off antibiotics. Monitor for purulence, foul odour, fevers. - Ongoing wound care is essential. -Clinically stable. ID is signing off. Please call for questions. [facility] M: [phone] O:[phone] Subjective Date of service: 10/24/18 Principal diagnosis: Ac. hypoxemic resp failure; AV graft malfunction; Hypote nsion; JARVIS; ESRD Interval history: Patient seen and examined. Reports generalized weakness. No SOB or fevers. Objective - Exam Narrative Exam: Constitutional: Alert, cooperative. Generalize weakness Head, Ears, Nose: Normocephalic, atraumatic. External ears, nose normal Eyes: Conjunctivae/corneas clear. No icterus. No ptosis. Neck: Supple, no meningeal signs Oral: dentition fair, no thrush Cardiovascular: S1, S2 normal. Respiratory: Good air entry, clear to auscultation bilaterally GI: Soft, non-tender; bowel sounds normal. No peritoneal signs. Musculoskeletal: No pedal edema, no cyanosis. L fistula with surgical agustina. Skin: No rash or abscess. Sacral wound dressed. Hem/Lymphatic: No palpable cervical or supraclavicular nodes. No lymphangitis Psych: Mood ok. Affect normal Neurological: Awake, alert, oriented. No gross abnormality - Constitutional Vitals: Vital Signs Temp Pulse Resp BP Pulse Ox 97.5 F L 81 16 153/68 93 10/24/18 08:14 10/24/18 08:14 10/24/18 08:14 10/24/18 08:14 10/24/18 08:14 Temperature -Last 24 Hours Temperature 97.5 F Temperature 98.0 F Temperature 98.2 F Temperature 98.3 F Temperature 99.0 F - Labs CBC & Chem 7: 10/24/18 07:56 10/24/18 07:56 Labs: Abnormal lab results 10/22/18 10/23/18 10/23/18 Range/Units 07:21 10:20 12:00 RBC (3.65-5.03) M/mm3 Hgb (11.8-15.2) gm/dl Hct (35.5-45.6) % RDW (13.2-15.2) % [place] % (Auto) (0.0-7.3) % [place] # (0.0-0.8) K/mm3 Sodium (137-145) mmol/L Chloride (98-107) mmol/L BUN (9-20) mg/dL Creatinine (0.8-1.5) mg/dL Glucose (75-100) mg/dL POC Glucose 293 H 335 H (70-105) Calcium (8.4-10.2) mg/dL Crossmatch See Detail 10/23/18 10/23/18 10/24/18 Range/Units 15:47 23:29 07:56 RBC (3.65-5.03) M/mm3 Hgb (11.8-15.2) gm/dl Hct (35.5-45.6) % RDW (13.2-15.2) % [place] % (Auto) (0.0-7.3) % [place] # (0.0-0.8) K/mm3 Sodium 135 L (137-145) mmol/L Chloride 95.6 L (98-107) mmol/L BUN 38 H (9-20) mg/dL Creatinine 4.9 H (0.8-1.5) mg/dL Glucose 250 H (75-100) mg/dL POC Glucose 279 H 185 H (70-105) Calcium 7.6 L (8.4-10.2) mg/dL Crossmatch 10/24/18 Range/Units 07:56 RBC 2.84 L (3.65-5.03) M/mm3 Hgb 8.3 L (11.8-15.2) gm/dl Hct 26.1 L (35.5-45.6) % RDW 19.7 H (13.2-15.2) % [place] % (Auto) 11.3 H (0.0-7.3) % [place] # 1.1 H (0.0-0.8) K/mm3 Sodium (137-145) mmol/L Chloride (98-107) mmol/L BUN (9-20) mg/dL Creatinine (0.8-1.5) mg/dL Glucose (75-100) mg/dL POC Glucose (70-105) Calcium (8.4-10.2) mg/dL Crossmatch
[2018-10-24] MEDS: SODIUM CHLORIDE FLUSH SYRINGE 10 ML IV SCH (10:20)
--- NOTE | 2018-10-24 10:43 | Progress Note ---
Assessment and Plan ESRD on Hemodialysis: Hyperkalemia: -HD today for UF and clearance -I spoke with dialysis nurse who mentioned currently using left AVG today without difficulty, will continue to monitor. If Left AVG functioning well, will remove Right IJ Vas Catheter -Assess need for HD on daily basis -Dr Salmon (vascular surgery) on board, s/p Right IJ Vas Catheter placement -S/p Left Arm AV Graft Thrombectomy and Revision on 10/22/[address] Salmon -Fluid restriction of 1 liter per day -Renally dose all medications -This pt undergoes outpatient HD at [facility] every TTS -Renal plan d/w Dr Cronin Anemia: - Epogen dosing for anemia management Chronic Sacral Decubitus Ulcer: -Gen surgery on board, s/p Debridement of sacral pressure ulcer on 10/23/[address] Tamayo Hypotension: Hx of Essential Hypertension: -Holding all BP medications -On midodrine for blood pressure support Diabetes mellitus 2 on insulin: -As per primary team Subjective Date of service: 10/24/18 Principal diagnosis: Ac. hypoxemic resp failure; AV graft malfunction; Hypotension; JARVIS; ESRD Interval history: Pt seen in bed, c/o left arm pain. No family at bedside Objective - Vital Signs Vital signs: Vital Signs - 12hr 10/23/18 10/24/18 10/24/18 23:20 04:44 05:54 Temperature 98.2 F 98.0 F Pulse Rate 91 H 83 Respiratory 18 18 18 Rate Blood Pressure 141/63 137/62 O2 Sat by Pulse 88 98 Oximetry 10/24/18 10/24/18 10/24/18 06:00 08:14 10:21 Temperature 97.5 F L Pulse Rate 83 81 Respiratory 16 16 Rate Blood Pressure 153/68 O2 Sat by Pulse 93 Oximetry - General Appearance General appearance: well-developed EENT: ATNC Neck: no JVD Respiratory: Present: Decreased Breath Sounds Cardiology: regular, S1S2, other (ACCESS: Right IJ Vas Catheter intact; Left AVG + thrill and bruit noted) Gastrointestinal: normoactive bowel sounds, no tenderness Integumentary: warm and dry Neurologic: alert and oriented x3 Musculoskeletal: other (trace edema to BLE) Psychiatric: cooperative - Lab 10/24/18 07:56 10/24/18 07:56 Most recent lab results Calcium 7.6 mg/dL (8.4-10.2) L 10/24/18 07:56 Phosphorus 7.10 mg/dL (2.5-4.5) H 10/19/18 19:00 Magnesium 2.00 mg/dL (1.7-2.3) 10/19/18 19:00 Medications & Allergies - Medications Allergies/Adverse Reactions: Allergies cephalexin [From Keflex] Allergy (Verified 02/23/17 19:02) Vomiting vancomycin Allergy (Verified 06/16/18 06:34) Rash Home Medications: Home Medications Medication Instructions Recorded Confirmed Last Taken Type amLODIPine [Norvasc] 5 mg PO DAILY 07/19/13 10/18/18 06/15/18 History Calcium Acetate [Phoslo] 667 mg PO TIDAC 06/16/18 10/18/18 06/15/18 History Cetirizine HCl [ZyrTEC 10mg cap] 10 mg PO QDAY 06/16/18 10/18/18 06/15/18 History Gabapentin [Neurontin] 100 mg PO BID 06/16/18 10/18/18 06/15/18 History Insulin NPH/Regular [NovoLIN 70/30] 10 units SQ QPM 06/16/18 10/18/18 06/15/18 History Insulin NPH/Regular [NovoLIN 70/30] 15 units SQ QAM 06/16/18 10/18/18 06/15/18 History Oxycodone HCl [oxyCODONE] 10 mg PO Q8HR PRN 06/16/18 10/18/18 06/15/18 History Active Medications: Generic Name Dose Route Start Last Admin Trade Name Freq PRN Reason Stop Dose Admin Acetaminophen 650 mg 10/18/18 14:31 10/23/18 23:32 Tylenol PO 650 mg Q4H PRN Administration Pain MILD(1-3)/Fever >100.5/OSBORN Albuterol 2.5 mg 10/18/18 14:31 Proventil IH Q4HRT PRN Shortness Of Breath Calcium Acetate 667 mg 10/18/18 16:30 10/24/18 09:00 Phoslo PO 667 mg TIDAC DAFNE Administration Dextrose 0 ml 10/19/18 18:51 10/20/18 09:33 D50w (25gm) Syringe IV 20 ml PRN PRN Administration Hypoglycemia Epoetin Bryson 20,000 unit 10/23/18 12:58 Procrit SUB-Q SHUN DAFNE Famotidine 20 mg 10/20/18 14:00 10/24/18 09:40 Pepcid PO 20 mg DAILY DAFNE Administration Gabapentin 100 mg 10/18/18 22:00 10/24/18 09:39 Neurontin PO 100 mg BID DAFNE Administration Heparin Sodium (Porcine) 5,000 unit 10/19/18 22:00 10/24/18 09:40 Heparin SUB-Q 5,000 unit Q12HR DAFNE Administration Sodium Chloride 1,000 mls @ 42 mls/hr 10/22/18 11:30 Nacl 0.9% 1000 Ml IV DIRECT DAFNE Insulin Human NPH 15 unit 10/21/18 17:00 10/24/18 08:00 Humulin N SUB-Q 15 unit BIDDIAB DAFNE Administration Insulin Human Regular 0 units 10/20/18 16:30 10/24/18 08:00 Humulin R SUB-Q 3 units ACHS DAFNE Administration Protocol Loratadine 10 mg 10/19/18 10:00 10/24/18 09:40 Claritin PO 10 mg DAILY DAFNE Administration Midodrine 10 mg 10/21/18 16:00 10/24/18 09:00 Proamatine PO 10 mg TID@0800,1200,1600 DAFNE Administration Morphine Sulfate 1 mg 10/20/18 16:37 10/24/18 10:21 Morphine IV 1 mg Q4H PRN Administration Pain, Moderate (4-6) Ondansetron HCl 4 mg 10/18/18 14:31 Zofran IV Q8H PRN Nausea And Vomiting Oxycodone HCl 10 mg 10/18/18 14:36 10/19/18 18:52 Roxicodone PO 10 mg Q8H PRN Administration Pain, Moderate (4-6) Sodium Chloride 10 ml 10/18/18 22:00 10/24/18 10:20 Sodium Chloride Flush Syringe 10 Ml IV 10 ml BID DAFNE Administration Sodium Chloride 10 ml 10/18/18 14:31 10/23/18 04:25 Sodium Chloride Flush Syringe 10 Ml IV 10 ml PRN PRN Administration LINE FLUSH Sodium Hypochlorite 1 applic 10/21/18 11:00 10/23/18 21:44 Dakin's Half Strength TP Not Given BID DAFNE
[2018-10-24] MEDS: DAKIN'S HALF STRENGTH TP SCH (11:00)
--- NOTE | 2018-10-24 12:35 | Progress Note ---
Assessment and Plan Acute hypoxemic respiratory failure Acute pulmonary edema. Left pleural effusion. Arteriovenous graft malfunction. Hypotension -multifactorial (including element of acute blood loss anemia) ABLA Diabetes type 1. Obesity. End-stage renal disease, on dialysis. History of hypertension Continue all supportive care - continue with supportive transfusions to keep HgB>7g/dL - post-op management of AV fistula per Vascular surgery team - continue HD/UF per nephroplogy prescription for toxin and volume clearance - monitor off antibiotics per ID recs - follow cultures (NGTD) - continue wound care for sacral ulcers per WCT - continue glycemic control with SSI for target BG 140-180 mg/dl - continue promotility agents for gastroparesis -PT/OT to increase activity - continue other care per attending / other consultants Subjective Date of service: 10/24/18 Principal diagnosis: Ac. hypoxemic resp failure; AV graft malfunction; Hypotension; JARVIS; ESRD Interval history: Patient is seen today for: Acute hypoxemic respiratory failure; Acute pulmonary edema; Left pleural effusion; Arteriovenous graft malfunction; Hypotension multifactorial (including element of acute blood loss anemia); ABLA; Diabetes type 1; Obesity; HTN; ESRD on Dialysis Seen and examined at bedside; 24hour events reviewed; nursing and respiratory care staff consulted; no adverse overnight events reported to me; Vitals, labs, medications, chart and imaging reviewed; resting peacefully in bed;s/p blood transfusions . s/p Left Arm AV Graft Thrombectomy and Revision 10/23 ;s/p bedside wound debridement for sacral decubitus Denies any chest pain, no shortness of breath, no fevers or chills, no diarrhea or nausea/vomiting. States his appetite is improving. Objective Vital Signs - 12hr 10/24/18 10/24/18 10/24/18 04:44 05:54 06:00 Temperature 98.0 F Pulse Rate 83 83 Respiratory 18 18 Rate Blood Pressure 137/62 O2 Sat by Pulse 98 Oximetry 10/24/18 10/24/18 08:14 10:21 Temperature 97.5 F L Pulse Rate 81 Respiratory 16 16 Rate Blood Pressure 153/68 O2 Sat by Pulse 93 Oximetry Constitutional: no acute distress, alert, other (middle aged obese AAM, normocephalic and atraumatic with normal resp effort at rest) Eyes: non-icteric ENT: oropharynx moist, other (Mallampati 4) Neck: supple, no lymphadenopathy, no JVD, other (RIJ Trialysis catheter) Effort: normal Ascultation: Bilateral: rales (bases) Percussion: Bilateral: not dull Cardiovascular: regular rate and rhythm Gastrointestinal: normoactive bowel sounds, soft, non-tender, non-distended Integumentary: normal, decubitus ulcer, other (see wound care notes re Sacral decubitus ulcer) Extremities: no cyanosis, no edema, pulses normal, no ischemia or petechiae, other (bilateral BKA's) Neurologic: normal mental status, non-focal exam, pupils equal and round, motor strength normal and Psychiatric: mood appropriate, affect normal CBC and BMP: 10/25/18 04:50 10/25/18 04:50 ABG, PT/INR, D-dimer: PT/INR, D-dimer PT 14.8 Sec. (12.2-14.9) 10/18/18 12:43 INR 1.19 (0.87-1.13) H 10/18/18 12:43 Abnormal lab findings: Abnormal Labs 10/18/18 10/18/18 10/18/18 12:43 12:43 12:43 WBC RBC 2.79 L Hgb 8.0 L Hct 25.9 L MCV MCHC 31 L RDW 21.8 H [place] % (Auto) 10.0 H Eos % (Auto) [place] # Eos # Seg Neutrophils % INR 1.19 H APTT 41.2 H Sodium Potassium Chloride Carbon Dioxide BUN 30 H Creatinine 4.6 H Glucose POC Glucose Hemoglobin A1c Calcium 7.8 L Phosphorus 5.10 H ALT Alkaline Phosphatase Albumin Crossmatch 10/19/18 10/19/18 10/19/18 15:05 15:05 15:05 WBC RBC 2.64 L Hgb 7.7 L Hct 26.1 L MCV 99 H MCHC 30 L RDW 22.3 H [place] % (Auto) 8.1 H Eos % (Auto) [place] # Eos # Seg Neutrophils % INR APTT Sodium 133 L Potassium 6.5 H* D Chloride 94.9 L Carbon Dioxide 16 L D BUN 48 H Creatinine 5.7 H Glucose 525 H* POC Glucose Hemoglobin A1c 7.2 H Calcium 7.6 L Phosphorus 7.00 H D ALT 6 L Alkaline Phosphatase 214 H Albumin 1.9 L Crossmatch 10/19/18 10/19/18 10/19/18 16:45 16:59 17:54 WBC RBC Hgb Hct MCV MCHC RDW [place] % (Auto) Eos % (Auto) [place] # Eos # Seg Neutrophils % INR APTT Sodium Potassium 6.8 H* Chloride Carbon Dioxide BUN Creatinine Glucose POC Glucose > 500 H > 500 H Hemoglobin A1c Calcium Phosphorus ALT Alkaline Phosphatase Albumin Crossmatch 10/19/18 10/19/18 10/19/18 17:58 19:00 19:30 WBC RBC Hgb Hct MCV MCHC RDW [place] % (Auto) Eos % (Auto) [place] # Eos # Seg Neutrophils % INR APTT Sodium Potassium Chloride Carbon Dioxide BUN Creatinine Glucose 564 H* POC Glucose > 500 H Hemoglobin A1c Calcium Phosphorus 7.10 H ALT Alkaline Phosphatase Albumin Crossmatch 10/19/18 10/19/18 10/19/18 20:30 21:17 22:14 WBC RBC Hgb Hct MCV MCHC RDW [place] % (Auto) Eos % (Auto) [place] # Eos # Seg Neutrophils % INR APTT Sodium Potassium Chloride Carbon Dioxide BUN Creatinine Glucose POC Glucose 467 H 483 H 411 H Hemoglobin A1c Calcium Phosphorus ALT Alkaline Phosphatase Albumin Crossmatch 10/19/18 10/20/18 10/20/18 23:14 00:14 01:22 WBC RBC Hgb Hct MCV MCHC RDW [place] % (Auto) Eos % (Auto) [place] # Eos # Seg Neutrophils % INR APTT Sodium Potassium Chloride Carbon Dioxide BUN Creatinine Glucose POC Glucose 382 H 290 H 292 H Hemoglobin A1c Calcium Phosphorus ALT Alkaline Phosphatase Albumin Crossmatch 10/20/18 10/20/18 10/20/18 02:05 03:08 04:09 WBC RBC Hgb Hct MCV MCHC RDW [place] % (Auto) Eos % (Auto) [place] # Eos # Seg Neutrophils % INR APTT Sodium Potassium Chloride Carbon Dioxide BUN Creatinine Glucose POC Glucose 260 H 216 H 235 H Hemoglobin A1c Calcium Phosphorus ALT Alkaline Phosphatase Albumin Crossmatch 10/20/18 10/20/18 10/20/18 05:10 06:02 06:54 WBC RBC Hgb Hct MCV MCHC RDW [place] % (Auto) Eos % (Auto) [place] # Eos # Seg Neutrophils % INR APTT Sodium 136 L Potassium 3.4 L D Chloride 77.7 L Carbon Dioxide 50 H* D BUN 34 H Creatinine 4.1 H Glucose 1171 H* POC Glucose 179 H 114 H Hemoglobin A1c Calcium 4.9 L* D Phosphorus ALT Alkaline Phosphatase Albumin Crossmatch 10/20/18 10/20/18 10/20/18 08:54 09:30 09:34 WBC RBC Hgb Hct MCV MCHC RDW [place] % (Auto) Eos % (Auto) [place] # Eos # Seg Neutrophils % INR APTT Sodium Potassium 5.3 H D Chloride Carbon Dioxide BUN 49 H Creatinine 6.4 H D Glucose 53 L POC Glucose 59 L 50 L Hemoglobin A1c Calcium 7.5 L D Phosphorus ALT Alkaline Phosphatase Albumin Crossmatch 10/20/18 10/20/18 10/20/18 11:55 12:24 15:54 WBC RBC Hgb Hct MCV MCHC RDW [place] % (Auto) Eos % (Auto) [place] # Eos # Seg Neutrophils % INR APTT Sodium Potassium 5.3 H Chloride Carbon Dioxide BUN 49 H Creatinine 6.4 H Glucose 108 H POC Glucose 108 H 234 H Hemoglobin A1c Calcium 7.4 L Phosphorus ALT Alkaline Phosphatase Albumin Crossmatch 10/20/18 10/20/18 10/20/18 19:25 19:58 21:32 WBC RBC Hgb Hct MCV MCHC RDW [place] % (Auto) Eos % (Auto) [place] # Eos # Seg Neutrophils % INR APTT Sodium Potassium Chloride 95.8 L Carbon Dioxide BUN 27 H Creatinine 4.0 H Glucose 266 H POC Glucose 272 H 242 H Hemoglobin A1c Calcium 7.4 L Phosphorus ALT Alkaline Phosphatase Albumin Crossmatch 10/21/18 10/21/18 10/21/18 04:45 08:37 11:44 WBC RBC Hgb Hct MCV MCHC RDW [place] % (Auto) Eos % (Auto) [place] # Eos # Seg Neutrophils % INR APTT Sodium Potassium Chloride 96.1 L Carbon Dioxide BUN 33 H Creatinine 4.3 H Glucose 118 H POC Glucose 203 H 216 H Hemoglobin A1c Calcium 7.3 L Phosphorus ALT Alkaline Phosphatase Albumin Crossmatch 10/21/18 10/21/18 10/21/18 14:34 16:17 21:24 WBC RBC 2.72 L Hgb 7.9 L Hct 25.7 L D MCV 95 H MCHC 31 L RDW 21.4 H [place] % (Auto) Eos % (Auto) [place] # Eos # Seg Neutrophils % INR APTT Sodium Potassium Chloride Carbon Dioxide BUN Creatinine Glucose POC Glucose 191 H 112 H Hemoglobin A1c Calcium Phosphorus ALT Alkaline Phosphatase Albumin Crossmatch 10/21/18 10/22/18 10/22/18 Unknown 04:26 04:26 WBC 11.4 H RBC 1.99 L 2.41 L Hgb 5.7 L* 7.1 L Hct 18.4 L* D 22.4 L MCV MCHC 31 L RDW 20.9 H 21.1 H [place] % (Auto) 11.3 H Eos % (Auto) 6.8 H [place] # 1.0 H Eos # 0.6 H Seg Neutrophils % INR APTT Sodium 135 L Potassium Chloride 96.1 L Carbon Dioxide BUN 38 H Creatinine 5.1 H Glucose 113 H POC Glucose Hemoglobin A1c Calcium 7.2 L Phosphorus ALT Alkaline Phosphatase Albumin Crossmatch 10/22/18 10/22/18 10/22/18 07:21 07:58 11:31 WBC RBC Hgb Hct MCV MCHC RDW [place] % (Auto) Eos % (Auto) [place] # Eos # Seg Neutrophils % INR APTT Sodium Potassium Chloride Carbon Dioxide BUN Creatinine Glucose POC Glucose 160 H 224 H Hemoglobin A1c Calcium Phosphorus ALT Alkaline Phosphatase Albumin Crossmatch See Detail 10/22/18 10/22/18 10/23/18 18:54 21:33 07:54 WBC RBC Hgb Hct MCV MCHC RDW [place] % (Auto) Eos % (Auto) [place] # Eos # Seg Neutrophils % INR APTT Sodium Potassium Chloride 97.3 L Carbon Dioxide BUN 30 H Creatinine 4.1 H Glucose 256 H POC Glucose 305 H 264 H Hemoglobin A1c Calcium 7.3 L Phosphorus ALT Alkaline Phosphatase Albumin Crossmatch 10/23/18 10/23/18 10/23/18 07:54 10:20 12:00 WBC RBC 2.22 L Hgb 6.4 L Hct 21.0 L MCV 95 H MCHC 31 L RDW 21.1 H [place] % (Auto) 8.1 H Eos % (Auto) [place] # Eos # Seg Neutrophils % 70.3 H INR APTT Sodium Potassium Chloride Carbon Dioxide BUN Creatinine Glucose POC Glucose 293 H 335 H Hemoglobin A1c Calcium Phosphorus ALT Alkaline Phosphatase Albumin Crossmatch 10/23/18 10/23/18 10/24/18 15:47 23:29 07:56 WBC RBC Hgb Hct MCV MCHC RDW [place] % (Auto) Eos % (Auto) [place] # Eos # Seg Neutrophils % INR APTT Sodium 135 L Potassium Chloride 95.6 L Carbon Dioxide BUN 38 H Creatinine 4.9 H Glucose 250 H POC Glucose 279 H 185 H Hemoglobin A1c Calcium 7.6 L Phosphorus ALT Alkaline Phosphatase Albumin Crossmatch 10/24/18 07:56 WBC RBC 2.84 L Hgb 8.3 L Hct 26.1 L MCV MCHC RDW 19.7 H [place] % (Auto) 11.3 H Eos % (Auto) [place] # 1.1 H Eos # Seg Neutrophils % INR APTT Sodium Potassium Chloride Carbon Dioxide BUN Creatinine Glucose POC Glucose Hemoglobin A1c Calcium Phosphorus ALT Alkaline Phosphatase Albumin Crossmatch Allied health notes reviewed: nursing
--- NOTE | 2018-10-24 12:48 | Progress Note ---
Assessment and Plan /Anemia with hb 6.;4 - likely anemia of CD with acute drop - s/p 1 unit PRBC transfusion- follow h/h - ordered stool for occult blood /Chronic sacral stage 4 decubitus ulcer with acute infection and possible sepsis, likely POA Had very subtle presentation on admission - no fever, no white count, but then developed hypotension following admission wound care consulted - 1st evaluation on 10/21/18, preliminary cx was negative but now growing staph aureus and gm -ve rods - s/p clindamycin, ID consulted for abx recommendation - s/p bedside beridement by dr Tamayo - per ID no abx needed after debridement /Hypotension - due to septic shock, resolved s/p bicarbonate drip, s/p levophed negative blood culture, wound cultures growing staph and gm -ve rods - will monitor off abx per ID as had debridement preserved EF on 2d echo, off pressor, Placed on midodrine, /Severe hyperkalemia, resolved s/p bicarbonate drip Status post Kayexalate, sodium bicarbonate IV push, calcium gluconate, insulin and D50 and emergent dialysis with vascath / End stage renal disease on dialysis Nephrology consulted, dialysis as per renal team, avoid nephrotoxic agents, strict I/O, daily weight, repeat bmp to monitor serum potassium / Diabetes type 2 with hyperglycemia s/p insulin drip overnight on 10/20 we cont ADA diet, insulin, accu check, hypoglycemia protocol off insulin drip now /left pleural effusion, from volume overload, should correct with HD, continue to monitor / HTN (hypertension) Now hypotensivem, cont to Hold norvasc / AV graft malfunction Vascular surgery consulted, s/p Vas-Cath for emergent dialysis s/p Left Arm AV Graft Thrombectomy and Revision 10/23 / Gastroparesis due to DM Frequent small meals, treat BG with insulin, anti emetic therapy prn, supportive care / DVT prophylaxis SCD to BLE while in bed, Disposition: need CICI per PT Brief History: 48 YO Male with ESRD on HD(T,R,Sa) last dialyzed on , DM complicated by Gastroparesis, HTN, presents to ED for bleeding from his dialysis fistula and applied an occlusive dressing to stop the bleeding 3 days ago. Pt presented to his dialysis center for his scheduled session but was unable to undergo dialysis due to excessive bleeding secondary to clotted access. EMS notified, and transported to [facility]. Pt seen and evaluated in ED and found to have ESRD and Clotted dialysis access. Nephrology consulted in ED for dialysis. vascular surgery consulted in ED for surgical intervention. Following admission developed hyperglycemia, hyperkalemia and hypotension. Transferred to ICU for further monitoring, placed on levophed, insulin drip. Noted to have infected sacral wound with necrotic tissue. s/p vascath for emergent HD, started on abx, had debridement of wound at bedside by GS. Now off pressore, ID recommended to monitor off abx. s/p Left Arm AV Graft Thrombectomy and Revision 10/23. Plan to d/c CICI Radiological data: CXR: 1. Mild cardiomegaly with mild to moderate interstitial pulmonary edema and small left pleural effusion. Hospitalist Physical exam: GENERAL: well-developed and well-nourished AAM lying on bed appeared to be in no discomfort. HEENT: Normocephalic. Atraumatic. No conjunctival congestion or icterus. Patient has moist mucous membranes. NECK: Supple. Trachea midline. CHEST/LUNGS: Clear to auscultated bilaterally, breathing nonlabored. No wheezes crackles or rhonchi. HEART/CARDIOVASCULAR: Regular in rate and rhythm. S1 and S2 positive. ABDOMEN: Abdomen is soft, nontender. Patient has normal bowel sounds. SKIN: There is no rash. Warm and dry. NEURO: No focal motor deficit. Follows command. MUSCULOSKELETAL: b/l BKA EXTRIMITY: No edema, no cyanosis or clubbing. PSYCH: Cooperative. Subjective Date of service: 10/24/18 Principal diagnosis: Ac. hypoxemic resp failure; AV graft malfunction; Hypotension; JARVIS; ESRD Interval history: Patient seen and examined. Medical records and medication list reviewed. PT recommended CICI, d/c pending on placement Plan of care discussed at the bedside Objective - Constitutional Vitals: Vital Signs - 12hr 10/24/18 10/24/18 10/24/18 04:44 05:54 06:00 Temperature 98.0 F Pulse Rate 83 83 Respiratory 18 18 Rate Blood Pressure 137/62 O2 Sat by Pulse 98 Oximetry 10/24/18 10/24/18 08:14 10:21 Temperature 97.5 F L Pulse Rate 81 Respiratory 16 16 Rate Blood Pressure 153/68 O2 Sat by Pulse 93 Oximetry - Labs CBC & Chem 7: 10/24/18 07:56 10/24/18 07:56 Labs: Abnormal lab results 10/22/18 10/23/18 10/23/18 Range/Units 07:21 12:00 15:47 RBC (3.65-5.03) M/mm3 Hgb (11.8-15.2) gm/dl Hct (35.5-45.6) % RDW (13.2-15.2) % [place] % (Auto) (0.0-7.3) % [place] # (0.0-0.8) K/mm3 Sodium (137-145) mmol/L Chloride (98-107) mmol/L BUN (9-20) mg/dL Creatinine (0.8-1.5) mg/dL Glucose (75-100) mg/dL POC Glucose 335 H 279 H (70-105) Calcium (8.4-10.2) mg/dL Crossmatch See Detail 10/23/18 10/24/18 10/24/18 Range/Units 23:29 07:56 07:56 RBC 2.84 L (3.65-5.03) M/mm3 Hgb 8.3 L (11.8-15.2) gm/dl Hct 26.1 L (35.5-45.6) % RDW 19.7 H (13.2-15.2) % [place] % (Auto) 11.3 H (0.0-7.3) % [place] # 1.1 H (0.0-0.8) K/mm3 Sodium 135 L (137-145) mmol/L Chloride 95.6 L (98-107) mmol/L BUN 38 H (9-20) mg/dL Creatinine 4.9 H (0.8-1.5) mg/dL Glucose 250 H (75-100) mg/dL POC Glucose 185 H (70-105) Calcium 7.6 L (8.4-10.2) mg/dL Crossmatch
[2018-10-25] MEDS: SODIUM CHLORIDE FLUSH SYRINGE 10 ML IV SCH ×2 (00:27→09:43)
[2018-10-25] MEDS: MORPHINE IV PRN ×6 (00:27→22:24)
[2018-10-25] MEDS: DAKIN'S HALF STRENGTH TP SCH ×2 (01:09→09:00)
[2018-10-25 05:14] LABS: Basophils # (Auto) 0.1 K/mm3 (0.0-0.1); Basophils % (Auto) 0.6 % (0.0-1.8); Eosinophils # (Auto) 0.3 K/mm3 (0.0-0.4); Eosinophils % (Auto) 3.8 % (0.0-4.3); Hematocrit 26.7 % (35.5-45.6); Hemoglobin 8.7 gm/dl (11.8-15.2); Lymphocytes # (Auto) 1.8 K/mm3 (1.2-5.4); Lymphocytes % (Auto) 20.2 % (13.4-35.0); Mean Corpuscular HGB Conc 33 % (32-34); Mean Corpuscular Volume 91 fl (84-94); Monocytes # (Auto) 0.9 K/mm3 (0.0-0.8); Monocytes % (Auto) 10.4 % (0.0-7.3); Platelet Count 283 K/mm3 (140-440); Red Blood Count 2.93 M/mm3 (3.65-5.03); Red Cell Distribution Width 19.6 % (13.2-15.2)
[2018-10-25 05:32] LABS: Calcium 7.7 mg/dL (8.4-10.2)
[2018-10-25] MEDS: PROAMATINE PO SCH ×5 (08:00→17:00)
[2018-10-25] MEDS: HumuLIN R SUB-Q SCH ×4 (08:54→22:22)
[2018-10-25] MEDS: PHOSLO PO SCH ×4 (08:55→18:00)
[2018-10-25] MEDS: NEURONTIN PO SCH ×2 (09:01→22:22)
[2018-10-25] MEDS: CLARITIN PO SCH (09:01)
[2018-10-25] MEDS: PEPCID PO SCH (09:02)
[2018-10-25] MEDS: HEPARIN SUB-Q SCH ×2 (09:03→22:23)
--- NOTE | 2018-10-25 13:01 | Progress Note ---
Assessment and Plan /Anemia with hb 6.;4 - likely anemia of CD with acute drop - s/p 1 unit PRBC transfusion- follow h/h - ordered stool for occult blood /Chronic sacral stage 4 decubitus ulcer with acute infection and possible sepsis, likely POA Had very subtle presentation on admission - no fever, no white count, but then developed hypotension following admission wound care consulted - 1st evaluation on 10/21/18, preliminary cx was negative but now growing staph aureus and gm -ve rods - s/p clindamycin, ID consulted for abx recommendation - s/p bedside beridement by dr Tamayo - per ID no abx needed after debridement /Hypotension - due to septic shock, resolved s/p bicarbonate drip, s/p levophed negative blood culture, wound cultures growing staph and gm -ve rods - will monitor off abx per ID as had debridement preserved EF on 2d echo, off pressor, Placed on midodrine, /Severe hyperkalemia, resolved s/p bicarbonate drip Status post Kayexalate, sodium bicarbonate IV push, calcium gluconate, insulin and D50 and emergent dialysis with vascath / End stage renal disease on dialysis Nephrology consulted, dialysis as per renal team, avoid nephrotoxic agents, strict I/O, daily weight, repeat bmp to monitor serum potassium / Diabetes type 2 with hyperglycemia s/p insulin drip overnight on 10/20 we cont ADA diet, insulin, accu check, hypoglycemia protocol off insulin drip now /left pleural effusion, from volume overload, should correct with HD, continue to monitor / HTN (hypertension) Now hypotensivem, cont to Hold norvasc / AV graft malfunction Vascular surgery consulted, s/p Vas-Cath for emergent dialysis s/p Left Arm AV Graft Thrombectomy and Revision 10/23 / Gastroparesis due to DM Frequent small meals, treat BG with insulin, anti emetic therapy prn, supportive care / DVT prophylaxis SCD to BLE while in bed, Disposition: need CICI per PT Brief History: 48 YO Male with ESRD on HD(T,R,Sa) last dialyzed on , DM complicated by Gastroparesis, HTN, presents to ED for bleeding from his dialysis fistula and applied an occlusive dressing to stop the bleeding 3 days ago. Pt presented to his dialysis center for his scheduled session but was unable to undergo dialysis due to excessive bleeding secondary to clotted access. EMS notified, and transported to [facility]. Pt seen and evaluated in ED and found to have ESRD and Clotted dialysis access. Nephrology consulted in ED for dialysis. vascular surgery consulted in ED for surgical intervention. Following admission developed hyperglycemia, hyperkalemia and hypotension. Transferred to ICU for further monitoring, placed on levophed, insulin drip. Noted to have infected sacral wound with necrotic tissue. s/p vascath for emergent HD, started on abx, had debridement of wound at bedside by GS. Now off pressore, ID recommended to monitor off abx. s/p Left Arm AV Graft Thrombectomy and Revision 10/23. Plan to d/c CICI Radiological data: CXR: 1. Mild cardiomegaly with mild to moderate interstitial pulmonary edema and small left pleural effusion. Hospitalist Physical exam: GENERAL: well-developed and well-nourished AAM lying on bed appeared to be in no discomfort. HEENT: Normocephalic. Atraumatic. No conjunctival congestion or icterus. Patient has moist mucous membranes. NECK: Supple. Trachea midline. CHEST/LUNGS: Clear to auscultated bilaterally, breathing nonlabored. No wheezes crackles or rhonchi. HEART/CARDIOVASCULAR: Regular in rate and rhythm. S1 and S2 positive. ABDOMEN: Abdomen is soft, nontender. Patient has normal bowel sounds. SKIN: There is no rash. Warm and dry. NEURO: No focal motor deficit. Follows command. MUSCULOSKELETAL: b/l BKA EXTRIMITY: No edema, no cyanosis or clubbing. PSYCH: Cooperative. Subjective Date of service: 10/25/18 Principal diagnosis: Ac. hypoxemic resp failure; AV graft malfunction; Hypotension; JARVIS; ESRD Interval history: Patient seen and examined. Medical records and medication list reviewed. PT recommended CICI, d/c pending on placement Plan of care discussed at the bedside Objective - Constitutional Vitals: Vital Signs - 12hr 10/25/18 10/25/18 10/25/18 05:20 05:30 05:32 Temperature 98.3 F Pulse Rate 86 Respiratory 18 18 Rate Blood Pressure 109/32 O2 Sat by Pulse 94 Oximetry 10/25/18 10/25/18 07:53 11:20 Temperature 98.4 F 98.8 F Pulse Rate 93 H 86 Respiratory 16 16 Rate Blood Pressure 113/54 117/49 O2 Sat by Pulse 92 94 Oximetry - Labs CBC & Chem 7: 10/25/18 04:50 10/25/18 04:50 Labs: Abnormal lab results 10/24/18 10/24/18 10/25/18 Range/Units 17:46 21:18 04:50 RBC 2.93 L (3.65-5.03) M/mm3 Hgb 8.7 L (11.8-15.2) gm/dl Hct 26.7 L (35.5-45.6) % RDW 19.6 H (13.2-15.2) % [place] % (Auto) 10.4 H (0.0-7.3) % [place] # 0.9 H (0.0-0.8) K/mm3 Sodium (137-145) mmol/L Chloride (98-107) mmol/L BUN (9-20) mg/dL Creatinine (0.8-1.5) mg/dL Glucose (75-100) mg/dL POC Glucose 251 H 333 H (70-105) Calcium (8.4-10.2) mg/dL 10/25/18 10/25/18 10/25/18 Range/Units 04:50 08:00 11:25 RBC (3.65-5.03) M/mm3 Hgb (11.8-15.2) gm/dl Hct (35.5-45.6) % RDW (13.2-15.2) % [place] % (Auto) (0.0-7.3) % [place] # (0.0-0.8) K/mm3 Sodium 136 L (137-145) mmol/L Chloride 95.0 L (98-107) mmol/L BUN 32 H (9-20) mg/dL Creatinine 4.1 H (0.8-1.5) mg/dL Glucose 248 H (75-100) mg/dL POC Glucose 315 H 300 H (70-105) Calcium 7.7 L (8.4-10.2) mg/dL
--- NOTE | 2018-10-25 13:39 | Progress Note ---
Assessment and Plan ESRD on Hemodialysis: Hyperkalemia: -s/p HD yesterday, no HD today. -If Left AVG functioning well, will remove Right IJ Vas Catheter -Assess need for HD on daily basis -Dr Salmon (vascular surgery) on board, s/p Right IJ Vas Catheter placement -S/p Left Arm AV Graft Thrombectomy and Revision on 10/22/[address] Salmon -Fluid restriction of 1 liter per day -Renally dose all medications -This pt undergoes outpatient HD at [facility] every TTS Anemia: - Epogen dosing for anemia management Chronic Sacral Decubitus Ulcer: -Gen surgery on board, s/p Debridement of sacral pressure ulcer on 10/23/[address] Tamayo Hypotension: Hx of Essential Hypertension: -Holding all BP medications -On midodrine for blood pressure support Diabetes mellitus 2 on insulin: -As per primary team Subjective Date of service: 10/25/18 Principal diagnosis: Ac. hypoxemic resp failure; AV graft malfunction; Hypotension; JARVIS; ESRD Interval history: Tolerated HD yesterday. Objective - Exam Narrative Exam: General appearance: well-developed EENT: ATNC Neck: no JVD Respiratory: Present: Decreased Breath Sounds Cardiology: regular, S1S2, other (ACCESS: Right IJ Vas Catheter intact; Left AVG + thrill and bruit noted) Gastrointestinal: normoactive bowel sounds, no tenderness Integumentary: warm and dry Neurologic: alert and oriented x3 Musculoskeletal: other (trace edema to BLE) Psychiatric: cooperative - Vital Signs Vital signs: Vital Signs - 12hr 10/25/18 10/25/18 10/25/18 05:20 05:30 05:32 Temperature 98.3 F Pulse Rate 86 Respiratory 18 18 Rate Blood Pressure 109/32 O2 Sat by Pulse 94 Oximetry 10/25/18 10/25/18 07:53 11:20 Temperature 98.4 F 98.8 F Pulse Rate 93 H 86 Respiratory 16 16 Rate Blood Pressure 113/54 117/49 O2 Sat by Pulse 92 94 Oximetry - Lab 10/25/18 04:50 10/25/18 04:50 Most recent lab results Calcium 7.7 mg/dL (8.4-10.2) L 10/25/18 04:50 Phosphorus 7.10 mg/dL (2.5-4.5) H 10/19/18 19:00 Magnesium 2.00 mg/dL (1.7-2.3) 10/19/18 19:00 Medications & Allergies - Medications Allergies/Adverse Reactions: Allergies cephalexin [From Keflex] Allergy (Verified 02/23/17 19:02) Vomiting vancomycin Allergy (Verified 06/16/18 06:34) Rash Home Medications: Home Medications Medication Instructions Recorded Confirmed Last Taken Type amLODIPine [Norvasc] 5 mg PO DAILY 07/19/13 10/18/18 06/15/18 History Calcium Acetate [Phoslo] 667 mg PO TIDAC 06/16/18 10/18/18 06/15/18 History Cetirizine HCl [ZyrTEC 10mg cap] 10 mg PO QDAY 06/16/18 10/18/18 06/15/18 History Gabapentin [Neurontin] 100 mg PO BID 06/16/18 10/18/18 06/15/18 History Insulin NPH/Regular [NovoLIN 70/30] 10 units SQ QPM 06/16/18 10/18/18 06/15/18 History Insulin NPH/Regular [NovoLIN 70/30] 15 units SQ QAM 06/16/18 10/18/18 06/15/18 History Oxycodone HCl [oxyCODONE] 10 mg PO Q8HR PRN #7 tablet 10/25/18 Unknown Rx Active Medications: Generic Name Dose Route Start Last Admin Trade Name Freq PRN Reason Stop Dose Admin Acetaminophen 650 mg 10/18/18 14:31 10/23/18 23:32 Tylenol PO 650 mg Q4H PRN Administration Pain MILD(1-3)/Fever >100.5/OSBORN Albuterol 2.5 mg 10/18/18 14:31 Proventil IH Q4HRT PRN Shortness Of Breath Calcium Acetate 667 mg 10/18/18 16:30 10/25/18 12:43 Phoslo PO Not Given TIDAC DAFNE Dextrose 0 ml 10/19/18 18:51 10/20/18 09:33 D50w (25gm) Syringe IV 20 ml PRN PRN Administration Hypoglycemia Epoetin Bryson 20,000 unit 10/23/18 12:58 10/24/18 16:44 Procrit SUB-Q 20,000 unit SHUN DAFNE Administration Famotidine 20 mg 10/20/18 14:00 10/25/18 09:02 Pepcid PO 20 mg DAILY DAFNE Administration Gabapentin 100 mg 10/18/18 22:00 10/25/18 09:01 Neurontin PO 100 mg BID DAFNE Administration Heparin Sodium (Porcine) 5,000 unit 10/19/18 22:00 10/25/18 09:03 Heparin SUB-Q 5,000 unit Q12HR DAFNE Administration Sodium Chloride 1,000 mls @ 42 mls/hr 10/22/18 11:30 Nacl 0.9% 1000 Ml IV DIRECT DAFNE Insulin Human NPH 15 unit 10/21/18 17:00 10/25/18 08:53 Humulin N SUB-Q 15 unit BIDDIAB DAFNE Administration Insulin Human Regular 0 units 10/20/18 16:30 10/25/18 12:44 Humulin R SUB-Q 4 units ACHS DAFNE Administration Protocol Loratadine 10 mg 10/19/18 10:00 10/25/18 09:01 Claritin PO 10 mg DAILY DAFNE Administration Midodrine 10 mg 10/21/18 16:00 10/25/18 12:41 Proamatine PO 10 mg TID@0800,1200,1600 DAFNE Administration Morphine Sulfate 1 mg 10/20/18 16:37 10/25/18 09:38 Morphine IV 1 mg Q4H PRN Administration Pain, Moderate (4-6) Ondansetron HCl 4 mg 10/18/18 14:31 Zofran IV Q8H PRN Nausea And Vomiting Oxycodone HCl 10 mg 10/18/18 14:36 10/19/18 18:52 Roxicodone PO 10 mg Q8H PRN Administration Pain, Moderate (4-6) Sodium Chloride 10 ml 10/18/18 22:00 10/25/18 09:43 Sodium Chloride Flush Syringe 10 Ml IV 10 ml BID DAFNE Administration Sodium Chloride 10 ml 10/18/18 14:31 10/23/18 04:25 Sodium Chloride Flush Syringe 10 Ml IV 10 ml PRN PRN Administration LINE FLUSH Sodium Hypochlorite 1 applic 10/21/18 11:00 10/25/18 09:00 Dakin's Half Strength TP 1 applicatio BID DAFNE Administration
--- NOTE | 2018-10-25 14:10 | Progress Note ---
Assessment and Plan Acute hypoxemic respiratory failure Acute pulmonary edema. Left pleural effusion. Arteriovenous graft malfunction. Hypotension -multifactorial (including element of acute blood loss anemia) ABLA Diabetes type 1. Obesity. End-stage renal disease, on dialysis. History of hypertension Continue all supportive care Discharge planning per primary service - continue with supportive transfusions to keep HgB>7g/dL - continue HD/UF per nephroplogy prescription for toxin and volume clearance - monitor off antibiotics per ID recs - follow cultures (NGTD) - continue wound care for sacral ulcers per WCT - continue glycemic control with SSI for target BG 140-180 mg/dl - continue promotility agents for gastroparesis -PT/OT to increase activity - continue other care per attending / other consultants Subjective Date of service: 10/25/18 Principal diagnosis: Ac. hypoxemic resp failure; AV graft malfunction; Hypotension; JARVIS; ESRD Interval history: Patient is seen today for: Acute hypoxemic respiratory failure; Acute pulmonary edema; Left pleural effusion; Arteriovenous graft malfunction; Hypotension multifactorial (including element of acute blood loss anemia); ABLA; Diabetes type 1; Obesity; HTN; ESRD on Dialysis Seen and examined at bedside; 24hour events reviewed; nursing and respiratory care staff consulted; no adverse overnight events reported to me; Vitals, labs, medications, chart and imaging reviewed; resting peacefully in bed;s/p blood transfusions ; s/p Left Arm AV Graft Thrombectomy and Revision 10/23 ;s/p bedside wound debridement for sacral decubitus Denies any chest pain, no shortness of breath, no fevers or chills, no diarrhea or nausea/vomiting. States his appetite is improving. Objective Vital Signs - 12hr 10/25/18 10/25/18 10/25/18 05:20 05:30 05:32 Temperature 98.3 F Pulse Rate 86 Respiratory 18 18 Rate Blood Pressure 109/32 O2 Sat by Pulse 94 Oximetry 10/25/18 10/25/18 07:53 11:20 Temperature 98.4 F 98.8 F Pulse Rate 93 H 86 Respiratory 16 16 Rate Blood Pressure 113/54 117/49 O2 Sat by Pulse 92 94 Oximetry Constitutional: no acute distress, alert, other (middle aged obese AAM, normocephalic and atraumatic with normal resp effort at rest) Eyes: non-icteric ENT: oropharynx moist, other (Mallampati 4) Neck: supple, no lymphadenopathy, no JVD, other (RIJ Trialysis catheter) Effort: normal Ascultation: Bilateral: rales (bases) Percussion: Bilateral: not dull Cardiovascular: regular rate and rhythm Gastrointestinal: normoactive bowel sounds, soft, non-tender, non-distended Integumentary: normal, decubitus ulcer, other (see wound care notes re Sacral decubitus ulcer) Extremities: no cyanosis, no edema, pulses normal, no ischemia or petechiae, other (bilateral BKA's) Neurologic: normal mental status, non-focal exam, pupils equal and round, motor strength normal and Psychiatric: mood appropriate, affect normal CBC and BMP: 10/25/18 04:50 10/25/18 04:50 ABG, PT/INR, D-dimer: PT/INR, D-dimer PT 14.8 Sec. (12.2-14.9) 10/18/18 12:43 INR 1.19 (0.87-1.13) H 10/18/18 12:43 Abnormal lab findings: Abnormal Labs 10/18/18 10/18/18 10/18/18 12:43 12:43 12:43 WBC RBC 2.79 L Hgb 8.0 L Hct 25.9 L MCV MCHC 31 L RDW 21.8 H [place] % (Auto) 10.0 H Eos % (Auto) [place] # Eos # Seg Neutrophils % INR 1.19 H APTT 41.2 H Sodium Potassium Chloride Carbon Dioxide BUN 30 H Creatinine 4.6 H Glucose POC Glucose Hemoglobin A1c Calcium 7.8 L Phosphorus 5.10 H ALT Alkaline Phosphatase Albumin Crossmatch 10/19/18 10/19/18 10/19/18 15:05 15:05 15:05 WBC RBC 2.64 L Hgb 7.7 L Hct 26.1 L MCV 99 H MCHC 30 L RDW 22.3 H [place] % (Auto) 8.1 H Eos % (Auto) [place] # Eos # Seg Neutrophils % INR APTT Sodium 133 L Potassium 6.5 H* D Chloride 94.9 L Carbon Dioxide 16 L D BUN 48 H Creatinine 5.7 H Glucose 525 H* POC Glucose Hemoglobin A1c 7.2 H Calcium 7.6 L Phosphorus 7.00 H D ALT 6 L Alkaline Phosphatase 214 H Albumin 1.9 L Crossmatch 10/19/18 10/19/18 10/19/18 16:45 16:59 17:54 WBC RBC Hgb Hct MCV MCHC RDW [place] % (Auto) Eos % (Auto) [place] # Eos # Seg Neutrophils % INR APTT Sodium Potassium 6.8 H* Chloride Carbon Dioxide BUN Creatinine Glucose POC Glucose > 500 H > 500 H Hemoglobin A1c Calcium Phosphorus ALT Alkaline Phosphatase Albumin Crossmatch 10/19/18 10/19/18 10/19/18 17:58 19:00 19:30 WBC RBC Hgb Hct MCV MCHC RDW [place] % (Auto) Eos % (Auto) [place] # Eos # Seg Neutrophils % INR APTT Sodium Potassium Chloride Carbon Dioxide BUN Creatinine Glucose 564 H* POC Glucose > 500 H Hemoglobin A1c Calcium Phosphorus 7.10 H ALT Alkaline Phosphatase Albumin Crossmatch 10/19/18 10/19/18 10/19/18 20:30 21:17 22:14 WBC RBC Hgb Hct MCV MCHC RDW [place] % (Auto) Eos % (Auto) [place] # Eos # Seg Neutrophils % INR APTT Sodium Potassium Chloride Carbon Dioxide BUN Creatinine Glucose POC Glucose 467 H 483 H 411 H Hemoglobin A1c Calcium Phosphorus ALT Alkaline Phosphatase Albumin Crossmatch 10/19/18 10/20/18 10/20/18 23:14 00:14 01:22 WBC RBC Hgb Hct MCV MCHC RDW [place] % (Auto) Eos % (Auto) [place] # Eos # Seg Neutrophils % INR APTT Sodium Potassium Chloride Carbon Dioxide BUN Creatinine Glucose POC Glucose 382 H 290 H 292 H Hemoglobin A1c Calcium Phosphorus ALT Alkaline Phosphatase Albumin Crossmatch 10/20/18 10/20/18 10/20/18 02:05 03:08 04:09 WBC RBC Hgb Hct MCV MCHC RDW [place] % (Auto) Eos % (Auto) [place] # Eos # Seg Neutrophils % INR APTT Sodium Potassium Chloride Carbon Dioxide BUN Creatinine Glucose POC Glucose 260 H 216 H 235 H Hemoglobin A1c Calcium Phosphorus ALT Alkaline Phosphatase Albumin Crossmatch 10/20/18 10/20/18 10/20/18 05:10 06:02 06:54 WBC RBC Hgb Hct MCV MCHC RDW [place] % (Auto) Eos % (Auto) [place] # Eos # Seg Neutrophils % INR APTT Sodium 136 L Potassium 3.4 L D Chloride 77.7 L Carbon Dioxide 50 H* D BUN 34 H Creatinine 4.1 H Glucose 1171 H* POC Glucose 179 H 114 H Hemoglobin A1c Calcium 4.9 L* D Phosphorus ALT Alkaline Phosphatase Albumin Crossmatch 10/20/18 10/20/18 10/20/18 08:54 09:30 09:34 WBC RBC Hgb Hct MCV MCHC RDW [place] % (Auto) Eos % (Auto) [place] # Eos # Seg Neutrophils % INR APTT Sodium Potassium 5.3 H D Chloride Carbon Dioxide BUN 49 H Creatinine 6.4 H D Glucose 53 L POC Glucose 59 L 50 L Hemoglobin A1c Calcium 7.5 L D Phosphorus ALT Alkaline Phosphatase Albumin Crossmatch 10/20/18 10/20/18 10/20/18 11:55 12:24 15:54 WBC RBC Hgb Hct MCV MCHC RDW [place] % (Auto) Eos % (Auto) [place] # Eos # Seg Neutrophils % INR APTT Sodium Potassium 5.3 H Chloride Carbon Dioxide BUN 49 H Creatinine 6.4 H Glucose 108 H POC Glucose 108 H 234 H Hemoglobin A1c Calcium 7.4 L Phosphorus ALT Alkaline Phosphatase Albumin Crossmatch 10/20/18 10/20/18 10/20/18 19:25 19:58 21:32 WBC RBC Hgb Hct MCV MCHC RDW [place] % (Auto) Eos % (Auto) [place] # Eos # Seg Neutrophils % INR APTT Sodium Potassium Chloride 95.8 L Carbon Dioxide BUN 27 H Creatinine 4.0 H Glucose 266 H POC Glucose 272 H 242 H Hemoglobin A1c Calcium 7.4 L Phosphorus ALT Alkaline Phosphatase Albumin Crossmatch 10/21/18 10/21/18 10/21/18 04:45 08:37 11:44 WBC RBC Hgb Hct MCV MCHC RDW [place] % (Auto) Eos % (Auto) [place] # Eos # Seg Neutrophils % INR APTT Sodium Potassium Chloride 96.1 L Carbon Dioxide BUN 33 H Creatinine 4.3 H Glucose 118 H POC Glucose 203 H 216 H Hemoglobin A1c Calcium 7.3 L Phosphorus ALT Alkaline Phosphatase Albumin Crossmatch 10/21/18 10/21/18 10/21/18 14:34 16:17 21:24 WBC RBC 2.72 L Hgb 7.9 L Hct 25.7 L D MCV 95 H MCHC 31 L RDW 21.4 H [place] % (Auto) Eos % (Auto) [place] # Eos # Seg Neutrophils % INR APTT Sodium Potassium Chloride Carbon Dioxide BUN Creatinine Glucose POC Glucose 191 H 112 H Hemoglobin A1c Calcium Phosphorus ALT Alkaline Phosphatase Albumin Crossmatch 10/21/18 10/22/18 10/22/18 Unknown 04:26 04:26 WBC 11.4 H RBC 1.99 L 2.41 L Hgb 5.7 L* 7.1 L Hct 18.4 L* D 22.4 L MCV MCHC 31 L RDW 20.9 H 21.1 H [place] % (Auto) 11.3 H Eos % (Auto) 6.8 H [place] # 1.0 H Eos # 0.6 H Seg Neutrophils % INR APTT Sodium 135 L Potassium Chloride 96.1 L Carbon Dioxide BUN 38 H Creatinine 5.1 H Glucose 113 H POC Glucose Hemoglobin A1c Calcium 7.2 L Phosphorus ALT Alkaline Phosphatase Albumin Crossmatch 10/22/18 10/22/18 10/22/18 07:21 07:58 11:31 WBC RBC Hgb Hct MCV MCHC RDW [place] % (Auto) Eos % (Auto) [place] # Eos # Seg Neutrophils % INR APTT Sodium Potassium Chloride Carbon Dioxide BUN Creatinine Glucose POC Glucose 160 H 224 H Hemoglobin A1c Calcium Phosphorus ALT Alkaline Phosphatase Albumin Crossmatch See Detail 10/22/18 10/22/18 10/23/18 18:54 21:33 07:54 WBC RBC Hgb Hct MCV MCHC RDW [place] % (Auto) Eos % (Auto) [place] # Eos # Seg Neutrophils % INR APTT Sodium Potassium Chloride 97.3 L Carbon Dioxide BUN 30 H Creatinine 4.1 H Glucose 256 H POC Glucose 305 H 264 H Hemoglobin A1c Calcium 7.3 L Phosphorus ALT Alkaline Phosphatase Albumin Crossmatch 10/23/18 10/23/18 10/23/18 07:54 10:20 12:00 WBC RBC 2.22 L Hgb 6.4 L Hct 21.0 L MCV 95 H MCHC 31 L RDW 21.1 H [place] % (Auto) 8.1 H Eos % (Auto) [place] # Eos # Seg Neutrophils % 70.3 H INR APTT Sodium Potassium Chloride Carbon Dioxide BUN Creatinine Glucose POC Glucose 293 H 335 H Hemoglobin A1c Calcium Phosphorus ALT Alkaline Phosphatase Albumin Crossmatch 10/23/18 10/23/18 10/24/18 15:47 23:29 07:56 WBC RBC Hgb Hct MCV MCHC RDW [place] % (Auto) Eos % (Auto) [place] # Eos # Seg Neutrophils % INR APTT Sodium 135 L Potassium Chloride 95.6 L Carbon Dioxide BUN 38 H Creatinine 4.9 H Glucose 250 H POC Glucose 279 H 185 H Hemoglobin A1c Calcium 7.6 L Phosphorus ALT Alkaline Phosphatase Albumin Crossmatch 10/24/18 10/24/18 10/24/18 07:56 12:39 17:46 WBC RBC 2.84 L Hgb 8.3 L Hct 26.1 L MCV MCHC RDW 19.7 H [place] % (Auto) 11.3 H Eos % (Auto) [place] # 1.1 H Eos # Seg Neutrophils % INR APTT Sodium Potassium Chloride Carbon Dioxide BUN Creatinine Glucose POC Glucose 331 H 251 H Hemoglobin A1c Calcium Phosphorus ALT Alkaline Phosphatase Albumin Crossmatch 10/24/18 10/25/18 10/25/18 21:18 04:50 04:50 WBC RBC 2.93 L Hgb 8.7 L Hct 26.7 L MCV MCHC RDW 19.6 H [place] % (Auto) 10.4 H Eos % (Auto) [place] # 0.9 H Eos # Seg Neutrophils % INR APTT Sodium 136 L Potassium Chloride 95.0 L Carbon Dioxide BUN 32 H Creatinine 4.1 H Glucose 248 H POC Glucose 333 H Hemoglobin A1c Calcium 7.7 L Phosphorus ALT Alkaline Phosphatase Albumin Crossmatch 10/25/18 10/25/18 08:00 11:25 WBC RBC Hgb Hct MCV MCHC RDW [place] % (Auto) Eos % (Auto) [place] # Eos # Seg Neutrophils % INR APTT Sodium Potassium Chloride Carbon Dioxide BUN Creatinine Glucose POC Glucose 315 H 300 H Hemoglobin A1c Calcium Phosphorus ALT Alkaline Phosphatase Albumin Crossmatch Allied health notes reviewed: nursing
[2018-10-26] MEDS: MORPHINE IV PRN ×5 (03:38→23:04)
[2018-10-26] MEDS: DAKIN'S HALF STRENGTH TP SCH ×3 (05:23→23:06)
[2018-10-26] MEDS: PHOSLO PO SCH ×5 (08:44→19:08)
[2018-10-26] MEDS: HumuLIN R SUB-Q SCH ×7 (08:45→23:03)
[2018-10-26] MEDS: PEPCID PO SCH (09:47)
[2018-10-26] MEDS: PROAMATINE PO SCH ×4 (09:47→19:11)
[2018-10-26] MEDS: NEURONTIN PO SCH ×3 (09:47→23:02)
[2018-10-26] MEDS: CLARITIN PO SCH (09:48)
[2018-10-26] MEDS: SODIUM CHLORIDE FLUSH SYRINGE 10 ML IV SCH ×2 (09:50→23:06)
[2018-10-26] MEDS: HEPARIN SUB-Q SCH ×2 (09:50→23:05)
--- NOTE | 2018-10-26 12:07 | Progress Note ---
Assessment and Plan /Anemia with hb 6.;4 - likely anemia of CD with acute drop - s/p 1 unit PRBC transfusion- H/H stable - no evidence of active bleeding /Chronic sacral stage 4 decubitus ulcer with acute infection and possible sepsis, likely POA Had very subtle presentation on admission - no fever, no white count, but then developed hypotension following admission wound care consulted - 1st evaluation on 10/21/18, preliminary cx was negative but now growing staph aureus and gm -ve rods - s/p clindamycin, ID consulted for abx recommendation - s/p bedside beridement by dr Tamayo - per ID no abx needed after debridement /Hypotension - due to septic shock, resolved s/p bicarbonate drip, s/p levophed negative blood culture, wound cultures growing staph and gm -ve rods - will monitor off abx per ID as had debridement preserved EF on 2d echo, off pressor, Placed on midodrine, /Severe hyperkalemia, resolved s/p bicarbonate drip Status post Kayexalate, sodium bicarbonate IV push, calcium gluconate, insulin and D50 and emergent dialysis with vascath / End stage renal disease on dialysis Nephrology consulted, dialysis as per renal team, avoid nephrotoxic agents, strict I/O, daily weight, repeat bmp to monitor serum potassium / Diabetes type 2 with hyperglycemia s/p insulin drip overnight on 10/20 we cont ADA diet, insulin, accu check, hypoglycemia protocol off insulin drip now /left pleural effusion, from volume overload, should correct with HD, continue to monitor / HTN (hypertension) Now hypotensivem, cont to Hold norvasc / AV graft malfunction Vascular surgery consulted, s/p Vas-Cath for emergent dialysis s/p Left Arm AV Graft Thrombectomy and Revision 10/23 / Gastroparesis due to DM Frequent small meals, treat BG with insulin, anti emetic therapy prn, supportive care / DVT prophylaxis SCD to BLE while in bed, Disposition: need CICI per PT Brief History: 48 YO Male with ESRD on HD(T,R,Sa) last dialyzed on , DM complicated by Gastroparesis, HTN, presents to ED for bleeding from his dialysis fistula and applied an occlusive dressing to stop the bleeding 3 days ago. Pt presented to his dialysis center for his scheduled session but was unable to undergo dialysis due to excessive bleeding secondary to clotted access. EMS notified, and transported to [facility]. Pt seen and evaluated in ED and found to have ESRD and Clotted dialysis access. Nephrology consulted in ED for dialysis. vascular surgery consulted in ED for surgical intervention. Following admission developed hyperglycemia, hyperkalemia and hypotension. Transferred to ICU for further monitoring, placed on levophed, insulin drip. Noted to have infected sacral wound with necrotic tissue. s/p vascath for emergent HD, started on abx, had debridement of wound at bedside by GS. Now off pressore, ID recommended to monitor off abx. s/p Left Arm AV Graft Thrombectomy and Revision 10/23. Plan to d/c CICI Radiological data: CXR: 1. Mild cardiomegaly with mild to moderate interstitial pulmonary edema and small left pleural effusion. Hospitalist Physical exam: GENERAL: well-developed and well-nourished AAM lying on bed appeared to be in no discomfort. HEENT: Normocephalic. Atraumatic. No conjunctival congestion or icterus. Patient has moist mucous membranes. NECK: Supple. Trachea midline. CHEST/LUNGS: Clear to auscultated bilaterally, breathing nonlabored. No wheezes crackles or rhonchi. HEART/CARDIOVASCULAR: Regular in rate and rhythm. S1 and S2 positive. ABDOMEN: Abdomen is soft, nontender. Patient has normal bowel sounds. SKIN: There is no rash. Warm and dry. NEURO: No focal motor deficit. Follows command. MUSCULOSKELETAL: b/l BKA EXTRIMITY: No edema, no cyanosis or clubbing. PSYCH: Cooperative. Subjective Date of service: 10/26/18 Principal diagnosis: Ac. hypoxemic resp failure; AV graft malfunction; Hypotension; JARVIS; ESRD Interval history: Patient seen and examined. Medical records and medication list reviewed. PT recommended CICI, d/c pending on placement Plan of care discussed at the bedside Objective - Constitutional Vitals: Vital Signs - 12hr 10/26/18 10/26/18 10/26/18 03:23 03:38 08:14 Temperature 98.2 F 98.2 F Pulse Rate 85 87 Pulse Rate [ Apical] Pulse Rate [ Left Radial] Pulse Rate [ Right Radial] Respiratory 18 18 14 Rate Blood Pressure 154/77 122/48 O2 Sat by Pulse 94 93 Oximetry 10/26/18 10:00 Temperature Pulse Rate Pulse Rate [ 87 Apical] Pulse Rate [ 87 Left Radial] Pulse Rate [ 87 Right Radial] Respiratory 19 Rate Blood Pressure O2 Sat by Pulse 98 Oximetry - Labs CBC & Chem 7: 10/27/18 06:50 10/27/18 06:50 Labs: Abnormal lab results 10/25/18 10/25/18 10/26/18 Range/Units 16:24 21:13 08:21 POC Glucose 186 H 168 H 207 H (70-105) 10/26/18 Range/Units 11:34 POC Glucose 152 H (70-105)
[2018-10-26 13:22] LABS: Calcium 6.8 mg/dL (8.4-10.2)
--- NOTE | 2018-10-26 13:54 | Progress Note ---
Assessment and Plan Acute hypoxemic respiratory failure Acute pulmonary edema. Left pleural effusion. Arteriovenous graft malfunction. Hypotension -multifactorial (including element of acute blood loss anemia) ABLA Diabetes type 1. Obesity. End-stage renal disease, on dialysis. History of hypertension Continue all supportive care Discharge planning per primary service Discontinue RIJ trialysis catheter in anticipation of discharge - continue with supportive transfusions to keep HgB>7g/dL - continue HD/UF per nephroplogy prescription for toxin and volume clearance - monitor off antibiotics per ID recs - follow cultures (NGTD) - continue wound care for sacral ulcers per WCT - continue glycemic control with SSI for target BG 140-180 mg/dl - continue promotility agents for gastroparesis -PT/OT to increase activity - continue other care per attending / other consultants Subjective Date of service: 10/26/18 Principal diagnosis: Ac. hypoxemic resp failure; AV graft malfunction; Hypotension; JARVIS; ESRD Interval history: Patient is seen today for: Acute hypoxemic respiratory failure; Acute pulmonary edema; Left pleural effusion; Arteriovenous graft malfunction; Hypotension multifactorial (including element of acute blood loss anemia); ABLA; Diabetes type 1; Obesity; HTN; ESRD on Dialysis Seen and examined at bedside; 24hour events reviewed; nursing and respiratory care staff consulted; no adverse overnight events reported to me; Vitals, labs, medications, chart and imaging reviewed; resting peacefully in bed;s/p blood transfusions ; s/p Left Arm AV Graft Thrombectomy and Revision 10/23 ;s/p be dside wound debridement for sacral decubitus Denies any chest pain, no shortness of breath, no fevers or chills, no diarrhea or nausea/vomiting. No new issues Objective Vital Signs - 12hr 10/26/18 10/26/18 10/26/18 03:23 03:38 08:14 Temperature 98.2 F 98.2 F Pulse Rate 85 87 Pulse Rate [ Apical] Pulse Rate [ Left Radial] Pulse Rate [ Right Radial] Respiratory 18 18 14 Rate Blood Pressure 154/77 122/48 Blood Pressure [Left] O2 Sat by Pulse 94 93 Oximetry 10/26/18 10/26/18 10:00 13:46 Temperature 98.2 F Pulse Rate 80 87 Pulse Rate [ 87 Apical] Pulse Rate [ 87 Left Radial] Pulse Rate [ 87 Right Radial] Respiratory 19 21 Rate Blood Pressure Blood Pressure 122/77 [Left] O2 Sat by Pulse 98 Oximetry Constitutional: no acute distress, alert, other (middle aged obese AAM, normocephalic and atraumatic with normal resp effort at rest) Eyes: non-icteric ENT: oropharynx moist, other (Mallampati 4) Neck: supple, no lymphadenopathy, no JVD, other (RIJ Trialysis catheter) Effort: normal Ascultation: Bilateral: rales (bases) Percussion: Bilateral: not dull Cardiovascular: regular rate and rhythm Gastrointestinal: normoactive bowel sounds, soft, non-tender, non-distended Integumentary: normal, decubitus ulcer, other (see wound care notes re Sacral decubitus ulcer) Extremities: no cyanosis, no edema, pulses normal, no ischemia or petechiae, other (bilateral BKA's) Neurologic: normal mental status, non-focal exam, pupils equal and round, motor strength normal and Psychiatric: mood appropriate, affect normal CBC and BMP: 10/25/18 04:50 10/26/18 12:30 ABG, PT/INR, D-dimer: PT/INR, D-dimer PT 14.8 Sec. (12.2-14.9) 10/18/18 12:43 INR 1.19 (0.87-1.13) H 10/18/18 12:43 Abnormal lab findings: Abnormal Labs 10/18/18 10/18/18 10/18/18 12:43 12:43 12:43 WBC RBC 2.79 L Hgb 8.0 L Hct 25.9 L MCV MCHC 31 L RDW 21.8 H [place] % (Auto) 10.0 H Eos % (Auto) [place] # Eos # Seg Neutrophils % INR 1.19 H APTT 41.2 H Sodium Potassium Chloride Carbon Dioxide BUN 30 H Creatinine 4.6 H Glucose POC Glucose Hemoglobin A1c Calcium 7.8 L Phosphorus 5.10 H ALT Alkaline Phosphatase Albumin Crossmatch 10/19/18 10/19/18 10/19/18 15:05 15:05 15:05 WBC RBC 2.64 L Hgb 7.7 L Hct 26.1 L MCV 99 H MCHC 30 L RDW 22.3 H [place] % (Auto) 8.1 H Eos % (Auto) [place] # Eos # Seg Neutrophils % INR APTT Sodium 133 L Potassium 6.5 H* D Chloride 94.9 L Carbon Dioxide 16 L D BUN 48 H Creatinine 5.7 H Glucose 525 H* POC Glucose Hemoglobin A1c 7.2 H Calcium 7.6 L Phosphorus 7.00 H D ALT 6 L Alkaline Phosphatase 214 H Albumin 1.9 L Crossmatch 10/19/18 10/19/18 10/19/18 16:45 16:59 17:54 WBC RBC Hgb Hct MCV MCHC RDW [place] % (Auto) Eos % (Auto) [place] # Eos # Seg Neutrophils % INR APTT Sodium Potassium 6.8 H* Chloride Carbon Dioxide BUN Creatinine Glucose POC Glucose > 500 H > 500 H Hemoglobin A1c Calcium Phosphorus ALT Alkaline Phosphatase Albumin Crossmatch 10/19/18 10/19/18 10/19/18 17:58 19:00 19:30 WBC RBC Hgb Hct MCV MCHC RDW [place] % (Auto) Eos % (Auto) [place] # Eos # Seg Neutrophils % INR APTT Sodium Potassium Chloride Carbon Dioxide BUN Creatinine Glucose 564 H* POC Glucose > 500 H Hemoglobin A1c Calcium Phosphorus 7.10 H ALT Alkaline Phosphatase Albumin Crossmatch 10/19/18 10/19/18 10/19/18 20:30 21:17 22:14 WBC RBC Hgb Hct MCV MCHC RDW [place] % (Auto) Eos % (Auto) [place] # Eos # Seg Neutrophils % INR APTT Sodium Potassium Chloride Carbon Dioxide BUN Creatinine Glucose POC Glucose 467 H 483 H 411 H Hemoglobin A1c Calcium Phosphorus ALT Alkaline Phosphatase Albumin Crossmatch 10/19/18 10/20/18 10/20/18 23:14 00:14 01:22 WBC RBC Hgb Hct MCV MCHC RDW [place] % (Auto) Eos % (Auto) [place] # Eos # Seg Neutrophils % INR APTT Sodium Potassium Chloride Carbon Dioxide BUN Creatinine Glucose POC Glucose 382 H 290 H 292 H Hemoglobin A1c Calcium Phosphorus ALT Alkaline Phosphatase Albumin Crossmatch 10/20/18 10/20/18 10/20/18 02:05 03:08 04:09 WBC RBC Hgb Hct MCV MCHC RDW [place] % (Auto) Eos % (Auto) [place] # Eos # Seg Neutrophils % INR APTT Sodium Potassium Chloride Carbon Dioxide BUN Creatinine Glucose POC Glucose 260 H 216 H 235 H Hemoglobin A1c Calcium Phosphorus ALT Alkaline Phosphatase Albumin Crossmatch 10/20/18 10/20/18 10/20/18 05:10 06:02 06:54 WBC RBC Hgb Hct MCV MCHC RDW [place] % (Auto) Eos % (Auto) [place] # Eos # Seg Neutrophils % INR APTT Sodium 136 L Potassium 3.4 L D Chloride 77.7 L Carbon Dioxide 50 H* D BUN 34 H Creatinine 4.1 H Glucose 1171 H* POC Glucose 179 H 114 H Hemoglobin A1c Calcium 4.9 L* D Phosphorus ALT Alkaline Phosphatase Albumin Crossmatch 10/20/18 10/20/18 10/20/18 08:54 09:30 09:34 WBC RBC Hgb Hct MCV MCHC RDW [place] % (Auto) Eos % (Auto) [place] # Eos # Seg Neutrophils % INR APTT Sodium Potassium 5.3 H D Chloride Carbon Dioxide BUN 49 H Creatinine 6.4 H D Glucose 53 L POC Glucose 59 L 50 L Hemoglobin A1c Calcium 7.5 L D Phosphorus ALT Alkaline Phosphatase Albumin Crossmatch 10/20/18 10/20/18 10/20/18 11:55 12:24 15:54 WBC RBC Hgb Hct MCV MCHC RDW [place] % (Auto) Eos % (Auto) [place] # Eos # Seg Neutrophils % INR APTT Sodium Potassium 5.3 H Chloride Carbon Dioxide BUN 49 H Creatinine 6.4 H Glucose 108 H POC Glucose 108 H 234 H Hemoglobin A1c Calcium 7.4 L Phosphorus ALT Alkaline Phosphatase Albumin Crossmatch 10/20/18 10/20/18 10/20/18 19:25 19:58 21:32 WBC RBC Hgb Hct MCV MCHC RDW [place] % (Auto) Eos % (Auto) [place] # Eos # Seg Neutrophils % INR APTT Sodium Potassium Chloride 95.8 L Carbon Dioxide BUN 27 H Creatinine 4.0 H Glucose 266 H POC Glucose 272 H 242 H Hemoglobin A1c Calcium 7.4 L Phosphorus ALT Alkaline Phosphatase Albumin Crossmatch 10/21/18 10/21/18 10/21/18 04:45 08:37 11:44 WBC RBC Hgb Hct MCV MCHC RDW [place] % (Auto) Eos % (Auto) [place] # Eos # Seg Neutrophils % INR APTT Sodium Potassium Chloride 96.1 L Carbon Dioxide BUN 33 H Creatinine 4.3 H Glucose 118 H POC Glucose 203 H 216 H Hemoglobin A1c Calcium 7.3 L Phosphorus ALT Alkaline Phosphatase Albumin Crossmatch 10/21/18 10/21/18 10/21/18 14:34 16:17 21:24 WBC RBC 2.72 L Hgb 7.9 L Hct 25.7 L D MCV 95 H MCHC 31 L RDW 21.4 H [place] % (Auto) Eos % (Auto) [place] # Eos # Seg Neutrophils % INR APTT Sodium Potassium Chloride Carbon Dioxide BUN Creatinine Glucose POC Glucose 191 H 112 H Hemoglobin A1c Calcium Phosphorus ALT Alkaline Phosphatase Albumin Crossmatch 10/21/18 10/22/18 10/22/18 Unknown 04:26 04:26 WBC 11.4 H RBC 1.99 L 2.41 L Hgb 5.7 L* 7.1 L Hct 18.4 L* D 22.4 L MCV MCHC 31 L RDW 20.9 H 21.1 H [place] % (Auto) 11.3 H Eos % (Auto) 6.8 H [place] # 1.0 H Eos # 0.6 H Seg Neutrophils % INR APTT Sodium 135 L Potassium Chloride 96.1 L Carbon Dioxide BUN 38 H Creatinine 5.1 H Glucose 113 H POC Glucose Hemoglobin A1c Calcium 7.2 L Phosphorus ALT Alkaline Phosphatase Albumin Crossmatch 10/22/18 10/22/18 10/22/18 07:21 07:58 11:31 WBC RBC Hgb Hct MCV MCHC RDW [place] % (Auto) Eos % (Auto) [place] # Eos # Seg Neutrophils % INR APTT Sodium Potassium Chloride Carbon Dioxide BUN Creatinine Glucose POC Glucose 160 H 224 H Hemoglobin A1c Calcium Phosphorus ALT Alkaline Phosphatase Albumin Crossmatch See Detail 10/22/18 10/22/18 10/23/18 18:54 21:33 07:54 WBC RBC Hgb Hct MCV MCHC RDW [place] % (Auto) Eos % (Auto) [place] # Eos # Seg Neutrophils % INR APTT Sodium Potassium Chloride 97.3 L Carbon Dioxide BUN 30 H Creatinine 4.1 H Glucose 256 H POC Glucose 305 H 264 H Hemoglobin A1c Calcium 7.3 L Phosphorus ALT Alkaline Phosphatase Albumin Crossmatch 10/23/18 10/23/18 10/23/18 07:54 10:20 12:00 WBC RBC 2.22 L Hgb 6.4 L Hct 21.0 L MCV 95 H MCHC 31 L RDW 21.1 H [place] % (Auto) 8.1 H Eos % (Auto) [place] # Eos # Seg Neutrophils % 70.3 H INR APTT Sodium Potassium Chloride Carbon Dioxide BUN Creatinine Glucose POC Glucose 293 H 335 H Hemoglobin A1c Calcium Phosphorus ALT Alkaline Phosphatase Albumin Crossmatch 10/23/18 10/23/18 10/24/18 15:47 23:29 07:56 WBC RBC Hgb Hct MCV MCHC RDW [place] % (Auto) Eos % (Auto) [place] # Eos # Seg Neutrophils % INR APTT Sodium 135 L Potassium Chloride 95.6 L Carbon Dioxide BUN 38 H Creatinine 4.9 H Glucose 250 H POC Glucose 279 H 185 H Hemoglobin A1c Calcium 7.6 L Phosphorus ALT Alkaline Phosphatase Albumin Crossmatch 10/24/18 10/24/18 10/24/18 07:56 12:39 17:46 WBC RBC 2.84 L Hgb 8.3 L Hct 26.1 L MCV MCHC RDW 19.7 H [place] % (Auto) 11.3 H Eos % (Auto) [place] # 1.1 H Eos # Seg Neutrophils % INR APTT Sodium Potassium Chloride Carbon Dioxide BUN Creatinine Glucose POC Glucose 331 H 251 H Hemoglobin A1c Calcium Phosphorus ALT Alkaline Phosphatase Albumin Crossmatch 10/24/18 10/25/18 10/25/18 21:18 04:50 04:50 WBC RBC 2.93 L Hgb 8.7 L Hct 26.7 L MCV MCHC RDW 19.6 H [place] % (Auto) 10.4 H Eos % (Auto) [place] # 0.9 H Eos # Seg Neutrophils % INR APTT Sodium 136 L Potassium Chloride 95.0 L Carbon Dioxide BUN 32 H Creatinine 4.1 H Glucose 248 H POC Glucose 333 H Hemoglobin A1c Calcium 7.7 L Phosphorus ALT Alkaline Phosphatase Albumin Crossmatch 10/25/18 10/25/18 10/25/18 08:00 11:25 16:24 WBC RBC Hgb Hct MCV MCHC RDW [place] % (Auto) Eos % (Auto) [place] # Eos # Seg Neutrophils % INR APTT Sodium Potassium Chloride Carbon Dioxide BUN Creatinine Glucose POC Glucose 315 H 300 H 186 H Hemoglobin A1c Calcium Phosphorus ALT Alkaline Phosphatase Albumin Crossmatch 10/25/18 10/26/18 10/26/18 21:13 08:21 11:34 WBC RBC Hgb Hct MCV MCHC RDW [place] % (Auto) Eos % (Auto) [place] # Eos # Seg Neutrophils % INR APTT Sodium Potassium Chloride Carbon Dioxide BUN Creatinine Glucose POC Glucose 168 H 207 H 152 H Hemoglobin A1c Calcium Phosphorus ALT Alkaline Phosphatase Albumin Crossmatch 10/26/18 12:30 WBC RBC Hgb Hct MCV MCHC RDW [place] % (Auto) Eos % (Auto) [place] # Eos # Seg Neutrophils % INR APTT Sodium Potassium Chloride Carbon Dioxide BUN 38 H Creatinine 4.4 H Glucose 117 H POC Glucose Hemoglobin A1c Calcium 6.8 L Phosphorus ALT Alkaline Phosphatase Albumin Crossmatch Allied health notes reviewed: nursing
--- NOTE | 2018-10-26 14:03 | Progress Note ---
Assessment and Plan ESRD on Hemodialysis: Hyperkalemia: -s/p HD Saturday, no HD today. -If Left AVG functioning well, will remove Right IJ Vas Catheter -Assess need for HD on daily basis -Dr Salmon (vascular surgery) on board, s/p Right IJ Vas Catheter placement -S/p Left Arm AV Graft Thrombectomy and Revision on 10/22/[address] Salmon -Fluid restriction of 1 liter per day -Renally dose all medications -This pt undergoes outpatient HD at [facility] every Anemia: - Epogen dosing for anemia management Chronic Sacral Decubitus Ulcer: -Gen surgery on board, s/p Debridement of sacral pressure ulcer on 10/23/[address] Tamayo Hypotension: Hx of Essential Hypertension: -Holding all BP medications -On midodrine for blood pressure support Diabetes mellitus 2 on insulin: -As per primary team Subjective Date of service: 10/26/18 Principal diagnosis: Ac. hypoxemic resp failure; AV graft malfunction; Hypotension; JARVIS; ESRD Interval history: Tolerated HD Saturday. Objective - Exam Narrative Exam: General appearance: well-developed EENT: ATNC Neck: no JVD Respiratory: Present: Decreased Breath Sounds Cardiology: regular, S1S2, other (ACCESS: Right IJ Vas Catheter intact; Left AVG + thrill and bruit noted) Gastrointestinal: normoactive bowel sounds, no tenderness Integumentary: warm and dry Neurologic: alert and oriented x3 Musculoskeletal: other (trace edema to BLE) Psychiatric: cooperative - Vital Signs Vital signs: Vital Signs - 12hr 10/26/18 10/26/18 10/26/18 03:23 03:38 08:14 Temperature 98.2 F 98.2 F Pulse Rate 85 87 Pulse Rate [ Apical] Pulse Rate [ Left Radial] Pulse Rate [ Right Radial] Respiratory 18 18 14 Rate Blood Pressure 154/77 122/48 Blood Pressure [Left] O2 Sat by Pulse 94 93 Oximetry 10/26/18 10/26/18 10:00 13:46 Temperature 98.2 F Pulse Rate 80 87 Pulse Rate [ 87 Apical] Pulse Rate [ 87 Left Radial] Pulse Rate [ 87 Right Radial] Respiratory 19 21 Rate Blood Pressure Blood Pressure 122/77 [Left] O2 Sat by Pulse 98 Oximetry - Lab 10/25/18 04:50 10/26/18 12:30 Most recent lab results Calcium 6.8 mg/dL (8.4-10.2) L 10/26/18 12:30 Phosphorus 7.10 mg/dL (2.5-4.5) H 10/19/18 19:00 Magnesium 2.00 mg/dL (1.7-2.3) 10/19/18 19:00 Medications & Allergies - Medications Allergies/Adverse Reactions: Allergies cephalexin [From Keflex] Allergy (Verified 02/23/17 19:02) Vomiting vancomycin Allergy (Verified 06/16/18 06:34) Rash Home Medications: Home Medications Medication Instructions Recorded Confirmed Last Taken Type amLODIPine [Norvasc] 5 mg PO DAILY 07/19/13 10/18/18 06/15/18 History Calcium Acetate [Phoslo] 667 mg PO TIDAC 06/16/18 10/18/18 06/15/18 History Cetirizine HCl [ZyrTEC 10mg cap] 10 mg PO QDAY 06/16/18 10/18/18 06/15/18 History Gabapentin [Neurontin] 100 mg PO BID 06/16/18 10/18/18 06/15/18 History Insulin NPH/Regular [NovoLIN 70/30] 10 units SQ QPM 06/16/18 10/18/18 06/15/18 History Insulin NPH/Regular [NovoLIN 70/30] 15 units SQ QAM 06/16/18 10/18/18 06/15/18 History Oxycodone HCl [oxyCODONE] 10 mg PO Q8HR PRN #7 tablet 10/25/18 Unknown Rx Active Medications: Generic Name Dose Route Start Last Admin Trade Name Aronq PRN Reason Stop Dose Admin Acetaminophen 650 mg 10/18/18 14:31 10/23/18 23:32 Tylenol PO 650 mg Q4H PRN Administration Pain MILD(1-3)/Fever >100.5/OSBORN Albuterol 2.5 mg 10/18/18 14:31 Proventil IH Q4HRT PRN Shortness Of Breath Calcium Acetate 667 mg 10/18/18 16:30 10/26/18 13:05 Phoslo PO Not Given TIDAC DAFNE Dextrose 0 ml 10/19/18 18:51 10/20/18 09:33 D50w (25gm) Syringe IV 20 ml PRN PRN Administration Hypoglycemia Epoetin Bryson 20,000 unit 10/23/18 12:58 10/24/18 16:44 Procrit SUB-Q 20,000 unit SHUN DAFNE Administration Famotidine 20 mg 10/20/18 14:00 10/26/18 09:47 Pepcid PO 20 mg DAILY DAFNE Administration Gabapentin 100 mg 10/18/18 22:00 10/26/18 09:59 Neurontin PO 100 mg BID DAFNE Administration Heparin Sodium (Porcine) 5,000 unit 10/19/18 22:00 10/26/18 09:50 Heparin SUB-Q 5,000 unit Q12HR DAFNE Administration Sodium Chloride 1,000 mls @ 42 mls/hr 10/22/18 11:30 Nacl 0.9% 1000 Ml IV DIRECT DAFNE Insulin Human NPH 15 unit 10/21/18 17:00 10/26/18 08:50 Humulin N SUB-Q 15 unit BIDDIAB DAFNE Administration Insulin Human Regular 0 units 10/20/18 16:30 10/26/18 12:31 Humulin R SUB-Q 1 units ACHS DAFNE Administration Protocol Loratadine 10 mg 10/19/18 10:00 10/26/18 09:48 Claritin PO 10 mg DAILY DAFNE Administration Midodrine 10 mg 10/21/18 16:00 10/26/18 12:30 Proamatine PO 10 mg TID@0800,1200,1600 DAFNE Administration Morphine Sulfate 1 mg 10/20/18 16:37 10/26/18 13:29 Morphine IV 1 mg Q4H PRN Administration Pain, Moderate (4-6) Ondansetron HCl 4 mg 10/18/18 14:31 Zofran IV Q8H PRN Nausea And Vomiting Oxycodone HCl 10 mg 10/18/18 14:36 10/19/18 18:52 Roxicodone PO 10 mg Q8H PRN Administration Pain, Moderate (4-6) Sodium Chloride 10 ml 10/18/18 22:00 10/26/18 09:50 Sodium Chloride Flush Syringe 10 Ml IV 10 ml BID DAFNE Administration Sodium Chloride 10 ml 10/18/18 14:31 10/23/18 04:25 Sodium Chloride Flush Syringe 10 Ml IV 10 ml PRN PRN Administration LINE FLUSH Sodium Hypochlorite 1 applic 10/21/18 11:00 10/26/18 09:49 Dakin's Half Strength TP 1 applicatio BID DAFNE Administration
[2018-10-27] MEDS: MORPHINE IV PRN ×5 (03:04→21:59)
[2018-10-27 07:22] LABS: Basophils # (Auto) 0.1 K/mm3 (0.0-0.1); Eosinophils # (Auto) 0.4 K/mm3 (0.0-0.4); Eosinophils % (Auto) 4.1 % (0.0-4.3); Hematocrit 27.2 % (35.5-45.6); Hemoglobin 8.7 gm/dl (11.8-15.2); Lymphocytes # (Auto) 1.9 K/mm3 (1.2-5.4); Mean Corpuscular HGB Conc 32 % (32-34); Mean Corpuscular Volume 94 fl (84-94); Monocytes % (Auto) 11.6 % (0.0-7.3); Platelet Count 350 K/mm3 (140-440); Red Blood Count 2.89 M/mm3 (3.65-5.03); Red Cell Distribution Width 19.5 % (13.2-15.2)
[2018-10-27 07:43] LABS: Calcium 7.6 mg/dL (8.4-10.2)
[2018-10-27] MEDS: DAKIN'S HALF STRENGTH TP SCH ×2 (10:00→22:01)
[2018-10-27] MEDS: PHOSLO PO SCH ×3 (10:13→16:30)
[2018-10-27] MEDS: NEURONTIN PO SCH ×2 (10:13→21:58)
[2018-10-27] MEDS: PROAMATINE PO SCH ×3 (10:13→16:00)
[2018-10-27] MEDS: PEPCID PO SCH (10:14)
[2018-10-27] MEDS: HumuLIN R SUB-Q SCH ×4 (10:14→22:00)
[2018-10-27] MEDS: HEPARIN SUB-Q SCH ×3 (10:15→21:58)
[2018-10-27] MEDS: CLARITIN PO SCH (10:25)
[2018-10-27] MEDS: SODIUM CHLORIDE FLUSH SYRINGE 10 ML IV SCH ×4 (10:25→22:01)
[2018-10-27] MEDS ORDERED: KIONEX PO ONE ×2 (11:00→20:30)
--- NOTE | 2018-10-27 12:21 | Discharge Summary ---
Providers - Providers Date of Admission: 10/18/18 14:31 Date of discharge: 10/29/18 Attending physician: ALEIDA CASANOVA 10/18/18 12:53 Consult to Physician [CONS] Urgent Comment: DR LILO Garcia/DR DU @0760 Consulting Provider: ELIZABETH DU Physician Instructions: Reason For Exam: graft occlusion 10/18/18 13:45 Consult to Physician [CONS] Urgent Comment: DR LILO Garcia/DR HEADLEY @1401 Consulting Provider: AMOS HEADLEY Physician Instructions: Reason For Exam: ESRD need D 10/19/18 00:29 Consult to Wound/ET Nurse [CONS] Routine Reason For Exam: wound eval 10/19/18 18:51 Consult to Dietitian/Nutrition [CONS] Routine Physician Instructions: Reason For Exam: DKA Reason for Consult: Nutrition Recommendations Reason for Consult: diet 10/20/18 05:41 Consult to PICC Line RN [CONS] Urgent Reason For Exam: access Type Line:: PICC 10/20/18 08:33 Consult to Physician [CONS] Routine Comment: Consulting Provider: PINA FINLEY Physician Instructions: Reason For Exam: ICU admission 10/21/18 15:29 Physical Therapy Evaluation and Treat [CONS] Urgent Comment: Reason For Exam: Generalized Weakness 10/22/18 11:23 Consult to Physician [CONS] Routine Comment: Consulting Provider: SIVA TAMAYO Physician Instructions: Reason For Exam: sacral wound eval for debridment 10/22/18 16:30 Consult to Physician [CONS] Routine Comment: Consulting Provider: PANCHITO RICHARDS Physician Instructions: Reason For Exam: infected sacral ulcer [facility] Condition: Stable Hospital course: 48 YO Male with ESRD on HD(T,R,Sa) last dialyzed on , DM complicated by Gastroparesis, HTN, presents to ED for bleeding from his dialysis fistula and applied an occlusive dressing to stop the bleeding 3 days ago. Pt presented to his dialysis center for his scheduled session but was unable to undergo dialysis due to excessive bleeding secondary to clotted access. EMS notified, and transported to [facility]. Pt seen and evaluated in ED and found to have ESRD and Clotted dialysis access. Nephrology consulted in ED for dialysis. vascular surgery consulted in ED for surgical intervention. Following admission developed hyperglycemia, hyperkalemia and hypotension. Transferred to ICU for further monitoring, placed on levophed, insulin drip. Noted to have infected sacral wound with necrotic tissue. s/p vascath for emergent HD, started on abx, had debridement of wound at bedside by GS. Now off pressore, ID recommended to monitor off abx. s/p Left Arm AV Graft Thrombectomy and Revision 10/23. Plan was to d/c [facility], family agreed but unable to complete paper work as was requested by facility. then decided to take patient back home. He was then discharged home with . Radiological data: CXR: 1. Mild cardiomegaly with mild to moderate interstitial pulmonary edema and small left pleural effusion. Discharge diagnosis and management: /Chronic sacral stage 4 decubitus ulcer with acute infection and possible sepsis, likely POA Had very subtle presentation on admission - no fever, no white count, but then developed hypotension following admission wound care consulted - 1st evaluation on 10/21/18, preliminary cx was negative but now growing staph aureus and gm -ve rods - s/p clindamycin, ID consulted for abx recommendation - s/p bedside beridement by dr Tamayo - per ID no abx needed after debridement /Hypotension - due to septic shock, resolved s/p bicarbonate drip, s/p levophed negative blood culture, wound cultures growing staph and gm -ve rods - will monitor off abx per ID as had debridement preserved EF on 2d echo, off pressor, Placed on midodrine, /Anemia with hb 6.4 - likely anemia of CD with acute drop - s/p 1 unit PRBC transfusion- H/H stable - no evidence of active bleeding /Severe hyperkalemia, resolved s/p bicarbonate drip Status post Kayexalate, sodium bicarbonate IV push, calcium gluconate, insulin and D50 and emergent dialysis with vascath / End stage renal disease on dialysis Nephrology consulted, dialysis as per renal team, avoid nephrotoxic agents, strict I/O, daily weight, repeat bmp to monitor serum potassium / Diabetes type 2 with hyperglycemia s/p insulin drip overnight on 10/20 we cont ADA diet, insulin, accu check, hypoglycemia protocol off insulin drip now /left pleural effusion, from volume overload, should correct with HD, continue to monitor / HTN (hypertension) Now hypotensivem, cont to Hold norvasc / AV graft malfunction Vascular surgery consulted, s/p Vas-Cath for emergent dialysis s/p Left Arm AV Graft Thrombectomy and Revision 10/23 / Gastroparesis due to DM Frequent small meals, treat BG with insulin, anti emetic therapy prn, supportive care / DVT prophylaxis SCD to BLE while in bed, Disposition: Home with Hospitalist Physical exam: GENERAL: well-developed and well-nourished AAM lying on bed appeared to be in no discomfort. HEENT: Normocephalic. Atraumatic. No conjunctival congestion or icterus. Patient has moist mucous membranes. NECK: Supple. Trachea midline. CHEST/LUNGS: Clear to auscultated bilaterally, breathing nonlabored. No wheezes crackles or rhonchi. HEART/CARDIOVASCULAR: Regular in rate and rhythm. S1 and S2 positive. ABDOMEN: Abdomen is soft, nontender. Patient has normal bowel sounds. SKIN: There is no rash. Warm and dry. NEURO: No focal motor deficit. Follows command. MUSCULOSKELETAL: b/l BKA EXTRIMITY: No edema, no cyanosis or clubbing. PSYCH: Cooperative. Disposition: [id number] HOME UNDER HOME [facility] Time spent for discharge: 34 minutes Core Measure Documentation - Palliative Care Palliative Care/ Comfort Measures: Not Applicable - Core Measures Any of the following diagnoses?: none Exam - Constitutional Vitals: Temp Pulse Resp BP Pulse Ox 98.8 F 88 20 120/54 99 10/27/18 08:10 10/27/18 10:00 10/27/18 10:42 10/27/18 08:10 10/27/18 10:00 Plan Activity: up only with assistance Diet: diabetic, renal Wound: per wound nurse instructions Follow up with: VELIA IRVING MD [Primary Care Provider] - 7 Days Prescriptions: Oxycodone HCl [oxyCODONE] 10 mg PO Q8HR PRN #7 tablet PRN Reason: Pain
--- NOTE | 2018-10-27 14:10 | Progress Note ---
Assessment and Plan ESRD on Hemodialysis: Hyperkalemia: -HD today. -If Left AVG functioning well, will remove Right IJ Vas Catheter -Assess need for HD on daily basis -Dr Salmon (vascular surgery) on board, s/p Right IJ Vas Catheter placement -S/p Left Arm AV Graft Thrombectomy and Revision on 10/22/[address] Salmon -Fluid restriction of 1 liter per day -Renally dose all medications -This pt undergoes outpatient HD at [facility] every TTS Anemia: - Epogen dosing for anemia management Chronic Sacral Decubitus Ulcer: -Gen surgery on board, s/p Debridement of sacral pressure ulcer on 10/23/[address] Tamayo Hypotension: Hx of Essential Hypertension: -Holding all BP medications -On midodrine for blood pressure support Diabetes mellitus 2 on insulin: -As per primary team Subjective Date of service: 10/27/18 Principal diagnosis: Ac. hypoxemic resp failure; AV graft malfunction; Hypotension; JARVIS; ESRD Interval history: HD today. Objective - Exam Narrative Exam: General appearance: well-developed EENT: ATNC Neck: no JVD Respiratory: Present: Decreased Breath Sounds Cardiology: regular, S1S2, other (ACCESS: Right IJ Vas Catheter intact; Left AVG + thrill and bruit noted) Gastrointestinal: normoactive bowel sounds, no tenderness Integumentary: warm and dry Neurologic: alert and oriented x3 Musculoskeletal: other (trace edema to BLE) Psychiatric: cooperative - Vital Signs Vital signs: Vital Signs - 12hr 10/27/18 10/27/18 10/27/18 03:04 05:10 05:12 Temperature 98.5 F Pulse Rate 85 Respiratory 20 18 Rate Respiratory Rate [Left Arm] Respiratory Rate [Sacrum] Blood Pressure 129/53 O2 Sat by Pulse 95 Oximetry 10/27/18 10/27/18 10/27/18 06:00 06:46 08:10 Temperature 98.8 F Pulse Rate 87 85 Respiratory 20 18 Rate Respiratory Rate [Left Arm] Respiratory Rate [Sacrum] Blood Pressure 120/54 O2 Sat by Pulse 93 Oximetry 10/27/18 10/27/18 10/27/18 10:00 10:42 11:12 Temperature Pulse Rate 88 Respiratory 20 20 20 Rate Respiratory 20 Rate [Left Arm] Respiratory 20 Rate [Sacrum] Blood Pressure O2 Sat by Pulse 99 Oximetry - Lab 10/27/18 06:50 10/27/18 06:50 Most recent lab results Calcium 7.6 mg/dL (8.4-10.2) L 10/27/18 06:50 Phosphorus 7.10 mg/dL (2.5-4.5) H 10/19/18 19:00 Magnesium 2.00 mg/dL (1.7-2.3) 10/19/18 19:00 Medications & Allergies - Medications Allergies/Adverse Reactions: Allergies cephalexin [From Keflex] Allergy (Verified 02/23/17 19:02) Vomiting vancomycin Allergy (Verified 06/16/18 06:34) Rash Home Medications: Home Medications Medication Instructions Recorded Confirmed Last Taken Type amLODIPine [Norvasc] 5 mg PO DAILY 07/19/13 10/18/18 06/15/18 History Calcium Acetate [Phoslo] 667 mg PO TIDAC 06/16/18 10/18/18 06/15/18 History Cetirizine HCl [ZyrTEC 10mg cap] 10 mg PO QDAY 06/16/18 10/18/18 06/15/18 History Gabapentin [Neurontin] 100 mg PO BID 06/16/18 10/18/18 06/15/18 History Insulin NPH/Regular [NovoLIN 70/30] 10 units SQ QPM 06/16/18 10/18/18 06/15/18 History Insulin NPH/Regular [NovoLIN 70/30] 15 units SQ QAM 06/16/18 10/18/18 06/15/18 History Oxycodone HCl [oxyCODONE] 10 mg PO Q8HR PRN #7 tablet 10/25/18 Unknown Rx Active Medications: Generic Name Dose Route Start Last Admin Trade Name Freq PRN Reason Stop Dose Admin Acetaminophen 650 mg 10/18/18 14:31 10/23/18 23:32 Tylenol PO 650 mg Q4H PRN Administration Pain MILD(1-3)/Fever >100.5/OSBORN Albuterol 2.5 mg 10/18/18 14:31 Proventil IH Q4HRT PRN Shortness Of Breath Calcium Acetate 667 mg 10/18/18 16:30 10/27/18 10:13 Phoslo PO 667 mg TIDAC DAFNE Administration Dextrose 0 ml 10/19/18 18:51 10/20/18 09:33 D50w (25gm) Syringe IV 20 ml PRN PRN Administration Hypoglycemia Epoetin Bryson 20,000 unit 10/23/18 12:58 10/24/18 16:44 Procrit SUB-Q 20,000 unit SHUN DAFNE Administration Famotidine 20 mg 10/20/18 14:00 10/27/18 10:14 Pepcid PO 20 mg DAILY DAFNE Administration Gabapentin 100 mg 10/18/18 22:00 10/27/18 10:13 Neurontin PO 100 mg BID ADFNE Administration Heparin Sodium (Porcine) 5,000 unit 10/19/18 22:00 10/27/18 10:28 Heparin SUB-Q 5,000 unit Q12HR DAFNE Administration Sodium Chloride 1,000 mls @ 42 mls/hr 10/22/18 11:30 Nacl 0.9% 1000 Ml IV DIRECT DAFNE Insulin Human NPH 15 unit 10/21/18 17:00 10/27/18 10:32 Humulin N SUB-Q 15 unit BIDDIAB DAFNE Administration Insulin Human Regular 0 units 10/20/18 16:30 10/27/18 13:06 Humulin R SUB-Q 5 units ACHS DAFNE Administration Protocol Loratadine 10 mg 10/19/18 10:00 10/27/18 10:25 Claritin PO 10 mg DAILY DAFNE Administration Midodrine 10 mg 10/21/18 16:00 10/27/18 10:13 Proamatine PO 10 mg TID@0800,1200,1600 DAFNE Administration Morphine Sulfate 1 mg 10/20/18 16:37 10/27/18 10:42 Morphine IV 1 mg Q4H PRN Administration Pain, Moderate (4-6) Ondansetron HCl 4 mg 10/18/18 14:31 Zofran IV Q8H PRN Nausea And Vomiting Oxycodone HCl 10 mg 10/18/18 14:36 10/19/18 18:52 Roxicodone PO 10 mg Q8H PRN Administration Pain, Moderate (4-6) Sodium Chloride 10 ml 10/18/18 22:00 10/27/18 10:34 Sodium Chloride Flush Syringe 10 Ml IV 10 ml BID DAFNE Administration Sodium Chloride 10 ml 10/18/18 14:31 10/23/18 04:25 Sodium Chloride Flush Syringe 10 Ml IV 10 ml PRN PRN Administration LINE FLUSH Sodium Hypochlorite 1 applic 10/21/18 11:00 10/26/18 23:06 Dakin's Half Strength TP Not Given BID DAFNE
--- NOTE | 2018-10-27 16:52 | Progress Note ---
Assessment and Plan Acute hypoxemic respiratory failure Acute pulmonary edema. Left pleural effusion. Arteriovenous graft malfunction. Hypotension -multifactorial (including element of acute blood loss anemia) ABLA Diabetes type 1. Obesity. End-stage renal disease, on dialysis. History of hypertension Continue all supportive care Discharge planning per primary service Discontinue RIJ trialysis catheter in anticipation of discharge - continue with supportive transfusions to keep HgB>7g/dL - continue HD/UF per nephroplogy prescription for toxin and volume clearance - monitor off antibiotics per ID recs - follow cultures (NGTD) - continue wound care for sacral ulcers per WCT - continue glycemic control with SSI for target BG 140-180 mg/dl - continue promotility agents for gastroparesis -PT/OT to increase activity - continue other care per attending / other consultants Subjective Date of service: 10/27/18 Principal diagnosis: Ac. hypoxemic resp failure; AV graft malfunction; Hypotension; JARVIS; ESRD Interval history: Patient is seen today for: Acute hypoxemic respiratory failure; Acute pulmonary edema; Left pleural effusion; Arteriovenous graft malfunction; Hypotension multifactorial (including element of acute blood loss anemia); ABLA; Diabetes type 1; Obesity; HTN; ESRD on Dialysis Seen and examined at bedside; 24hour events reviewed; nursing and respiratory care staff consulted; no adverse overnight events reported to me; Vitals, labs, medications, chart and imaging reviewed; resting peacefully in bed;s/p blood transfusions ; s/p Left Arm AV Graft Thrombectomy and Revision 10/23 ;s/p be dside wound debridement for sacral decubitus Denies any chest pain, no shortness of breath, no fevers or chills, no diarrhea or nausea/vomiting. No new issues Currently getting HD via his [facility] access, HD nurse states it is working well. Objective Vital Signs - 12hr 10/27/18 10/27/18 10/27/18 05:10 05:12 06:00 Temperature 98.5 F Pulse Rate 85 87 Respiratory 18 Rate Respiratory Rate [Left Arm] Respiratory Rate [Sacrum] Blood Pressure 129/53 O2 Sat by Pulse 95 Oximetry 10/27/18 10/27/18 10/27/18 06:46 08:10 10:00 Temperature 98.8 F Pulse Rate 85 88 Respiratory 20 18 20 Rate Respiratory 20 Rate [Left Arm] Respiratory 20 Rate [Sacrum] Blood Pressure 120/54 O2 Sat by Pulse 93 99 Oximetry 10/27/18 10/27/18 10/27/18 10:42 11:12 14:00 Temperature Pulse Rate 90 Respiratory 20 20 Rate Respiratory Rate [Left Arm] Respiratory Rate [Sacrum] Blood Pressure O2 Sat by Pulse Oximetry 10/27/18 10/27/18 10/27/18 14:10 14:15 14:30 Temperature 98.8 F Pulse Rate 86 85 85 Respiratory 20 Rate Respiratory Rate [Left Arm] Respiratory Rate [Sacrum] Blood Pressure 135/65 128/65 126/54 O2 Sat by Pulse Oximetry 10/27/18 10/27/18 10/27/18 14:45 15:00 15:15 Temperature Pulse Rate 86 87 89 Respiratory Rate Respiratory Rate [Left Arm] Respiratory Rate [Sacrum] Blood Pressure 116/58 108/54 101/50 O2 Sat by Pulse Oximetry 10/27/18 10/27/18 15:30 15:45 Temperature Pulse Rate 88 88 Respiratory Rate Respiratory Rate [Left Arm] Respiratory Rate [Sacrum] Blood Pressure 132/69 139/73 O2 Sat by Pulse Oximetry Constitutional: no acute distress, alert, other (middle aged obese AAM, normocephalic and atraumatic with normal resp effort at rest) Eyes: non-icteric ENT: oropharynx moist, other (Mallampati 4) Neck: supple, no lymphadenopathy, no JVD, other (RIJ Trialysis catheter) Effort: normal Ascultation: Bilateral: rales (bases) Percussion: Bilateral: not dull Cardiovascular: regular rate and rhythm Gastrointestinal: normoactive bowel sounds, soft, non-tender, non-distended Integumentary: normal, decubitus ulcer, other (see wound care notes re Sacral decubitus ulcer) Extremities: no cyanosis, no edema, pulses normal, no ischemia or petechiae, other (bilateral BKA's) Neurologic: normal mental status, non-focal exam, pupils equal and round, motor strength normal and Psychiatric: mood appropriate, affect normal CBC and BMP: 10/27/18 06:50 10/27/18 06:50 ABG, PT/INR, D-dimer: PT/INR, D-dimer PT 14.8 Sec. (12.2-14.9) 10/18/18 12:43 INR 1.19 (0.87-1.13) H 10/18/18 12:43 Abnormal lab findings: Abnormal Labs 10/18/18 10/18/18 10/18/18 12:43 12:43 12:43 WBC RBC 2.79 L Hgb 8.0 L Hct 25.9 L MCV MCHC 31 L RDW 21.8 H [place] % (Auto) 10.0 H Eos % (Auto) [place] # Eos # Seg Neutrophils % INR 1.19 H APTT 41.2 H Sodium Potassium Chloride Carbon Dioxide BUN 30 H Creatinine 4.6 H Glucose POC Glucose Hemoglobin A1c Calcium 7.8 L Phosphorus 5.10 H ALT Alkaline Phosphatase Albumin Crossmatch 10/19/18 10/19/18 10/19/18 15:05 15:05 15:05 WBC RBC 2.64 L Hgb 7.7 L Hct 26.1 L MCV 99 H MCHC 30 L RDW 22.3 H [place] % (Auto) 8.1 H Eos % (Auto) [place] # Eos # Seg Neutrophils % INR APTT Sodium 133 L Potassium 6.5 H* D Chloride 94.9 L Carbon Dioxide 16 L D BUN 48 H Creatinine 5.7 H Glucose 525 H* POC Glucose Hemoglobin A1c 7.2 H Calcium 7.6 L Phosphorus 7.00 H D ALT 6 L Alkaline Phosphatase 214 H Albumin 1.9 L Crossmatch 10/19/18 10/19/18 10/19/18 16:45 16:59 17:54 WBC RBC Hgb Hct MCV MCHC RDW [place] % (Auto) Eos % (Auto) [place] # Eos # Seg Neutrophils % INR APTT Sodium Potassium 6.8 H* Chloride Carbon Dioxide BUN Creatinine Glucose POC Glucose > 500 H > 500 H Hemoglobin A1c Calcium Phosphorus ALT Alkaline Phosphatase Albumin Crossmatch 10/19/18 10/19/18 10/19/18 17:58 19:00 19:30 WBC RBC Hgb Hct MCV MCHC RDW [place] % (Auto) Eos % (Auto) [place] # Eos # Seg Neutrophils % INR APTT Sodium Potassium Chloride Carbon Dioxide BUN Creatinine Glucose 564 H* POC Glucose > 500 H Hemoglobin A1c Calcium Phosphorus 7.10 H ALT Alkaline Phosphatase Albumin Crossmatch 10/19/18 10/19/18 10/19/18 20:30 21:17 22:14 WBC RBC Hgb Hct MCV MCHC RDW [place] % (Auto) Eos % (Auto) [place] # Eos # Seg Neutrophils % INR APTT Sodium Potassium Chloride Carbon Dioxide BUN Creatinine Glucose POC Glucose 467 H 483 H 411 H Hemoglobin A1c Calcium Phosphorus ALT Alkaline Phosphatase Albumin Crossmatch 10/19/18 10/20/18 10/20/18 23:14 00:14 01:22 WBC RBC Hgb Hct MCV MCHC RDW [place] % (Auto) Eos % (Auto) [place] # Eos # Seg Neutrophils % INR APTT Sodium Potassium Chloride Carbon Dioxide BUN Creatinine Glucose POC Glucose 382 H 290 H 292 H Hemoglobin A1c Calcium Phosphorus ALT Alkaline Phosphatase Albumin Crossmatch 10/20/18 10/20/18 10/20/18 02:05 03:08 04:09 WBC RBC Hgb Hct MCV MCHC RDW [place] % (Auto) Eos % (Auto) [place] # Eos # Seg Neutrophils % INR APTT Sodium Potassium Chloride Carbon Dioxide BUN Creatinine Glucose POC Glucose 260 H 216 H 235 H Hemoglobin A1c Calcium Phosphorus ALT Alkaline Phosphatase Albumin Crossmatch 10/20/18 10/20/18 10/20/18 05:10 06:02 06:54 WBC RBC Hgb Hct MCV MCHC RDW [place] % (Auto) Eos % (Auto) [place] # Eos # Seg Neutrophils % INR APTT Sodium 136 L Potassium 3.4 L D Chloride 77.7 L Carbon Dioxide 50 H* D BUN 34 H Creatinine 4.1 H Glucose 1171 H* POC Glucose 179 H 114 H Hemoglobin A1c Calcium 4.9 L* D Phosphorus ALT Alkaline Phosphatase Albumin Crossmatch 10/20/18 10/20/18 10/20/18 08:54 09:30 09:34 WBC RBC Hgb Hct MCV MCHC RDW [place] % (Auto) Eos % (Auto) [place] # Eos # Seg Neutrophils % INR APTT Sodium Potassium 5.3 H D Chloride Carbon Dioxide BUN 49 H Creatinine 6.4 H D Glucose 53 L POC Glucose 59 L 50 L Hemoglobin A1c Calcium 7.5 L D Phosphorus ALT Alkaline Phosphatase Albumin Crossmatch 10/20/18 10/20/18 10/20/18 11:55 12:24 15:54 WBC RBC Hgb Hct MCV MCHC RDW [place] % (Auto) Eos % (Auto) [place] # Eos # Seg Neutrophils % INR APTT Sodium Potassium 5.3 H Chloride Carbon Dioxide BUN 49 H Creatinine 6.4 H Glucose 108 H POC Glucose 108 H 234 H Hemoglobin A1c Calcium 7.4 L Phosphorus ALT Alkaline Phosphatase Albumin Crossmatch 10/20/18 10/20/18 10/20/18 19:25 19:58 21:32 WBC RBC Hgb Hct MCV MCHC RDW [place] % (Auto) Eos % (Auto) [place] # Eos # Seg Neutrophils % INR APTT Sodium Potassium Chloride 95.8 L Carbon Dioxide BUN 27 H Creatinine 4.0 H Glucose 266 H POC Glucose 272 H 242 H Hemoglobin A1c Calcium 7.4 L Phosphorus ALT Alkaline Phosphatase Albumin Crossmatch 10/21/18 10/21/18 10/21/18 04:45 08:37 11:44 WBC RBC Hgb Hct MCV MCHC RDW [place] % (Auto) Eos % (Auto) [place] # Eos # Seg Neutrophils % INR APTT Sodium Potassium Chloride 96.1 L Carbon Dioxide BUN 33 H Creatinine 4.3 H Glucose 118 H POC Glucose 203 H 216 H Hemoglobin A1c Calcium 7.3 L Phosphorus ALT Alkaline Phosphatase Albumin Crossmatch 10/21/18 10/21/18 10/21/18 14:34 16:17 21:24 WBC RBC 2.72 L Hgb 7.9 L Hct 25.7 L D MCV 95 H MCHC 31 L RDW 21.4 H [place] % (Auto) Eos % (Auto) [place] # Eos # Seg Neutrophils % INR APTT Sodium Potassium Chloride Carbon Dioxide BUN Creatinine Glucose POC Glucose 191 H 112 H Hemoglobin A1c Calcium Phosphorus ALT Alkaline Phosphatase Albumin Crossmatch 10/21/18 10/22/18 10/22/18 Unknown 04:26 04:26 WBC 11.4 H RBC 1.99 L 2.41 L Hgb 5.7 L* 7.1 L Hct 18.4 L* D 22.4 L MCV MCHC 31 L RDW 20.9 H 21.1 H [place] % (Auto) 11.3 H Eos % (Auto) 6.8 H [place] # 1.0 H Eos # 0.6 H Seg Neutrophils % INR APTT Sodium 135 L Potassium Chloride 96.1 L Carbon Dioxide BUN 38 H Creatinine 5.1 H Glucose 113 H POC Glucose Hemoglobin A1c Calcium 7.2 L Phosphorus ALT Alkaline Phosphatase Albumin Crossmatch 10/22/18 10/22/18 10/22/18 07:21 07:58 11:31 WBC RBC Hgb Hct MCV MCHC RDW [place] % (Auto) Eos % (Auto) [place] # Eos # Seg Neutrophils % INR APTT Sodium Potassium Chloride Carbon Dioxide BUN Creatinine Glucose POC Glucose 160 H 224 H Hemoglobin A1c Calcium Phosphorus ALT Alkaline Phosphatase Albumin Crossmatch See Detail 10/22/18 10/22/18 10/23/18 18:54 21:33 07:54 WBC RBC Hgb Hct MCV MCHC RDW [place] % (Auto) Eos % (Auto) [place] # Eos # Seg Neutrophils % INR APTT Sodium Potassium Chloride 97.3 L Carbon Dioxide BUN 30 H Creatinine 4.1 H Glucose 256 H POC Glucose 305 H 264 H Hemoglobin A1c Calcium 7.3 L Phosphorus ALT Alkaline Phosphatase Albumin Crossmatch 10/23/18 10/23/18 10/23/18 07:54 10:20 12:00 WBC RBC 2.22 L Hgb 6.4 L Hct 21.0 L MCV 95 H MCHC 31 L RDW 21.1 H [place] % (Auto) 8.1 H Eos % (Auto) [place] # Eos # Seg Neutrophils % 70.3 H INR APTT Sodium Potassium Chloride Carbon Dioxide BUN Creatinine Glucose POC Glucose 293 H 335 H Hemoglobin A1c Calcium Phosphorus ALT Alkaline Phosphatase Albumin Crossmatch 10/23/18 10/23/18 10/24/18 15:47 23:29 07:56 WBC RBC Hgb Hct MCV MCHC RDW [place] % (Auto) Eos % (Auto) [place] # Eos # Seg Neutrophils % INR APTT Sodium 135 L Potassium Chloride 95.6 L Carbon Dioxide BUN 38 H Creatinine 4.9 H Glucose 250 H POC Glucose 279 H 185 H Hemoglobin A1c Calcium 7.6 L Phosphorus ALT Alkaline Phosphatase Albumin Crossmatch 10/24/18 10/24/18 10/24/18 07:56 12:39 17:46 WBC RBC 2.84 L Hgb 8.3 L Hct 26.1 L MCV MCHC RDW 19.7 H [place] % (Auto) 11.3 H Eos % (Auto) [place] # 1.1 H Eos # Seg Neutrophils % INR APTT Sodium Potassium Chloride Carbon Dioxide BUN Creatinine Glucose POC Glucose 331 H 251 H Hemoglobin A1c Calcium Phosphorus ALT Alkaline Phosphatase Albumin Crossmatch 10/24/18 10/25/18 10/25/18 21:18 04:50 04:50 WBC RBC 2.93 L Hgb 8.7 L Hct 26.7 L MCV MCHC RDW 19.6 H [place] % (Auto) 10.4 H Eos % (Auto) [place] # 0.9 H Eos # Seg Neutrophils % INR APTT Sodium 136 L Potassium Chloride 95.0 L Carbon Dioxide BUN 32 H Creatinine 4.1 H Glucose 248 H POC Glucose 333 H Hemoglobin A1c Calcium 7.7 L Phosphorus ALT Alkaline Phosphatase Albumin Crossmatch 10/25/18 10/25/18 10/25/18 08:00 11:25 16:24 WBC RBC Hgb Hct MCV MCHC RDW [place] % (Auto) Eos % (Auto) [place] # Eos # Seg Neutrophils % INR APTT Sodium Potassium Chloride Carbon Dioxide BUN Creatinine Glucose POC Glucose 315 H 300 H 186 H Hemoglobin A1c Calcium Phosphorus ALT Alkaline Phosphatase Albumin Crossmatch 10/25/18 10/26/18 10/26/18 21:13 08:21 11:34 WBC RBC Hgb Hct MCV MCHC RDW [place] % (Auto) Eos % (Auto) [place] # Eos # Seg Neutrophils % INR APTT Sodium Potassium Chloride Carbon Dioxide BUN Creatinine Glucose POC Glucose 168 H 207 H 152 H Hemoglobin A1c Calcium Phosphorus ALT Alkaline Phosphatase Albumin Crossmatch 10/26/18 10/26/18 10/26/18 12:30 16:49 22:15 WBC RBC Hgb Hct MCV MCHC RDW [place] % (Auto) Eos % (Auto) [place] # Eos # Seg Neutrophils % INR APTT Sodium Potassium Chloride Carbon Dioxide BUN 38 H Creatinine 4.4 H Glucose 117 H POC Glucose 120 H 311 H Hemoglobin A1c Calcium 6.8 L Phosphorus ALT Alkaline Phosphatase Albumin Crossmatch 10/27/18 10/27/18 10/27/18 06:50 06:50 08:18 WBC RBC 2.89 L Hgb 8.7 L Hct 27.2 L MCV MCHC RDW 19.5 H [place] % (Auto) 11.6 H Eos % (Auto) [place] # 1.0 H Eos # Seg Neutrophils % INR APTT Sodium 133 L Potassium 5.1 H D Chloride 92.7 L Carbon Dioxide BUN 52 H Creatinine 6.1 H Glucose 367 H POC Glucose 397 H Hemoglobin A1c Calcium 7.6 L Phosphorus ALT Alkaline Phosphatase Albumin Crossmatch 10/27/18 10/27/18 12:42 15:59 WBC RBC Hgb Hct MCV MCHC RDW [place] % (Auto) Eos % (Auto) [place] # Eos # Seg Neutrophils % INR APTT Sodium Potassium Chloride Carbon Dioxide BUN Creatinine Glucose POC Glucose 402 H 312 H Hemoglobin A1c Calcium Phosphorus ALT Alkaline Phosphatase Albumin Crossmatch Allied health notes reviewed: nursing
[2018-10-27] MEDS ORDERED: PROCRIT SUB-Q SCH (17:00)
[2018-10-28] MEDS: MORPHINE IV PRN ×3 (02:10→17:09)
[2018-10-28] MEDS: HumuLIN R SUB-Q SCH ×4 (09:00→22:04)
[2018-10-28] MEDS: NEURONTIN PO SCH ×2 (09:05→22:01)
[2018-10-28] MEDS: CLARITIN PO SCH (09:05)
[2018-10-28] MEDS: PHOSLO PO SCH ×3 (09:05→17:10)
[2018-10-28] MEDS: PEPCID PO SCH (09:06)
[2018-10-28] MEDS: PROAMATINE PO SCH ×3 (09:06→15:30)
[2018-10-28] MEDS: HEPARIN SUB-Q SCH ×2 (09:08→22:03)
[2018-10-28] MEDS: SODIUM CHLORIDE FLUSH SYRINGE 10 ML IV SCH ×2 (09:10→22:04)
--- NOTE | 2018-10-28 09:53 | Progress Note ---
Assessment and Plan ESRD on Hemodialysis: Hyperkalemia: -no indication for HD today -If Left AVG functioning well, s/p Right IJ Vas Catheter removal -Assess need for HD on daily basis -S/p Left Arm AV Graft Thrombectomy and Revision on 10/22/[address] Salmon -Fluid restriction of 1 liter per day -Renally dose all medications -This pt undergoes outpatient HD at [facility] every TTS Anemia: - Epogen dosing for anemia management Chronic Sacral Decubitus Ulcer: -Gen surgery on board, s/p Debridement of sacral pressure ulcer on 10/23/[address] Tamayo Hypotension: Hx of Essential Hypertension: -Holding all BP medications -On midodrine for blood pressure support Diabetes mellitus 2 on insulin: -As per primary team Nii Langley MD [phone] Subjective Date of service: 10/28/18 Principal diagnosis: Ac. hypoxemic resp failure; AV graft malfunction; Hyp otension; JARVIS; ESRD Interval history: tolerated HD yesterday Objective - Vital Signs Vital signs: Vital Signs - 12hr 10/27/18 10/27/18 10/28/18 21:59 22:00 00:05 Temperature Pulse Rate 89 91 H Pulse Rate [ 90 Apical] Respiratory 20 20 18 Rate Blood Pressure 111/48 O2 Sat by Pulse 93 Oximetry 10/28/18 10/28/18 10/28/18 00:06 02:00 02:10 Temperature 98.6 F Pulse Rate 90 Pulse Rate [ Apical] Respiratory 20 Rate Blood Pressure O2 Sat by Pulse Oximetry 10/28/18 10/28/18 10/28/18 04:38 04:39 05:21 Temperature 98.7 F Pulse Rate 85 80 Pulse Rate [ Apical] Respiratory 20 Rate Blood Pressure 99/44 O2 Sat by Pulse 94 Oximetry 10/28/18 10/28/18 07:21 08:19 Temperature 99.2 F Pulse Rate 88 Pulse Rate [ Apical] Respiratory 20 20 Rate Blood Pressure 137/52 O2 Sat by Pulse 91 Oximetry - General Appearance General appearance: well-developed, well-nourished, appears stated age EENT: ATNC, PERRL, mucous membranes moist Neck: no JVD, no carotid bruit Respiratory: Present: Clear to Ascultation. Absent: Rales, Ronchi Cardiology: regular, S1S2 Gastrointestinal: normoactive bowel sounds, no tenderness, no distended Integumentary: no rash, warm and dry Neurologic: no focal deficit, no asterixis, alert and oriented x3 Musculoskeletal: other (trace pitting edema in BLE) Psychiatric: mood/affect appropriate, cooperative - Lab 10/27/18 06:50 10/28/18 11:18 Most recent lab results Calcium 7.6 mg/dL (8.4-10.2) L 10/27/18 06:50 Phosphorus 7.10 mg/dL (2.5-4.5) H 10/19/18 19:00 Magnesium 2.00 mg/dL (1.7-2.3) 10/19/18 19:00 Medications & Allergies - Medications Allergies/Adverse Reactions: Allergies cephalexin [From Keflex] Allergy (Verified 02/23/17 19:02) Vomiting vancomycin Allergy (Verified 06/16/18 06:34) Rash Home Medications: Home Medications Medication Instructions Recorded Confirmed Last Taken Type amLODIPine [Norvasc] 5 mg PO DAILY 07/19/13 10/18/18 06/15/18 History Calcium Acetate [Phoslo] 667 mg PO TIDAC 06/16/18 10/18/18 06/15/18 History Cetirizine HCl [ZyrTEC 10mg cap] 10 mg PO QDAY 06/16/18 10/18/18 06/15/18 History Gabapentin [Neurontin] 100 mg PO BID 06/16/18 10/18/18 06/15/18 History Insulin NPH/Regular [NovoLIN 70/30] 10 units SQ QPM 06/16/18 10/18/18 06/15/18 History Insulin NPH/Regular [NovoLIN 70/30] 15 units SQ QAM 06/16/18 10/18/18 06/15/18 History Oxycodone HCl [oxyCODONE] 10 mg PO Q8HR PRN #7 tablet 10/25/18 Unknown Rx Active Medications: Generic Name Dose Route Start Last Admin Trade Name Freq PRN Reason Stop Dose Admin Acetaminophen 650 mg 10/18/18 14:31 10/23/18 23:32 Tylenol PO 650 mg Q4H PRN Administration Pain MILD(1-3)/Fever >100.5/OSBORN Albuterol 2.5 mg 10/18/18 14:31 Proventil IH Q4HRT PRN Shortness Of Breath Calcium Acetate 667 mg 10/18/18 16:30 10/28/18 09:05 Phoslo PO Not Given TIDAC [facility] Dextrose 0 ml 10/19/18 18:51 10/20/18 09:33 D50w (25gm) Syringe IV 20 ml PRN PRN Administration Hypoglycemia Epoetin Bryson 20,000 unit 10/27/18 17:00 10/27/18 17:06 Procrit SUB-Q 20,000 unit SHUN DAFNE Administration Famotidine 20 mg 10/20/18 14:00 10/28/18 09:06 Pepcid PO 20 mg DAILY [facility] Administration Gabapentin 100 mg 10/18/18 22:00 10/28/18 09:05 Neurontin PO 100 mg BID [facility] Administration Heparin Sodium (Porcine) 5,000 unit 10/19/18 22:00 10/28/18 09:08 Heparin SUB-Q 5,000 unit Q12HR DAFNE Administration Insulin Human NPH 15 unit 10/21/18 17:00 10/28/18 09:09 Humulin N SUB-Q Not Given BIDDIAB [facility] Insulin Human Regular 0 units 10/20/18 16:30 10/28/18 09:00 Humulin R SUB-Q Not Given ACHS [facility] Protocol Loratadine 10 mg 10/19/18 10:00 10/28/18 09:05 Claritin PO 10 mg DAILY [facility] Administration Midodrine 10 mg 10/21/18 16:00 10/28/18 09:06 Proamatine PO 10 mg TID@0800,1200,1600 [facility] Administration Morphine Sulfate 1 mg 10/20/18 16:37 10/28/18 07:21 Morphine IV 1 mg Q4H PRN Administration Pain, Moderate (4-6) Ondansetron HCl 4 mg 10/18/18 14:31 Zofran IV Q8H PRN Nausea And Vomiting Oxycodone HCl 10 mg 10/18/18 14:36 10/19/18 18:52 Roxicodone PO 10 mg Q8H PRN Administration Pain, Moderate (4-6) Sodium Chloride 10 ml 10/18/18 22:00 10/28/18 09:10 Sodium Chloride Flush Syringe 10 Ml IV 10 ml BID DAFNE Administration Sodium Chloride 10 ml 10/18/18 14:31 10/23/18 04:25 Sodium Chloride Flush Syringe 10 Ml IV 10 ml PRN PRN Administration LINE FLUSH Sodium Hypochlorite 1 applic 10/21/18 11:00 10/27/18 22:01 Dakin's Half Strength TP 1 applicatio BID DAFNE Administration
--- NOTE | 2018-10-28 11:02 | Progress Note ---
Assessment and Plan /Anemia with hb 6.;4 - likely anemia of CD with acute drop - s/p 1 unit PRBC transfusion- H/H stable - no evidence of active bleeding /Chronic sacral stage 4 decubitus ulcer with acute infection and possible sepsis, likely POA Had very subtle presentation on admission - no fever, no white count, but then developed hypotension following admission wound care consulted - 1st evaluation on 10/21/18, preliminary cx was negative but now growing staph aureus and gm -ve rods - s/p clindamycin, ID consulted for abx recommendation - s/p bedside beridement by dr Tamayo - per ID no abx needed after debridement /Hypotension - due to septic shock, resolved s/p bicarbonate drip, s/p levophed negative blood culture, wound cultures growing staph and gm -ve rods - will monitor off abx per ID as had debridement preserved EF on 2d echo, off pressor, Placed on midodrine, /Severe hyperkalemia, resolved s/p bicarbonate drip Status post Kayexalate, sodium bicarbonate IV push, calcium gluconate, insulin and D50 and emergent dialysis with vascath / End stage renal disease on dialysis Nephrology consulted, dialysis as per renal team, avoid nephrotoxic agents, strict I/O, daily weight, repeat bmp to monitor serum potassium / Diabetes type 2 with hyperglycemia s/p insulin drip overnight on 10/20 we cont ADA diet, insulin, accu check, hypoglycemia protocol off insulin drip now /left pleural effusion, from volume overload, should correct with HD, continue to monitor / HTN (hypertension) Now hypotensivem, cont to Hold norvasc / AV graft malfunction Vascular surgery consulted, s/p Vas-Cath for emergent dialysis s/p Left Arm AV Graft Thrombectomy and Revision 10/23 / Gastroparesis due to DM Frequent small meals, treat BG with insulin, anti emetic therapy prn, supportive care / DVT prophylaxis SCD to BLE while in bed, Disposition: need CICI per PT, d/c pending on placement Brief History: 48 YO Male with ESRD on HD(T,R,Sa) last dialyzed on , DM complicated by Gastroparesis, HTN, presents to ED for bleeding from his dialysis fistula and applied an occlusive dressing to stop the bleeding 3 days ago. Pt presented to his dialysis center for his scheduled session but was unable to undergo dialysis due to excessive bleeding secondary to clotted access. EMS notified, and transported to [facility]. Pt seen and evaluated in ED and found to have ESRD and Clotted dialysis access. Nephrology consulted in ED for dialysis. vascular surgery consulted in ED for surgical intervention. Following admission developed hyperglycemia, hyperkalemia and hypotension. Transferred to ICU for further monitoring, placed on levophed, insulin drip. Noted to have infected sacral wound with necrotic tissue. s/p vascath for emergent HD, started on abx, had debridement of wound at bedside by GS. Now off pressore, ID recommended to monitor off abx. s/p Left Arm AV Graft Thrombectomy and Revision 10/23. Plan to d/c CICI Radiological data: CXR: 1. Mild cardiomegaly with mild to moderate interstitial pulmonary edema and small left pleural effusion. Hospitalist Physical exam: GENERAL: well-developed and well-nourished AAM lying on bed appeared to be in no discomfort. HEENT: Normocephalic. Atraumatic. No conjunctival congestion or icterus. Patient has moist mucous membranes. NECK: Supple. Trachea midline. CHEST/LUNGS: Clear to auscultated bilaterally, breathing nonlabored. No wheezes crackles or rhonchi. HEART/CARDIOVASCULAR: Regular in rate and rhythm. S1 and S2 positive. ABDOMEN: Abdomen is soft, nontender. Patient has normal bowel sounds. SKIN: There is no rash. Warm and dry. NEURO: No focal motor deficit. Follows command. MUSCULOSKELETAL: b/l BKA EXTRIMITY: No edema, no cyanosis or clubbing. PSYCH: Cooperative. Subjective Date of service: 10/27/18 Principal diagnosis: Ac. hypoxemic resp failure; AV graft malfunction; Hypotension; JARVIS; ESRD Interval history: Patient seen and examined. Medical records and medication list reviewed. PT recommended CICI, d/c pending on placement Plan of care discussed at the bedside Objective - Constitutional Vitals: Vital Signs - 12hr 10/28/18 10/28/18 10/28/18 00:05 00:06 02:00 Temperature 98.6 F Pulse Rate 91 H 90 Respiratory 18 Rate Blood Pressure 111/48 O2 Sat by Pulse 93 Oximetry 10/28/18 10/28/18 10/28/18 02:10 04:38 04:39 Temperature 98.7 F Pulse Rate 85 Respiratory 20 20 Rate Blood Pressure 99/44 O2 Sat by Pulse 94 Oximetry 10/28/18 10/28/18 10/28/18 05:21 07:21 08:19 Temperature 99.2 F Pulse Rate 80 88 Respiratory 20 20 Rate Blood Pressure 137/52 O2 Sat by Pulse 91 Oximetry - Labs CBC & Chem 7: 10/27/18 06:50 10/27/18 06:50 Labs: Abnormal lab results 10/27/18 10/27/18 10/27/18 Range/Units 12:42 15:59 20:27 POC Glucose 402 H 312 H 215 H (70-105) 10/28/18 Range/Units 09:02 POC Glucose 60 L (70-105)
[2018-10-28 12:00] LABS: Calcium 7.9 mg/dL (8.4-10.2)
[2018-10-28] MEDS: ROXICODONE PO PRN ×2 (12:22→22:02)
[2018-10-28] MEDS: DAKIN'S HALF STRENGTH TP SCH ×2 (12:23→22:03)
--- NOTE | 2018-10-28 17:32 | Progress Note ---
Assessment and Plan Patient resting comfortably on room air. No complaints of shortness of breath, chest pain, or cough. Patient's O2 saturation 91 % on room air. Patient running a low grade temp. No leukocytosis. - Patient Problems (1) Pleural effusion, left Current Visit: Yes Status: Acute Plan to address problem: 1. Will get repeat CXR 2. U/S chest (2) AV graft malfunction Current Visit: Yes Status: Acute Qualifiers: Encounter type: initial encounter Qualified Code(s): T82.590A - Other mechanical complication of surgically created arteriovenous fistula, initial encounter Plan to address problem: Management as per primary and vascular surgery. (3) Congestive heart failure Current Visit: Yes Status: Acute Qualifiers: Heart failure type: combined systolic and diastolic Heart failure chronicity: acute on chronic Qualified Code(s): I50.43 - Acute on chronic combined systolic (congestive) and diastolic (congestive) heart failure Plan to address problem: Management as per primary and cardiology. (4) Diabetes Current Visit: Yes Status: Acute Plan to address problem: Management as per primary care. (5) End stage renal disease on dialysis Current Visit: Yes Status: Acute Plan to address problem: Management as per nephrology. (6) Pressure ulcer of sacral region, stage 4 Current Visit: Yes Status: Acute Plan to address problem: Management as per wound care and ID. Subjective Date of service: 10/28/18 Principal diagnosis: Ac. hypoxemic resp failure; AV graft malfunction; Hypotension; JARVIS; ESRD Interval history: Patient resting comfortably on room air. No complaints of shortness of breath, chest pain, or cough. Patient's O2 saturation 91 % on room air. Patient running a low grade temp. No leukocytosis. Objective Vital Signs - 12hr 10/28/18 10/28/18 07:21 08:19 Temperature 99.2 F Pulse Rate 88 Respiratory 20 20 Rate Blood Pressure 137/52 O2 Sat by Pulse 91 Oximetry Constitutional: no acute distress, alert, other (middle aged obese AAM, normocephalic and atraumatic with normal resp effort at rest) Eyes: non-icteric ENT: oropharynx moist, other (Mallampati 4) Neck: supple, no lymphadenopathy, no JVD, other (RIJ Trialysis catheter) Effort: normal Ascultation: Bilateral: rales (bases) Percussion: Bilateral: not dull Cardiovascular: regular rate and rhythm Gastrointestinal: normoactive bowel sounds, soft, non-tender, non-distended Integumentary: normal, decubitus ulcer, other (see wound care notes re Sacral decubitus ulcer) Extremities: no cyanosis, no edema, pulses normal, no ischemia or petechiae, other (bilateral BKA's, Left arm AV fistula for dialysis) Neurologic: normal mental status, non-focal exam, pupils equal and round, motor strength normal and Psychiatric: mood appropriate, affect normal CBC and BMP: 10/27/18 06:50 10/28/18 11:18 ABG, PT/INR, D-dimer: PT/INR, D-dimer PT 14.8 Sec. (12.2-14.9) 10/18/18 12:43 INR 1.19 (0.87-1.13) H 10/18/18 12:43 Abnormal lab findings: Abnormal Labs 10/18/18 10/18/18 10/18/18 12:43 12:43 12:43 WBC RBC 2.79 L Hgb 8.0 L Hct 25.9 L MCV MCHC 31 L RDW 21.8 H Howard % (Auto) 10.0 H Eos % (Auto) Howard # Eos # Seg Neutrophils % INR 1.19 H APTT 41.2 H Sodium Potassium Chloride Carbon Dioxide BUN 30 H Creatinine 4.6 H Glucose POC Glucose Hemoglobin A1c Calcium 7.8 L Phosphorus 5.10 H ALT Alkaline Phosphatase Albumin Crossmatch 10/19/18 10/19/18 10/19/18 15:05 15:05 15:05 WBC RBC 2.64 L Hgb 7.7 L Hct 26.1 L MCV 99 H MCHC 30 L RDW 22.3 H Howard % (Auto) 8.1 H Eos % (Auto) Howard # Eos # Seg Neutrophils % INR APTT Sodium 133 L Potassium 6.5 H* D Chloride 94.9 L Carbon Dioxide 16 L D BUN 48 H Creatinine 5.7 H Glucose 525 H* POC Glucose Hemoglobin A1c 7.2 H Calcium 7.6 L Phosphorus 7.00 H D ALT 6 L Alkaline Phosphatase 214 H Albumin 1.9 L Crossmatch 10/19/18 10/19/18 10/19/18 16:45 16:59 17:54 WBC RBC Hgb Hct MCV MCHC RDW Howard % (Auto) Eos % (Auto) Howard # Eos # Seg Neutrophils % INR APTT Sodium Potassium 6.8 H* Chloride Carbon Dioxide BUN Creatinine Glucose POC Glucose > 500 H > 500 H Hemoglobin A1c Calcium Phosphorus ALT Alkaline Phosphatase Albumin Crossmatch 10/19/18 10/19/18 10/19/18 17:58 19:00 19:30 WBC RBC Hgb Hct MCV MCHC RDW Howard % (Auto) Eos % (Auto) Howard # Eos # Seg Neutrophils % INR APTT Sodium Potassium Chloride Carbon Dioxide BUN Creatinine Glucose 564 H* POC Glucose > 500 H Hemoglobin A1c Calcium Phosphorus 7.10 H ALT Alkaline Phosphatase Albumin Crossmatch 10/19/18 10/19/18 10/19/18 20:30 21:17 22:14 WBC RBC Hgb Hct MCV MCHC RDW Howard % (Auto) Eos % (Auto) Howard # Eos # Seg Neutrophils % INR APTT Sodium Potassium Chloride Carbon Dioxide BUN Creatinine Glucose POC Glucose 467 H 483 H 411 H Hemoglobin A1c Calcium Phosphorus ALT Alkaline Phosphatase Albumin Crossmatch 10/19/18 10/20/18 10/20/18 23:14 00:14 01:22 WBC RBC Hgb Hct MCV MCHC RDW Howard % (Auto) Eos % (Auto) Howard # Eos # Seg Neutrophils % INR APTT Sodium Potassium Chloride Carbon Dioxide BUN Creatinine Glucose POC Glucose 382 H 290 H 292 H Hemoglobin A1c Calcium Phosphorus ALT Alkaline Phosphatase Albumin Crossmatch 10/20/18 10/20/18 10/20/18 02:05 03:08 04:09 WBC RBC Hgb Hct MCV MCHC RDW Howard % (Auto) Eos % (Auto) Howard # Eos # Seg Neutrophils % INR APTT Sodium Potassium Chloride Carbon Dioxide BUN Creatinine Glucose POC Glucose 260 H 216 H 235 H Hemoglobin A1c Calcium Phosphorus ALT Alkaline Phosphatase Albumin Crossmatch 10/20/18 10/20/18 10/20/18 05:10 06:02 06:54 WBC RBC Hgb Hct MCV MCHC RDW Howard % (Auto) Eos % (Auto) Howard # Eos # Seg Neutrophils % INR APTT Sodium 136 L Potassium 3.4 L D Chloride 77.7 L Carbon Dioxide 50 H* D BUN 34 H Creatinine 4.1 H Glucose 1171 H* POC Glucose 179 H 114 H Hemoglobin A1c Calcium 4.9 L* D Phosphorus ALT Alkaline Phosphatase Albumin Crossmatch 10/20/18 10/20/18 10/20/18 08:54 09:30 09:34 WBC RBC Hgb Hct MCV MCHC RDW Howard % (Auto) Eos % (Auto) Howard # Eos # Seg Neutrophils % INR APTT Sodium Potassium 5.3 H D Chloride Carbon Dioxide BUN 49 H Creatinine 6.4 H D Glucose 53 L POC Glucose 59 L 50 L Hemoglobin A1c Calcium 7.5 L D Phosphorus ALT Alkaline Phosphatase Albumin Crossmatch 10/20/18 10/20/18 10/20/18 11:55 12:24 15:54 WBC RBC Hgb Hct MCV MCHC RDW Howard % (Auto) Eos % (Auto) Howard # Eos # Seg Neutrophils % INR APTT Sodium Potassium 5.3 H Chloride Carbon Dioxide BUN 49 H Creatinine 6.4 H Glucose 108 H POC Glucose 108 H 234 H Hemoglobin A1c Calcium 7.4 L Phosphorus ALT Alkaline Phosphatase Albumin Crossmatch 10/20/18 10/20/18 10/20/18 19:25 19:58 21:32 WBC RBC Hgb Hct MCV MCHC RDW Howard % (Auto) Eos % (Auto) Howard # Eos # Seg Neutrophils % INR APTT Sodium Potassium Chloride 95.8 L Carbon Dioxide BUN 27 H Creatinine 4.0 H Glucose 266 H POC Glucose 272 H 242 H Hemoglobin A1c Calcium 7.4 L Phosphorus ALT Alkaline Phosphatase Albumin Crossmatch 10/21/18 10/21/18 10/21/18 04:45 08:37 11:44 WBC RBC Hgb Hct MCV MCHC RDW Howard % (Auto) Eos % (Auto) Howard # Eos # Seg Neutrophils % INR APTT Sodium Potassium Chloride 96.1 L Carbon Dioxide BUN 33 H Creatinine 4.3 H Glucose 118 H POC Glucose 203 H 216 H Hemoglobin A1c Calcium 7.3 L Phosphorus ALT Alkaline Phosphatase Albumin Crossmatch 10/21/18 10/21/18 10/21/18 14:34 16:17 21:24 WBC RBC 2.72 L Hgb 7.9 L Hct 25.7 L D MCV 95 H MCHC 31 L RDW 21.4 H Howard % (Auto) Eos % (Auto) Howard # Eos # Seg Neutrophils % INR APTT Sodium Potassium Chloride Carbon Dioxide BUN Creatinine Glucose POC Glucose 191 H 112 H Hemoglobin A1c Calcium Phosphorus ALT Alkaline Phosphatase Albumin Crossmatch 10/21/18 10/22/18 10/22/18 Unknown 04:26 04:26 WBC 11.4 H RBC 1.99 L 2.41 L Hgb 5.7 L* 7.1 L Hct 18.4 L* D 22.4 L MCV MCHC 31 L RDW 20.9 H 21.1 H Howard % (Auto) 11.3 H Eos % (Auto) 6.8 H Howard # 1.0 H Eos # 0.6 H Seg Neutrophils % INR APTT Sodium 135 L Potassium Chloride 96.1 L Carbon Dioxide BUN 38 H Creatinine 5.1 H Glucose 113 H POC Glucose Hemoglobin A1c Calcium 7.2 L Phosphorus ALT Alkaline Phosphatase Albumin Crossmatch 10/22/18 10/22/18 10/22/18 07:21 07:58 11:31 WBC RBC Hgb Hct MCV MCHC RDW Howard % (Auto) Eos % (Auto) Howard # Eos # Seg Neutrophils % INR APTT Sodium Potassium Chloride Carbon Dioxide BUN Creatinine Glucose POC Glucose 160 H 224 H Hemoglobin A1c Calcium Phosphorus ALT Alkaline Phosphatase Albumin Crossmatch See Detail 10/22/18 10/22/18 10/23/18 18:54 21:33 07:54 WBC RBC Hgb Hct MCV MCHC RDW Howard % (Auto) Eos % (Auto) Howard # Eos # Seg Neutrophils % INR APTT Sodium Potassium Chloride 97.3 L Carbon Dioxide BUN 30 H Creatinine 4.1 H Glucose 256 H POC Glucose 305 H 264 H Hemoglobin A1c Calcium 7.3 L Phosphorus ALT Alkaline Phosphatase Albumin Crossmatch 10/23/18 10/23/18 10/23/18 07:54 10:20 12:00 WBC RBC 2.22 L Hgb 6.4 L Hct 21.0 L MCV 95 H MCHC 31 L RDW 21.1 H Howard % (Auto) 8.1 H Eos % (Auto) Howard # Eos # Seg Neutrophils % 70.3 H INR APTT Sodium Potassium Chloride Carbon Dioxide BUN Creatinine Glucose POC Glucose 293 H 335 H Hemoglobin A1c Calcium Phosphorus ALT Alkaline Phosphatase Albumin Crossmatch 10/23/18 10/23/18 10/24/18 15:47 23:29 07:56 WBC RBC Hgb Hct MCV MCHC RDW Howard % (Auto) Eos % (Auto) Howard # Eos # Seg Neutrophils % INR APTT Sodium 135 L Potassium Chloride 95.6 L Carbon Dioxide BUN 38 H Creatinine 4.9 H Glucose 250 H POC Glucose 279 H 185 H Hemoglobin A1c Calcium 7.6 L Phosphorus ALT Alkaline Phosphatase Albumin Crossmatch 10/24/18 10/24/18 10/24/18 07:56 12:39 17:46 WBC RBC 2.84 L Hgb 8.3 L Hct 26.1 L MCV MCHC RDW 19.7 H Howard % (Auto) 11.3 H Eos % (Auto) Howard # 1.1 H Eos # Seg Neutrophils % INR APTT Sodium Potassium Chloride Carbon Dioxide BUN Creatinine Glucose POC Glucose 331 H 251 H Hemoglobin A1c Calcium Phosphorus ALT Alkaline Phosphatase Albumin Crossmatch 10/24/18 10/25/18 10/25/18 21:18 04:50 04:50 WBC RBC 2.93 L Hgb 8.7 L Hct 26.7 L MCV MCHC RDW 19.6 H Howard % (Auto) 10.4 H Eos % (Auto) Howard # 0.9 H Eos # Seg Neutrophils % INR APTT Sodium 136 L Potassium Chloride 95.0 L Carbon Dioxide BUN 32 H Creatinine 4.1 H Glucose 248 H POC Glucose 333 H Hemoglobin A1c Calcium 7.7 L Phosphorus ALT Alkaline Phosphatase Albumin Crossmatch 10/25/18 10/25/18 10/25/18 08:00 11:25 16:24 WBC RBC Hgb Hct MCV MCHC RDW Howard % (Auto) Eos % (Auto) Howard # Eos # Seg Neutrophils % INR APTT Sodium Potassium Chloride Carbon Dioxide BUN Creatinine Glucose POC Glucose 315 H 300 H 186 H Hemoglobin A1c Calcium Phosphorus ALT Alkaline Phosphatase Albumin Crossmatch 10/25/18 10/26/18 10/26/18 21:13 08:21 11:34 WBC RBC Hgb Hct MCV MCHC RDW Howard % (Auto) Eos % (Auto) Howard # Eos # Seg Neutrophils % INR APTT Sodium Potassium Chloride Carbon Dioxide BUN Creatinine Glucose POC Glucose 168 H 207 H 152 H Hemoglobin A1c Calcium Phosphorus ALT Alkaline Phosphatase Albumin Crossmatch 10/26/18 10/26/18 10/26/18 12:30 16:49 22:15 WBC RBC Hgb Hct MCV MCHC RDW Howard % (Auto) Eos % (Auto) Howard # Eos # Seg Neutrophils % INR APTT Sodium Potassium Chloride Carbon Dioxide BUN 38 H Creatinine 4.4 H Glucose 117 H POC Glucose 120 H 311 H Hemoglobin A1c Calcium 6.8 L Phosphorus ALT Alkaline Phosphatase Albumin Crossmatch 10/27/18 10/27/18 10/27/18 06:50 06:50 08:18 WBC RBC 2.89 L Hgb 8.7 L Hct 27.2 L MCV MCHC RDW 19.5 H Howard % (Auto) 11.6 H Eos % (Auto) Howard # 1.0 H Eos # Seg Neutrophils % INR APTT Sodium 133 L Potassium 5.1 H D Chloride 92.7 L Carbon Dioxide BUN 52 H Creatinine 6.1 H Glucose 367 H POC Glucose 397 H Hemoglobin A1c Calcium 7.6 L Phosphorus ALT Alkaline Phosphatase Albumin Crossmatch 10/27/18 10/27/18 10/27/18 12:42 15:59 20:27 WBC RBC Hgb Hct MCV MCHC RDW Howard % (Auto) Eos % (Auto) Howard # Eos # Seg Neutrophils % INR APTT Sodium Potassium Chloride Carbon Dioxide BUN Creatinine Glucose POC Glucose 402 H 312 H 215 H Hemoglobin A1c Calcium Phosphorus ALT Alkaline Phosphatase Albumin Crossmatch 10/28/18 10/28/18 10/28/18 09:02 11:18 12:32 WBC RBC Hgb Hct MCV MCHC RDW Howard % (Auto) Eos % (Auto) Howard # Eos # Seg Neutrophils % INR APTT Sodium Potassium Chloride 97.9 L Carbon Dioxide BUN 36 H Creatinine 5.2 H Glucose 106 H POC Glucose 60 L 121 H Hemoglobin A1c Calcium 7.9 L Phosphorus ALT Alkaline Phosphatase Albumin Crossmatch 10/28/18 16:16 WBC RBC Hgb Hct MCV MCHC RDW Howard % (Auto) Eos % (Auto) Howard # Eos # Seg Neutrophils % INR APTT Sodium Potassium Chloride Carbon Dioxide BUN Creatinine Glucose POC Glucose 177 H Hemoglobin A1c Calcium Phosphorus ALT Alkaline Phosphatase Albumin Crossmatch Chest x-ray: report reviewed, image reviewed Additional Studies: CXR 10/18/18 IMPRESSION: 1. Mild cardiomegaly with mild to moderate interstitial pulmonary edema and small left pleural effusion. Allied health notes reviewed: nursing
--- NOTE | 2018-10-29 09:59 | XRay Report ---
CHEST 1 VIEW INDICATION: pleural effusion. COMPARISON: 10/18/2018 FINDINGS: Support devices: None. Heart: Mild cardiomegaly has resolved. Heart size is within normal limits. Lungs/Pleura: Bilateral pulmonary venous congestion has also resolved. A trace left pleural effusion remains although it has decreased since the previous exam. The lungs are generally clear otherwise. N o pneumothorax. Additional findings: None. IMPRESSION: Near resolution of CHF/volume overload since 10/18/2018. Trace left pleural effusion persists. Signer Name: Zachary Weaver Jr, MD Signed: 10/29/2018 9:54 AM Workstation Name: [id number]
--- NOTE | 2018-10-29 10:46 | Progress Note ---
Assessment and Plan ESRD on Hemodialysis: -Hemodialysis today for UF and clearance -S/P Left AVG thrombectomy with revision on 10/22/2018 -Fluid restriction of 1 liter per day -Obtain daily weights -Renally dose all medications -Monitor I/O's -Assess dialysis needs daily -Undergoes outpatient HD at [facility] every TTS Anemia of CKD: -Increase Epogen to 20,000 units with HD -Transfuse prn if HGB<7.0 -Monitor H/H Sacral Ulcer: -S/P Debridement of sacral pressure ulcer on 10/23/[address] Tamayo Essential Hypertension: Now with Hypotension -Monitor blood pressures -On Midodrine for blood pressure support Diabetes mellitus 2 on insulin: -On insulin -As per primary team Subjective Date of service: 10/29/18 Principal diagnosis: Ac. hypoxemic resp failure; AV graft malfunction; Hypotension; JARVIS; ESRD Interval history: Patient seen lying in bed. Asked if he is going home today. Objective - Vital Signs Vital signs: Vital Signs - 12hr 10/29/18 10/29/18 10/29/18 00:08 05:03 08:34 Temperature 98.0 F 98.2 F 98.4 F Pulse Rate 84 88 90 Respiratory 18 18 16 Rate Blood Pressure 142/68 126/58 135/64 O2 Sat by Pulse 86 90 93 Oximetry - General Appearance General appearance: well-developed, appears stated age EENT: ATNC, PERRL, hearing intact, vision intact Neck: no JVD, supple Respiratory: Present: Decreased Breath Sounds Cardiology: regular, S1S2 Gastrointestinal: normoactive bowel sounds Integumentary: warm and dry Neurologic: alert and oriented x3 Musculoskeletal: other (Bilateral BKA) - Lab 10/27/18 06:50 10/28/18 11:18 Most recent lab results Calcium 7.9 mg/dL (8.4-10.2) L 10/28/18 11:18 Phosphorus 7.10 mg/dL (2.5-4.5) H 10/19/18 19:00 Magnesium 2.00 mg/dL (1.7-2.3) 10/19/18 19:00 Medications & Allergies - Medications Allergies/Adverse Reactions: Allergies cephalexin [From Keflex] Allergy (Verified 02/23/17 19:02) Vomiting vancomycin Allergy (Verified 06/16/18 06:34) Rash Home Medications: Home Medications Medication Instructions Recorded Confirmed Last Taken Type amLODIPine [Norvasc] 5 mg PO DAILY 07/19/13 10/18/18 06/15/18 History Calcium Acetate [Phoslo] 667 mg PO TIDAC 06/16/18 10/18/18 06/15/18 History Cetirizine HCl [ZyrTEC 10mg cap] 10 mg PO QDAY 06/16/18 10/18/18 06/15/18 History Gabapentin [Neurontin] 100 mg PO BID 06/16/18 10/18/18 06/15/18 History Insulin NPH/Regular [NovoLIN 70/30] 10 units SQ QPM 06/16/18 10/18/18 06/15/18 History Insulin NPH/Regular [NovoLIN 70/30] 15 units SQ QAM 06/16/18 10/18/18 06/15/18 History Oxycodone HCl [oxyCODONE] 10 mg PO Q8HR PRN #7 tablet 10/25/18 Unknown Rx Active Medications: Generic Name Dose Route Start Last Admin Trade Name Freq PRN Reason Stop Dose Admin Acetaminophen 650 mg 10/18/18 14:31 10/23/18 23:32 Tylenol PO 650 mg Q4H PRN Administration Pain MILD(1-3)/Fever >100.5/OSBORN Albuterol 2.5 mg 10/18/18 14:31 Proventil IH Q4HRT PRN Shortness Of Breath Calcium Acetate 667 mg 10/18/18 16:30 10/28/18 17:10 Phoslo PO Not Given TIDAC DAFNE Dextrose 0 ml 10/19/18 18:51 10/20/18 09:33 D50w (25gm) Syringe IV 20 ml PRN PRN Administration Hypoglycemia Epoetin Bryson 20,000 unit 10/27/18 17:00 10/27/18 17:06 Procrit SUB-Q 20,000 unit SHUN DAFNE Administration Famotidine 20 mg 10/20/18 14:00 10/28/18 09:06 Pepcid PO 20 mg DAILY DAFNE Administration Gabapentin 100 mg 10/18/18 22:00 10/28/18 22:01 Neurontin PO 100 mg BID DAFNE Administration Heparin Sodium (Porcine) 5,000 unit 10/19/18 22:00 10/28/18 22:03 Heparin SUB-Q 5,000 unit Q12HR DAFNE Administration Insulin Human NPH 15 unit 10/21/18 17:00 10/28/18 17:09 Humulin N SUB-Q 15 unit BIDDIAB DAFNE Administration Insulin Human Regular 0 units 10/20/18 16:30 10/28/18 22:04 Humulin R SUB-Q Not Given ACHS [facility] Protocol Loratadine 10 mg 10/19/18 10:00 10/28/18 09:05 Claritin PO 10 mg DAILY DAFNE Administration Midodrine 10 mg 10/21/18 16:00 10/28/18 15:30 Proamatine PO 10 mg TID@0800,1200,1600 DAFNE Administration Morphine Sulfate 1 mg 10/20/18 16:37 10/28/18 07:21 Morphine IV 1 mg Q4H PRN Administration Pain, Moderate (4-6) Ondansetron HCl 4 mg 10/18/18 14:31 Zofran IV Q8H PRN Nausea And Vomiting Oxycodone HCl 10 mg 10/18/18 14:36 10/28/18 22:02 Roxicodone PO 10 mg Q8H PRN Administration Pain, Moderate (4-6) Sodium Chloride 10 ml 10/18/18 22:00 10/28/18 22:04 Sodium Chloride Flush Syringe 10 Ml IV 10 ml BID DAFNE Administration Sodium Chloride 10 ml 10/18/18 14:31 10/23/18 04:25 Sodium Chloride Flush Syringe 10 Ml IV 10 ml PRN PRN Administration LINE FLUSH Sodium Hypochlorite 1 applic 10/21/18 11:00 10/28/18 22:03 Dakin's Half Strength TP 1 applicatio BID DAFNE Administration
--- NOTE | 2018-10-29 11:11 | Progress Note ---
Assessment and Plan /Anemia with hb 6.;4 - likely anemia of CD with acute drop - s/p 1 unit PRBC transfusion- H/H stable - no evidence of active bleeding /Chronic sacral stage 4 decubitus ulcer with acute infection and possible sepsis, likely POA Had very subtle presentation on admission - no fever, no white count, but then developed hypotension following admission wound care consulted - 1st evaluation on 10/21/18, preliminary cx was negative but now growing staph aureus and gm -ve rods - s/p clindamycin, ID consulted for abx recommendation - s/p bedside beridement by dr Tamayo - per ID no abx needed after debridement /Hypotension - due to septic shock, resolved s/p bicarbonate drip, s/p levophed negative blood culture, wound cultures growing staph and gm -ve rods - will monitor off abx per ID as had debridement preserved EF on 2d echo, off pressor, Placed on midodrine, /Severe hyperkalemia, resolved s/p bicarbonate drip Status post Kayexalate, sodium bicarbonate IV push, calcium gluconate, insulin and D50 and emergent dialysis with vascath / End stage renal disease on dialysis Nephrology consulted, dialysis as per renal team, avoid nephrotoxic agents, strict I/O, daily weight, repeat bmp to monitor serum potassium / Diabetes type 2 with hyperglycemia s/p insulin drip overnight on 10/20 we cont ADA diet, insulin, accu check, hypoglycemia protocol off insulin drip now /left pleural effusion, from volume overload, should correct with HD, continue to monitor / HTN (hypertension) Now hypotensivem, cont to Hold norvasc / AV graft malfunction Vascular surgery consulted, s/p Vas-Cath for emergent dialysis s/p Left Arm AV Graft Thrombectomy and Revision 10/23 / Gastroparesis due to DM Frequent small meals, treat BG with insulin, anti emetic therapy prn, supportive care / DVT prophylaxis SCD to BLE while in bed, Disposition: need CICI per PT, d/c pending on placement Brief History: 48 YO Male with ESRD on HD(T,R,Sa) last dialyzed on , DM complicated by Gastroparesis, HTN, presents to ED for bleeding from his dialysis fistula and applied an occlusive dressing to stop the bleeding 3 days ago. Pt presented to his dialysis center for his scheduled session but was unable to undergo dialysis due to excessive bleeding secondary to clotted access. EMS notified, and transported to [facility]. Pt seen and evaluated in ED and found to have ESRD and Clotted dialysis access. Nephrology consulted in ED for dialysis. vascular surgery consulted in ED for surgical intervention. Following admission developed hyperglycemia, hyperkalemia and hypotension. Transferred to ICU for further monitoring, placed on levophed, insulin drip. Noted to have infected sacral wound with necrotic tissue. s/p vascath for emergent HD, started on abx, had debridement of wound at bedside by GS. Now off pressore, ID recommended to monitor off abx. s/p Left Arm AV Graft Thrombectomy and Revision 10/23. Plan to d/c CICI Radiological data: CXR: 1. Mild cardiomegaly with mild to moderate interstitial pulmonary edema and small left pleural effusion. Hospitalist Physical exam: GENERAL: well-developed and well-nourished AAM lying on bed appeared to be in no discomfort. HEENT: Normocephalic. Atraumatic. No conjunctival congestion or icterus. Patient has moist mucous membranes. NECK: Supple. Trachea midline. CHEST/LUNGS: Clear to auscultated bilaterally, breathing nonlabored. No wheezes crackles or rhonchi. HEART/CARDIOVASCULAR: Regular in rate and rhythm. S1 and S2 positive. ABDOMEN: Abdomen is soft, nontender. Patient has normal bowel sounds. SKIN: There is no rash. Warm and dry. NEURO: No focal motor deficit. Follows command. MUSCULOSKELETAL: b/l BKA EXTRIMITY: No edema, no cyanosis or clubbing. PSYCH: Cooperative. Subjective Date of service: 10/28/18 Principal diagnosis: Ac. hypoxemic resp failure; AV graft malfunction; Hypotension; JARVIS; ESRD Interval history: Patient seen and examined. Medical records and medication list reviewed. PT recommended CICI, d/c pending on placement Plan of care discussed at the bedside Objective - Constitutional Vitals: Vital Signs - 12hr 10/29/18 10/29/18 10/29/18 00:08 05:03 08:34 Temperature 98.0 F 98.2 F 98.4 F Pulse Rate 84 88 90 Respiratory 18 18 16 Rate Blood Pressure 142/68 126/58 135/64 O2 Sat by Pulse 86 90 93 Oximetry - Labs CBC & Chem 7: 10/27/18 06:50 10/28/18 11:18 Labs: Abnormal lab results 10/28/18 10/28/18 10/28/18 Range/Units 11:18 12:32 16:16 Chloride 97.9 L (98-107) mmol/L BUN 36 H (9-20) mg/dL Creatinine 5.2 H (0.8-1.5) mg/dL Glucose 106 H (75-100) mg/dL POC Glucose 121 H 177 H (70-105) Calcium 7.9 L (8.4-10.2) mg/dL 10/29/18 Range/Units 08:43 Chloride (98-107) mmol/L BUN (9-20) mg/dL Creatinine (0.8-1.5) mg/dL Glucose (75-100) mg/dL POC Glucose 311 H (70-105) Calcium (8.4-10.2) mg/dL
[2018-10-29 13:50] VITALS: BP 132/70
[2018-10-29] MEDS: HumuLIN R SUB-Q SCH (14:44)
[2018-10-29] MEDS: DAKIN'S HALF STRENGTH TP SCH (14:45)
[2018-10-29] MEDS: HEPARIN SUB-Q SCH (14:45)
[2018-10-29] MEDS: CLARITIN PO SCH (14:45)
[2018-10-29] MEDS: NEURONTIN PO SCH (14:45)
[2018-10-29] MEDS: PROAMATINE PO SCH (14:45)
[2018-10-29] MEDS: PHOSLO PO SCH (14:45)
[2018-10-29] MEDS: ROXICODONE PO PRN (14:46)
[2018-10-29] MEDS: SODIUM CHLORIDE FLUSH SYRINGE 10 ML IV SCH (14:46)
[2018-10-29] MEDS: PEPCID PO SCH (14:46)
== END 2018-10-29 16:35 | disposition home health service (06) | DRG 853 ==
LOC: ED 12:12 → 3A 14:31 → CC1 10-19 20:31 → 4A 10-22 14:11
PROVIDERS: ADMIT Internal Medicine; ATTEND Internal Medicine
PROC: 5A1D70Z Performance of Urinary Filtration, Intermittent, Less than 6 Hours Per Day (ICD-10-PCS; 2018-10-20)
PROC: 02HV33Z Insertion of Infusion Device into Superior Vena Cava, Percutaneous Approach (ICD-10-PCS; 2018-10-20)
PROC: B548ZZA Ultrasonography of Superior Vena Cava, Guidance (ICD-10-PCS; 2018-10-20)
PROC: 03WY0JZ Revision of Synthetic Substitute in Upper Artery, Open Approach (ICD-10-PCS; principal; 2018-10-22)
PROC: 5A1D70Z Performance of Urinary Filtration, Intermittent, Less than 6 Hours Per Day (ICD-10-PCS; 2018-10-22)
PROC: 0JB70ZZ Excision of Back Subcutaneous Tissue and Fascia, Open Approach (ICD-10-PCS; 2018-10-23)
PROC: 30233N1 Transfusion of Nonautologous Red Blood Cells into Peripheral Vein, Percutaneous Approach (ICD-10-PCS; 2018-10-23)
PROC: 5A1D70Z Performance of Urinary Filtration, Intermittent, Less than 6 Hours Per Day (ICD-10-PCS; 2018-10-24)
PROC: 5A1D70Z Performance of Urinary Filtration, Intermittent, Less than 6 Hours Per Day (ICD-10-PCS; 2018-10-27)
PROC: 5A1D70Z Performance of Urinary Filtration, Intermittent, Less than 6 Hours Per Day (ICD-10-PCS; 2018-10-29)
DX: A41.9 Sepsis, unspecified organism (principal); L89.154 Pressure ulcer of sacral region, stage 4; N18.6 End stage renal disease; J96.01 Acute respiratory failure with hypoxia; R65.21 Severe sepsis with septic shock; I50.43 Acute on chronic combined systolic (congestive) and diastolic (congestive) heart failure; T82.868A Thrombosis due to vascular prosthetic devices, implants and grafts, initial encounter; T82.510A Breakdown (mechanical) of surgically created arteriovenous fistula, initial encounter; I13.2 Hypertensive heart and chronic kidney disease with heart failure and with stage 5 chronic kidney disease, or end stage renal disease; D62 Acute posthemorrhagic anemia; E11.43 Type 2 diabetes mellitus with diabetic autonomic (poly)neuropathy; K31.84 Gastroparesis; E11.22 Type 2 diabetes mellitus with diabetic chronic kidney disease; E11.65 Type 2 diabetes mellitus with hyperglycemia; E87.5 Hyperkalemia; E66.9 Obesity, unspecified; D63.1 Anemia in chronic kidney disease; Y83.8 Other surgical procedures as the cause of abnormal reaction of the patient, or of later complication, without mention of misadventure at the time of the procedure; Y92.89 Other specified places as the place of occurrence of the external cause; Z79.4 Long term (current) use of insulin; Z88.1 Allergy status to other antibiotic agents; Z68.38 Body mass index [BMI] 38.0-38.9, adult; Z89.512 Acquired absence of left leg below knee; Z89.511 Acquired absence of right leg below knee
CPT/HCPCS: 36415; 36556; 71045; 80048; 80053; 80074; 82947; 82962; 83036; 83735; 84100; 84132; 85025; 85027; 85610; 85730; 86850; 86900; 86901; 86920; 87040; 87076; 87116; 87186; 93005; 93010; 93306; G0378; A4649; A6260; C1752; C1757; C1768; J0885; J1170; J1644; J1815; J2250; J2270; J2405; J2704; J2720; J3010; J3246; J7030; J7040; J7050; J7070; P9016